=== PATIENT | male | born 1985 | race Caucasian/White ===

== ENCOUNTER 2017-01-29 15:57 | Emergency (ER) | payer MEDICAID, OTHER ==
[2017-01-29 16:06] VITALS: BP 149/99
--- NOTE | 2017-01-29 17:15 | RAD ---
Indication: Right ankle injury. 3 views of the right ankle demonstrate soft tissue swelling laterally. There is no fracture or dislocation. No other bone or joint abnormality is identified. IMPRESSION: Soft tissue swelling without evidence of fracture.
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
[2017-01-29] MEDS ORDERED: Ibuprofen TAB* 400 MG PO ONE (17:31)
== END 2017-01-29 17:56 | disposition home or self-care (01) ==
LOC: ED 15:57
DX: S93.401A Sprain of unspecified ligament of right ankle, initial encounter (principal); R60.0 Localized edema; V19.9XXA Pedal cyclist (driver) (passenger) injured in unspecified traffic accident, initial encounter; Y93.9 Activity, unspecified; Y92.9 Unspecified place or not applicable; Y99.9 Unspecified external cause status; F17.210 Nicotine dependence, cigarettes, uncomplicated
CPT/HCPCS: 99282; A9270-GY

== ENCOUNTER 2017-11-23 19:06 | Emergency (ER) | payer OTHER ==
--- NOTE | 2017-11-23 20:07 | RAD ---
INDICATION: Right hand injury. TECHNIQUE: 4 views of the right hand were obtained. FINDINGS: There is foreshortening and deformity of the fifth metacarpal consistent with an old boxer's type fracture. There is soft tissue swelling present dorsal to the fourth and fifth metacarpals. No acute fracture is seen. IMPRESSION: 1. SOFT TISSUE SWELLING, NO ACUTE FRACTURE IS SEEN. 2. OLD HEALED FRACTURE OF THE FIFTH METACARPAL.
--- NOTE | 2017-11-23 20:24 | ED ---
Upper Extremity Pain - HPI Summary HPI Summary: 32-year-old male presents with right hand injury today. He states he punched a metal door. He states his previous boxer fractures in the same area. He states tenderness over his right pinky and ring finger. He denies any numbness or tingling. He is right-handed. 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 He states he drunk alcohol to deal with the pain. He denies any wrist pain. He denies any other injury. He hasn't taken any pain medication. He has a small laceration to his right index finger that does not want to be evaluated. His tetanus is up -to-date. He states he has no pain currently. - History of Current Complaint Chief Complaint: EDExtremityUpper Stated Complaint: RT HAND INJURY Time Seen by Provider: 11/23/17 19:35 - Allergies/Home Medications Allergies/Adverse Reactions: Allergies Allergy/AdvReac Type Severity Reaction Status Date / Time codeine AdvReac Mild Nausea Verified 11/23/17 19:26 PMH/Surg Hx/FS Hx/Imm Hx Endocrine/Hematology History: Denies: Hx Anticoagulant Therapy Cardiovascular History: Reports: Hx Hypertension Infectious Disease History: No Infectious Disease History: Denies: Traveled Outside the [place] in Last 30 Days - Family History Known Family History: Positive: None - Social History Alcohol Use: Daily Substance Use Type: Reports: Marijuana Substance Use Comment - Amount & Last Used: Daily Smoking Status (MU): Heavy Every Day Tobacco Smoker Review of Systems Negative: Fever Negative: Chest Pain Negative: Shortness Of Breath Positive: Myalgia - right hand pain All Other Systems Reviewed And Are Negative: Yes Physical Exam Triage Information Reviewed: Yes Vital Signs On Initial Exam: Initial Vitals Temp Pulse Resp BP Pulse Ox 97.0 F 125 16 143/109 100 11/23/17 19:22 11/23/17 19:22 11/23/17 19:22 11/23/17 19:22 11/23/17 19:22 Vital Signs Reviewed: Yes Appearance: Positive: Well-Appearing Skin: Positive: Warm, Dry, Other - bandaide on right index finger Head/Face: Positive: Normal Head/Face Inspection Eyes: Positive: Normal, Conjunctiva Clear Respiratory/Lung Sounds: Positive: Clear to Auscultation, Breath Sounds Present Cardiovascular: Positive: Normal, RRR Musculoskeletal: Positive: Strength/ROM Intact - right hand, Edema Right - pinky and ring metacarpel, Other - good pulses, capillary refill<2 secs, sensation grossly intact Neurological: Positive: Normal Psychiatric: Positive: Normal Diagnostics - Vital Signs Vital Signs Temp Pulse Resp BP Pulse Ox 11/23/17 19:22 97.0 F 125 16 143/109 100 - Laboratory Lab Statement: Any lab studies that have been ordered have been reviewed, and results considered in the medical decision making process. - Radiology hand Xray Interpretation: Positive (See Comments) - IMPRESSION: 1. SOFT TISSUE SWELLING, NO ACUTE FRACTURE IS SEEN. 2. OLD HEALED FRACTURE OF THE FIFTH METACARPAL. Radiology Interpretation Completed By: Radiologist Course/Dx - Course Course Of Treatment: 32-year-old male presents with right hand injury today. He states he punched a metal door. He states his previous boxer fractures in the same area. He states tenderness over his right pinky and ring finger. He denies any numbness or tingling. He is right-handed. He is a ifmr-bq-qzva dad. He states he drunk alcohol to deal with the pain. He denies any wrist pain. He denies any other injury. He hasn't taken any pain medication. He has a small laceration to his right index finger that does not want to be evaluated. His tetanus is up-to-date. On exam has Band-Aid to right index finger that does not want treatment. Has edema to right pinky and ring finger. Neurovascular intact. X-ray shows edema but no acute fracture. Placed in [place] and will have follow RICE. Patient understands and agrees with plan. - Diagnoses Differential Diagnosis/HQI/PQRI: Positive: Fracture (Closed), Strain, Sprain Provider Diagnoses: Injury of right hand Discharge - Discharge Plan Condition: Good Disposition: HOME Patient Education Materials: Contusion in Adults (ED) Referrals: [facility] [place] [facility] [Outside] Additional Instructions: Take Tylenol or ibuprofen every 6 hours as needed for pain Apply ice, rest, elevate Follow up with primary care physician within 5 days Return to ED if develop any new or worsening symptoms
[2017-11-23 20:45] VITALS: BP 117/82
== END 2017-11-23 20:44 | disposition home or self-care (01) ==
LOC: ED 19:06
DX: S69.91XA Unspecified injury of right wrist, hand and finger(s), initial encounter (principal); W22.8XXA Striking against or struck by other objects, initial encounter; Y92.9 Unspecified place or not applicable; F17.200 Nicotine dependence, unspecified, uncomplicated; Z88.5 Allergy status to narcotic agent
CPT/HCPCS: 99282

== ENCOUNTER 2017-12-27 12:28 | Emergency (ER) | payer OTHER ==
[2017-12-27 13:11] VITALS: BP 128/87
--- NOTE | 2017-12-27 14:41 | UC ---
Respiratory Complaint HPI - HPI Summary HPI Summary: Pt c/o cough, nasal and chest congestion "chest tightening" X 1 week. Pt has hx of cardiomyopathy, chf, and has implanted defibrillator - History of Current Complaint Chief Complaint: UCRespiratory Stated Complaint: CONGESTION Time Seen by Provider: 12/27/17 14:10 Hx Obtained From: Patient Onset/Duration: Gradual Onset, Lasting Weeks - 1, Still Present, Worse Since - onset Timing: Constant Severity Initially: Mild Severity Currently: Moderate Pain Intensity: 0 Character: Cough: Nonproductive Aggravating Factors: Exertion, Deep Breaths, Recumbent Position Alleviating Factors: Nothing Associated Signs And Symptoms: Positive: Nasal Congestion - Risk Factors Pulmonary Embolism Risk Factors: Smoking Cardiac Risk Factors: Smoking Pseudomonas Risk Factors: Negative Tuberculosis Risk Factors: Smoking - Allergies/Home Medications Allergies/Adverse Reactions: Allergies Allergy/AdvReac Type Severity Reaction Status Date / Time codeine AdvReac Mild Nausea Verified 12/27/17 13:11 Home Medications: Home Medications Lisinopril TAB* [Prinivil TAB 5 MG*] 2.5 mg PO DAILY 12/27/17 [History Confirmed 12/27/17] Pantoprazole Sodium [Protonix] 20 mg PO DAILY 12/27/17 [History Confirmed ] PMH/Surg Hx/FS Hx/Imm Hx Previously Healthy: No - chf, cardiomyopathy Cardiovascular History: Cardiac Disease Other History Of: Negative For: Anticoagulant Therapy - Surgical History Surgical History: Yes Surgery Procedure, Year, and Place: defibrilator - Family History Known Family History: Positive: Cardiac Disease - Social History Lives: With Family Alcohol Use: Daily Alcohol Amount: 6 pack Substance Use Type: Marijuana Substance Use Comment - Amount & Last Used: Daily Smoking Status (MU): Light Every Day Tobacco Smoker Amount Used/How Often: 4-5 sig/day Have You Smoked in the Last Year: Yes Review of Systems Constitutional: Chills, Fatigue Skin: Negative Eyes: Negative ENT: Sinus Congestion Respiratory: Cough Cardiovascular: Negative Gastrointestinal: Negative Genitourinary: Negative Motor: Negative Neurovascular: Negative Musculoskeletal: Negative Neurological: Negative Psychological: Negative Is Patient Immunocompromised?: No All Other Systems Reviewed And Are Negative: Yes Physical Exam Triage Information Reviewed: Yes Appearance: Well-Appearing Vital Signs: Initial Vital Signs Temp 98.6 F 12/27/17 13:05 Pulse 112 12/27/17 13:05 Resp 16 12/27/17 13:05 BP 128/87 12/27/17 13:05 Pulse Ox 98 12/27/17 13:05 Vital Signs Reviewed: Yes Eye Exam: Normal ENT Exam: Normal Neck exam: Normal Respiratory Exam: Normal Cardiovascular Exam: Normal Cardiovascular: Positive: RRR Musculoskeletal Exam: Normal Neurological Exam: Normal Psychological Exam: Normal Skin Exam: Normal UC Diagnostic Evaluation - Laboratory O2 Sat by Pulse Oximetry: 98 Diagnostic Studies Comment: There is a left upper chest cardiac pacemaker with one lead overlying the heart and place. The heart and mediastinum are normal in size and contour. The lungs are grossly clear. Linear density overlying the mid-level right lung is likely a. small amount of fluid in the minor fissure. Visualized bones are normal for the patient's age. There is no radiographic evidence of free air beneath the diaphragm. IMPRESSION: LIKELY TRACE FLUID IN THE MINOR FISSURE OF THE RIGHT LUNG IN THIS OTHERWISE NONACUTE CHEST - Radiology Radiology Interpretation Completed By: Radiologist Respiratory Course/Dx - Course Course Of Treatment: There is a left upper chest cardiac pacemaker with one lead overlying the heart and place. The heart and mediastinum are normal in size and contour. The lungs are grossly clear. Linear density overlying the mid -level right lung is likely a. small amount of fluid in the minor fissure. Visualized bones are normal for the patient's age. There is no radiographic evidence of free air beneath the diaphragm. IMPRESSION: LIKELY TRACE FLUID IN THE MINOR FISSURE OF THE RIGHT LUNG IN THIS OTHERWISE NONACUTE CHEST - Differential Dx/Diagnosis Differential Diagnosis/HQI/PQRI: Bronchitis Provider Diagnoses: pneumonia Discharge - Sign-Out/Discharge Documenting (check all that apply): Discharge - Discharge Plan Condition: Stable Disposition: HOME Prescriptions: Albuterol 2.5MG/3ML (0.083%)* [Ventolin 2.5 MG/3 ML NEB.DANIEL*] 2.5 mg INH Q6H PRN #1 box PRN Reason: Sob/Wheezing Benzonatate CAP* [Tessalon 100 MG CAP*] 100 mg PO Q8H PRN #30 cap PRN Reason: Cough DOXYcycline CAP(*) [DOXYcycline 100MG CAP(*)] 100 mg PO Q12H #20 cap Nebulizer Accessories [A.i.r.s. Nebulizer] 1 each ONCE #1 kit predniSONE TAB* [Deltasone TAB*] 30 mg PO DAILY #12 tab Patient Education Materials: Pneumonia (ED) Referrals: Santiago Galvan MD [Medical Doctor] - No Primary Care Phys,NOPCP [Primary Care Provider] - Yasemin Curiel MD [Medical Doctor] - Additional Instructions: Please follow up with your PCP and your social media strategist as soon as possible. IMPRESSION: LIKELY TRACE FLUID IN THE MINOR FISSURE OF THE RIGHT LUNG IN THIS OTHERWISE NONACUTE CHEST X-RAY. - Billing Disposition and Condition Condition: STABLE Disposition: HOME
--- NOTE | 2017-12-27 14:50 | RAD ---
INDICATION: Shortness of breath and cough COMPARISON: None TECHNIQUE: PA and lateral views of the chest were obtained. FINDINGS: There is a left upper chest cardiac pacemaker with one lead overlying the heart and place. The heart and mediastinum are normal in size and contour. The lungs are grossly clear. Linear density overlying the mid-level right lung is likely a small amount of fluid in the minor fissure. Visualized bones are normal for the patient's age. There is no radiographic evidence of free air beneath the diaphragm IMPRESSION: LIKELY TRACE FLUID IN THE MINOR FISSURE OF THE RIGHT LUNG IN THIS OTHERWISE NONACUTE CHEST X-RAY.
== END 2017-12-27 15:30 | disposition home or self-care (01) ==
LOC: UCEAST 12:28
DX: J18.9 Pneumonia, unspecified organism (principal); R09.81 Nasal congestion; I42.9 Cardiomyopathy, unspecified; I50.9 Heart failure, unspecified; Z95.810 Presence of automatic (implantable) cardiac defibrillator; Z88.5 Allergy status to narcotic agent; F17.210 Nicotine dependence, cigarettes, uncomplicated
CPT/HCPCS: 71046; 99212; G0463

== ENCOUNTER 2018-01-11 14:03 | Observation (INO) | payer OTHER ==
[2018-01-11] MEDS ORDERED: Diltiazem IV* 5 MG/ML 5 ML VIAL (for loading dose/IV Push) (25 MG) IV SLOW PU ONE (14:53)
[2018-01-11 15:02] LABS: ABS Basophils 0 10^3/ul (0-0.2); ABS Eosinophils 0 10^3/ul (0-0.6); ABS Lymphocytes 1.1 10^3/ul (1.0-4.8); ABS Monocytes 0.6 10^3/ul (0-0.8); ABS Neutrophils 5.5 10^3/ul (1.5-7.7); ABS Nucleated RBC 0 10^3/ul; Eosinophil % 0.3 % (0-6); Hematocrit 43 % (42-52); Hemoglobin 14.9 g/dl (14.0-18.0); Lymphocyte % 15.3 % (25-47); Mean Corpuscular HGB Conc 35 g/dl (31-36); Mean Corpuscular Hemoglobin 36 pg (27-31); Mean Corpuscular Volume 104 fL (80-94); Mean Platelet Volume 7.2 um3 (7.4-10.4); Nucleated Red Blood Cells % 0; Platelet Count 195 10^3/ul (150-450); Red Blood Count 4.13 10^6/ul (4.0-5.4); Red Cell Distribution Width 13 % (10.5-15); White Blood Count 7.2 10^3/ul (3.5-10.8)
[2018-01-11 15:11] LABS: INR 0.94 (0.77-1.02)
--- NOTE | 2018-01-11 15:25 | RAD ---
INDICATION: Tachycardia COMPARISON: Chest x-ray dated December 27, 2017 TECHNIQUE: Single AP portable view of the chest was obtained. FINDINGS: Image quality is compromised due to the relative inferiority of a portable chest x-ray. Overlying the left upper chest is a cardiac pacemaker with one lead overlying the heart. The heart and mediastinum exhibit normal size and contour. The lungs are grossly clear. There is no evidence of a large pleural effusion. Visualized bones are normal for the patient's age. IMPRESSION: No radiographic evidence for acute cardiopulmonary abnormality on this portable chest x-ray.
[2018-01-11] MEDS ORDERED: Diltiazem DRIP* 100 MG/100 ML ADDV.BAG IVPB ONE (15:28)
[2018-01-11] MEDS ORDERED: Metoprolol Tartrate IV* 1 MG/ML 5 ML VIAL IV ONE (16:00)
[2018-01-11] MEDS: NS 0.9% 1000 ML* 1,000 ML IV SCH ×2 (16:03→21:55)
[2018-01-11] MEDS ORDERED: Magnesium Sulfate 2 GM IV* 2 GM/50 ML BAG IVPB ONE (16:18)
[2018-01-11] MEDS ORDERED: LORazepam INJ* 2 MG/ML 1 ML VIAL IV ONE (17:44)
[2018-01-11] MEDS ORDERED: Acetaminophen TAB* 325 MG PO PRN (18:59)
[2018-01-11] MEDS ORDERED: Al Hydrox/Mg Hydrox/Simet LIQ* 30 ML UDC PO PRN (18:59)
--- NOTE | 2018-01-11 20:25 | ED ---
Soto Colbert Jennifer, scribed for Twan Chan MD on 01/11/18 at 1450 . HPI Chest Pain - HPI Summary HPI Summary: The patient is a 32 year old male who reports his AICD fired after minimal activity about one hour ago. He complains of left-sided chest discomfort at this time, but otherwise states he is fine. The patient has a history of CHF and cardiomyopathy for years with only one other event prior to today. - History of Current Complaint Chief Complaint: EDChestPainROMI Time Seen by Provider: 01/11/18 14:42 Hx Obtained From: Patient Onset/Duration: Started Hours Ago - one hour, Still Present Timing: Constant Initial Severity: Moderate Current Severity: Moderate Pain Intensity: 4 Pain Scale Used: 0-10 Numeric Chest Pain Radiates: No Character: Other: - left-sided chest discomfort Aggravating Factor(s): Nothing Alleviating Factor(s): Nothing Associated Signs and Symptoms: Positive: Chest Pain - Allergy/Home Medications Allergies/Adverse Reactions: Allergies Allergy/AdvReac Type Severity Reaction Status Date / Time codeine AdvReac Mild Nausea Verified 12/27/17 13:11 Home Medications: Home Medications Pantoprazole TAB (NF) [Protonix TAB (NF)] 20 mg PO BID 01/11/18 [History Confirmed 01/11/18] PMH/Surg Hx/FS Hx/Imm Hx Endocrine/Hematology History: Denies: Hx Anticoagulant Therapy Cardiovascular History: Reports: Hx Congestive Heart Failure, Hx Hypertension, Hx Supraventricular Ventricular Tachycardia, Other Cardiovascular Problems/ Disorders - CHF AND CARDIOMYOPATHY - Surgical History Surgery Procedure, Year, and Place: defibrilator Infectious Disease History: No Infectious Disease History: Denies: Traveled Outside the [place] in Last 30 Days - Family History Known Family History: Positive: Cardiac Disease - Social History Alcohol Use: Daily Alcohol Amount: 6 pack Substance Use Type: Reports: Marijuana Substance Use Comment - Amount & Last Used: Daily Smoking Status (MU): Light Every Day Tobacco Smoker Amount Used/How Often: 4-5 sig/day Have You Smoked in the Last Year: Yes Review of Systems Negative: Fever Positive: Chest Pain All Other Systems Reviewed And Are Negative: Yes Physical Exam - Summary Physical Exam Summary: General: well-appearing, no pain distress Skin: warm, color reflects adequate perfusion, dry Head: normal Eyes: EOMI, JAYCEE ENT: normal Neck: supple, nontender Respiratory: CTA, breath sounds present Cardiovascular: tachycardic, regular rhythm Abdomen: soft, nontender Bowel: present Musculoskeletal: normal, strength/ROM intact Neurological: normal, sensory/motor intact, A&O x3 Psychological: affect/mood appropriate Triage Information Reviewed: Yes Vital Signs On Initial Exam: Initial Vitals Temp Pulse Resp BP Pulse Ox 98.0 F 152 15 151/99 100 01/11/18 14:14 01/11/18 14:14 01/11/18 14:14 01/11/18 14:14 01/11/18 14:14 Vital Signs Reviewed: Yes Diagnostics - Vital Signs Vital Signs Temp Pulse Resp BP Pulse Ox 01/11/18 14:14 98.0 F 152 15 151/99 100 - Laboratory Lab Results: Lab Results 01/11/18 01/11/18 01/11/18 Range/Units 14:45 14:45 14:45 WBC (3.5-10.8) 10^3/ul RBC (4.0-5.4) 10^6/ul Hgb (14.0-18.0) g/dl Hct (42-52) % MCV (80-94) fL MCH (27-31) pg MCHC (31-36) g/dl RDW (10.5-15) % Plt Count (150-450) 10^3/ul MPV (7.4-10.4) um3 Neut % (Auto) (38-83) % Lymph % (Auto) (25-47) % Spencer % (Auto) (0-7) % Eos % (Auto) (0-6) % Baso % (Auto) (0-2) % Absolute Neuts (auto) (1.5-7.7) 10^3/ul Absolute Lymphs (auto) (1.0-4.8) 10^3/ul Absolute Monos (auto) (0-0.8) 10^3/ul Absolute Eos (auto) (0-0.6) 10^3/ul Absolute Basos (auto) (0-0.2) 10^3/ul Absolute Nucleated RBC 10^3/ul Nucleated RBC % INR (Anticoag Therapy) 0.94 (0.77-1.02) APTT 31.2 (26.0-36.3) seconds D-Dimer, Quantitative < 200 (Less Than 230) ng/mL Sodium 134 L (139-145) mmol/L Potassium 3.5 (3.5-5.0) mmol/L Chloride 102 (101-111) mmol/L Carbon Dioxide 19 L (22-32) mmol/L Anion Gap 13 H (2-11) mmol/L BUN 14 (6-24) mg/dL Creatinine 0.92 (0.67-1.17) mg/dL Est GFR ( Amer) 123.4 (>60) Est GFR (Non-Af Amer) 96.0 (>60) BUN/Creatinine Ratio 15.2 (8-20) Glucose 198 H (70-100) mg/dL Lactic Acid (0.5-2.0) mmol/L Calcium 9.3 (8.6-10.3) mg/dL Magnesium 1.7 L (1.9-2.7) mg/dL Total Bilirubin 1.30 H (0.2-1.0) mg/dL AST 64 H (13-39) U/L ALT 37 (7-52) U/L Alkaline Phosphatase 44 (34-104) U/L Total Creatine Kinase 77 (10-223) U/L CK-MB (CK-2) 2.1 (0.6-6.3) ng/mL Troponin I 0.03 (<0.04) ng/mL C-Reactive Protein < 1.00 (< 5.00) mg/L B-Natriuretic Peptide 832 H ( - 100) pg/mL Total Protein 6.9 (6.4-8.9) g/dL Albumin 4.0 (3.2-5.2) g/dL Globulin 2.9 (2-4) g/dL Albumin/Globulin Ratio 1.4 (1-3) Lipase 16 (11.0-82.0) U/L TSH 1.13 (0.34-5.60) mcIU/mL 01/11/18 01/11/18 Range/Units 14:45 14:45 WBC 7.2 (3.5-10.8) 10^3/ul RBC 4.13 (4.0-5.4) 10^6/ul Hgb 14.9 (14.0-18.0) g/dl Hct 43 (42-52) % MCV 104 H (80-94) fL MCH 36 H (27-31) pg MCHC 35 (31-36) g/dl RDW 13 (10.5-15) % Plt Count 195 (150-450) 10^3/ul MPV 7.2 L (7.4-10.4) um3 Neut % (Auto) 76.2 (38-83) % Lymph % (Auto) 15.3 L (25-47) % Spencer % (Auto) 7.8 H (0-7) % Eos % (Auto) 0.3 (0-6) % Baso % (Auto) 0.4 (0-2) % Absolute Neuts (auto) 5.5 (1.5-7.7) 10^3/ul Absolute Lymphs (auto) 1.1 (1.0-4.8) 10^3/ul Absolute Monos (auto) 0.6 (0-0.8) 10^3/ul Absolute Eos (auto) 0 (0-0.6) 10^3/ul Absolute Basos (auto) 0 (0-0.2) 10^3/ul Absolute Nucleated RBC 0 10^3/ul Nucleated RBC % 0 INR (Anticoag Therapy) (0.77-1.02) APTT (26.0-36.3) seconds D-Dimer, Quantitative (Less Than 230) ng/mL Sodium (139-145) mmol/L Potassium (3.5-5.0) mmol/L Chloride (101-111) mmol/L Carbon Dioxide (22-32) mmol/L Anion Gap (2-11) mmol/L BUN (6-24) mg/dL Creatinine (0.67-1.17) mg/dL Est GFR ( Amer) (>60) Est GFR (Non-Af Amer) (>60) BUN/Creatinine Ratio (8-20) Glucose (70-100) mg/dL Lactic Acid 2.4 H* (0.5-2.0) mmol/L Calcium (8.6-10.3) mg/dL Magnesium (1.9-2.7) mg/dL Total Bilirubin (0.2-1.0) mg/dL AST (13-39) U/L ALT (7-52) U/L Alkaline Phosphatase (34-104) U/L Total Creatine Kinase (10-223) U/L CK-MB (CK-2) (0.6-6.3) ng/mL Troponin I (<0.04) ng/mL C-Reactive Protein (< 5.00) mg/L B-Natriuretic Peptide ( - 100) pg/mL Total Protein (6.4-8.9) g/dL Albumin (3.2-5.2) g/dL Globulin (2-4) g/dL Albumin/Globulin Ratio (1-3) Lipase (11.0-82.0) U/L TSH (0.34-5.60) mcIU/mL Result Diagrams: 01/11/18 14:45 01/11/18 14:45 Lab Statement: Any lab studies that have been ordered have been reviewed, and results considered in the medical decision making process. - Radiology CXR Xray Interpretation: No Acute Changes - No radiographic evidence for acute cardiopulmonary abnormality on this portable chest x-ray. Dr. Chan has reviewed this report. Radiology Interpretation Completed By: Radiologist - EKG 14:39 EKG Rhythm: Atrial Fibrillation - rapid afib at 152 bpm 15:19 EKG Rhythm: Atrial Fibrillation - 113 bpm EKG Interpretation: Anterior ST elevation, probably due to LVH Chest Pain Course/Dx - Course Course Of Treatment: Medications reviewed. Allergies noted. BP noted and advised to follow up with PCP. ADMIT HOSPITALIST. - Diagnoses Provider Diagnoses: HTN (hypertension), Rapid atrial fibrillation - Critical Care Time Critical Care Time: 30-74 min Discharge - Sign-Out/Discharge Documenting (check all that apply): Discharge/Admit/Transfer - Discharge Plan Condition: Stable Disposition: ADMITTED TO [facility] Referrals: Keisha Dorado ASSISTANT IMPORT MANAGER [Primary Care Provider] - Additional Instructions: Your blood pressure was elevated during todays visit; please follow up with your primary care provider within a week for further evaluation. Follow up with your primary care physician in three days. Return to the emergency department for any new or worsening symptoms. - Billing Disposition and Condition Condition: STABLE Disposition: [facility] [place] The documentation as recorded by the Soto rizo Jennifer accurately reflects the service I personally performed and the decisions made by , Twan Chan MD.
[2018-01-11] MEDS ORDERED: Potassium Chlor TAB* 20 MEQ TAB.ER PO ONE (21:13)
[2018-01-11 21:19] LABS: Urine Appearance Clear; Urine Blood 1+ (Negative); Urine Color Yellow; Urine Ketones Negative (Negative); Urine Protein Negative (Negative); Urine Specific Gravity 1.014 (1.010-1.030); Urine Urobilinogen Negative (Negative)
[2018-01-11] MEDS ORDERED: Mouth Piece, Nicotine* 1 EACH CARTRIDGE INH PRN (21:48)
[2018-01-11] MEDS ORDERED: Nicotine Inhaler* 10 MG AMP INH PRN (21:48)
[2018-01-11] MEDS ORDERED: Nicotine Inhaler* 10 MG AMP ONE (21:51)
[2018-01-11] MEDS ORDERED: Mouth Piece, Nicotine* 1 EACH CARTRIDGE ONE (21:52)
[2018-01-11] MEDS: Enoxaparin(*) 80 MG/0.8 ML SYR SUBCUT SCH (21:53)
[2018-01-11] MEDS: Carvedilol TAB* 3.125 MG PO SCH (21:53)
[2018-01-11] MEDS ORDERED: LORazepam TAB(*) 0.5 MG PO ONE (22:05)
--- NOTE | 2018-01-12 00:25 | HP ---
CC: Dr. Curiel; Keisha Dorado NP * HISTORY AND PHYSICAL: DATE OF ADMISSION: 01/11/18 PRIMARY CARE PROVIDER: Keisha Dorado NP. ATTENDING PHYSICIAN WHILE IN THE HOSPITAL: Imelda Miller DO * (dictated by Adrienne Prather NP). CHIEF COMPLAINT: 1. AFib with RVR. 2. ICD discharge x1. HISTORY OF PRESENT ILLNESS: Mr. Brice is a 32-year-old male patient that presented who carries a history of nonischemic cardiomyopathy, atrial fibrillation, hypertension, who presented to the emergency room after his ICD pacemaker discharged x1. The patient reports that he was putting on a pair of pants and he got shocked. He denied any chest pain. Denied any nausea or vomiting. Denied any palpitations. Denied any shortness of breath. He has had no other complaints. He states that he most recently completed treatment for pneumonia, which he completed antibiotics approximately 2 days ago. He states that he has some residual cough that is productive with clear sputum. He denies any fever or chills and states currently the cough is improved since completing his antibiotics. Given his history of nonischemic cardiomyopathy and discharge of his pacemaker, we were asked by the emergency room to evaluate him for admission. There have been no reports of vomiting. No diarrhea. No changes. No chest pain. No shortness of breath. No abdominal discomfort. No dysuria. There was no loss of consciousness with the pacemaker discharge. Again, there was no fever or chills. PAST MEDICAL HISTORY: 1. Nonischemic cardiomyopathy. 2. Atrial fibrillation. 3. Hypertension. PAST SURGICAL HISTORY: ICD pacemaker placement. HOME MEDICATIONS: Include: 1. Lisinopril 2.5 mg p.o. daily. 2. Pantoprazole 20 mg p.o. b.i.d. ALLERGIES TO MEDICATIONS: CODEINE. FAMILY HISTORY: He does report his mother has a history of cardiomyopathy and hypertension. Denies any family history of diabetes or cancer. He does report that he has a distant relationship with his mother and father. SOCIAL HISTORY: The patient does smoke approximately half a pack a day. He also reports he does 2 shots of tequila daily. He also reports that he smokes marijuana. He last smoked marijuana yesterday. He does not currently work. He is single. Surrogate decision maker is Chapo Webb, phone number is [phone]. REVIEW OF SYSTEMS: There is no documented fever. No significant weight changes. There has been no double vision. No ear discharge. Denies any rhinorrhea. Denies any sore throat. Denies any chest pain. Denies any orthopnea. No nocturnal dyspnea. There was no abdominal pain. No nausea, vomiting or diarrhea. No dysuria. No urinary frequency. There were no seizures. No loss of consciousness. No pruritus. No skin ulcerations. He does report that he has occasional cough with clear sputum and reports that he was recently treated with pneumonia and completed his antibiotic therapy approximately 2 days ago. PHYSICAL EXAMINATION GENERAL: At this time, Mr. Brice a 32-year-old male. He appears well, sitting on the stretcher in the emergency room. He does not appear to be in any acute distress. VITAL SIGNS: Heart rate is 98, respirations are 20, O2 saturation was 95%, blood pressure 101/78, temperature 98.0. HEENT: Head is atraumatic, normocephalic. Eyes: EOMs are intact. Sclerae anicteric, not pale. Oral mucosa appears to be moist. No oropharyngeal erythema. NECK: Supple. LUNGS: Clear to auscultation bilaterally. No wheezes, rales or rhonchi. HEART: Sounds S1 and S2. Irregular rate and rhythm. There are no murmurs, rubs or gallops. He is tachycardic at this time. ABDOMEN: Soft and nontender. Bowel sounds are present. EXTREMITIES: Pulses are +2 throughout. He is moving all 4 extremities with 5/ 5 strength. There is no edema noted to the lower extremities. NEUROLOGIC: He is awake. He is alert and oriented x3. Speech is clear. No focal deficits are noted. SKIN: Intact. DIAGNOSTIC STUDIES/LAB DATA: WBC's were 7.2, RBC's 4.13, hemoglobin 14.9, hematocrit was 43, platelet count was 195,000. INR was 0.948, PTT was 31.2, D- dimer was less than 200. Sodium was 134, potassium 3.5, chloride 102, carbon dioxide 19, glucose was 198, lactic acid was 2.4, calcium 9.3, magnesium 1.7, total bili was 1.30, AST's were 64, BNP was 832, TSH was 1.13. EKG on admission showed atrial fibrillation at a rate of 152. Repeat electrocardiogram at 1518 showed AFib at a rate of 113. He had a repeat EKG at 1858, which showed sinus rhythm at a rate of 98. Chest x-ray, radiologist's impression: No radiographic evidence for acute cardiopulmonary abnormality on this portable chest x-ray. Lungs are grossly clear. There is no evidence of a large pleural effusion. ASSESSMENT AND PLAN: Mr. Brice is a 32-year-old male that presented to the emergency room today after his implantable cardioverter defibrillator discharged. At that time he was found to be in atrial fibrillation. We were asked by the emergency room to admit him for further observation. He will be admitted under observation status for: 1. Atrial fibrillation with rapid ventricular response. The patient was placed on a Cardizem drip. His heart rate has come down from 152 to 113. We will continue him on Cardizem. In the event that he converts to sinus rhythm, we will discontinue his Cardizem. I will cycle his troponins x2. I have also talked to Dr. Estes from Cardiology who will consult on this case. During the admission process in the ER, the patient did convert to sinus rhythm at a rate of 93. Dr. Estes from Cardiology recommended that the patient be started on Coreg 3.125 mg p.o. b.i.d. I will place him on Lovenox 1 mg per kilogram subcu q.12 hours. 2. Implantable cardioverter defibrillator discharge. I will recommend that he get his implantable cardioverter defibrillator interrogated. He does have [employer] model. 3. Nonischemic cardiomyopathy. In his previous records, it is noted that his EF in March 2016 showed an EF of less than 20%. The patient is currently taking no beta jose antonio. He does report that he has a longstanding history of being in sinus rhythm, but has a remote history of atrial fibrillation. He states that it has been a long time since he has been in atrial fibrillation. Again, Cardiology is consulting on this case and recommendations are appreciated. 4. Hypomagnesium. He received 2 g of magnesium in the emergency room. I will repeat magnesium level in the morning. 5. Hypertension. We will continue him on his lisinopril 2.5 mg p.o. daily. 6. Acid reflux, gastroesophageal reflux disease. We will continue on pantoprazole 20 mg. 7. FEN. He will be placed on heart healthy cardiac diet. 8. Code status. He is a full code. 9. DVT prophylaxis. He will be on Lovenox subcu. Also he can ambulate ad becca. 10. Disposition. He will be inpatient on the telemetry unit for observation. TIME SPENT: Time spent on this admission was 60 minutes, greater than half the time was spent [id number] with the patient obtaining his history and physical , the other half time was spent going over my plan of care and implementing my plan of care. I have discussed this with my attending, Dr. Imelda Miller, and she is in agreement with my plan. ADRIENNE PRATHER, PNEUMATIC TESTER [id number]/CPS #: [id number] NIEVES
[2018-01-12] MEDS: NS 0.9% 1000 ML* 1,000 ML IV SCH (03:10)
[2018-01-12 06:12] LABS: ABS Basophils 0 10^3/ul (0-0.2); ABS Eosinophils 0.1 10^3/ul (0-0.6); ABS Lymphocytes 1.9 10^3/ul (1.0-4.8); ABS Monocytes 0.4 10^3/ul (0-0.8); ABS Neutrophils 3.3 10^3/ul (1.5-7.7); ABS Nucleated RBC 0 10^3/ul; Hematocrit 40 % (42-52); Hemoglobin 13.9 g/dl (14.0-18.0); Lymphocyte % 33.5 % (25-47); Mean Corpuscular HGB Conc 35 g/dl (31-36); Mean Corpuscular Hemoglobin 37 pg (27-31); Mean Corpuscular Volume 104 fL (80-94); Mean Platelet Volume 7.8 um3 (7.4-10.4); Nucleated Red Blood Cells % 0.1; Platelet Count 176 10^3/ul (150-450); Red Cell Distribution Width 13 % (10.5-15); White Blood Count 5.7 10^3/ul (3.5-10.8)
[2018-01-12 06:25] LABS: EGFR Non-African American 99.7 (>60)
[2018-01-12] MEDS ORDERED: Omeprazole CAP* 20 MG PO SCH (07:30)
[2018-01-12] MEDS: Carvedilol TAB* 3.125 MG PO SCH (08:31)
[2018-01-12] MEDS ORDERED: Magnesium Sulfate 2 GM IV* 2 GM/50 ML BAG IVPB ONE (08:37)
[2018-01-12] MEDS ORDERED: Lisinopril TAB* 5 MG PO SCH (09:00)
[2018-01-12] MEDS: Enoxaparin(*) 80 MG/0.8 ML SYR SUBCUT SCH (09:46)
[2018-01-12] MEDS ORDERED: LORazepam INJ* 2 MG/ML 1 ML VIAL IV PUSH ONE (09:59)
[2018-01-12] MEDS ORDERED: ceFAZolin 1 GM VIAL(*) 1 GM in NS 0.9% 50 ML* 50 ML IVPB ONE (11:07)
[2018-01-12] MEDS ORDERED: ceFAZolin 2 GM PREMIX (*) 2 GM/50 ML BAG IVPB ONE (11:07)
[2018-01-12] MEDS ORDERED: Diazepam TAB(*) 5 MG PO ONE (11:07)
[2018-01-12] MEDS ORDERED: NS 0.9% 1000 ML* 1,000 ML IV SCH (11:15)
[2018-01-12] MEDS ORDERED: ceFAZolin 1 GM/10 ML flush(*) SYRINGE for pocket flush (cardiology) FLUSH ONE (12:00)
[2018-01-12] MEDS ORDERED: fentaNYL* 50 MCG/ML 2 ML VIAL (100 MCG VIAL) ONE ×2 (12:29→15:03)
[2018-01-12] MEDS ORDERED: Lidocaine 1% INJ* 10 MG/ML 30 ML SDV ONE ×2 (12:29→14:53)
[2018-01-12] MEDS ORDERED: Midazolam* 1 MG/ML 5 ML VIAL (5 MG) ONE ×3 (12:29→15:22)
[2018-01-12 16:31] VITALS: BP 97/61
--- NOTE | 2018-01-12 19:40 | CONS ---
CARDIOLOGY CONSULTATION REPORT: DATE OF CONSULT: 01/12/18 INDICATION FOR CONSULT: ICD discharge. HISTORY OF PRESENT ILLNESS: The patient is a 32-year-old gentleman with a history of nonischemic cardiomyopathy, history of ICD implantation in 2010 who has been followed by Dr. Curiel. The patient had been doing well up until yesterday when he was at home sitting on the couch and his ICD discharged. The patient had no palpitations, no shortness of breath, no lightheaded prior to the discharge. He came to the emergency room. In the emergency room, he was found to be in atrial fibrillation with a heart rate of 152. The patient was given IV Cardizem in the emergency room and converted back to normal sinus rhythm. The patient was stable overnight. When I saw the patient in the morning, he had no complaints. The patient's ICD was interrogated. It is a [employer] Model E102, implant date 2010. The interrogation demonstrated that the device was at end of life service and the battery was completely depleted. The patient had his ICD interrogated in April of 2017 and was noted to be functioning normally. At that time, he had had an estimated longevity of 2 to 3 years. In speaking with the patient, he has been doing well. He denies any significant symptoms. He has been taking his medications appropriately. No recent hospitalizations. OUTPATIENT MEDICATIONS: 1. Aldactone 25 mg a day. 2. Lasix 20 mg a day. 3. Lisinopril 2.5 mg a day. The patient was supposed to be taking Toprol-XL, but the patient denies taking that medication. ALLERGIES: CODEINE. FAMILY HISTORY: Noncontributory. SOCIAL HISTORY: He is not . He is currently not working. He does smoke at least a pack of cigarettes a day. He drinks at least 5 to 6 beers a day. PHYSICAL EXAM: Height is 5 feet and 7 inches, weight is 147 pounds. Temperature 98.7, heart rate is 109, blood pressure 101/77, respiratory rate is 18, oxygen saturation 93% on room air. Sclerae anicteric. Oropharynx is pink without erythema. Carotids are 2+ without bruits. JVD is normal. Thyroid is normal. Cardiac Exam: S1, S2 without any murmurs, rubs, or gallops. Lungs are clear to auscultation bilaterally. There is no dullness to percussion. Abdomen is soft, nontender, nondistended with normoactive bowel sounds. Extremities show no edema. He has 2+ pulses throughout. The patient is awake, alert, and oriented. He moves all 4 extremities equally. DIAGNOSTIC STUDIES/LAB DATA: CBC within normal limits. Chemistries within normal limits. BUN 14, creatinine 0.92. AST and ALT are normal. Troponin level is 0.04. BNP 832. TSH 1.13. INR is 0.94. D-dimer is less than 200. EKG shows normal sinus rhythm with LVH. IMPRESSION: This is a 32-year-old gentleman with a history of nonischemic cardiomyopathy. He has got an ICD implanted in 2010. The patient has been followed by Dr. Curiel. His last ICD interrogation was normal with at least 2 years of longevity. This was less than a year ago. The patient's ICD is now at complete battery depletion. RECOMMENDATIONS: It is my recommendation that the patient undergo ICD generator change. The patient will also be started on beta-blockers. I do not think the patient requires anticoagulation at this point despite this episode of atrial fibrillation. On looking his previous interrogations, I do not see any frequent episodes of atrial fibrillation. ADDENDUM: The patient did go to the operating room for ICD generator change. After an incision was made, it became obvious that the patient's ICD was subpectoral in his placement and not just subcutaneous. The incision was closed in 3 layers. The patient was discharged from the hospital for immediate follow up over at the [facility] for evaluation for ICD generator change from the subpectoral pocket. The patient was offered a LifeVest for discharge. The patient refused the LifeVest. [id number]/[facility] #: [id number] [facility] CENTERZurdo
[2018-01-12] MEDS ORDERED: Heparin VIAL(*) 5000 UNITS/ML VIAL (FIVE THOUSAND) SUBCUT SCH (22:00)
--- NOTE | 2018-01-13 11:51 | OP ---
OPERATIVE REPORT: DATE OF OPERATION: 01/12/18 DATE OF : 87 SURGEON: Catrachito Estes MD ANESTHESIA: Local anesthesia with conscious sedation. PRE-OP DIAGNOSIS: Cardiomyopathy, implantable cardioverter-defibrillator at elective replacement indicator. POST-OP DIAGNOSIS: Cardiomyopathy, implantable cardioverter-defibrillator at elective replacement indicator. OPERATIVE PROCEDURE: Attempted ICD generator change. INDICATIONS: The patient is a 32-year-old male with a history of nonischemic cardiomyopathy, history of ICD implantation in 2010. The patient has been followed by Dr. Curiel. The patient's ICD was interrogated in July of 2017 and found to be in good functioning order. It had at least 2 years of estimated longevity. The patient was admitted yesterday with atrial fibrillation with rapid ventricular response that resulted in an ICD discharge. The patient's ICD was interrogated and was found to be at end-of-life indicators. This indicated substantial battery depletion of unknown origin. His ICD is a [employer] model E102. Its right ventricular lead sensing was noted to be normal in April of 2017. ICD generator was recommended. ESTIMATED BLOOD LOSS: Nil. COMPLICATIONS: Unable to access ICD pocket as it was subpectoral in its placement. DESCRIPTION OF PROCEDURE: The patient was brought to the procedure room in a fasting state. Informed consent had been obtained prior to the procedure. All labs were reviewed. The patient was placed supine on the procedure table. His left deltopectoral area was cleaned and draped in the usual fashion. 1% lidocaine was used for local anesthesia. A 4.5-cm incision was made over the ICD site and blunt dissection was carried down. It was clear that the pectoral fascia was reached and there was no evidence that there was an ICD pocket. On further probing, it was clear that there was a subpectoral ICD, which I elected not to enter. The incision was closed in 3 layers. The patient was returned to the holding area in stable condition. The patient will be arranged to have an outpatient ICD generator change done at [facility] with a physician comfortable in subpectoral pocket revision. [id number]/[facility]PS #: [id number] MTDD
--- NOTE | 2018-01-14 02:30 | DS ---
CC: Keisha Dorado NP; Dr. Ventura; Dr. Curiel * DISCHARGE SUMMARY: DATE OF ADMISSION: 01/11/18 DATE OF DISCHARGE: 01/12/18 PRIMARY CARE PROVIDER: Keisha Dorado NP ATTENDING PHYSICIAN WHILE IN THE HOSPITAL: Anthony Fall MD * ( DICTATED BY MYNOR CRENSHAW) VICE PRESIDENT OF SOFTWARE ENGINEERING: Dr. Ventura [facility]. LOCAL VICE PRESIDENT OF SOFTWARE ENGINEERING: Dr. Curiel. PRIMARY DISCHARGE DIAGNOSES: 1. Atrial fibrillation with rapid ventricular response. 2. Nonischemic cardiomyopathy with ICD discharge. SECONDARY DISCHARGE DIAGNOSIS: Hypertension. STUDIES DONE WHILE IN THE HOSPITAL: 1. Electrocardiogram from 01/11/18 shows tachycardia, T-wave inversions, atrial fibrillation rate of 152, QTc of 490, left axis deviation, concentric left ventricular hypertrophy, ST elevation in V2 and V3, and ST depression in V5 and V6. 2. Repeat EKG from 01/11/18 shows atrial flutter rate of 113, persistent T- wave inversions to V5 and V6 as well as slight ST segment elevation in V2 and V3 , persistent left axis deviation, QTc 482.. No other significant changes from previous exam. Repeat EKG from 01/11/18 shows sinus rhythm rate of 98, QTc of 484, persistent T-wave inversions, and ST segment elevation in V2 and V3 likely representing repolarization. Repeat EKG from 01/12/18 shows rate of 111, sinus tachycardia, no significant changes from previous exam. 3. Chest x-ray from 01/11/18 shows no radiographic evidence of acute cardiopulmonary abnormality in this portable chest x-ray. MEDICATIONS AT DISCHARGE: 1. Lisinopril 2.5 mg p.o. daily. 2. Pantoprazole 20 mg p.o. b.i.d. 3. Tylenol 650 mg p.o. q.4 hours as needed for pain. 4. Aspirin 81 mg p.o. daily. 5. Carvedilol 3.125 mg p.o. b.i.d. NEW MEDICATIONS AT DISCHARGE: 1. Tylenol. 2. Aspirin. 3. Carvedilol. MEDICATIONS DISCONTINUED AT DISCHARGE: None. HOSPITAL COURSE: This is a brief summary of the patient's presentation. For more details, please see the history and physical from Adrienne Prather NP on 01/11/18. In brief, the patient is a 32-year-old male with past medical history significant for the above who presents to emergency department after his pacemaker discharged. The patient was not exerting himself, he was only putting on a pair of pants. Denies any chest pain, nausea, vomiting, palpitations, shortness of breath, or other complaints. The patient recently was diagnosed with pneumonia and completed a course of antibiotics, which he did not know the name of. The patient had no syncope. The patient was found to be in atrial fibrillation with a rate of 152, started on Cardizem drip and converted back to normal sinus rhythm. The patient had one elevated troponin at 0.04. The patient had elevated BNP, lactic acid, low magnesium, increased bilirubin, increased AST. The patient also had anion gap metabolic acidosis. The patient was monitored overnight. The patient was significantly anxious while being in the hospital and had sinus tachycardia throughout his hospitalization. The patient had no other signs of CHF while in the hospital. No signs of exacerbation. His lungs were clear. Chest x-ray read as above. The patient's ICD was interrogated and was found to be low on battery. The patient was seen in consultation by Dr. Catrachito Estes and the plan was for a battery replacement ; however, the patient's ICD was found to be a subpectoral pacemaker after he was taken for the pacemaker change. This was done with Dr. Catrachito Estes. The patient in April 2017 had normally functioning ICD with an estimated battery longevity of 2 to 3 years. It is unknown why his battery decreased in the way it was. The patient remained in normal sinus rhythm. There was consideration for the patient to have LifeVest, which he refused. The patient was educated on the risks with his cardiomyopathy not having on ICD and he understood and was willing to accept these risks. The patient's outsole cementer machine, Dr. Ventura, will be the one to perform his ICD generator change and he was called by Dr. Estes and will be calling the patient soon after he left the hospital. The patient requested discharge. Again, there was nothing else to be done for him while he was in the hospital here. At this time, he was discharged to home with close followup with his outsole cementer machine in [place]. PHYSICAL EXAM ON THE DAY OF DISCHARGE: General: The patient is a 32-year-old male who appears stated age and sitting comfortably in bed, visibly anxious. Vital Signs: At the time of discharge, temperature 98.7, pulse rate 111, respiratory rate 20, oxygen saturation 93% on room air, blood pressure 90/53. HEENT: Head: Normocephalic, atraumatic. Sclerae anicteric. No conjunctival injection. Nasal mucosa moist. Oral mucosa moist. No pharyngeal erythema, discharge, or exudate. Neck: Supple, nontender. No lymphadenopathy. No carotid bruits auscultated. No JVD. Cardiac: Regular rate and rhythm. No clicks, murmurs, gallops, or rubs. Pulses 2+ in bilateral dorsalis pedis, posterior tibialis, and radial areas. No bilateral lower extremity edema noted. No calf tenderness. PMI nondisplaced. Respiratory: Clear to auscultation bilaterally. No wheezes, rales, or rhonchi. Good air exchange bilaterally. Abdomen: Soft, nontender, and nondistended. Bowel sounds present and normoactive in all 4 quadrants. No hepatosplenomegaly. No abdominal bruits auscultated. Skin: Clean, dry, and intact. No rash. Genitourinary: No suprapubic or CVA tenderness. Neuro: Cranial nerves II through XII intact. No focal deficits. Psychiatric: Anxious, but cooperative. LABORATORY DATA ON DAY OF DISCHARGE: Magnesium 1.8, sodium 138, carbon dioxide 21. Hemoglobin 13.9, MCV 104. BNP 832. Other significant laboratory findings from this admission can be found in the HPI. DISCHARGE PLAN: The patient will be discharged to home. The patient refused LifeVest. It was stressed on the patient and he voiced understanding that it is of paramount importance he has his ICD generator changed as soon as possible. The patient was started on carvedilol. The patient should continue all his other home medications. The patient has a CHADS VASc score of 1. The patient states he would not take anticoagulation except for aspirin. The patient was started on aspirin 81 mg p.o. daily with the understanding that his risk of stroke was elevated not being on full anticoagulation. The patient should follow up with his primary care provider within 1 week. The patient should follow up with outpatient outsole cementer machine after his generator is changed for routine care. The patient should return to the hospital for alarming symptoms such as syncope, chest pain, shortness of breath, or other alarming symptoms. TIME SPENT: Approximately 60 minutes was spent on this discharge, 30 of which was spent [id number] with the patient obtaining history and physical and discussing the treatment plan. MYNOR CRENSHAW [id number]/[facility] #: [id number] NIEVES
== END 2018-01-12 17:15 | disposition home or self-care (01) ==
LOC: ED 14:03 → MEDTELE 20:20
PROVIDERS: ADMIT Hospitalist; ATTEND Hospitalist
DX: I48.91 Unspecified atrial fibrillation (principal); I42.9 Cardiomyopathy, unspecified; I10 Essential (primary) hypertension; Z79.82 Long term (current) use of aspirin; Z79.01 Long term (current) use of anticoagulants; Z95.0 Presence of cardiac pacemaker
CPT/HCPCS: 36415; 71045; 80048; 80053; 81003; 81015; 82550; 82553; 83605; 83690; 83735; 83880; 84443; 84484; 85025; 85379; 85610; 85730; 86140; 93005; 99285; A9270-GY; G0378; J0690; J1650; J2060; J2250; J3010; J3475

== ENCOUNTER 2018-01-24 06:57 | Inpatient (IN) | payer OTHER ==
[2018-01-24] MEDS ORDERED: NS 0.9% 1000 ML* 1,000 ML IV SCH (07:30)
[2018-01-24 07:49] LABS: INR 1.02 (0.77-1.02)
[2018-01-24 08:01] LABS: EGFR Non-African American 85.2 (>60)
[2018-01-24 08:19] LABS: ABS Basophils 0 10^3/ul (0-0.2); ABS Eosinophils 0.1 10^3/ul (0-0.6); ABS Lymphocytes 0.7 10^3/ul (1.0-4.8); ABS Monocytes 0.3 10^3/ul (0-0.8); ABS Neutrophils 3.8 10^3/ul (1.5-7.7); ABS Nucleated RBC 0 10^3/ul; Hematocrit 38 % (42-52); Hemoglobin 13.2 g/dl (14.0-18.0); Lymphocyte % 14.1 % (25-47); Mean Corpuscular HGB Conc 35 g/dl (31-36); Mean Corpuscular Hemoglobin 37 pg (27-31); Mean Corpuscular Volume 106 fL (80-94); Mean Platelet Volume 8.2 um3 (7.4-10.4); Nucleated Red Blood Cells % 0.1; Platelet Count 135 10^3/ul (150-450); Red Blood Count 3.56 10^6/ul (4.0-5.4); Red Cell Distribution Width 14 % (10.5-15)
[2018-01-24] MEDS ORDERED: Magnesium Sulfate 2 GM IV* 2 GM/50 ML BAG IVPB ONE (08:31)
[2018-01-24] MEDS ORDERED: Iodixanol* (CONTRAST) 320 MG/ML 100 ML SDV IV ONE (08:48)
--- NOTE | 2018-01-24 09:29 | RAD ---
Indication: Shortness of breath, positive d-dimer and upper abdominal pain. Contrast: Administered 99.3 ml of OMNIPAQUE 350 mg/ml CTA of the chest was performed without IV contrast administration. Coronal and sagittal reconstructed images were obtained. CT of the abdomen and pelvis was also performed after IV contrast demonstration. Inferior thyroid lobes are unremarkable. AICD device is in place. The pulmonary arterial tree is well opacified. There are no filling defects present to suggest pulmonary embolus. Prominent interlobular septal thickening is noted. Bilateral pleural effusions are noted. Findings may be consistent with CHF. The thoracic aorta demonstrates no evidence of a residual dilatation although poorly opacified. There are prevascular space lymph nodes measuring 13 mm and 10 mm. Subcarinal lymph nodes are noted measuring up to 15 mm. Right hilar lymph nodes are noted. There is cardiomegaly without pericardial effusion noted. The axilla demonstrates no evidence of abnormal adenopathy. The lung dumas demonstrates trachea and major bronchi appear patent. No alveolar consolidation is noted. CT of the abdomen and pelvis demonstrates liver to be normal in size. No focal lesions or intrahepatic duct dilatation is noted. The gallbladder demonstrates no calcified gallstones with no pericholecystic fluid is present. Clinical correlation is suggested. Pericholecystic fluid could also be found with CHF. The spleen is normal in size. No adrenal masses are noted. The kidneys demonstrate symmetric nephrograms. There is a enhancing lesion in the anterior cortex of the left kidney measuring 7 mm of uncertain etiology. This may represent volume averaging off normal cortex. Follow-up exam in 3 months is suggested. No retroperitoneal lymphadenopathy is noted. Aorta and inferior vena cava are unremarkable. No dilated loops of bowel are noted. The colon is filled with stool. CT of the pelvis demonstrates no pelvic adenopathy. A small amount of free fluid is noted in the pelvis. The urinary bladder is unremarkable. No hernias are noted. The visualized bony structures are grossly unremarkable. IMPRESSION: No evidence of pulmonary embolus is noted. Bilateral pleural effusions are noted. Cardiomegaly is noted. Underlying CHF may be present. CT of the abdomen and pelvis demonstrates 7 mm lesion in the anterior left kidney just below the left renal hilum. This may represent volume averaging from cortex although a solid lesion is not totally excluded. Follow-up exam in 3 months is suggested. A small amount of ascites is noted. Pericholecystic fluid is noted surrounding the gallbladder. This may be due to CHF. Clinical correlation is suggested.
--- NOTE | 2018-01-24 09:46 | RAD ---
Indication: Upper abdominal pain. Real-time sonography of the right upper quadrant was performed. The liver measures 20.9 cm in length and is increased in echogenicity consistent with hepatic steatosis. Normal flow is noted in the liver. The gallbladder demonstrates no definite gallstones although there is pericholecystic fluid and wall thickening which can often be seen in CHF. Clinical correlation is suggested. Common duct measures 4 mm. Right kidney measures 12.5 x 5.9 x 4.7 cm with a calculus in the right kidney measuring 10 mm. The pancreas demonstrates no mass or pancreatic duct dilatation. IMPRESSION: Gallbladder wall thickening and pericholecystic fluid correlating with CT. No definite gallstones are noted. This can be often seen in CHF.
--- NOTE | 2018-01-24 09:54 | RAD ---
Indication: Shortness of breath. Single frontal view of the chest performed at 0750 hours was reviewed. Comparison is made with previous exam dated January 11, 2018. A ICD device lead is in place. The generator appears to be exchanged. Interstitial edema consistent with CHF is noted. IMPRESSION: FINDINGS CONSISTENT WITH CHF.
[2018-01-24] MEDS ORDERED: Furosemide IV* 10 MG/ML VIAL (40 MG) IV ONE (10:22)
[2018-01-24 10:33] LABS: Urine Appearance Clear; Urine Blood 1+ (Negative); Urine Color Yellow; Urine Ketones Negative (Negative); Urine Protein Negative (Negative); Urine Specific Gravity > 1.060 (1.010-1.030); Urine Urobilinogen Negative (Negative)
[2018-01-24] MEDS ORDERED: Al Hydrox/Mg Hydrox/Simet LIQ* 30 ML UDC PO PRN (11:10)
[2018-01-24] MEDS ORDERED: Acetaminophen TAB* 325 MG PO PRN ×2 (11:10→11:58)
[2018-01-24] MEDS ORDERED: Thiamine IV* 100 MG/ML 2 ML VIAL IM ONE (11:58)
[2018-01-24] MEDS ORDERED: LORazepam TAB(*) 1 MG PO SCH (12:00)
[2018-01-24] MEDS ORDERED: Mouth Piece, Nicotine* 1 EACH CARTRIDGE INH PRN (12:18)
[2018-01-24] MEDS ORDERED: Magnesium Oxide TAB* 400 MG PO ONE (12:18)
[2018-01-24] MEDS ORDERED: Nicotine Inhaler* 10 MG AMP INH PRN (12:18)
[2018-01-24] MEDS: Enoxaparin(*) 40 MG/0.4 ML SYR SUBCUT SCH (12:29)
[2018-01-24] MEDS: Nicotine PATCH 14 MG/24 HR* PATCH TRANSDERM SCH (13:52)
--- NOTE | 2018-01-24 14:39 | ED ---
Kody Colbert Stephanie, scribed for Twan Chan MD on 01/24/18 at 0813 . Abdominal Pain/Male - HPI Summary HPI Summary: The pt is a 32 y/o M presenting to the ED with c/o diffuse abd that began at 04: 00 today. Symptoms include SOB. He denies fever and LE edema. His symptoms are aggravated by deep breaths and cough. On 01/22/18 the pt had surgery to replace his defibrillator. The pt states his abd feels solid. - History of Current Complaint Chief Complaint: EDAbdPain Stated Complaint: DIFFICULTY BREATHING Time Seen by Provider: 01/24/18 07:36 Hx Obtained From: Patient Onset/Duration: Sudden Onset, Lasting Hours, Still Present Timing: Constant Severity Currently: Moderate Pain Intensity: 8 Pain Scale Used: 0-10 Numeric Location: Diffuse Radiates: No Character: Cramping Aggravating Factor(s): Deep Breaths Alleviating Factor(s): Nothing Associated Signs And Symptoms: Positive: Negative - LE edema, Other - SOB. Negative: Fever - Allergies/Home Medications Allergies/Adverse Reactions: Allergies Allergy/AdvReac Type Severity Reaction Status Date / Time codeine AdvReac Mild Nausea Verified 01/24/18 07:03 Home Medications: Home Medications Furosemide [Furosemide] 20 mg PO DAILY 01/24/18 [History Confirmed 01/24/18] PMH/Surg Hx/FS Hx/Imm Hx Endocrine/Hematology History: Denies: Hx Anticoagulant Therapy Cardiovascular History: Reports: Hx Congestive Heart Failure, Hx Hypertension, Other Cardiovascular Problems/Disorders - CHF AND CARDIOMYOPATHY Sensory History: Reports: Hx Contacts or Glasses Denies: Hx Hearing Aid Opthamlomology History: Reports: Hx Contacts or Glasses EENT History: Denies: Hx Deafness - Surgical History Surgery Procedure, Year, and Place: 01/22/18- defibrillator repolaced Infectious Disease History: No Infectious Disease History: Denies: Traveled Outside the [place] in Last 30 Days - Family History Known Family History: Positive: Cardiac Disease - Social History Occupation: Unemployed Lives: Dormitory/Roommates Alcohol Use: Daily Alcohol Amount: 6 pack Hx Substance Use: Yes Substance Use Type: Reports: Marijuana Substance Use Comment - Amount & Last Used: Daily Hx Tobacco Use: Yes Smoking Status (MU): Heavy Every Day Tobacco Smoker Amount Used/How Often: 4-5 sig/day Have You Smoked in the Last Year: Yes Review of Systems Negative: Fever Positive: Shortness Of Breath Positive: Abdominal Pain Musculoskeletal: Negative - LE edema All Other Systems Reviewed And Are Negative: Yes Physical Exam - Summary Physical Exam Summary: General: Mildly ill-appearing, mild pain distress Skin: warm, color reflects adequate perfusion, dry Head: normal Eyes: EOMI, JAYCEE ENT: normal Neck: supple, nontender Respiratory: CTA, breath sounds present Cardiovascular: tachycardic, regular rhythm Abdomen: soft, Diffuse tenderness to palpation, worse in upper abdomen, positive tympani Bowel: hypoactive bowel sounds Musculoskeletal: normal, strength/ROM intact Neurological: sensory/motor intact, A&O x3 Psychological: affect/mood appropriate Triage Information Reviewed: Yes Vital Signs On Initial Exam: Initial Vitals Temp Pulse Resp BP Pulse Ox 98.8 F 85 16 100/64 94 01/24/18 06:58 01/24/18 06:58 01/24/18 06:58 01/24/18 06:58 01/24/18 06:58 Vital Signs Reviewed: Yes Diagnostics - Vital Signs Vital Signs Temp Pulse Resp BP Pulse Ox 01/24/18 07:21 240 26 93 01/24/18 07:20 245 102/76 95 01/24/18 06:58 98.8 F 85 16 100/64 94 - Laboratory Lab Results: Lab Results 01/24/18 01/24/18 01/24/18 Range/Units 07:29 07:30 07:31 INR (Anticoag Therapy) 1.02 (0.77-1.02) APTT 28.2 (26.0-36.3) seconds D-Dimer, Quantitative 299 H (Less Than 230) ng/mL Sodium 134 L (139-145) mmol/L Potassium 4.1 (3.5-5.0) mmol/L Chloride 106 (101-111) mmol/L Carbon Dioxide 25 (22-32) mmol/L Anion Gap 3 (2-11) mmol/L BUN 13 (6-24) mg/dL Creatinine 1.02 (0.67-1.17) mg/dL Est GFR ( Amer) 109.6 (>60) Est GFR (Non-Af Amer) 85.2 (>60) BUN/Creatinine Ratio 12.7 (8-20) Glucose 116 H (70-100) mg/dL Lactic Acid 1.4 (0.5-2.0) mmol/L Calcium 9.0 (8.6-10.3) mg/dL Magnesium 1.5 L (1.9-2.7) mg/dL Total Bilirubin 0.80 (0.2-1.0) mg/dL AST 156 H (13-39) U/L ALT 114 H (7-52) U/L Alkaline Phosphatase 113 H (34-104) U/L Total Creatine Kinase 196 (10-223) U/L CK-MB (CK-2) 1.7 (0.6-6.3) ng/mL Troponin I 0.03 (<0.04) ng/mL C-Reactive Protein 11.94 H (< 5.00) mg/L Total Protein 6.2 L (6.4-8.9) g/dL Albumin 3.8 (3.2-5.2) g/dL Globulin 2.4 (2-4) g/dL Albumin/Globulin Ratio 1.6 (1-3) Lipase 17 (11.0-82.0) U/L TSH Pending Result Diagrams: 01/24/18 07:30 01/24/18 07:30 Lab Statement: Any lab studies that have been ordered have been reviewed, and results considered in the medical decision making process. - Radiology CXR Xray Interpretation: Positive (See Comments) Radiology Interpretation Completed By: Radiologist - FINDINGS CONSISTENT WITH CHF. ED physician has reviewed this report. - CT CTA Chest/Abdomen/Pelvis CT Interpretation: Positive (See Comments) CT Interpretation Completed By: Radiologist - No evidence of pulmonary embolus is noted. Bilateral pleural effusions are noted. Cardiomegaly is noted. Underlying CHF may be present. CT of the abdomen and pelvis demonstrates 7 mm lesion in the anterior left kidney just below the left renal hilum. This may represent volume averaging from cortex although a solid lesion is not totally excluded. Follow-up exam in 3 months is suggested. A small amount of ascites is noted. Pericholecystic fluid is noted surrounding the gallbladder. This may be due to CHF. Clinical correlation is suggested. ED physician has reviewed this report. - EKG 07:28 Cardiac Rate: Tachycardia EKG Rhythm: Sinus Tachycardia - 119 BPM, abnormal T, probable ischemia, lateral leads, anterior ST elevation, probably due to LVH EKG Interpretation: probable LVH with secondary repolarization abnormality, - Additional Comments Diagnostic Additional Comments: US gallbladder reveals: Gallbladder wall thickening and pericholecystic fluid correlating with CT. No definite gallstones are noted. This can be often seen in CHF. ED physician has reviewed this report. Re-Evaluation - Re-Evaluation First Eval Re-Evaluation Time: 11:24 Change: Unchanged - ED physician discussed plan of admission with the pt and the pt understands and agrees. Abdominal Pain Fem Course/Dx - Course Course Of Treatment: ADMIT HOSPITALIST - Diagnoses Provider Diagnoses: CHF (congestive heart failure), Epigastric pain - Provider Notifications Discussed Care Of Patient With: Arin Watkins Time Discussed With Above Provider: 11:24 Instructed by Provider To: Admit As Inpatient - Critical Care Time Critical Care Time: 30-74 min Discharge - Sign-Out/Discharge Documenting (check all that apply): Discharge/Admit/Transfer - Discharge Plan Condition: Stable Disposition: ADMITTED TO [facility] - Billing Disposition and Condition Condition: STABLE [place] [place] The documentation as recorded by the Kody rizo Stephanie accurately reflects the service I personally performed and the decisions made by me, Twan Chan MD.
--- NOTE | 2018-01-24 16:00 | HP ---
CC: Dr. Curiel * HISTORY AND PHYSICAL: DATE OF ADMISSION: 01/24/18 TIME OF ADMISSION: 11 a.m. CHIEF COMPLAINT: Shortness of breath. HISTORY OF PRESENT ILLNESS: This is a 32-year-old man with a history of dilated cardiomyopathy, who presents with several weeks of worsening shortness of breath and dyspnea on exertion. He is in the emergency department with his girlfriend, who relates some of the history. His girlfriend says that he has been getting progressively more short of breath even with slight exertion and this morning he was just next to trying to put his pants on and she witnessed him gasping for air, so they came to the emergency department. He denies orthopnea or weight gain; however, he does not weigh himself. He denies any recent change in diet, no change in his fluid intake; however, he says he "eats whatever he wants" and "does not regulate his diet." He has not experienced any chest pain. He underwent an AICD change on Thursday in [place]; however, this shortness of breath preceded that procedure. He called his booking officer 4 days ago with similar complaints and he was prescribed p.o. Lasix, which he has been taking, but he did not notice any difference. He had been taking Lasix 20 mg daily for the last 2 days. He is usually adherent with his DIOR inhibitor and beta-jose antonio; however, he has declined further workup and referral to a transplant center by his booking officer. PAST MEDICAL HISTORY: 1. Dilated cardiomyopathy of unclear etiology (viral versus idiopathic versus alcohol versus tachycardia-mediated. A left heart cath was reportedly negative at [place]). 2. Alcohol abuse. 3. Tobacco abuse. HOME MEDICATIONS: 1. Lisinopril 2.5 mg daily. 2. Coreg 3.125 mg b.i.d. 3. Aspirin 81 mg daily. 4. Lasix 20 mg daily. FAMILY HISTORY: His mom had cardiomyopathy as well, but he does not know anything else about it. SOCIAL HISTORY: He smokes half-a-pack per day of cigarettes. He drinks 1 bottle of tequila daily. He lives with his girlfriend. REVIEW OF SYSTEMS: Negative for fevers, chills, nausea, vomiting, diarrhea, constipation. He is still able to walk up a flight of stairs, but was more short of breath than usual when climbing them. PHYSICAL EXAMINATION GENERAL: Thin, well-appearing man in no distress. He is able to speak in full sentences without stopping and he has no accessory respiratory muscle use. VITAL SIGNS: Temperature 97.7, heart rate 109, respiratory rate 22, pulse ox 93 % on 4 L, blood pressure 106/78. HEENT: Pupils equal, round, and reactive to light. Oral mucosa is moist with no pharyngeal exudates or, erythema. NECK: No cervical or supraclavicular lymphadenopathy. I cannot see his jugular vein. LUNGS: His lungs have dry crackles at bilateral bases. CHEST: Tachycardic. His PMI is hyperdynamic and laterally displaced. ABDOMEN: His abdomen is slightly distended. His liver is palpable 3 cm below the costal margin. His spleen is nonpalpable. His abdomen is diffusely tender to light palpation worse in the right and left upper quadrants. I am unable to check a Ledezma sign due to pain with palpation. Bowel sounds are normoactive. EXTREMITIES: No edema. No rashes. No ulcers. LABORATORY DATA: White blood cells 5.0, hemoglobin 13.2. INR 1.02. Sodium 134, potassium 4.1, chloride 106, bicarb 25, glucose 116, magnesium 1.5. ALT 114, AST 156, alk phos 113, total bilirubin 0.80. IMAGING: Chest x-ray, my read: ICD in place over the left chest. It looks like a single chamber ICD. Cardiomegaly is noted with vascular congestion. EKG : Sinus tachycardia, left axis deviation, normal intervals, LVH, and T-wave inversions in V5 and V6 that are unchanged from prior EKG. Gallbladder ultrasound: Gallbladder wall thickening and pericholecystic fluid correlating with CT, no definite gallstones noted. This can also be seen in CHF. CTA chest , abdomen and pelvis: No PE. Bilateral pleural effusions, cardiomegaly, underlying CHF may be present, 7 mm lesion in the anterior left kidney just below the left renal hilum. This may represent volume averaging from cortex, although a solid lesion is not totally excluded, followup exam in 3 months is suggested. A small amount of ascites is noted, pericholecystic fluid is noted surrounding the gallbladder. ASSESSMENT AND PLAN: This is a 32-year-old man with dilated cardiomyopathy, who presents with several weeks of worsening shortness of breath and is found to be in decompensated heart failure. 1. Acute on chronic systolic heart failure. This seems like a subacute decompensation and has been ongoing for several weeks. This may be due to dietary or fluid indiscretion in combination with ongoing alcohol abuse and may also be related to suboptimal medical optimization as he has been resistant to continue medical therapy. He reportedly had a left heart cath at [place], which was negative, so I do not believe ischemia is playing a role in his decompensation. I would like to continue daily weights and IV Lasix for a goal of 1 L negative daily. Regarding his cardiomyopathy, the etiology remains unclear and I have discussed this case with his booking officer, Dr. Curiel. The differential includes viral, congenital and alcohol related; however, the workup that has been done at [place] will be helpful and I will attempt to get these records from [place]. I will continue him on lisinopril and Coreg and believe he will benefit from higher doses of both of these if he can tolerate them. 2. Abdominal pain. In combination with elevated transaminases and pericholecystic fluid, I suspect this is related to congestion from decompensated heart failure; however, if this pain persists despite diuresis, I would check a HIDA scan tomorrow to rule out acute acalculous cholecystitis. 3. Elevated liver enzymes. Again, this could be related either to vascular congestion or alcohol abuse. We will continue to trend them. 4. Alcohol abuse. I am placing him on the [facility] protocol with p.o. Ativan. He has never had seizures or delirium tremens. He says he will never stop drinking and his girlfriend agrees. 5. Hypomagnesemia. Replete now. 6. Tobacco abuse. Replace with nicotine inhaler. 7. Kidney lesion. This needs to be noted in his record and followup is necessary in 3 months. 8. Hyponatremia. I suspect this is hypervolemic hyponatremia and should improve with diuresis. 9. DVT prophylaxis: Lovenox daily. 10. Diet: Unrestricted, n.p.o. after midnight for possible HIDA tomorrow. Should Mr. Brice not be able to make decisions, he appoints his girlfriend, Aguilar, to make decisions for him. Aguilar's phone number is [phone] and if Aguilar is unavailable, we should call his friend, Mariya at [phone]. [id number]/[facility] #: [id number] [facility] HOSPITALZurdo
[2018-01-24] MEDS: Furosemide IV* 10 MG/ML VIAL (40 MG) IV SLOW PU SCH (16:45)
[2018-01-24] MEDS: Carvedilol TAB* 3.125 MG PO SCH (20:41)
[2018-01-24] MEDS: traMADol TAB* 50 MG PO PRN (20:48)
[2018-01-24] MEDS ORDERED: guaiFENesin LIQ* 100 MG/5 ML UDC PO PRN (21:02)
[2018-01-25 05:56] LABS: ABS Basophils 0 10^3/ul (0-0.2); ABS Eosinophils 0.1 10^3/ul (0-0.6); ABS Lymphocytes 1.5 10^3/ul (1.0-4.8); ABS Monocytes 0.4 10^3/ul (0-0.8); ABS Neutrophils 2.5 10^3/ul (1.5-7.7); ABS Nucleated RBC 0 10^3/ul; Eosinophil % 1.8 % (0-6); Hematocrit 41 % (42-52); Hemoglobin 14.3 g/dl (14.0-18.0); Lymphocyte % 33.4 % (25-47); Mean Corpuscular HGB Conc 35 g/dl (31-36); Mean Corpuscular Hemoglobin 37 pg (27-31); Mean Corpuscular Volume 105 fL (80-94); Mean Platelet Volume 8.2 um3 (7.4-10.4); Nucleated Red Blood Cells % 0.2; Platelet Count 165 10^3/ul (150-450); Red Blood Count 3.89 10^6/ul (4.0-5.4); Red Cell Distribution Width 14 % (10.5-15); White Blood Count 4.6 10^3/ul (3.5-10.8)
[2018-01-25 06:00] LABS: INR 1.09 (0.77-1.02)
[2018-01-25 06:22] LABS: EGFR Non-African American 88.2 (>60)
[2018-01-25] MEDS: Thiamine TAB* 100 MG TAB PO SCH (08:24)
[2018-01-25] MEDS: Lisinopril TAB* 5 MG PO SCH (08:24)
[2018-01-25] MEDS: Omeprazole CAP* 20 MG PO SCH (08:24)
[2018-01-25] MEDS: Folic Acid TAB* 1 MG PO SCH (08:25)
[2018-01-25] MEDS: Aspirin EC TAB* 81 MG TAB.EC PO SCH (08:25)
[2018-01-25] MEDS: Carvedilol TAB* 3.125 MG PO SCH ×2 (08:25→20:17)
[2018-01-25] MEDS: Multivitamins/Minerals TAB PO SCH (08:25)
[2018-01-25] MEDS: Nicotine PATCH 14 MG/24 HR* PATCH TRANSDERM SCH (08:25)
[2018-01-25] MEDS: Furosemide IV* 10 MG/ML VIAL (40 MG) IV SLOW PU SCH ×2 (08:27→16:38)
--- NOTE | 2018-01-25 10:10 | PN ---
Subjective Date of Service: 01/25/18 Interval History: He feels MUCH better today. His breathing is much more comfortable, he's been able to walk to the hallway without having to stop and catch his breath. The abdominal pain is resolved, he has an improved appetite. No chest pain or orthopnea, no shakes, anxiety, tremors, or hallucinations. Social History: Unchanged from Admission Past Medical History: Unchanged from Admission Objective Active Medications: Acetaminophen (Tylenol Tab*) 650 mg PO Q4H PRN PRN Reason: FEVER/PAIN Acetaminophen (Tylenol Tab*) 650 mg PO Q4H PRN PRN Reason: PAIN Al Hydrox/Mg Hydrox/Simethicone (Maalox Plus*) 30 ml PO Q6H PRN PRN Reason: INDIGESTION Aspirin (Aspirin Ec Tab*) 81 mg PO DAILY [facility] Last Admin: 01/25/18 08:25 Dose: 81 mg Carvedilol (Coreg Tab*) 3.125 mg PO BID [facility] Last Admin: 01/25/18 08:25 Dose: 3.125 mg Device (Nicotine Mouth Piece*) 1 each INH .USE WITH NICOTROL PRN PRN Reason: CRAVING Last Admin: 01/24/18 12:36 Dose: 1 each Enoxaparin Sodium (Lovenox(*)) 40 mg SUBCUT Q24H [facility] Last Admin: 01/24/18 12:29 Dose: 40 mg Folic Acid (Folvite Tab*) 1 mg PO DAILY [facility] Last Admin: 01/25/18 08:25 Dose: 1 mg Furosemide (Lasix Iv*) 40 mg IV SLOW PU 0800,1700 [facility] Last Admin: 01/25/18 08:27 Dose: 40 mg Guaifenesin (Robitussin*) 5 ml PO Q6H PRN PRN Reason: COUGH Lisinopril (Prinivil Tab*) 2.5 mg PO DAILY [facility] Last Admin: 01/25/18 08:24 Dose: 2.5 mg Lorazepam (Ativan Tab(*)) 0 - 6 mg PO .[facility] PRN Reason: Protocol Multivitamins/Minerals (Theragran/Minerals Tab*) 1 tab PO DAILY [facility] Last Admin: 01/25/18 08:25 Dose: 1 tab Nicotine (Nicotine Inhaler*) 10 mg INH Q2H PRN PRN Reason: CRAVING Last Admin: 01/24/18 12:37 Dose: 10 mg Nicotine (Nicotine Patch 14 Mg/24 Hr*) 1 patch TRANSDERM DAILY [facility] Last Admin: 01/25/18 08:25 Dose: 1 patch Omeprazole (Prilosec Cap*) 20 mg PO DAILY@0730 [facility] Last Admin: 01/25/18 08:24 Dose: 20 mg Pharmacy Profile Note (Nicotine Patch Removal Note*) 1 note PATCH OFF 2100 [facility] Thiamine HCl (Vitamin B-1 Tab*) 100 mg PO DAILY [facility] Last Admin: 01/25/18 08:24 Dose: 100 mg Tramadol HCl (Ultram*) 50 mg PO Q6H PRN PRN Reason: PAIN Last Admin: 01/24/18 20:48 Dose: 50 mg Vital Signs - 8 hr 01/25/18 01/25/18 01/25/18 02:15 04:36 06:11 Temperature 98.0 F 98.0 F 98.0 F Pulse Rate 104 106 98 Respiratory 16 16 16 Rate Blood Pressure 89/71 98/72 98/70 (mmHg) O2 Sat by Pulse 95 100 100 Oximetry 01/25/18 07:18 Temperature Pulse Rate Respiratory 18 Rate Blood Pressure (mmHg) O2 Sat by Pulse Oximetry Oxygen Devices in Use Now: None Appearance: alert, pleasant, more energetic than yesterday, breathing comfortably at about 45 degrees Eyes: No Scleral Icterus Ears/Nose/Mouth/Throat: NL Teeth, Lips, Gums Neck: - - I cannot appreciate jvp Respiratory: Symmetrical Chest Expansion and Respiratory Effort, - Cardiovascular: RRR, No Edema, - - hyperdynamic PMI. AICD pocket is tender, incision does not have surrounding erythema or drainage. Lymphatic: No Cervical Adenopathy Extremities: No Edema Result Diagrams: 01/25/18 05:37 01/25/18 05:37 Additional Lab and Data: Lab Results 01/24/18 01/24/18 01/24/18 Range/Units 07:29 07:30 07:31 INR (Anticoag Therapy) 1.02 (0.77-1.02) APTT 28.2 (26.0-36.3) seconds D-Dimer, Quantitative 299 H (Less Than 230) ng/mL Sodium 134 L (139-145) mmol/L Potassium 4.1 (3.5-5.0) mmol/L Chloride 106 (101-111) mmol/L Carbon Dioxide 25 (22-32) mmol/L Anion Gap 3 (2-11) mmol/L BUN 13 (6-24) mg/dL Creatinine 1.02 (0.67-1.17) mg/dL Est GFR ( Amer) 109.6 (>60) Est GFR (Non-Af Amer) 85.2 (>60) BUN/Creatinine Ratio 12.7 (8-20) Glucose 116 H (70-100) mg/dL Lactic Acid 1.4 (0.5-2.0) mmol/L Calcium 9.0 (8.6-10.3) mg/dL Magnesium 1.5 L (1.9-2.7) mg/dL Total Bilirubin 0.80 (0.2-1.0) mg/dL AST 156 H (13-39) U/L ALT 114 H (7-52) U/L Alkaline Phosphatase 113 H (34-104) U/L Total Creatine Kinase 196 (10-223) U/L CK-MB (CK-2) 1.7 (0.6-6.3) ng/mL Troponin I 0.03 (<0.04) ng/mL C-Reactive Protein 11.94 H (< 5.00) mg/L Total Protein 6.2 L (6.4-8.9) g/dL Albumin 3.8 (3.2-5.2) g/dL Globulin 2.4 (2-4) g/dL Albumin/Globulin Ratio 1.6 (1-3) Lipase 17 (11.0-82.0) U/L TSH Pending Assess/Plan/Problems-Billing Assessment: 32 yo man with NICM with recent AICD placement, etoh abuse admitted 01/24 with sob, cunningham, and abdominal pain. - Patient Problems (1) Acute on chronic systolic (congestive) heart failure Current Visit: Yes Status: Acute Code(s): I50.23 - ACUTE ON CHRONIC SYSTOLIC (CONGESTIVE) HEART FAILURE SNOMED Code(s): 127754509 Comment: likely ongoing etoh abuse, dietary indiscretion markedly improved today after 2 doses of lasix 40mg iv down 2 kg continue iv lasix for today; may need daily po lasix at home may also benefit from spironolactone (awaiting tte results from OSH, may repeat TTE here if it has not been recent) continue giselle/bb etiology is unclear and may be viral vs. idiopathic vs. tachycardia mediated vs. etoh. it was diagnosed in 2010 and he does not know why AICD in place for primary prevention (2) Alcohol abuse Current Visit: Yes Status: Acute Code(s): F10.10 - ALCOHOL ABUSE, UNCOMPLICATED SNOMED Code(s): 23329022 Comment: no signs of withdrawal, continue wam protocol (3) Tobacco abuse Current Visit: Yes Status: Acute Code(s): Z72.0 - TOBACCO USE SNOMED Code( s): 094780599 Comment: nicotine berta
[2018-01-25] MEDS: Enoxaparin(*) 40 MG/0.4 ML SYR SUBCUT SCH (11:35)
[2018-01-25] MEDS: traMADol TAB* 50 MG PO PRN ×2 (11:39→19:12)
--- NOTE | 2018-01-25 12:39 | ECHO ---
Patient: PAULA PEOPLES [facility] Rec#: [id number] : 1985 Date: 01/25/2018 Age: 32y Height: 170.18 cm / 67.0 in Weight: 65.32 kg / 144.0 lbs Sex: M BSA: 1.76 Room#: 442 Admit Date#: 01/24/2018 Type: Inpatient Referring: Arin Watkins MD Reading: Cartachito Estes MD Hospitality Associate: Priscilla Owens,RDCS,RDMS CC: Yasemin Curiel MD Transthoracic Echocardiogram Indication: Cardiomyopathy, SOB BP: 98/72 HR: 112 Rhythm: Tachycardia Findings History: Dilated cardiomyopathy, ICD, ETOH, smoker Technical Comments: The study quality is good. Left Ventricle: The left ventricular size is moderate to severely dilated. There is no left ventricular hypertrophy. There is global hypokinesis of the left ventricle with minor regional variation. There is severely decreased left ventricular systolic function. The estimated ejection fraction is less than 20%. Abnormal left ventricular diastolic function is observed. Left Atrium: The left atrium is severely dilated. Right Ventricle: The right ventricular cavity size is normal. The right ventricular global systolic function is severely reduced. A pacemaker wire is visualized in the right ventricle. Right Atrium: The right atrium is moderately dilated. A pacemaker wire is visualized in the right atrium. Aortic Valve: The aortic valve is trileaflet. Systolic excursion of the aortic valve is normal. There is no evidence of aortic regurgitation. There is no evidence of aortic stenosis. Mitral Valve: The mitral valve leaflets appear normal. There is moderate to severe mitral regurgitation. There is no evidence of mitral stenosis. Tricuspid Valve: The tricuspid valve leaflets are normal. There is mild to moderate tricuspid regurgitation. No pulmonary hypertension is noted. Pulmonic Valve: The pulmonic valve appears normal. There is moderate pulmonic regurgitation. Pericardium: There is no significant pericardial effusion. Aorta: The aortic root appears normal. There is no dilatation of the aortic arch. Pulmonary Artery: The main pulmonary artery appears normal. Venous: The inferior vena cava appears normal in size. There is a greater than 50% respiratory change in the inferior vena cava dimension. Conclusions There is severely decreased left ventricular systolic function. The estimated ejection fraction is less than 20%. There is global hypokinesis of the left ventricle with minor regional variation. The right ventricular global systolic function is severely reduced. A pacemaker wire is visualized in the right atrium. There is no evidence of aortic stenosis. There is moderate to severe mitral regurgitation. Central jet There is mild to moderate tricuspid regurgitation. There is moderate pulmonic regurgitation. There is no significant pericardial effusion. Compared to study of 02/10/16, the LV function is the same. The degree of MR has increased from mild to Mod/severe Measurements Name Value Normal Range RVIDd (AP) 2D 2.6 cm (0.9 - 2.6) RVDdMajor (2D) 2.6 cm (2.2 - 4.4) RAd ISD 4CH 5.9 cm (3.4 - 4.9) RA (A4C)W 3.1 cm (2.9 - 4.6) IVSd (2D) 0.8 cm (0.6 - 1) LVPWd (2D) 1 cm (0.6 - 1) LVIDd (2D) 6.9 cm (3.6 - 5.4) LVIDs (2D) 6.6 cm - LV FS (2D) 5 % (25 - 45) Aortic Annulus 2 cm (1.4 - 2.6) Ao root diameter (2D) 2.6 cm (2.1 - 3.5) Ascending Ao 2.3 cm (2.1 - 3.4) Aortic arch 3.1 cm (1.8 - 3.4) LA dimension (AP) 2D 5.1 cm (2.3 - 3.8) LAd ISD 4CH 6.9 cm (2.9 - 5.3) LA ISD 4CH W 5.1 cm (2.5 - 4.5) Name Value Normal Range LA ESV SP 4CH (A/L) 88.8 ml - LA ESV SP 2CH (A/L) 122.53 ml - LA ESV BP (A/L) 105.07 ml - LA ESV BP (A/L) index 60 ml/m2 - LA ESV SP 4CH (MOD) 84.56 ml - LA ESV SP 2CH (MOD) 115.9 ml - Name Value Normal Range MV E-wave Vmax 1.1 m/sec - MV deceleration time 131 msec - MV A-wave Vmax 0.3 m/sec - MV E:A ratio 3.7 ratio - LV septal e' Vmax 0.05 m/sec - LV lateral e' Vmax 0.09 m/sec - LV E:e' septal ratio 22 ratio - LV E:e' lateral ratio 12 ratio - Name Value Normal Range AV Vmax 0.6 m/sec - AV VTI 8.5 cm - AV peak gradient 1.4 mmHg - AV mean gradient 0.8 mmHg - LVOT Vmax 0.4 m/sec - LVOT VTI 5.4 cm - LVOT peak gradient 0.6 mmHg - LVOT mean gradient 0.4 mmHg - DONNELL Vmax 0.5 m/sec - Name Value Normal Range MV Vmax 1.2 m/sec - MV VTI 17 cm - MV peak gradient 6 mmHg - MV mean gradient 2.3 mmHg - MV PHT 54 msec - MR Vmax 3.9 m/sec - MR VTI 107.5 cm - MR volume (PISA) 41 ml - MR flow (PISA) 159.5 ml/sec - MR ERO 3.8 cm2 - MR PISA radius 0.8 cm - MR alias Vmax 37 cm/sec - MVA (PHT) 4.1 cm2 - Name Value Normal Range TR Vmax 2.6 m/sec - TR peak gradient 27 mmHg - RAP 3 mmHg - RVSP 30 mmHg - IVC diameter 1.8 cm - Name Value Normal Range PV Vmax 0.4 m/sec - PV peak gradient 0.6 mmHg -
[2018-01-25] MEDS ORDERED: Nicotine Patch Removal NOTE PATCH OFF SCH (21:00)
[2018-01-26] MEDS: Omeprazole CAP* 20 MG PO SCH (08:30)
[2018-01-26] MEDS: Aspirin EC TAB* 81 MG TAB.EC PO SCH (08:30)
[2018-01-26] MEDS: Thiamine TAB* 100 MG TAB PO SCH (08:30)
[2018-01-26] MEDS: Nicotine PATCH 14 MG/24 HR* PATCH TRANSDERM SCH (08:30)
[2018-01-26] MEDS: Multivitamins/Minerals TAB PO SCH (08:30)
[2018-01-26] MEDS: Folic Acid TAB* 1 MG PO SCH (08:30)
[2018-01-26] MEDS: Furosemide IV* 10 MG/ML VIAL (40 MG) IV SLOW PU SCH (09:40)
[2018-01-26] MEDS: Carvedilol TAB* 3.125 MG PO SCH (09:41)
[2018-01-26] MEDS: Lisinopril TAB* 5 MG PO SCH (09:41)
[2018-01-26 10:01] LABS: ABS Basophils 0 10^3/ul (0-0.2); ABS Eosinophils 0.1 10^3/ul (0-0.6); ABS Lymphocytes 0.9 10^3/ul (1.0-4.8); ABS Monocytes 0.5 10^3/ul (0-0.8); ABS Neutrophils 3.4 10^3/ul (1.5-7.7); ABS Nucleated RBC 0 10^3/ul; Eosinophil % 1.7 % (0-6); Hematocrit 42 % (42-52); Hemoglobin 14.7 g/dl (14.0-18.0); Lymphocyte % 17.5 % (25-47); Mean Corpuscular HGB Conc 35 g/dl (31-36); Mean Corpuscular Hemoglobin 36 pg (27-31); Mean Corpuscular Volume 104 fL (80-94); Mean Platelet Volume 7.9 um3 (7.4-10.4); Nucleated Red Blood Cells % 0.1; Platelet Count 185 10^3/ul (150-450); Red Blood Count 4.06 10^6/ul (4.0-5.4); Red Cell Distribution Width 14 % (10.5-15); White Blood Count 4.9 10^3/ul (3.5-10.8)
[2018-01-26] MEDS: Enoxaparin(*) 40 MG/0.4 ML SYR SUBCUT SCH (12:52)
[2018-01-26] MEDS ORDERED: Carvedilol TAB* 3.125 MG PO ONE (13:25)
[2018-01-26 14:17] VITALS: BP 93/68
--- NOTE | 2018-01-27 11:26 | DS ---
CC: Dr. Curiel; [facility] * DISCHARGE SUMMARY: DATE OF ADMISSION: 01/24/18 DATE OF DISCHARGE: 01/26/18 PRINCIPAL DISCHARGE DIAGNOSIS: Acute on chronic systolic heart failure. SECONDARY DISCHARGE DIAGNOSES: 1. Dilated cardiomyopathy. 2. Alcohol abuse. 3. Tobacco abuse. DISCHARGE MEDICATIONS: 1. Lisinopril 2.5 mg daily. 2. Protonix 20 mg b.i.d. 3. Aspirin 81 mg daily. 4. Coreg 3.125 mg b.i.d. 5. Lasix 20 mg daily. PHYSICAL EXAMINATION: At the time of discharge; temperature 97.5, heart rate 106, respiratory rate 16, pulse ox 99% on room air, and blood pressure 93/68. General: Alert, well-appearing man, in no distress. He is walking in the hallways, is able to speak in full sentences without any dyspnea. He has no orthopnea and he is using no accessory respiratory muscles. HEENT: Pupils are equal, round, and reactive to light. No nystagmus. Moist oral mucosa. Neck: No JVP is noted. His jugular veins are flat. Chest: Tachycardic, regular rhythm. No murmurs. PMI is hyperdynamic. Lungs: Clear bilaterally. No wheezes or rhonchi. A left chest AICD is in place and a recent incision is healing well with a small amount of erythema just over the incision site, but none surrounding and no drainage. No tenderness to palpation over the ICD pocket. Abdomen: Soft, nontender, nondistended. Liver is palpable below the costal margin. No guarding or rebound. Extremities: No edema. No asterixis. No tremors. HOSPITAL COURSE BY PROBLEM: 1. Acute on chronic systolic heart failure: Mr. Brice presented with dyspnea on exertion with very slight movement, which was a severe change from his baseline. Unfortunately, he does not weigh himself daily, he does not monitor his fluid intake nor his diet, and he also drinks large volumes of alcohol. He was noted to be in decompensated heart failure at the time of admission and he responded well to IV Lasix. He had been started on p.o. Lasix by his gravity prospecting supervisor 4 days prior to admission; however, was only taking Lasix 20 mg daily, which at that time did not change his symptoms. He responded well to Lasix 40 mg IV b.i.d., and he has lost 8 pounds in the 3 days he has been here. I educated him on weighing himself daily and calling his gravity prospecting supervisor if he gains more than 3 pounds in a day. I am also continuing his Lasix 20 mg daily and have sent a new prescription to [facility]. He should follow up with his PCP within 1 week and have a repeat BMP and magnesium to be sure that his magnesium and potassium are not low on this new medication of Lasix. The etiology of his cardiomyopathy is unclear at this time. I discussed the case with his gravity prospecting supervisor, Dr. Curiel, and the differential includes idiopathic, alcohol-induced, tachycardia-mediated or viral. He was diagnosed in 2010. He has an AICD for primary prevention. Titrating his medications has been limited by hypotension, but he is currently maintained on beta-jose antonio and DIOR inhibitor. 2. Alcohol abuse: Mr. Brice drinks large volumes of tequila every day. He was admitted on the [facility] protocol; however, he did not require any benzodiazepines during his admission. He was educated on alcohol abuse; however , he declines help and does not want to quit at this time. 3. Tobacco abuse: He also does not want to quit smoking, but I did discuss this with him. DISPOSITION: Mr. Brice was discharged to home with a PCP and cardiology appointment scheduled for him, which he agrees to attend. [id number]/[facility] #: [id number] MTDD
== END 2018-01-26 18:05 | disposition home or self-care (01) | DRG 194 ==
LOC: ED 06:57 → MEDTELE 11:10
PROVIDERS: ADMIT Internal Medicine; ATTEND Internal Medicine
DX: I11.0 Hypertensive heart disease with heart failure (principal); E87.1 Hypo-osmolality and hyponatremia; I50.23 Acute on chronic systolic (congestive) heart failure; I42.0 Dilated cardiomyopathy; F10.10 Alcohol abuse, uncomplicated; F17.210 Nicotine dependence, cigarettes, uncomplicated; F12.90 Cannabis use, unspecified, uncomplicated; R74.8 Abnormal levels of other serum enzymes; E83.42 Hypomagnesemia; N28.9 Disorder of kidney and ureter, unspecified; R10.9 Unspecified abdominal pain; I95.9 Hypotension, unspecified; Z79.82 Long term (current) use of aspirin; Z95.810 Presence of automatic (implantable) cardiac defibrillator; Z88.5 Allergy status to narcotic agent; Z82.49 Family history of ischemic heart disease and other diseases of the circulatory system; Z56.0 Unemployment, unspecified
CPT/HCPCS: 36415; 71045; 71275; 74177; 76705; 80048; 80053; 81003; 81015; 82550; 82553; 83605; 83690; 83735; 83880; 84443; 84484; 85025; 85379; 85610; 85730; 86140; 93005; 93306; 99283; 99406; A9270-GY; J1650; J1940; J3411; J3475; Q9967

== ENCOUNTER 2018-03-08 17:45 | Inpatient (IN) | payer OTHER ==
[2018-03-08 18:55] LABS: ABS Basophils 0 10^3/ul (0-0.2); ABS Eosinophils 0 10^3/ul (0-0.6); ABS Lymphocytes 0.8 10^3/ul (1.0-4.8); ABS Monocytes 0.5 10^3/ul (0-0.8); ABS Neutrophils 6.5 10^3/ul (1.5-7.7); ABS Nucleated RBC 0 10^3/ul; Eosinophil % 0.1 % (0-6); Hematocrit 42 % (42-52); Hemoglobin 14.8 g/dl (14.0-18.0); Lymphocyte % 10.6 % (25-47); Mean Corpuscular HGB Conc 35 g/dl (31-36); Mean Corpuscular Hemoglobin 36 pg (27-31); Mean Corpuscular Volume 103 fL (80-94); Mean Platelet Volume 8.4 um3 (7.4-10.4); Nucleated Red Blood Cells % 0; Platelet Count 158 10^3/ul (150-450); Red Cell Distribution Width 13 % (10.5-15); White Blood Count 7.9 10^3/ul (3.5-10.8)
[2018-03-08 19:13] LABS: EGFR Non-African American 78.9 (>60)
[2018-03-08] MEDS ORDERED: Metoclopramide IV* 5 MG/ML 2 ML VIAL IV ONE (19:22)
[2018-03-08] MEDS ORDERED: Ketorolac INJ* 30 MG/ML 1 ML VIAL IV PUSH ONE (19:22)
[2018-03-08] MEDS ORDERED: NS 0.9% 1000 ML* 1,000 ML IV ONE (19:22)
--- NOTE | 2018-03-08 19:51 | RAD ---
INDICATION: Vomiting and cough COMPARISON: Most recent comparison chest x-rays dated January 24, 2018 TECHNIQUE: PA and lateral views of the chest were obtained. FINDINGS: The heart and mediastinum are normal in size and contour. The lungs are grossly clear. There is no evidence of large pleural effusion. Visualized bones are normal for the patient's age. There is no radiographic evidence of free air beneath the diaphragm IMPRESSION: No radiographic evidence of acute cardiopulmonary disease.
[2018-03-08] MEDS ORDERED: Magnesium Sulfate 2 GM IV* 2 GM/50 ML BAG IVPB ONE (19:58)
[2018-03-08] MEDS ORDERED: Iodixanol* (CONTRAST) 320 MG/ML 100 ML SDV IV ONE (20:01)
--- NOTE | 2018-03-08 20:50 | RAD ---
CLINICAL HISTORY: Shortness of breath and vomiting x2 weeks COMPARISON: CTA chest abdomen pelvis dated January 24, 2018 TECHNIQUE: Contrast enhanced CT examination of the abdomen and pelvis from the lung bases through the initial tuberosities. The patient received 80 mL of Visipaque 320 intravenously prior to imaging.The patient did not receive oral contrast FINDINGS: VISUALIZED LUNG BASES: Cardiac pacer wires are partially visualized. Similar to the prior CT examination there is a mild degree of cardiomegaly. ABDOMEN AND PELVIS: The mildly enlarged liver measures up to 21.7 cm in greatest cephalocaudal dimension. The liver is homogenously hypodense relative to the spleen. There are no focal liver masses or surface irregularity. The spleen, pancreas and adrenal glands are grossly normal in appearance. There is questionable trace pericholecystic fluid. The gallbladder is otherwise normal in appearance according to CT criteria. There are multiple nonobstructing stones in the bilateral kidneys. Otherwise the kidneys are normal in appearance without focal mass, calcification or signs of hydronephrosis. Evaluation of the gastrointestinal tract is limited without oral contrast. The small and large bowel are not distended. The patient's normal appendix is identified in the right lower quadrant with gas in the lumen measuring up to 4 mm in diameter (axial image 48). There is no gross retroperitoneal or mesenteric lymphadenopathy. There is a small amount of free fluid in the low abdomen and pelvis. The pelvic viscera is normal in appearance. The abdominal aorta and iliac arteries are normal in course and diameter. There are no sinister bone lesions. IMPRESSION: 1. There is hepatomegaly with a homogenously hypodense liver. This appearance could be due to hepatic steatosis or other chronic infiltrative disease of the liver. Please correlate to LFTs. 2. Similar to the prior CT examination there is mild to moderate degree of cardiomegaly but no pleural effusions. 3. There is trace pericholecystic fluid without visualization of gallstones or definite wall thickening. The patient is exhibiting pain characteristic of cholecystitis, superior characterization of the gallbladder can be made with ultrasound. 4. There is a small amount of peritoneal ascites. This ascites as well as the pericholecystic fluid could be due to congestive heart failure and/or dilated cardiomyopathy.
--- NOTE | 2018-03-08 20:53 | RAD ---
HISTORY: Elevated LFTs. COMPARISONS: Similar examination dated January 24, 2018 TECHNIQUE: Multiple transverse and longitudinal ultrasound images were obtained of the right upper quadrant. FINDINGS: LIVER: The liver exhibits mildly increased homogenous echogenicity of the parenchyma. There are no focal suspicious liver masses. Normal hepatic and portal venous blood flow is duplicated with color flow imaging. There is no gross intrahepatic biliary duct dilatation. GALLBLADDER AND EXTRAHEPATIC BILIARY DUCT: The gallbladder exhibits wall thickening up to 7 mm in thickness. There is trace pericholecystic fluid. No gallstones are noted. The camelid fiber sorter notes a negative sonographic Ledezma sign. The common bile duct measures a maximum diameter of 3 mm. PANCREAS: The portions of the pancreas not obscured by bowel gas are normal in appearance. RIGHT KIDNEY: The right kidney is normal in size, morphology and echogenicity. At least one nonobstructing 5 mm renal stone is visualized. AORTA AND IVC: The visualized portions are normal in appearance and not pathologically dilated. IMPRESSION: 1. HOMOGENOUSLY INCREASED ECHOGENICITY LIVER COULD BE SEEN WITH CHRONIC INFILTRATIVE DISEASE SUCH HEPATIC STEATOSIS. 2. TRACE PERICHOLECYSTIC FLUID AND GALLBLADDER WALL THICKENING WITHOUT SIGNS OF BILIARY OBSTRUCTION OR CLINICAL SIGNS OF ACUTE CHOLECYSTITIS (GLOVE BRUSHER REPORTS A NEGATIVE SONOGRAPHIC LEDEZMA SIGN). THIS APPEARANCE COULD BE RELATED TO CONGESTIVE HEART FAILURE. 3. NONOBSTRUCTING RENAL CALCULI IN THE RIGHT KIDNEY.
--- NOTE | 2018-03-08 21:41 | ED ---
Stu Colbert Jade, scribed for Grey Torres MD on 03/08/18 at 1858 . HPI Febrile Illness - HPI Summary HPI Summary: Pt is a 32 y/o male who presents to the ED c/o cough and SOB. He states he has been vomiting for 2 weeks, and now has worsening symptoms. Pt c/o productive cough, SOB, abdominal pain, CP, and fever. He states his heart hurts and that his chest feels like its on fire when he coughs. The pain is described as acute and is rated 9/10 in severity. Pt has difficulty sleeping. PMHx CHF, cardiomyopathy, and ICD, but denies any blood clots or appendicitis. He visited his PCP 2 weeks ago, who performed an US and said the pt has a hernia and that his intestines are leaking toxins. Pt uses marijuana and alcohol, and is a smoker. He is allergic to codeine. - History of Current Complaint Chief Complaint: EDGeneral Time Seen by Provider: 03/08/18 18:19 Hx Obtained From: Patient, Family/Curriculum Counselor - S/O Onset/Duration: Started Weeks Ago - 2, Worse Since Timing: Constant Current Severity: Severe Pain Intensity: 9 Pain Scale Used: 0-10 Numeric Aggravating Factors: Nothing Alleviating Factors: Nothing Associated Signs and Symptoms: Cough, Nausea, SOB, Vomiting - Additional Pertinent History Primary Care Physician: [id number] - Allergy/Home Medications Allergies/Adverse Reactions: Allergies Allergy/AdvReac Type Severity Reaction Status Date / Time codeine AdvReac Mild Nausea Verified 03/08/18 18:06 Home Medications: Home Medications Furosemide TAB* [Lasix TAB*] 20 mg PO BID 03/08/18 [History Confirmed 03/08/18] PMH/Surg Hx/FS Hx/Imm Hx Endocrine/Hematology History: Denies: Hx Anticoagulant Therapy Cardiovascular History: Reports: Hx Auto Implanted Cardiovert Defib, Hx Congenital Heart Disease - EF less than 20%, Hx Congestive Heart Failure, Hx Hypertension, Other Cardiovascular Problems/Disorders - CARDIOMYOPATHY, ICD Respiratory History: Denies: Hx Chronic Obstructive Pulmonary Disease (COPD) GI History: Reports: Hx Gastroesophageal Reflux Disease, Other GI Disorders - elevated LFT's 01/24/18 Sensory History: Reports: Hx Contacts or Glasses Denies: Hx Deafness, Hx Hearing Aid Opthamlomology History: Reports: Hx Contacts or Glasses Neurological History: Denies: Hx Migraine, Hx Seizures, Hx Spinal Cord Injury, Hx Transient Ischemic Attacks (TIA) - Surgical History Surgery Procedure, Year, and Place: 01/22/18- defibrillator repolaced Infectious Disease History: No Infectious Disease History: Denies: Hx of Known/Suspected MRSA, Traveled Outside the [place] in Last 30 Days - Family History Known Family History: Positive: Cardiac Disease - Social History Alcohol Use: Daily Alcohol Amount: 6 pack Hx Substance Use: Yes Substance Use Type: Reports: Marijuana Substance Use Comment - Amount & Last Used: Daily Hx Tobacco Use: Yes Smoking Status (MU): Heavy Every Day Tobacco Smoker Type: Cigarettes Amount Used/How Often: 4-5 sig/day Have You Smoked in the Last Year: Yes Review of Systems Positive: Fever, Other - Sleep disturbance Positive: Chest Pain Positive: Shortness Of Breath, Cough Positive: Abdominal Pain, Vomiting, Nausea All Other Systems Reviewed And Are Negative: Yes Physical Exam - Summary Physical Exam Summary: GENERAL: Patient is a well-developed and nourished M who is lying comfortable in the stretcher. Patient is not in any acute respiratory distress. HEAD AND FACE: Normocephalic. EYES: PERRLA, EOMI x 2. EARS: Hearing grossly intact. MOUTH: Oropharynx within normal limits. NECK: Supple, trachea is midline, no adenopathy, no JVD, no carotid bruit. CHEST: Symmetric, no tenderness at palpation LUNGS: Clear to auscultation bilaterally. No wheezing or crackles. CVS: Regular rhythm, S1 and S2 present, no murmurs or gallops appreciated. Tachycardic. ABDOMEN: Soft. Bowel sounds are normal. No abdominal abnormal pulsations. Diffuse tenderness without rebound or guarding. EXTREMITIES: Full ROM in all major joints, no edema, no cyanosis or clubbing. NEURO: Alert and oriented x 3. No acute neurological deficits. Speech is normal and follows commands. SKIN: Dry and warm. Triage Information Reviewed: Yes Vital Signs On Initial Exam: Initial Vitals Temp Pulse Resp BP Pulse Ox 100.2 F 119 20 105/66 100 03/08/18 18:01 03/08/18 18:01 03/08/18 18:01 03/08/18 18:01 03/08/18 18:01 Vital Signs Reviewed: Yes Diagnostics - Vital Signs Vital Signs Temp Pulse Resp BP Pulse Ox 03/08/18 18:50 95 03/08/18 18:25 121 33 106/73 98 03/08/18 18:23 120 11 100 03/08/18 18:01 100.2 F 119 20 105/66 100 - Laboratory Lab Results: Lab Results 03/08/18 Range/Units 18:45 WBC 7.9 (3.5-10.8) 10^3/ul RBC 4.10 (4.00-5.40) 10^6/ul Hgb 14.8 (14.0-18.0) g/dl Hct 42 (42-52) % MCV 103 H (80-94) fL MCH 36 H (27-31) pg MCHC 35 (31-36) g/dl RDW 13 (10.5-15) % Plt Count 158 (150-450) 10^3/ul MPV 8.4 (7.4-10.4) um3 Neut % (Auto) 82.3 (38-83) % Lymph % (Auto) 10.6 L (25-47) % [place] % (Auto) 6.6 (0-7) % Eos % (Auto) 0.1 (0-6) % Baso % (Auto) 0.4 (0-2) % Absolute Neuts (auto) 6.5 (1.5-7.7) 10^3/ul Absolute Lymphs (auto) 0.8 L (1.0-4.8) 10^3/ul Absolute Monos (auto) 0.5 (0-0.8) 10^3/ul Absolute Eos (auto) 0 (0-0.6) 10^3/ul Absolute Basos (auto) 0 (0-0.2) 10^3/ul Absolute Nucleated RBC 0 10^3/ul Nucleated RBC % 0 Result Diagrams: 03/08/18 18:45 03/08/18 18:45 Lab Statement: Any lab studies that have been ordered have been reviewed, and results considered in the medical decision making process. - Radiology CXR Xray Interpretation: No Acute Changes - 18:30: No radiographic evidence of acute cardiopulmonary disease. ED physician reviewed radiology report. Radiology Interpretation Completed By: Radiologist - CT Abd/Pel CT CT Interpretation: Positive (See Comments) - 19:56: 1. There is hepatomegaly with a homogenously hypodense liver. This appearance could be due to hepatic steatosis or other chronic infiltrative disease of the liver. Please correlate to LFTs. 2. Similar to the prior CT examination there is mild to moderate degree of cardiomegaly but no pleural effusions. 3. There is trace pericholecystic fluid without visualization of gallstones or definite wall thickening. The patient is exhibiting pain characteristic of cholecystitis, superior characterization of the gallbladder can be made with ultrasound. 4. There is a small amount of peritoneal ascites. This ascites as well as the pericholecystic fluid could be due to congestive heart failure and/or dilated cardiomyopathy. ED physician reviewed radiology report. CT Interpretation Completed By: Radiologist - Ultrasound No standard instances Ultrasound Interpretation: Positive (See Comments) - Abdomen US 20:01: 1. HOMOGENOUSLY INCREASED ECHOGENICITY LIVER COULD BE SEEN WITH CHRONIC INFILTRATIVE DISEASE SUCH HEPATIC STEATOSIS. 2. TRACE PERICHOLECYSTIC FLUID AND GALLBLADDER WALL THICKENING WITHOUT SIGNS OF BILIARY OBSTRUCTION OR CLINICAL SIGNS OF ACUTE CHOLECYSTITIS (RETAIL HELPER REPORTS A NEGATIVE SONOGRAPHIC GARCES SIGN). THIS APPEARANCE COULD BE RELATED TO CONGESTIVE HEART FAILURE. 3. NONOBSTRUCTING RENAL CALCULI IN THE RIGHT KIDNEY. ED physician reviewed radiology report. Ultrasound Interpretation Completed By: Radiologist - EKG 18:28 Cardiac Rate: Tachycardia - 116 bpm EKG Rhythm: Sinus Rhythm EKG Interpretation: LAFB, LVH, inverted T wave in lateral leads EKG Comparison: No Significant Change - Similar to EKG taken 01/24/18. Re-Evaluation - Re-Evaluation First Eval Re-Evaluation Time: 21:11 Change: Unchanged Course/Dx - Course Course Of Treatment: Pt is a 32 y/o male who presents to the ED c/o cough and SOB. He states he has been vomiting for 2 weeks, and now has worsening symptoms. Pt c/o productive cough, SOB, abdominal pain, CP, and fever. He states his heart hurts and that his chest feels like its on fire when he coughs. The pain is described as acute and is rated 9/10 in severity. Pt has difficulty sleeping. PMHx CHF, cardiomyopathy, and ICD, but denies any blood clots or appendicitis. He visited his PCP 2 weeks ago, who performed an US and said the pt has a hernia and that his intestines are leaking toxins. Pt uses marijuana and alcohol, and is a smoker. He is allergic to codeine. The physical exam revealed diffuse tenderness without rebound or guarding and tachycardic. A CXR was negative. An abdomen/pelvis CT revealed hepatomegaly with a homogenously hypodense liver. This appearance could be due to hepatic steatosis or other chronic infiltrative disease of the liver. Please correlate to LFTs. Similar to the prior CT examination there is mild to moderate degree of cardiomegaly but no pleural effusions. There is trace pericholecystic fluid without visualization of gallstones or definite wall thickening. The patient is exhibiting pain characteristic of cholecystitis, superior characterization of the gallbladder can be made with ultrasound. There is a small amount of peritoneal ascites. This ascites as well as the pericholecystic fluid could be due to congestive heart failure and/or dilated cardiomyopathy. An abdominal US revealed HOMOGENOUSLY INCREASED ECHOGENICITY LIVER COULD BE SEEN WITH CHRONIC INFILTRATIVE DISEASE SUCH HEPATIC STEATOSIS.nTRACE PERICHOLECYSTIC FLUID AND GALLBLADDER WALL THICKENING WITHOUT SIGNS OF BILIARY OBSTRUCTION OR CLINICAL SIGNS OF ACUTE CHOLECYSTITIS (RETAIL HELPER REPORTS A NEGATIVE SONOGRAPHIC GARCES SIGN). THIS APPEARANCE COULD BE RELATED TO CONGESTIVE HEART FAILURE. NONOBSTRUCTING RENAL CALCULI IN THE RIGHT KIDNEY. An EKG revealed tachycardia at 116 bpm, normal rhythm, LAFB, LVH, inverted T wave in lateral leads. No significant change from an EKG taken 01/24/18. Final dx is CHF. Dr. Brown accepts the pt for admission. - Diagnoses Provider Diagnoses: CHF (congestive heart failure) Discharge - Sign-Out/Discharge Documenting (check all that apply): Discharge/Admit/Transfer - Discharge Plan Condition: Stable Disposition: ADMITTED TO [facility] Referrals: Keisha Doraod MAGNETIC LOCATER [Primary Care Provider] - The documentation as recorded by the Stu rizo Jade accurately reflects the service I personally performed and the decisions made by , Grey Torres MD.
[2018-03-08] MEDS ORDERED: Furosemide IV* 10 MG/ML VIAL (40 MG) IV SCH (22:00)
[2018-03-08] MEDS ORDERED: Benzonatate CAP* 100 MG ONE (22:09)
[2018-03-08] MEDS ORDERED: GuaiFENesin DM* 5 ML UDC ONE (22:09)
[2018-03-08] MEDS ORDERED: GuaiFENesin DM* 5 ML UDC PO ONE (22:10)
[2018-03-08] MEDS ORDERED: Ondansetron INJ* 2 MG/ML VIAL IV PRN (22:27)
[2018-03-09 01:35] LABS: Urine Appearance Clear; Urine Blood Negative (Negative); Urine Color Yellow; Urine Ketones Negative (Negative); Urine Protein Negative (Negative); Urine Specific Gravity 1.032 (1.010-1.030); Urine Urobilinogen Negative (Negative)
[2018-03-09] MEDS: Nicotine PATCH 7 MG/24 HR* PATCH TRANSDERM SCH ×2 (03:02→09:06)
[2018-03-09] MEDS: guaiFENesin LIQ* 100 MG/5 ML UDC PO PRN ×3 (03:02→16:12)
[2018-03-09] MEDS ORDERED: LORazepam INJ* 2 MG/ML 1 ML VIAL IV ONE (03:41)
[2018-03-09] MEDS ORDERED: LORazepam INJ* 2 MG/ML 1 ML VIAL ONE ×2 (03:53→11:09)
--- NOTE | 2018-03-09 04:56 | HP ---
HISTORY AND PHYSICAL: DATE OF ADMISSION: 03/08/18 ADDENDUM: I made note of the fact that the patient has had multiple recent firings of his ICD. He states the last one was about a week ago. I will write for interrogation of his [employer] pacemaker. His potassium is 4.0, magnesium is 1.6. I will replete his magnesium and will consider consultation with Cardiology tomorrow. JERROD GIBBS, VANDANA [id number]/[facility] #: [id number] NIEVES
--- NOTE | 2018-03-09 06:29 | HP ---
ADDENDUM NOW INCLUDED ON THIS REPORT CC: Keisha Dorado NP; Dr. Curiel * HOSPITAL MEDICINE HISTORY AND PHYSICAL: DATE OF ADMISSION: 03/08/18 PRIMARY CARE PROVIDER: Keisha Dorado NP LACQUER SPRAYER: Dr. Curiel. ATTENDING PHYSICIAN: Dr. Gianni Brown * (dictation provided by Jaye Hilario NP). CHIEF COMPLAINT: Cough, shaking chills, burning chest pain with inspiration, nausea, and vomiting. HISTORY OF PRESENT ILLNESS: Mr. Brice is a 32-year-old male with 2 recent admissions to our hospital for atrial fibrillation and congestive heart failure. He has a history of nonischemic cardiomyopathy with ejection fraction of 20% since 2006 of unknown etiology. He has a history of recent ICD replacement for low battery in mid January 2018 in [place]. He presents today to the hospital with concern for primarily cough, but also describes nausea, vomiting, poor oral intake, shaking chills, burning chest discomfort, and 6 recent shocks from his ICD. Mr. Brice stated that he began to feel unwell about a week ago. He has had persistent, very bothersome cough. It is nonproductive. He reports burning chest discomfort. He has had some nausea and vomiting. He reports shaking chills at times. He states that these symptoms are very different from his past history of CHF and he thought perhaps he was coming down with a cold. He has had no lower extremity edema. He states that he ran out of his Lasix about 3 days ago and has not been taking it. He normally takes 20 mg tabs 2 to 3 times a day. In the emergency room, Mr. Brice had labs, which showed that he had an elevated total bilirubin to 2.6 and AST of 118, ALT of 218, and BNP of 2757. His chest x-ray shows no radiographic evidence of acute cardiopulmonary disease. Because of his elevated LFTs, he went on for an abdomen and pelvis CT , which showed that he had hepatomegaly with some cholecystic fluid, peritoneal ascites with suspicion that this all could be due to congestive heart failure. Because of the pericholecystic fluid, he did go for an abdomen ultrasound, which showed pericholecystic fluid and gallbladder wall thickening without signs of biliary obstruction or clinical signs of acute cholecystitis and suspicion again this is related to congestive heart failure. The patient's vital signs are notable tachycardia up to 120, blood pressure in the 90s. In reviewing the patient's previous presentations to the hospital, this was consistent with those. His temperature was as high as 100.2. PAST MEDICAL HISTORY: 1. Nonischemic cardiomyopathy, unclear cause. 2. Atrial fibrillation. 3. Hypertension. 4. ICD placement. MEDICATIONS: As an outpatient are: 1. Tylenol p.r.n. 2. Aspirin 81 mg p.o. daily. 3. Carvedilol 3.125 mg p.o. b.i.d. 4. Furosemide 20 mg p.o. 2 to 3 times a day. 5. Lisinopril 2.5 mg p.o. daily. 6. Pantoprazole 20 mg p.o. b.i.d. ALLERGIES: To CODEINE. FAMILY HISTORY: The patient reports his mother had cardiomyopathy of unknown cause and hypertension. He does not know a lot of other history in the family. SOCIAL HISTORY: He is a continued [id number]-[id number]-a-day smoker. He reports that he drinks anywhere from 4 to 5 beers, a liter or two of a bottle of tequila a day. He does smoke marijuana. He states that his friend, Chapo Webb, will be the healthcare proxy. REVIEW OF SYSTEMS: A 14-point review of systems was completed with Mr. Brice and all those not mentioned above were negative. PHYSICAL EXAMINATION GENERAL: Mr. Brice is sitting up in the bed. He is in no acute distress. VITAL SIGNS: Temperature 98.3, pulse rate 113, respiratory rate 14, O2 saturation 95% on room air, blood pressure 90/59. LUNGS: Actually clear to auscultation bilaterally with no accessory muscle use and good aeration. HEART: S1, S2. No murmur, rub, or gallop was appreciated today. ABDOMEN: Soft, nontender with bowel sounds positive x4. EXTREMITIES: No cyanosis, no edema. NEUROLOGIC: He is alert, he is oriented x3. He moves all extremities equally. There is no facial asymmetry or focal weakness. Extraocular movements are intact. SKIN: Intact. DIAGNOSTIC STUDIES/LAB DATA: WBC 7.9, hemoglobin 14.8, hematocrit 42, platelet count 158. Sodium 136, potassium 4.0, chloride 100, serum bicarbonate 24, BUN 12, creatinine 1.09, glucose 111, lactic acid 1.8, magnesium 1.6. Total bilirubin 2.6, AST 118, ALT 218. Troponin is 0.03. BNP is 2757, on last check it was 1379 and the time before that was 832. Chest x-ray, abdomen and pelvis CT, and abdomen ultrasound were read as per above. ASSESSMENT AND PLAN: Mr. Brice is a 32-year-old male with an unfortunate history of severe nonischemic cardiomyopathy with ejection fraction of 20% with 2 recent admissions to our hospital, once for atrial fibrillation and once for chronic heart failure symptoms, who presents to the hospital today with symptoms of cough, burning chest discomfort, nausea, vomiting, shaking chills. Our plans are for observation in the hospital for the followin. Sepsis: The patient meets criteria for sepsis with an elevated heart rate and respiratory rate. He has symptoms that could be interpreted as bronchitis, but no focal infiltrate and no evidence of any other infection. I think that perhaps a viral bronchitis is part of his symptomatology today. He clearly described shaking chills and has a fever of 100.2 here in the hospital. His tachycardia is not new. His blood pressure is low, but that is also not new given his history of congestive heart failure. Plan to provide cough syrup, Tylenol, and antiemetics as needed. At this time, the patient's labs and overall picture are consistent with worsening heart failure as well and therefore fluids would be contraindicated for him. I see no indication for antibiotics at this point. 2. Acute on chronic congestive heart failure exacerbation with nonischemic cardiomyopathy: The patient is satting well on room air. He shows no evidence of edema; however, his BNP is dramatically elevated from previous and he is showing worsening signs of chronic heart failure based on his elevated liver function tests and findings on the abdomen and pelvis CT. The patient has been given 40 mg of IV Lasix in the emergency department and I have written for 40 IV b.i.d. for tomorrow. We can reevaluate and adjust this dose based on clinical course. The patient is stable now and I have not consulted Cardiology , but they can provide consultation tomorrow as needed. 3. Code status is full code. TIME SPENT: Approximately 60 minutes was spent on the admission of this patient. More than half time spent with the patient at the bedside reviewing the events leading up to this hospitalization, performing physical examination, and reviewing plan of care. ADDENDUM: I made note of the fact that the patient has had multiple recent firings of his ICD. He states the last one was about a week ago. I will write for interrogation of his [employer] pacemaker. His potassium is 4.0, magnesium is 1.6. I will replete his magnesium and will consider consultation with Cardiology tomorrow. JAYE HILARIO NP [id number]/[facility]PS #: [id number]/CPS #: [id number] NIEVES
[2018-03-09] MEDS ORDERED: Metoprolol Tartrate IV* 1 MG/ML 5 ML VIAL IV ONE ×2 (08:10→19:56)
[2018-03-09] MEDS: Benzonatate CAP* 100 MG PO SCH ×2 (08:21→20:56)
[2018-03-09] MEDS: Aspirin EC TAB* 81 MG TAB.EC PO SCH (08:21)
--- NOTE | 2018-03-09 08:39 | RAD ---
Indication: Respiratory distress. Single frontal view of the chest performed at 0821 hours was reviewed. Comparison is made with previous exam dated March 08, 2018. Cardiomegaly is present. Airspace disease in the right base is noted. Pacemaker leads are in place. IMPRESSION: AIRSPACE DISEASE IN THE RIGHT BASE CONSISTENT WITH RIGHT BASILAR PNEUMONIA.
[2018-03-09] MEDS ORDERED: Ondansetron 40 MG VIAL* 2 MG/ML 20 ML VIAL IV PRN (08:49)
[2018-03-09] MEDS ORDERED: Furosemide TAB* 20 MG PO SCH (09:00)
[2018-03-09] MEDS ORDERED: Furosemide IV* 10 MG/ML VIAL (40 MG) IV SCH (09:00)
[2018-03-09] MEDS: Lisinopril TAB* 5 MG PO SCH (09:04)
[2018-03-09] MEDS: Carvedilol TAB* 3.125 MG PO SCH ×2 (09:06→22:24)
[2018-03-09] MEDS: Acetaminophen TAB* 325 MG PO PRN (10:05)
[2018-03-09] MEDS: Pantoprazole TAB (NF) 20 MG TAB PO SCH ×2 (10:21→23:15)
[2018-03-09] MEDS ORDERED: Vancomycin(*) 1,000 MG in NS 0.9% 250 ML* 250 ML IVPB SCH (11:00)
[2018-03-09] MEDS: LORazepam INJ* 2 MG/ML 1 ML VIAL IV PUSH PRN (11:11)
--- NOTE | 2018-03-09 11:15 | CONSULT ---
Consult Consult: Consultation Note Critical Care Requesting Physician: Dr Casey Marsh Reason for consult: tachycardia, respiratoy distress Limitations in history/physical: none Date of consult: 03/09/2018 HPI: 32y M pmhx of NICMP/Severe LV systolic dysfunction, s/p AICD, episodes of afib on prior admission, active smoker, daily alcohol use, marijuana use+; comes to ER for cough, sob, productive cough. Has been vomiting for 2 weeks as per him. Fever+. Chest pain+ when coughing. Question of sick contact with daughter recently. Noted to have multiple ICD firings recently. Admitted to [facility] 03/08, tmax 100.2, tachycardic, 119, tachypneic 20. Initially CXR clear, CT abd/ pelvis with GB slightly distended but no clear acute verona signs. Admited to medical floor, started on IV diuretics. This morning he was tachycardic still, increased respiratory distress. Moved to ICU. Tele with sinus tachycardia. No IVF fluid to be given given elevated BNP, severe CMP and some signs of pulm congestion/anasarca on imaging. ED/floor Course: as above ROS: negative except for pertinent positives mentioned above. PMHx: NICMP/Severe LV systolic dysfunction PSHx: AICD Family History: CMP and HTN in mother. Social History: Alcohol 4-5 beer/day, Smoking ppd, Drug use-marijuana+ Allergies: Allergies Allergy/AdvReac Type Severity Reaction Status Date / Time codeine AdvReac Mild Nausea Verified 03/08/18 18:06 Home Medications: lisinopril TAB* [Prinivil TAB 5 MG*] 2.5 mg PO DAILY 12/27/17 [History Confirmed 03/08/18] Pantoprazole TAB (NF) [Protonix TAB (NF)] 20 mg PO BID 01/11/18 [History Confirmed 03/08/18] Acetaminophen TAB* [Tylenol TAB*] 650 mg PO Q4H PRN tab 01/12/18 [Rx Confirmed 03/08/18] Aspirin EC TAB* [Ecotrin EC Low Dose 81 MG*] 81 mg PO DAILY #30 tab.ec 01/12/18 [Rx Confirmed 03/08/18] Carvedilol TAB* [Coreg TAB*] 3.125 mg PO BID #60 tab 01/12/18 [Rx Confirmed ] Furosemide TAB* [Lasix TAB*] 20 mg PO BID 03/08/18 [History Confirmed 03/08/18] Tele: sinus tachy Vitals: Vital Signs Temp 98.2 F 03/09/18 08:40 Pulse 247 03/09/18 11:00 Resp 43 03/09/18 11:12 BP 99/66 03/09/18 11:00 Pulse Ox 90 03/09/18 11:00 Intake & Output 03/08/18 03/09/18 03/09/18 18:59 06:59 18:59 Intake Total 1450 Output Total 100 Balance 1450 -100 Weight 142 lb 140 lb 9.6 oz Intake: IV Fluids 1050 Oral 400 Output: Urine 100 Other: Estimated Void Large # Bowel Movements 0 # Voids 1 O2/Vent: oximask 10L Infusions: heplock Current Medications: Acetaminophen (Tylenol Tab*) 650 mg PO Q6H PRN PRN Reason: pain/fever Last Admin: 03/09/18 10:05 Dose: 650 mg Albuterol (Ventolin 2.5 Mg/3 Ml Neb.Francine*) 2.5 mg INH Q4H PRN PRN Reason: SOB/WHEEZING Aspirin (Aspirin Ec Tab*) 81 mg PO DAILY [facility] Last Admin: 03/09/18 08:21 Dose: 81 mg Benzonatate (Tessalon Cap*) 100 mg PO BID [facility] Last Admin: 03/09/18 08:21 Dose: 100 mg Carvedilol (Coreg Tab*) 3.125 mg PO BID [facility] Last Admin: 03/09/18 09:06 Dose: 3.125 mg Furosemide (Lasix Iv*) 40 mg IV DAILY [facility] Guaifenesin (Robitussin*) 5 ml PO Q6H PRN PRN Reason: COUGH Last Admin: 03/09/18 09:23 Dose: 5 ml Cefepime HCl (Maxipime 2 Gm In Dextrose Duplex (*)) 2 gm in 50 mls @ 100 mls/ hr IV Q12H [facility] Vancomycin HCl 1,000 mg/ (Sodium Chloride) 250 mls @ 166.667 mls/hr IVPB Q12H [facility] Stop: 03/10/18 12:29 Doxycycline Hyclate 100 mg/ (Sodium Chloride) 250 mls @ 250 mls/hr IVPB Q12H [facility] Lisinopril (Prinivil Tab*) 2.5 mg PO DAILY [facility] Last Admin: 03/09/18 09:04 Dose: 2.5 mg Lorazepam (Ativan Inj*) 1 mg IV PUSH Q6H PRN PRN Reason: anxiety, withdrawal Last Admin: 03/09/18 11:11 Dose: 1 mg Nicotine (Nicotine Patch 7 Mg/24 Hr*) 1 patch TRANSDERM DAILY [facility] Last Admin: 03/09/18 09:06 Dose: 1 patch Ondansetron HCl (Zofran 40 Mg Vial*) 4 mg IV Q6H PRN PRN Reason: NAUSEA Last Admin: 03/09/18 08:54 Dose: 4 mg Pantoprazole Sodium (Protonix Tab (Nf)) 20 mg PO BID [facility] Last Admin: 03/09/18 10:21 Dose: Not Given Pharmacy Profile Note (Nicotine Patch Removal Note*) 1 note FOLLOW UP 2100 [facility] Physical Exam: General: awake, alert, mild resp distress, no diaphoresis Head: normocephalic, atraumatic HEENT: no pallor, no icterus, moist mucous membranes Neck: soft, supple, no jvd, no stridor CVS: normal rate, regular, no murmur Resp: bilateral air entry, no rhales, no wheeze, no rhonchi, no acc muscle use Abdomen: soft, nontender, nondistended, bowel sounds present Ext: pulses+, warm, no edema Skin: intact, no breakdown, no dryness Neuro: awake, alert, orientedx3, moving all extremities, no gross focal deficit Labs: Laboratory Results - last 24 hr 03/08/18 03/08/18 03/08/18 18:45 18:45 18:45 WBC 7.9 RBC 4.10 Hgb 14.8 Hct 42 MCV 103 H MCH 36 H MCHC 35 RDW 13 Plt Count 158 MPV 8.4 Neut % (Auto) 82.3 Lymph % (Auto) 10.6 L Ocean % (Auto) 6.6 Eos % (Auto) 0.1 Baso % (Auto) 0.4 Absolute Neuts (auto) 6.5 Absolute Lymphs (auto) 0.8 L Absolute Monos (auto) 0.5 Absolute Eos (auto) 0 Absolute Basos (auto) 0 Absolute Nucleated RBC 0 Nucleated RBC % 0 APTT 30.5 Sodium 136 Potassium 4.0 Chloride 100 L Carbon Dioxide 24 Anion Gap 12 H BUN 12 Creatinine 1.09 Est GFR ( Amer) 95.5 Est GFR (Non-Af Amer) 78.9 BUN/Creatinine Ratio 11.0 Glucose 111 H Lactic Acid Calcium 9.4 Magnesium 1.6 L Total Bilirubin 2.60 H AST 118 H ALT 218 H Alkaline Phosphatase 75 CK-MB (CK-2) 0.8 Troponin I 0.03 C-Reactive Protein 26.03 H B-Natriuretic Peptide Total Protein 6.6 Albumin 3.9 Globulin 2.7 Albumin/Globulin Ratio 1.4 Procalcitonin Urine Color Urine Appearance Urine pH Ur Specific [place] Urine Protein Urine Ketones Urine Blood Urine Nitrate Urine Bilirubin Urine Urobilinogen Ur Leukocyte Esterase Urine Glucose Serum Alcohol < 10 03/08/18 03/08/18 03/08/18 18:45 18:45 18:46 WBC RBC Hgb Hct MCV MCH MCHC RDW Plt Count MPV Neut % (Auto) Lymph % (Auto) Ocean % (Auto) Eos % (Auto) Baso % (Auto) Absolute Neuts (auto) Absolute Lymphs (auto) Absolute Monos (auto) Absolute Eos (auto) Absolute Basos (auto) Absolute Nucleated RBC Nucleated RBC % APTT Sodium Potassium Chloride Carbon Dioxide Anion Gap BUN Creatinine Est GFR ( Amer) Est GFR (Non-Af Amer) BUN/Creatinine Ratio Glucose Lactic Acid 1.8 Calcium Magnesium Total Bilirubin AST ALT Alkaline Phosphatase CK-MB (CK-2) Troponin I C-Reactive Protein B-Natriuretic Peptide 2757 H Total Protein Albumin Globulin Albumin/Globulin Ratio Procalcitonin 0.1 Urine Color Urine Appearance Urine pH Ur Specific [place] Urine Protein Urine Ketones Urine Blood Urine Nitrate Urine Bilirubin Urine Urobilinogen Ur Leukocyte Esterase Urine Glucose Serum Alcohol 03/08/18 03/09/18 03/09/18 21:31 01:20 01:32 WBC RBC Hgb Hct MCV MCH MCHC RDW Plt Count MPV Neut % (Auto) Lymph % (Auto) Ocean % (Auto) Eos % (Auto) Baso % (Auto) Absolute Neuts (auto) Absolute Lymphs (auto) Absolute Monos (auto) Absolute Eos (auto) Absolute Basos (auto) Absolute Nucleated RBC Nucleated RBC % APTT Sodium Potassium Chloride Carbon Dioxide Anion Gap BUN Creatinine Est GFR ( Amer) Est GFR (Non-Af Amer) BUN/Creatinine Ratio Glucose Lactic Acid Calcium Magnesium Total Bilirubin AST ALT Alkaline Phosphatase CK-MB (CK-2) Troponin I 0.03 0.04 H* C-Reactive Protein B-Natriuretic Peptide Total Protein Albumin Globulin Albumin/Globulin Ratio Procalcitonin Urine Color Yellow Urine Appearance Clear Urine pH 5.0 Ur Specific [place] 1.032 H Urine Protein Negative Urine Ketones Negative Urine Blood Negative Urine Nitrate Negative Urine Bilirubin Negative Urine Urobilinogen Negative Ur Leukocyte Esterase Negative Urine Glucose Negative Serum Alcohol Cancelled Imaging: cxr 03/08 no congestion/infiltrate cxr 03/09 mild congestion, more prominent RLL infiltrate noted now Assessment: 32y M pmhx of NICMP/Severe LV systolic dysfunction, s/p AICD, episodes of afib on prior admission, active smoker, daily alcohol use, marijuana use+; comes to ER for cough, sob, productive cough. Has been vomiting for 2 weeks as per him. Fever+. Chest pain+ when coughing. Question of sick contact with daughter recently. Noted to have multiple ICD firings recently. Admitted to [facility] 03/08, tmax 100.2, tachycardic, 119, tachypneic 20. Upgraded to ICU for respiratory distress and suspected pneumonia. -Acute hypoxic respiratory failure -Suspected pneumonia, RLL -severe sepsis 2/2 to pneumonia -Acute on chronic decompensated LV systolic dysfunction Plan: Neuro- stable. History of alcohol abuse, Ativan PRN if signs of withdrawal. Deliriuim prec. CVS- sinus tachycardia, seems like this may be a response to underlying sepsis. IV abx. Cont IV Lasix 40mg daily for volume overload, as BP allows. Cont coreg/ acei as BP allows. Blood cultures. Check LA/procal. Resp- hypoxic, increased work of breathing. Start hiflow. May require NIV if worsening. IV abx. Bronchodilators prn. ID- tmax 100.2. wbc normal. Check cbc now. Given sick contact, recent admissions , will cover for HCAP/CAP. Cefepime 2gm q12h (day#1), vanco 1gm iv q12h, doxy 100mg iv bid. Blood cultures, sputum cultures. GI- cardiac diet. PPI. Renal- Cr okay. Pending labds today. BNP elevated, anasarca on CT imaging, volume overload+. Cont lasix 40mg daily for now. Heme- hg stable. Plt okay. Endo- fingerstick as needed Musculsk- bedrest Wounds- none Nutrition- cardiac diet DVT prophylaxis: - GI prophylaxis: ppi Central Line: no Arterial Line: no Rangel Cathetor: no Disposition: ICU Code Status: full code Total Critical Care time is 50 minutes, excluding procedures/teaching Vito Treviño MD Premium Service Representative (Electronically Signed)
[2018-03-09 11:17] LABS: Hematocrit 41 % (42-52); Mean Corpuscular HGB Conc 34 g/dl (31-36); Mean Corpuscular Hemoglobin 36 pg (27-31); Mean Corpuscular Volume 104 fL (80-94); Mean Platelet Volume 8.6 um3 (7.4-10.4); Platelet Count 151 10^3/ul (150-450); Red Blood Count 3.91 10^6/ul (4.00-5.40); Red Cell Distribution Width 14 % (10.5-15); White Blood Count 6.8 10^3/ul (3.5-10.8)
[2018-03-09 11:32] LABS: EGFR Non-African American 75.7 (>60)
[2018-03-09] MEDS: Cefepime 2 GM in Dextrose(*) 2 GM/50 ML BAG IV SCH ×2 (11:35→23:26)
[2018-03-09] MEDS: DOXYcycline IV* 100 MG in NS 0.9% 250 ML* 250 ML IVPB SCH ×2 (11:53→23:59)
[2018-03-09] MEDS ORDERED: Vancomycin per Pharmacy* NOTE FOLLOW UP PRN (12:11)
[2018-03-09] MEDS: Vancomycin(*) 1,000 MG in NS 0.9% 250 ML* 250 ML IVPB SCH ×2 (14:01→20:57)
[2018-03-09] MEDS ORDERED: Furosemide IV* 10 MG/ML VIAL (40 MG) IV SLOW PU ONE (18:00)
[2018-03-09] MEDS: Metoprolol Tartrate IV* 1 MG/ML 5 ML VIAL IV PRN (18:43)
[2018-03-09] MEDS: Nicotine Patch Removal NOTE FOLLOW UP SCH (21:01)
--- NOTE | 2018-03-09 22:03 | CONS ---
CC: Dr. Curiel; Keisha Dorado NP * CARDIOLOGY CONSULTATION: DATE OF CONSULT: 03/09/18 INDICATION FOR CONSULTATION: ICD, congestive heart failure. HISTORY OF PRESENT ILLNESS: The patient is a 32-year-old male with a history of severe ischemic cardiomyopathy, history of ICD implantation, was admitted to the hospital with severe shortness of breath, cough, and fevers. The patient was ultimately diagnosed with severe pneumonia and congestive heart failure. He was admitted to the intensive care unit. In interviewing the patient, the hospital physician heard that the patient had a few "ICD shocks" recently. They ordered an ICD interrogation. When the ICD was interrogated, it was noted to have normal function of the ICD; however, the ICD lead had a lead fracture causing significant amount of noise on the ICD. There has not been any shocks delivered from the ICD; however, it has charged up and it has given vibratory alerts for the abnormal functioning of the ICD lead. Currently, the patient is in the intensive care unit. He is on Vapotherm oxygen supplement. He is fairly tachycardic. He is unable to speak in more than 3 or 4-word sentences. PAST MEDICAL HISTORY: Significant for nonischemic cardiomyopathy, history of ICD. The patient does have a history of noncompliance and alcohol abuse. OUTPATIENT MEDICATIONS: 1. Coreg 3.125 mg b.i.d. 2. Lasix 20 mg daily. 3. Lisinopril 2.5 mg. 4. Aspirin 81 mg a day. 5. Pantoprazole 20 mg a day. ALLERGIES: He is intolerant of CODEINE. FAMILY HISTORY: Noncontributory. SOCIAL HISTORY: He is single. He lives with a friend. He is currently unemployed. He smokes half a pack of cigarettes a day. He consumes about a 6- pack of alcohol a day. Frequent marijuana use. No caffeine. He tries to exercise a couple of times a week. PHYSICAL EXAM: Height is 5 feet 7 inches, weight is 140 pounds, heart rate is 107, respiratory rate is 31, oxygen saturation 95% on 40% Vapotherm, blood pressure 95/75. Sclerae anicteric. Oropharynx is pink without erythema. Carotids are 2+ without bruits. JVD is normal. Thyroid is normal. Cardiac Exam: S1, S2 without any murmurs, rubs or gallops. Lungs have severe rhonchi and rales on exam.There is mild dullness to percussion. Abdomen is soft, nontender, nondistended with normoactive bowel sounds. Extremities show no edema. He has 2+ pulses throughout. The patient is awake and alert; however, the patient appears toxic and significantly short of breath. The patient moves all 4 extremities equally. DIAGNOSTIC STUDIES/LAB DATA: White count 6.8, hemoglobin 14, hematocrit 41, platelet count 151. Chemistries within normal limits. BUN and creatinine are normal. Troponin level of 0.03 and 0.04. BNP 4100. EKG shows sinus tachycardia with a heart rate of [address]-T wave abnormalities. Again, his device was interrogated. He has a [employer] ICD model [id number], implant date was 01/22/18. He does have a subpectoral device. Again on ICD interrogation, he clearly has evidence of lead fracture of his ICD. IMPRESSION AND PLAN: This is a 32-year-old gentleman with a history of nonischemic cardiomyopathy and ICD, was admitted to the hospital with congestive heart failure and pneumonia. He currently has significant shortness of breath and is on 40% Vapotherm. Overall, his cardiac status appears to be relatively stable; however, he is in mild congestive heart failure. His ICD shows evidence of lead fracture. For now, the patient will be treated for his decompensated heart failure and pneumonia. This will be attended to by the oem sales manager at [facility]. The patient's ICD is currently turned off from the tachy therapy. He will not be receiving any shocks. The patient will stay on telemetry while he is in the hospital. The question is what happens when the patient is ready to leave the hospital either the patient goes home with a LifeVest or he is transferred up to the [facility] under the care of Dr. Manav Ventura for consideration of ICD lead revision. This was described to the patient; however, the patient is somewhat short of breath and a little bit toxic from his pneumonia and may not have absorbed all this information. [id number]/[facility] #: [id number] MTDD
[2018-03-10] MEDS: Vancomycin(*) 1,000 MG in NS 0.9% 250 ML* 250 ML IVPB SCH ×2 (04:40→13:46)
[2018-03-10 05:08] LABS: EGFR Non-African American 78.1 (>60)
[2018-03-10] MEDS: Albuterol 2.5 MG/3 ML NEB.SOL* (0.083%) INH PRN (08:31)
[2018-03-10] MEDS: Nicotine PATCH 7 MG/24 HR* PATCH TRANSDERM SCH (09:21)
[2018-03-10] MEDS: Lisinopril TAB* 5 MG PO SCH (09:22)
[2018-03-10] MEDS: Carvedilol TAB* 3.125 MG PO SCH (09:22)
[2018-03-10] MEDS: Aspirin EC TAB* 81 MG TAB.EC PO SCH (09:22)
[2018-03-10] MEDS: Benzonatate CAP* 100 MG PO SCH ×2 (09:22→21:04)
[2018-03-10] MEDS: Furosemide IV* 10 MG/ML VIAL (40 MG) IV SCH (09:22)
[2018-03-10] MEDS: Pantoprazole TAB (NF) 20 MG TAB PO SCH (09:43)
--- NOTE | 2018-03-10 09:47 | PN ---
Progress Note - Progress Note Date of Service: 03/10/18 Note: Progress Note - Critical Care 24 hour events: -overnight more resp distress, started on NIV -awake, alert, resting now though -BP stable -making urine after lasix -tmax 99.8 -no chest pain, cough minimal, non productive otherwise -went into afib yesterday late afternoon, improved with metoprolol as needed; overnight rapid afib and likely to have decompensated further. given metoprolol iv and more rate controlled then. currently sins tachycardia. Tele: afib with rvr; currently ST Vitals: Vital Signs Temp 97.7 F 03/10/18 03:35 Pulse 109 03/10/18 09:01 Resp 18 03/10/18 09:01 BP 91/62 03/10/18 09:01 Pulse Ox 100 03/10/18 09:01 Intake & Output 03/09/18 03/10/18 03/10/18 18:59 06:59 18:59 Intake Total 294 780 Output Total 400 325 350 Balance -106 455 -350 Weight 145 lb 11.609 oz Intake: IV Fluids 294 285 ABX - VANCOMYCIN 285 IVPB 255 ABX - VANCOMYCIN 255 Oral 240 Output: Urine 400 325 350 O2/Vent: NIV 08/19 60% Infusions: heplock Current Medications: Acetaminophen (Tylenol Tab*) 650 mg PO Q6H PRN PRN Reason: pain/fever Last Admin: 03/09/18 10:05 Dose: 650 mg Albuterol (Ventolin 2.5 Mg/3 Ml Neb.Francine*) 2.5 mg INH Q4H PRN PRN Reason: SOB/WHEEZING Last Admin: 03/10/18 08:31 Dose: 2.5 mg Aspirin (Aspirin Ec Tab*) 81 mg PO DAILY [facility] Last Admin: 03/10/18 09:22 Dose: 81 mg Benzonatate (Tessalon Cap*) 100 mg PO BID [facility] Last Admin: 03/10/18 09:22 Dose: 100 mg Furosemide (Lasix Iv*) 40 mg IV DAILY [facility] Last Admin: 03/10/18 09:22 Dose: 40 mg Guaifenesin (Robitussin*) 5 ml PO Q6H PRN PRN Reason: COUGH Last Admin: 03/09/18 16:12 Dose: 5 ml Cefepime HCl (Maxipime 2 Gm In Dextrose Duplex (*)) 2 gm in 50 mls @ 100 mls/ hr IV Q12H [facility] Last Admin: 03/09/18 23:26 Dose: 100 mls/hr Doxycycline Hyclate 100 mg/ (Sodium Chloride) 250 mls @ 250 mls/hr IVPB Q12H [facility] Last Admin: 03/09/18 23:59 Dose: 250 mls/hr Vancomycin HCl 1,000 mg/ (Sodium Chloride) 250 mls @ 166.667 mls/hr IVPB Q8H [facility] Last Admin: 03/10/18 04:40 Dose: 166.667 mls/hr Lisinopril (Prinivil Tab*) 2.5 mg PO DAILY [facility] Last Admin: 03/10/18 09:22 Dose: 2.5 mg Lorazepam (Ativan Inj*) 1 mg IV PUSH Q6H PRN PRN Reason: anxiety, withdrawal Last Admin: 03/09/18 11:11 Dose: 1 mg Metoprolol Tartrate (Lopressor Iv*) 2.5 mg IV Q2H PRN PRN Reason: tachycardia>120 Last Admin: 03/09/18 18:43 Dose: 2.5 mg Metoprolol Tartrate (Lopressor Tab*) 25 mg PO BID [facility] Nicotine (Nicotine Patch 7 Mg/24 Hr*) 1 patch TRANSDERM DAILY [facility] Last Admin: 03/10/18 09:21 Dose: 1 patch Ondansetron HCl (Zofran 40 Mg Vial*) 4 mg IV Q6H PRN PRN Reason: NAUSEA Last Admin: 03/09/18 08:54 Dose: 4 mg Pantoprazole Sodium (Protonix Tab (Nf)) 20 mg PO BID [facility] Last Admin: 03/10/18 09:43 Dose: Not Given Pharmacy Consult (Vancomycin Per Pharmacy*) 1 note FOLLOW UP . PRN PRN Reason: PER PROTOCOL Pharmacy Profile Note (Nicotine Patch Removal Note*) 1 note FOLLOW UP 2100 [facility] Last Admin: 03/09/18 21:01 Dose: 1 note Pharmacy Profile Note (Vancomycin Trough Check) 1 note FOLLOW UP ONCE ONE Stop: 03/10/18 12:31 Physical Exam: General: awakens, alert, +resp distress/tachypneic to 30s, no diaphoresis Head: normocephalic, atraumatic HEENT: no pallor, no icterus, moist mucous membranes Neck: soft, supple, no jvd, no stridor CVS: tachy, regular, no murmur Resp: bilateral air entry, left side is clear, right side scattered wheeze and basal rhales+, tachypnea+ Abdomen: soft, nontender, nondistended, bowel sounds present Ext: pulses+, warm, no edema Skin: intact, no breakdown, no dryness Neuro: awake, alert, orientedx3, moving all extremities, no gross focal deficit Labs: Laboratory Results - last 24 hr 03/09/18 03/09/18 03/09/18 10:54 10:54 10:54 WBC 6.8 RBC 3.91 L Hgb 14.0 Hct 41 L MCV 104 H MCH 36 H MCHC 34 RDW 14 Plt Count 151 MPV 8.6 Patient Temperature ABG pH ABG pH (Temp Correct) ABG pCO2 ABG pCO2 (Temp Corrct ABG pO2 ABG pO2 (Temp Correct ABG HCO3 ABG O2 Saturation ABG Base Excess Respiration Rate O2 Delivery Device Ventilator Type Vent Mode FiO2 Inspiratory Time PEEP Pressure Support Pressure Control EPAP IPAP BiPAP Sodium 133 L Potassium 3.8 Chloride 104 Carbon Dioxide 20 L Anion Gap 9 BUN 14 Creatinine 1.13 Est GFR ( Amer) 91.6 Est GFR (Non-Af Amer) 75.7 BUN/Creatinine Ratio 12.4 Glucose 127 H Lactic Acid Calcium 8.3 L Total Bilirubin 3.00 H AST 135 H ALT 206 H Alkaline Phosphatase 79 B-Natriuretic Peptide 4180 H Total Protein 5.4 L Albumin 3.3 Globulin 2.1 Albumin/Globulin Ratio 1.6 Procalcitonin 03/09/18 03/09/18 03/09/18 10:54 10:54 20:14 WBC RBC Hgb Hct MCV MCH MCHC RDW Plt Count MPV Patient Temperature Not Reportable ABG pH 7.41 ABG pH (Temp Correct) Not Reportable ABG pCO2 31 L ABG pCO2 (Temp Corrct Not Reportable ABG pO2 164 H ABG pO2 (Temp Correct Not Reportable ABG HCO3 21.9 ABG O2 Saturation 99.6 H ABG Base Excess -3.9 L Respiration Rate Not Reportable O2 Delivery Device vapo Ventilator Type Not Reportable Vent Mode Not Reportable FiO2 100 Inspiratory Time Not Reportable PEEP Not Reportable Pressure Support Not Reportable Pressure Control Not Reportable EPAP Not Reportable IPAP Not Reportable BiPAP Not Reportable Sodium Potassium Chloride Carbon Dioxide Anion Gap BUN Creatinine Est GFR ( Amer) Est GFR (Non-Af Amer) BUN/Creatinine Ratio Glucose Lactic Acid 1.4 Calcium Total Bilirubin AST ALT Alkaline Phosphatase B-Natriuretic Peptide Total Protein Albumin Globulin Albumin/Globulin Ratio Procalcitonin 0.2 03/10/18 04:40 WBC RBC Hgb Hct MCV MCH MCHC RDW Plt Count MPV Patient Temperature ABG pH ABG pH (Temp Correct) ABG pCO2 ABG pCO2 (Temp Corrct ABG pO2 ABG pO2 (Temp Correct ABG HCO3 ABG O2 Saturation ABG Base Excess Respiration Rate O2 Delivery Device Ventilator Type Vent Mode FiO2 Inspiratory Time PEEP Pressure Support Pressure Control EPAP IPAP BiPAP Sodium 135 Potassium 4.0 Chloride 105 Carbon Dioxide 20 L Anion Gap 10 BUN 15 Creatinine 1.10 Est GFR ( Amer) 94.5 Est GFR (Non-Af Amer) 78.1 BUN/Creatinine Ratio Glucose 95 Lactic Acid Calcium 7.9 L Total Bilirubin AST ALT Alkaline Phosphatase B-Natriuretic Peptide Total Protein Albumin Globulin Albumin/Globulin Ratio Procalcitonin Imaging: cxr 03/08 no congestion/infiltrate cxr 03/09 mild congestion, more prominent RLL infiltrate noted now cxr 03/10 - right lower lobe infitlrates+ predominant Assessment: 32y M pmhx of NICMP/Severe LV systolic dysfunction, s/p AICD, episodes of afib on prior admission, active smoker, daily alcohol use, marijuana use+; comes to ER for cough, sob, productive cough. Has been vomiting for 2 weeks as per him. Fever+. Chest pain+ when coughing. Question of sick contact with daughter recently. Noted to have multiple ICD firings recently. Admitted to [facility] [place] 03/08, tmax 100.2, tachycardic, 119, tachypneic 20. Upgraded to ICU for respiratory distress and suspected pneumonia. -Acute hypoxic respiratory failure -Suspected pneumonia, RLL -severe sepsis 2/2 to pneumonia -Acute on chronic decompensated LV systolic dysfunction Plan: Neuro- stable. History of alcohol abuse, Ativan PRN if signs of withdrawal. Deliriuim prec. CVS- sinus tachycardia and paroxysmal afib with rvr; change coreg to metoprolol 25mg po bid, increase as tolerated. cont lasix 40mg iv daily. cont lisinopril. Likely afib started due to sepsis. IV abx. Resp- hypoxic, on 60% NIV, sats okay now. still tachypneic, will cont bronchodilators. close monitoring, if not improving or worsening, may need to be intubated. IV abx. Bronchodilators prn. sputum culture neg so far. ID- tmax 99.8. wbc pending. Cover for HCAP/CAP. Cefepime 2gm q12h (day#2), vanco pharmacy dosing (day#2), doxy 100mg iv bid for atypical coverage (day#2). Blood cultures neg , sputum cultures neg GI- NPO on NIV. PPI. Renal- Cr okay. Pending labs today. BNP elevated, anasarca on CT imaging, volume overload+. Cont lasix 40mg daily for now. Heme- pending labs today Endo- fingerstick as needed Musculsk- bedrest Wounds- none Nutrition- NPO on niv DVT prophylaxis: - GI prophylaxis: ppi Central Line: no Arterial Line: no Rangel Cathetor: no Disposition: ICU Code Status: full code Total Critical Care time is 45 minutes, excluding procedures/teaching Vito Treviño MD Cash Analyst (Electronically Signed)
[2018-03-10] MEDS: guaiFENesin LIQ* 100 MG/5 ML UDC PO PRN ×2 (09:55→16:08)
[2018-03-10] MEDS: Cefepime 2 GM in Dextrose(*) 2 GM/50 ML BAG IV SCH ×2 (10:37→23:45)
[2018-03-10 10:44] LABS: Hematocrit 38 % (42-52); Hemoglobin 13.2 g/dl (14.0-18.0); Mean Corpuscular HGB Conc 35 g/dl (31-36); Mean Corpuscular Hemoglobin 36 pg (27-31); Mean Corpuscular Volume 104 fL (80-94); Platelet Count 144 10^3/ul (150-450); Red Blood Count 3.68 10^6/ul (4.00-5.40); Red Cell Distribution Width 14 % (10.5-15); White Blood Count 5.3 10^3/ul (3.5-10.8)
--- NOTE | 2018-03-10 10:44 | RAD ---
Indication: Follow-up pneumonia. Single frontal view of the chest performed at 0907 hours was reviewed. Comparison is made with previous exam dated March 09, 2018. Cardiomegaly is noted. Persistent right basilar infiltrate is noted. There may be interstitial edema. A spiculated lesion in place. IMPRESSION: Persistent right basilar pneumonia is noted.
--- NOTE | 2018-03-10 11:26 | PN ---
Subjective Date of Service: 03/10/18 - CC: cough, SOB Interval History: The patient denies feeling air hunger on his mask. Productive cough. Medications Active Medications: Acetaminophen (Tylenol Tab*) 650 mg PO Q6H PRN PRN Reason: pain/fever Last Admin: 03/09/18 10:05 Dose: 650 mg Albuterol (Ventolin 2.5 Mg/3 Ml Neb.Francine*) 2.5 mg INH Q4H PRN PRN Reason: SOB/WHEEZING Last Admin: 03/10/18 08:31 Dose: 2.5 mg Aspirin (Aspirin Ec Tab*) 81 mg PO DAILY [facility] Last Admin: 03/10/18 09:22 Dose: 81 mg Benzonatate (Tessalon Cap*) 100 mg PO BID [facility] Last Admin: 03/10/18 09:22 Dose: 100 mg Furosemide (Lasix Iv*) 40 mg IV DAILY [facility] Last Admin: 03/10/18 09:22 Dose: 40 mg Guaifenesin (Robitussin*) 5 ml PO Q6H PRN PRN Reason: COUGH Last Admin: 03/10/18 09:55 Dose: 5 ml Cefepime HCl (Maxipime 2 Gm In Dextrose Duplex (*)) 2 gm in 50 mls @ 100 mls/ hr IV Q12H [facility] Last Admin: 03/10/18 10:37 Dose: 100 mls/hr Doxycycline Hyclate 100 mg/ (Sodium Chloride) 250 mls @ 250 mls/hr IVPB Q12H [facility] Last Admin: 03/09/18 23:59 Dose: 250 mls/hr Vancomycin HCl 1,000 mg/ (Sodium Chloride) 250 mls @ 166.667 mls/hr IVPB Q8H [facility] Last Admin: 03/10/18 04:40 Dose: 166.667 mls/hr Lisinopril (Prinivil Tab*) 2.5 mg PO DAILY [facility] Last Admin: 03/10/18 09:22 Dose: 2.5 mg Lorazepam (Ativan Inj*) 1 mg IV PUSH Q6H PRN PRN Reason: anxiety, withdrawal Last Admin: 03/09/18 11:11 Dose: 1 mg Metoprolol Tartrate (Lopressor Iv*) 2.5 mg IV Q2H PRN PRN Reason: tachycardia>120 Last Admin: 03/09/18 18:43 Dose: 2.5 mg Metoprolol Tartrate (Lopressor Tab*) 25 mg PO BID [facility] Nicotine (Nicotine Patch 7 Mg/24 Hr*) 1 patch TRANSDERM DAILY [facility] Last Admin: 03/10/18 09:21 Dose: 1 patch Ondansetron HCl (Zofran 40 Mg Vial*) 4 mg IV Q6H PRN PRN Reason: NAUSEA Last Admin: 03/09/18 08:54 Dose: 4 mg Pantoprazole Sodium (Protonix Tab (Nf)) 40 mg PO DAILY [facility] Pharmacy Consult (Vancomycin Per Pharmacy*) 1 note FOLLOW UP . PRN PRN Reason: PER PROTOCOL Pharmacy Profile Note (Nicotine Patch Removal Note*) 1 note FOLLOW UP 2100 [facility] Last Admin: 03/09/18 21:01 Dose: 1 note Pharmacy Profile Note (Vancomycin Trough Check) 1 note FOLLOW UP ONCE ONE Stop: 03/10/18 12:31 Objective Vital Signs: Temp Pulse Resp BP Pulse Ox 97.7 F 103 28 89/68 96 03/10/18 03:35 03/10/18 11:00 03/10/18 11:00 03/10/18 11:00 03/10/18 11:00 Intake and Output Last 24 Hours 03/08/18 03/09/18 03/10/18 03/11/18 04:59 04:59 04:59 04:59 Intake Total 1050 1474 0 Output Total 725 1275 Balance 1050 749 -1275 Weight 140 lb 9.6 oz 146 lb 13.246 oz 145 lb 11.609 oz Intake: IV Fluids 1050 579 ABX - VANCOMYCIN 285 IVPB 255 ABX - VANCOMYCIN 255 Oral 640 0 Output: Urine 725 1275 Other: Estimated Void Large # Bowel Movements 0 # Voids 1 Oxygen Devices in Use Now: BiPAP Appearance: young man, BiPap on, tachypnic but appears comfortable lying at 30 degrees. Eyes: No Scleral Icterus, PERRLA Ears/Nose/Mouth/Throat: Mucous Membranes Moist Neck: NL Appearance and Movements; NL JVP, No Thyroid Enlargement, Masses Respiratory: Symmetrical Chest Expansion and Respiratory Effort - Posteriorly diffuse rhonchi, anteriorly wheezing and rhonci. Cardiovascular: RRR - tachycardic. ICD pocket L. well healed, unremarkable. Abdominal: No Hepatosplenomegaly Extremities: No Edema Skin: No Rash or Ulcers Neurological: Alert and Oriented x 3, NL Muscle Strength and Tone Laboratory Results: 03/10/18 09:19 03/10/18 04:40 APTT 30.5 seconds (26.0-36.3) 03/08/18 18:45 Total Bilirubin 3.00 mg/dL (0.2-1.0) H 03/09/18 10:54 AST 135 U/L (13-39) H 03/09/18 10:54 ALT 206 U/L (7-52) H 03/09/18 10:54 Alkaline Phosphatase 79 U/L (34-104) 03/09/18 10:54 CK-MB (CK-2) 0.8 ng/mL (0.6-6.3) 03/08/18 18:45 B-Natriuretic Peptide 4180 pg/mL (-100) H 03/09/18 10:54 Total Protein 5.4 g/dL (6.4-8.9) L 03/09/18 10:54 Albumin 3.3 g/dL (3.2-5.2) 03/09/18 10:54 Globulin 2.1 g/dL (2-4) 03/09/18 10:54 Albumin/Globulin Ratio 1.6 (1-3) 03/09/18 10:54 03/08/18 03/08/18 03/09/18 18:45 21:31 01:32 Troponin I 0.03 0.03 0.04 H* EKG Data: Monitor: Today sinus tachycardia 110-120 bpm. Yesterday: PAF, RVR Assessment/Plan 32 yo with non ischemic CM, EF 20% with ICD, recent generator change Jan, 2018, hx PAF, CHF who also has a history of non compliance, smoker of tobacco and marijuana admitted with pneumonia and SOB. PAF yesterday which responded to beta blockers. BP's soft. CM: On Laxix, prinivil, metoprolol. Increase in LFT's and BNP. Metoprolol important with PAF. Consider lower dose of lasix, adding aldactone or trading for aldactone. OK to hold prinivil PRN low BP's. Can titrate medications further as BP improves. PAF: I reviewed Dr Curiel's notes and notes from his escrow closer at [facility]. I don't see that he has ever been on an antiarrhythmic. Multaq could be added, weak but safe with lifestyle and low EF. ICD: Lead fracture for revision at [facility] when infection has improved. At risk for lead infection, agree with aggressive antibiotic regimen. ID: As per intensivists Pulmonary: Pneumonia and likely a component of bronchospasm/COPD exasserbation being managed by Information Technology Technician. If beta jose antonio felt to be contributing, Multaq could be substituted and up titration of ACEI, aldactone.
[2018-03-10] MEDS: DOXYcycline IV* 100 MG in NS 0.9% 250 ML* 250 ML IVPB SCH (11:57)
[2018-03-10] MEDS ORDERED: Vancomycin Trough Check NOTE FOLLOW UP ONE (12:30)
[2018-03-10] MEDS: Acetaminophen TAB* 325 MG PO PRN (15:41)
[2018-03-10] MEDS: DOXYcycline CAP(*) 100 MG PO SCH ×2 (16:08→21:04)
[2018-03-10] MEDS: Metoprolol Tartrate IV* 1 MG/ML 5 ML VIAL IV PRN (16:38)
[2018-03-10] MEDS: Metoprolol Tartrate TAB* 25 MG PO SCH (21:08)
[2018-03-10] MEDS: Nicotine Patch Removal NOTE FOLLOW UP SCH (21:08)
[2018-03-10] MEDS: Vancomycin(*) 1,250 MG in NS 0.9% 250 ML* 250 ML IVPB SCH (21:40)
[2018-03-11] MEDS: Vancomycin(*) 1,250 MG in NS 0.9% 250 ML* 250 ML IVPB SCH (05:29)
[2018-03-11 05:56] LABS: Hematocrit 38 % (42-52); Hemoglobin 13.1 g/dl (14.0-18.0); Mean Corpuscular HGB Conc 34 g/dl (31-36); Mean Corpuscular Hemoglobin 35 pg (27-31); Mean Corpuscular Volume 102 fL (80-94); Mean Platelet Volume 8.5 um3 (7.4-10.4); Platelet Count 158 10^3/ul (150-450); Red Blood Count 3.73 10^6/ul (4.00-5.40); Red Cell Distribution Width 13 % (10.5-15); White Blood Count 4.6 10^3/ul (3.5-10.8)
[2018-03-11 06:11] LABS: EGFR Non-African American 98.4 (>60)
--- NOTE | 2018-03-11 10:20 | PN ---
Progress Note - Progress Note Date of Service: 03/11/18 Note: Progress Note - Critical Care 24 hour events: -on NIV yesterday, was more tachypneic; overnight no events -able to cough up a lot of sputum, brownish -tmax 98 -no cp/sob/abd pain/n/v/headache -making good urine -intermittent tachycardia to even 160s, afib; controlled with IV meds -currently on NIV Tele: afib with rvr, paroxysmal Vitals: Vital Signs Temp 97.8 F 03/11/18 03:37 Pulse 225 03/11/18 09:00 Resp 33 03/11/18 09:00 BP 91/75 03/11/18 09:00 Pulse Ox 100 03/11/18 09:00 Intake & Output 03/10/18 03/11/18 03/11/18 18:59 06:59 18:59 Intake Total 1573 1109 400 Output Total 1975 250 Balance -402 859 400 Weight 141 lb 5.061 oz Intake: IV Fluids 16 559 ABX - VANCOMYCIN 16 270 NS (0.9%) 289 IVPB 197 ABX - VANCOMYCIN 197 Oral 1360 550 400 Output: Urine 1975 250 Other: Estimated Void Medium Date of Last Bowel 03/10/18 03/10/18 Movement Estimated Stool Amount Medium O2/Vent: NIV Infusions: heplock Current Medications: Acetaminophen (Tylenol Tab*) 650 mg PO Q6H PRN PRN Reason: pain/fever Last Admin: 03/10/18 15:41 Dose: 650 mg Albuterol (Ventolin 2.5 Mg/3 Ml Neb.Francine*) 2.5 mg INH Q4H PRN PRN Reason: SOB/WHEEZING Last Admin: 03/10/18 08:31 Dose: 2.5 mg Aspirin (Aspirin Ec Tab*) 81 mg PO DAILY [facility] Last Admin: 03/10/18 09:22 Dose: 81 mg Benzonatate (Tessalon Cap*) 100 mg PO BID [facility] Last Admin: 03/10/18 21:04 Dose: 100 mg Doxycycline Hyclate (Vibramycin Cap(*)) 100 mg PO BID [facility] Last Admin: 03/10/18 21:04 Dose: 100 mg Furosemide (Lasix Iv*) 40 mg IV DAILY [facility] Last Admin: 03/10/18 09:22 Dose: 40 mg Guaifenesin (Robitussin*) 5 ml PO Q6H PRN PRN Reason: COUGH Last Admin: 03/10/18 16:08 Dose: 5 ml Cefepime HCl (Maxipime 2 Gm In Dextrose Duplex (*)) 2 gm in 50 mls @ 100 mls/ hr IV Q12H [facility] Last Admin: 03/10/18 23:45 Dose: 100 mls/hr Lisinopril (Prinivil Tab*) 2.5 mg PO DAILY [facility] Last Admin: 03/10/18 09:22 Dose: 2.5 mg Lorazepam (Ativan Inj*) 1 mg IV PUSH Q6H PRN PRN Reason: anxiety, withdrawal Last Admin: 03/09/18 11:11 Dose: 1 mg Metoprolol Tartrate (Lopressor Iv*) 2.5 mg IV Q2H PRN PRN Reason: tachycardia>120 Last Admin: 03/10/18 16:38 Dose: 2.5 mg Metoprolol Tartrate (Lopressor Tab*) 25 mg PO BID [facility] Last Admin: 03/10/18 21:08 Dose: Not Given Nicotine (Nicotine Patch 7 Mg/24 Hr*) 1 patch TRANSDERM DAILY [facility] Last Admin: 03/10/18 09:21 Dose: 1 patch Ondansetron HCl (Zofran 40 Mg Vial*) 4 mg IV Q6H PRN PRN Reason: NAUSEA Last Admin: 03/09/18 08:54 Dose: 4 mg Pantoprazole Sodium (Protonix Tab (Nf)) 40 mg PO DAILY [facility] Pharmacy Profile Note (Nicotine Patch Removal Note*) 1 note FOLLOW UP 2100 [facility] Last Admin: 03/10/18 21:08 Dose: 1 note Physical Exam: General: awakens, alert, less tachypnea today, no diaphoresis Head: normocephalic, atraumatic HEENT: no pallor, no icterus, moist mucous membranes Neck: soft, supple, no jvd, no stridor CVS: tachy, irreg, no murmur Resp: bilateral air entry, no rhales/rhonchi/wheeze noted; some dec on right base, mild tachypnea, no acc muscle use Abdomen: soft, nontender, nondistended, bowel sounds present Ext: pulses+, warm, no edema Skin: intact, no breakdown, no dryness Neuro: awake, alert, orientedx3, moving all extremities, no gross focal deficit Labs: Laboratory Results - last 24 hr 03/10/18 03/10/18 03/10/18 04:40 09:19 13:11 WBC 5.3 RBC 3.68 L Hgb 13.2 L Hct 38 L MCV 104 H MCH 36 H MCHC 35 RDW 14 Plt Count 144 L MPV 9.0 Sodium 135 Potassium 4.0 Chloride 105 Carbon Dioxide 20 L Anion Gap 10 BUN 15 Creatinine 1.10 Est GFR ( Amer) 94.5 Est GFR (Non-Af Amer) 78.1 BUN/Creatinine Ratio 13.6 Glucose 95 Calcium 7.9 L Total Bilirubin 1.70 H Direct Bilirubin 0.60 H Indirect Bilirubin 1.1 H AST 189 H ALT 211 H Alkaline Phosphatase 74 Total Protein 4.6 L Albumin 2.9 L Globulin 1.7 L Albumin/Globulin Ratio 1.7 Vancomycin Trough 12.3 03/11/18 03/11/18 05:15 05:15 WBC 4.6 RBC 3.73 L Hgb 13.1 L Hct 38 L MCV 102 H MCH 35 H MCHC 34 RDW 13 Plt Count 158 MPV 8.5 Sodium 134 L Potassium 3.7 Chloride 105 Carbon Dioxide 22 Anion Gap 7 BUN 16 Creatinine 0.90 Est GFR ( Amer) 119.1 Est GFR (Non-Af Amer) 98.4 BUN/Creatinine Ratio 17.8 Glucose 106 H Calcium 8.2 L Total Bilirubin 0.90 Direct Bilirubin 0.30 H Indirect Bilirubin 0.6 AST 125 H ALT 197 H Alkaline Phosphatase 70 Total Protein 4.9 L Albumin 2.9 L Globulin 2.0 Albumin/Globulin Ratio 1.5 Vancomycin Trough Imaging: cxr 03/08 no congestion/infiltrate cxr 03/09 mild congestion, more prominent RLL infiltrate noted now cxr 03/10 - right lower lobe infitlrates+ predominant Assessment: 32y M pmhx of NICMP/Severe LV systolic dysfunction, s/p AICD, episodes of afib on prior admission, active smoker, daily alcohol use, marijuana use+; comes to ER for cough, sob, productive cough. Has been vomiting for 2 weeks as per him. Fever+. Chest pain+ when coughing. Question of sick contact with daughter recently. Noted to have multiple ICD firings recently. [place] [facility], tmax 100.2, tachycardic, 119, tachypneic 20. Upgraded to ICU for respiratory distress and suspected pneumonia. -Acute hypoxic respiratory failure -Suspected pneumonia, RLL -severe sepsis 2/2 to pneumonia -Acute on chronic decompensated LV systolic dysfunction Plan: Neuro- stable. History of alcohol abuse, Ativan PRN if signs of withdrawal. Deliriuim prec. CVS- sinus tachycardia and paroxysmal afib with rvr; increase metoprolol to 25mg tid. dec lasix 20mg iv daily. good urine output, minimal positive balance. cont lisinopril. IV abx. Resp- hypoxic, less tachypnea, appears better today. change to hiflow cannula today. IV abx. Bronchodilators prn. sputum culture neg so far. ID- tmax 98. wbc 4.6. Neg blood/sputum culture. will d/c vanco. cont Cefepime 2gm q12h (day#3), doxy 100mg po bid due to skin irritation (day#3). GI- cardiac diet off nIV. PPI. Renal- Cr okay. K okay. no acidosis. dec lasix to 20mg iv daily. no peñaloza Heme- hg stable. plt okay. Endo- fingerstick as needed Musculsk- bedrest, can attempt oob to chair on hiflow today Wounds- none Nutrition- cardiac diet off NIV DVT prophylaxis: lovenox, scds GI prophylaxis: ppi Central Line: no Arterial Line: no Peñaloza Cathetor: no Disposition: ICU Code Status: full code Total Critical Care time is 40 minutes, excluding procedures/teaching Vito Treviño MD Vacuum Cooker Operator (Electronically Signed)
[2018-03-11] MEDS: Benzonatate CAP* 100 MG PO SCH ×2 (11:11→20:54)
[2018-03-11] MEDS: CMC:Pantoprazole TAB (NF) 40 MG TAB PO SCH (11:11)
[2018-03-11] MEDS: DOXYcycline CAP(*) 100 MG PO SCH ×2 (11:11→20:54)
[2018-03-11] MEDS: Lisinopril TAB* 5 MG PO SCH (11:12)
[2018-03-11] MEDS: Nicotine PATCH 7 MG/24 HR* PATCH TRANSDERM SCH (11:13)
[2018-03-11] MEDS: Cefepime 2 GM in Dextrose(*) 2 GM/50 ML BAG IV SCH ×2 (11:13→22:45)
[2018-03-11] MEDS: Aspirin EC TAB* 81 MG TAB.EC PO SCH (11:13)
[2018-03-11] MEDS: Enoxaparin(*) 40 MG/0.4 ML SYR SUBCUT SCH (11:15)
[2018-03-11] MEDS ORDERED: Digoxin IV* 0.5 MG/2 ML AMP (0.25 MG/ML) IV SLOW PU ONE (13:29)
[2018-03-11] MEDS: Furosemide IV* 10 MG/ML VIAL (40 MG) IV SCH (15:29)
[2018-03-11] MEDS: Metoprolol Tartrate TAB* 25 MG PO SCH ×2 (15:29→17:58)
[2018-03-11] MEDS: Digoxin IV* 0.5 MG/2 ML AMP (0.25 MG/ML) IV SLOW PU SCH (20:54)
[2018-03-11] MEDS: guaiFENesin LIQ* 100 MG/5 ML UDC PO PRN (20:54)
[2018-03-11] MEDS: Nicotine Patch Removal NOTE FOLLOW UP SCH (21:10)
[2018-03-12] MEDS: guaiFENesin LIQ* 100 MG/5 ML UDC PO PRN ×2 (01:29→18:20)
[2018-03-12] MEDS: Metoprolol Tartrate TAB* 25 MG PO SCH ×4 (01:29→16:21)
[2018-03-12] MEDS: Albuterol 2.5 MG/3 ML NEB.SOL* (0.083%) INH PRN ×2 (02:07→20:08)
[2018-03-12] MEDS ORDERED: traZODone TAB* 50 MG TAB PO PRN (02:08)
[2018-03-12] MEDS ORDERED: Digoxin IV* 0.5 MG/2 ML AMP (0.25 MG/ML) ONE (02:20)
[2018-03-12] MEDS: Digoxin IV* 0.5 MG/2 ML AMP (0.25 MG/ML) IV SLOW PU SCH (02:24)
[2018-03-12] MEDS ORDERED: Vancomycin Trough Check NOTE FOLLOW UP ONE (04:30)
[2018-03-12 06:20] LABS: Hematocrit 38 % (42-52); Hemoglobin 13.4 g/dl (14.0-18.0); Mean Corpuscular HGB Conc 35 g/dl (31-36); Mean Corpuscular Hemoglobin 36 pg (27-31); Mean Corpuscular Volume 102 fL (80-94); Mean Platelet Volume 8.2 um3 (7.4-10.4); Platelet Count 158 10^3/ul (150-450); Red Blood Count 3.73 10^6/ul (4.00-5.40); Red Cell Distribution Width 13 % (10.5-15); White Blood Count 3.8 10^3/ul (3.5-10.8)
[2018-03-12 06:37] LABS: EGFR Non-African American 98.4 (>60)
--- NOTE | 2018-03-12 07:54 | RAD ---
INDICATION: Pneumonia COMPARISON: March 10, 2018 TECHNIQUE: An AP portable view obtained at 0600 hours is submitted. FINDINGS: Bones/Soft Tissues: There are no acute bony findings. There is left-sided cardiac pacemaker/defibrillator. Cardiomediastinal: The cardiac silhouette is mildly prominent. Lungs: The right lung is now clear. There is a small left basilar infiltrate and/or pleural effusion. Pleura: There are no pleural effusions. Other: None IMPRESSION: SMALL LEFT BASILAR INFILTRATE AND/OR PLEURAL EFFUSION
[2018-03-12] MEDS: Aspirin EC TAB* 81 MG TAB.EC PO SCH (08:25)
[2018-03-12] MEDS: Benzonatate CAP* 100 MG PO SCH ×2 (08:25→21:16)
[2018-03-12] MEDS: DOXYcycline CAP(*) 100 MG PO SCH ×2 (08:25→21:16)
[2018-03-12] MEDS: CMC:Pantoprazole TAB (NF) 40 MG TAB PO SCH (08:25)
[2018-03-12] MEDS: Furosemide IV* 10 MG/ML 2 ML VIAL (20 MG) IV SCH (08:26)
[2018-03-12] MEDS: Lisinopril TAB* 5 MG PO SCH (08:26)
[2018-03-12] MEDS: Nicotine PATCH 7 MG/24 HR* PATCH TRANSDERM SCH (08:26)
[2018-03-12] MEDS ORDERED: Codeine TAB* 15 MG PO ONE (09:45)
--- NOTE | 2018-03-12 10:39 | PN ---
Progress Note - Progress Note Date of Service: 03/12/18 Note: Progress Note - Critical Care 24 hour events: -off NIV yesterday, on hiflow; weaned down to NC, this morning on RA, sats 91-95 %, rr 17 -bought of coughing this morning, less secretions though -afebrile -walking in room, mkaing good urine -HR better with increased metoprolol; s/p dig yesterday also Tele: afib Vitals: Vital Signs Temp 97.5 F 03/12/18 07:57 Pulse 97 03/12/18 08:27 Resp 22 03/12/18 08:27 BP 96/65 03/12/18 07:01 Pulse Ox 92 03/12/18 08:27 Intake & Output 03/11/18 03/12/18 03/12/18 18:59 06:59 18:59 Intake Total 600 1210 360 Output Total 250 1700 725 Balance 350 -490 -365 Weight 141 lb 12.116 oz Intake: IV Fluids 10 NS (0.9%) 10 Oral 600 1200 360 Output: Urine 250 1025 725 Peñaloza 675 O2/Vent: RA +/- NC 2L when ambulating Infusions: heplock Current Medications: Acetaminophen (Tylenol Tab*) 650 mg PO Q6H PRN PRN Reason: pain/fever Last Admin: 03/10/18 15:41 Dose: 650 mg Albuterol (Ventolin 2.5 Mg/3 Ml Neb.Francine*) 2.5 mg INH Q4H PRN PRN Reason: SOB/WHEEZING Last Admin: 03/12/18 02:07 Dose: 2.5 mg Aspirin (Aspirin Ec Tab*) 81 mg PO DAILY [facility] Last Admin: 03/12/18 08:25 Dose: 81 mg Benzonatate (Tessalon Cap*) 100 mg PO BID [facility] Last Admin: 03/12/18 08:25 Dose: 100 mg Doxycycline Hyclate (Vibramycin Cap(*)) 100 mg PO BID [facility] Last Admin: 03/12/18 08:25 Dose: 100 mg Enoxaparin Sodium (Lovenox(*)) 40 mg SUBCUT Q24H [facility] Last Admin: 03/11/18 11:15 Dose: Not Given Furosemide (Lasix Iv*) 20 mg IV DAILY [facility] Last Admin: 06/29/18 08:26 Dose: 20 mg Guaifenesin (Robitussin*) 5 ml PO Q4H PRN PRN Reason: COUGH Last Admin: 03/12/18 01:29 Dose: 5 ml Cefepime HCl (Maxipime 2 Gm In Dextrose Duplex (*)) 2 gm in 50 mls @ 100 mls/ hr IV Q12H [facility] Last Admin: 03/11/18 22:45 Dose: 100 mls/hr Lisinopril (Prinivil Tab*) 2.5 mg PO DAILY [facility] Last Admin: 03/12/18 08:26 Dose: 2.5 mg Lorazepam (Ativan Inj*) 1 mg IV PUSH Q6H PRN PRN Reason: anxiety, withdrawal Last Admin: 03/09/18 11:11 Dose: 1 mg Metoprolol Tartrate (Lopressor Iv*) 2.5 mg IV Q2H PRN PRN Reason: tachycardia>120 Last Admin: 03/10/18 16:38 Dose: 2.5 mg Metoprolol Tartrate (Lopressor Tab*) 25 mg PO Q8H [facility] Last Admin: 03/12/18 08:25 Dose: 25 mg Nicotine (Nicotine Patch 7 Mg/24 Hr*) 1 patch TRANSDERM DAILY [facility] Last Admin: 03/12/18 08:26 Dose: Not Given Ondansetron HCl (Zofran 40 Mg Vial*) 4 mg IV Q6H PRN PRN Reason: NAUSEA Last Admin: 03/09/18 08:54 Dose: 4 mg Pantoprazole Sodium (Protonix Tab (Nf)) 40 mg PO DAILY [facility] Last Admin: 03/12/18 08:25 Dose: 40 mg Pharmacy Profile Note (Nicotine Patch Removal Note*) 1 note FOLLOW UP 2100 [facility] Last Admin: 03/11/18 21:10 Dose: Not Given Trazodone HCl (Desyrel Tab*) 50 mg PO BEDTIME PRN PRN Reason: INSOMNIA Last Admin: 03/12/18 02:24 Dose: 50 mg Physical Exam: General: awakens, alert, not tachypneic, no diaphoresis Head: normocephalic, atraumatic HEENT: no pallor, no icterus, moist mucous membranes Neck: soft, supple, no jvd, no stridor CVS: normal rate, irreg, no murmur Resp: bilateral air entry, no rhales/rhonchi/wheeze noted, no acc muscle use Abdomen: soft, nontender, nondistended, bowel sounds present Ext: pulses+, warm, no edema Skin: intact, no breakdown, no dryness Neuro: awake, alert, orientedx3, moving all extremities, no gross focal deficit Labs: Laboratory Results - last 24 hr 03/12/18 03/12/18 06:10 06:10 WBC 3.8 RBC 3.73 L Hgb 13.4 L Hct 38 L MCV 102 H MCH 36 H MCHC 35 RDW 13 Plt Count 158 MPV 8.2 Sodium 137 Potassium 3.8 Chloride 109 Carbon Dioxide 21 L Anion Gap 7 BUN 13 Creatinine 0.90 Est GFR ( Amer) 119.1 Est GFR (Non-Af Amer) 98.4 BUN/Creatinine Ratio 14.4 Glucose 99 Calcium 8.2 L Imaging: cxr 03/08 no congestion/infiltrate cxr 03/09 mild congestion, more prominent RLL infiltrate noted now cxr 03/10 - right lower lobe infitlrates+ predominant Assessment: 32y M pmhx of NICMP/Severe LV systolic dysfunction, s/p AICD, episodes of afib on prior admission, active smoker, daily alcohol use, marijuana use+; comes to ER for cough, sob, productive cough. Has been vomiting for 2 weeks as per him. Fever+. Chest pain+ when coughing. Question of sick contact with daughter recently. Noted to have multiple ICD firings recently. Admitted to [facility] 03/08, tmax 100.2, tachycardic, 119, tachypneic 20. Upgraded to ICU for respiratory distress and suspected pneumonia. -Acute hypoxic respiratory failure -Suspected pneumonia, RLL -severe sepsis 2/2 to pneumonia -Acute on chronic decompensated LV systolic dysfunction Plan: Neuro- stable. History of alcohol abuse, Ativan PRN if signs of withdrawal. Deliriuim prec. CVS- afib rate controlled now; cont metoprolol 25mg po tid. no further dig for now. cont lasix 20mg iv daily. cont lisinopril 2.5mg daily. AC as per cardiology , noncompliant outpatient? Resp- improved resp status, less secretions. on RA/NC, but ambulating. d/c NIV/ hiflow. IV abx. Bronchodilators prn. sputum culture neg so far. ID- tmax 98. wbc normal. Neg blood/sputum culture. cont Cefepime 2gm q12h (day#4 /5) for 1 more day, then d/c for total of 5 days. doxy 100mg po bid (day#4/5), d /c after 1 more day. GI- cardiac diet Renal- Cr okay. K okay. no acidosis. lasix to 20mg iv daily. no peñaloza Heme- hg stable. plt okay. Endo- fingerstick as needed Musculsk- oob to chair, ambulate with assistance Wounds- none Nutrition- cardiac diet DVT prophylaxis: lovenox, scds GI prophylaxis: ppi Central Line: no Arterial Line: no Peñaloza Cathetor: no Disposition: transfer to [facility] floor Code Status: full code Vito Treviño MD [employer] (Electronically Signed)
[2018-03-12] MEDS: Cefepime 2 GM in Dextrose(*) 2 GM/50 ML BAG IV SCH ×2 (11:30→22:25)
[2018-03-12] MEDS: Enoxaparin(*) 40 MG/0.4 ML SYR SUBCUT SCH (11:30)
[2018-03-12] MEDS: Nicotine Patch Removal NOTE FOLLOW UP SCH (21:17)
[2018-03-12] MEDS: Metoprolol Tartrate IV* 1 MG/ML 5 ML VIAL IV PRN (21:17)
[2018-03-12] MEDS ORDERED: guaiFENesin/CODIEN 100MG-10MG* 5 ML UDC PO PRN (22:05)
[2018-03-12] MEDS: LORazepam INJ* 2 MG/ML 1 ML VIAL IV PUSH PRN (22:14)
[2018-03-13] MEDS: Metoprolol Tartrate TAB* 25 MG PO SCH ×3 (00:15→17:26)
[2018-03-13 05:29] LABS: Hematocrit 41 % (42-52); Hemoglobin 13.7 g/dl (14.0-18.0); Mean Corpuscular HGB Conc 34 g/dl (31-36); Mean Corpuscular Hemoglobin 35 pg (27-31); Mean Corpuscular Volume 103 fL (80-94); Mean Platelet Volume 7.9 um3 (7.4-10.4); Platelet Count 178 10^3/ul (150-450); Red Blood Count 3.94 10^6/ul (4.00-5.40); Red Cell Distribution Width 13 % (10.5-15); White Blood Count 4.1 10^3/ul (3.5-10.8)
[2018-03-13] MEDS: Benzonatate CAP* 100 MG PO SCH ×2 (11:13→20:37)
[2018-03-13] MEDS: DOXYcycline CAP(*) 100 MG PO SCH ×2 (11:13→20:37)
[2018-03-13] MEDS: Aspirin EC TAB* 81 MG TAB.EC PO SCH (11:13)
[2018-03-13] MEDS: Furosemide IV* 10 MG/ML 2 ML VIAL (20 MG) IV SCH (11:14)
[2018-03-13] MEDS: Enoxaparin(*) 40 MG/0.4 ML SYR SUBCUT SCH (11:15)
[2018-03-13] MEDS: Nicotine PATCH 7 MG/24 HR* PATCH TRANSDERM SCH (11:15)
[2018-03-13] MEDS: Lisinopril TAB* 5 MG PO SCH (11:15)
[2018-03-13] MEDS: Cefepime 2 GM in Dextrose(*) 2 GM/50 ML BAG IV SCH (11:19)
[2018-03-13] MEDS: Dronedarone TAB* 400 MG PO SCH ×2 (13:29→20:36)
[2018-03-13] MEDS: CMC:Pantoprazole TAB (NF) 40 MG TAB PO SCH (13:29)
--- NOTE | 2018-03-13 17:53 | PN ---
Subjective Date of Service: 03/13/18 Interval History: Pt seen and examined. Meds and labs reviewed. ROS: Denied BAILEY/dizziness, F/C, N/V, CP, SOB, increased cough, sputum production , abd pain, diarrhea, constipation, dysuria, myalgias, arthralgias, throat pain , and new skin lesions. The rest of the 14 point ROS are unremarkable. PHYSICAL EXAM: GEN APPEARANCE: Awake, not in acute distress HEENT: NC/AT, PERRLA, moist oral mucosa, (-) throat erythema NECK: Soft, supple, (-) cervical LAD, (-)JVD HEART: S1S2 WNL, RRR, No MRG CHEST: Slight wheezing, GAE, No R/R ABD: Soft, ND/NT, NABS 4x Q EXT: No C/C/E SKIN: Warm to touch PSYCH: No active psychosis, hallucinations, depression, SI/HI Objective Active Medications: Acetaminophen (Tylenol Tab*) 650 mg PO Q6H PRN PRN Reason: pain/fever Last Admin: 03/10/18 15:41 Dose: 650 mg Albuterol (Ventolin 2.5 Mg/3 Ml Neb.Francine*) 2.5 mg INH Q4H PRN PRN Reason: SOB/WHEEZING Last Admin: 03/12/18 20:08 Dose: 2.5 mg Aspirin (Aspirin Ec Tab*) 81 mg PO DAILY [facility] Last Admin: 03/13/18 11:13 Dose: 81 mg Benzonatate (Tessalon Cap*) 100 mg PO BID [facility] Last Admin: 03/13/18 11:13 Dose: 100 mg Doxycycline Hyclate (Vibramycin Cap(*)) 100 mg PO BID [facility] Stop: 03/13/18 23:59 Last Admin: 03/13/18 11:13 Dose: 100 mg Dronedarone (Multaq Tab*) 400 mg PO BID [facility] Last Admin: 03/13/18 13:29 Dose: 400 mg Enoxaparin Sodium (Lovenox(*)) 40 mg SUBCUT Q24H [facility] Last Admin: 03/13/18 11:15 Dose: Not Given Furosemide (Lasix Iv*) 20 mg IV DAILY [facility] Last Admin: 03/13/18 11:14 Dose: Not Given Guaifenesin (Robitussin*) 5 ml PO Q4H PRN PRN Reason: COUGH Last Admin: 03/12/18 18:20 Dose: 5 ml Guaifenesin/Codeine Phosphate (Robitussin Ac 100mg-10mg*) 5 ml PO Q4H PRN PRN Reason: COUGH Last Admin: 03/12/18 22:13 Dose: 5 ml Cefepime HCl (Maxipime 2 Gm In Dextrose Duplex (*)) 2 gm in 50 mls @ 100 mls/ hr IV Q12H [facility] Stop: 03/13/18 23:59 Last Admin: 03/13/18 11:19 Dose: 100 mls/hr Lisinopril (Prinivil Tab*) 2.5 mg PO DAILY [facility] Last Admin: 03/13/18 11:15 Dose: Not Given Lorazepam (Ativan Inj*) 1 mg IV PUSH Q6H PRN PRN Reason: anxiety, withdrawal Last Admin: 03/12/18 22:14 Dose: 1 mg Metoprolol Tartrate (Lopressor Iv*) 2.5 mg IV Q2H PRN PRN Reason: tachycardia>120 Last Admin: 03/10/18 16:38 Dose: 2.5 mg Metoprolol Tartrate (Lopressor Tab*) 25 mg PO Q8H [facility] Last Admin: 03/13/18 17:26 Dose: Not Given Nicotine (Nicotine Patch 7 Mg/24 Hr*) 1 patch TRANSDERM DAILY [facility] Last Admin: 03/13/18 11:15 Dose: Not Given Ondansetron HCl (Zofran 40 Mg Vial*) 4 mg IV Q6H PRN PRN Reason: NAUSEA Last Admin: 03/09/18 08:54 Dose: 4 mg Pantoprazole Sodium (Protonix Tab (Nf)) 40 mg PO DAILY [facility] Last Admin: 03/13/18 13:29 Dose: 40 mg Pharmacy Profile Note (Nicotine Patch Removal Note*) 1 note FOLLOW UP 2100 [facility] Last Admin: 03/12/18 21:17 Dose: Not Given Prednisone (Deltasone Tab*) 40 mg PO DAILY [facility] Trazodone HCl (Desyrel Tab*) 50 mg PO BEDTIME PRN PRN Reason: INSOMNIA Last Admin: 03/12/18 02:24 Dose: 50 mg Vital Signs - 8 hr 03/13/18 03/13/18 03/13/18 10:55 11:50 16:35 Temperature 98.3 F 97.8 F Pulse Rate 90 Respiratory 15 20 Rate Blood Pressure 80/62 85/69 88/70 (mmHg) O2 Sat by Pulse 95 96 Oximetry 03/13/18 16:37 Temperature Pulse Rate 92 Respiratory Rate Blood Pressure (mmHg) O2 Sat by Pulse Oximetry Oxygen Devices in Use Now: None Result Diagrams: 03/13/18 05:01 03/13/18 05:01 Additional Lab and Data: Lab Results 03/08/18 Range/Units 18:45 WBC 7.9 (3.5-10.8) 10^3/ul RBC 4.10 (4.00-5.40) 10^6/ul Hgb 14.8 (14.0-18.0) g/dl Hct 42 (42-52) % MCV 103 H (80-94) fL MCH 36 H (27-31) pg MCHC 35 (31-36) g/dl RDW 13 (10.5-15) % Plt Count 158 (150-450) 10^3/ul MPV 8.4 (7.4-10.4) um3 Neut % (Auto) 82.3 (38-83) % Lymph % (Auto) 10.6 L (25-47) % [place] % (Auto) 6.6 (0-7) % Eos % (Auto) 0.1 (0-6) % Baso % (Auto) 0.4 (0-2) % Absolute Neuts (auto) 6.5 (1.5-7.7) 10^3/ul Absolute Lymphs (auto) 0.8 L (1.0-4.8) 10^3/ul Absolute Monos (auto) 0.5 (0-0.8) 10^3/ul Absolute Eos (auto) 0 (0-0.6) 10^3/ul Absolute Basos (auto) 0 (0-0.2) 10^3/ul Absolute Nucleated RBC 0 10^3/ul Nucleated RBC % 0 Microbiology and Other Data: Microbiology 03/08/18 18:43 Aerobic Blood Culture - Preliminary Blood Venous No Growth Day 4 Anaerobic Blood Culture - Preliminary No Growth Day 4 03/08/18 18:43 Aerobic Blood Culture - Preliminary Blood Venous No Growth Day 4 Anaerobic Blood Culture - Preliminary No Growth Day 4 03/08/18 18:43 Gram Stain - Final Sputum Expectorated Sputum Culture - Final Normal Taylor Assess/Plan/Problems-Billing Assessment: - Patient Problems (1) Sepsis due to pneumonia Current Visit: Yes Status: Acute Code(s): J18.9 - PNEUMONIA, UNSPECIFIED ORGANISM; A41.9 - SEPSIS, UNSPECIFIED ORGANISM SNOMED Code(s): 50575962 Comment: -Sepsis resolved -Continue antibiotics to its conclusion (Cefepime and Doxycycline) -Discussed case with Dr. Treviño -Cultures negative (2) Hypotension Current Visit: Yes Status: Acute Comment: -Thought to be due to nonischemic CM with low EF in the setting of compensated CHF therapy -Per Dr. Estes, ICD shows evidence of lead fracture??? May need life vest if D/ Cd home vs. transfer to [place] -Likely being confounded by tachycardia---discussed with Fr. Estes and recommended Multaq 400 mg POBID, which was ordered; Digoxin may be an option if needed (3) Reactive airway disease that is not asthma Current Visit: Yes Status: Acute Code(s): R09.89 - OTH SYMPTOMS AND SIGNS INVOLVING THE CIRC AND RESP SYSTEMS SNOMED Code(s): 65160634 Comment: -Likely due to recent PNA -Place pt on Prednisone rapid taper x 5 days then D/C (4) Nonischemic cardiomyopathy Current Visit: Yes Status: Acute Code(s): I42.8 - OTHER CARDIOMYOPATHIES SNOMED Code(s): 74574883 Comment: -Despite low EF, with low CHADS-Vasc, no need to anticoagulated per Dr. Estes -Please see above discussion (5) GERD (gastroesophageal reflux disease) Current Visit: Yes Status: Acute Code(s): K21.9 - GASTRO-ESOPHAGEAL REFLUX DISEASE WITHOUT ESOPHAGITIS SNOMED Code(s): 627596982 Comment: -Continue Pantoprazole (6) DVT prophylaxis Current Visit: Yes Status: Acute Code(s): QHL4377 - SNOMED Code(s): 359661429 Comment: -Continue Lovenox SQ Status and Disposition: -For PT eval
[2018-03-13] MEDS: predniSONE TAB* 20 MG PO SCH (18:09)
[2018-03-13] MEDS: guaiFENesin LIQ* 100 MG/5 ML UDC PO PRN (20:38)
[2018-03-13] MEDS: Nicotine Patch Removal NOTE FOLLOW UP SCH (20:42)
[2018-03-13] MEDS ORDERED: Dronedarone TAB* 400 MG PO SCH (21:00)
[2018-03-14] MEDS: Metoprolol Tartrate TAB* 25 MG PO SCH ×3 (00:23→17:22)
[2018-03-14] MEDS: Cefepime 2 GM in Dextrose(*) 2 GM/50 ML BAG IV SCH (00:35)
[2018-03-14 06:14] LABS: ABS Basophils 0 10^3/ul (0-0.2); ABS Eosinophils 0 10^3/ul (0-0.6); ABS Lymphocytes 0.5 10^3/ul (1.0-4.8); ABS Monocytes 0.2 10^3/ul (0-0.8); ABS Neutrophils 3.1 10^3/ul (1.5-7.7); ABS Nucleated RBC 0 10^3/ul; Eosinophil % 0.2 % (0-6); Hematocrit 47 % (42-52); Hemoglobin 15.8 g/dl (14.0-18.0); Lymphocyte % 13.6 % (25-47); Mean Corpuscular HGB Conc 34 g/dl (31-36); Mean Corpuscular Hemoglobin 35 pg (27-31); Mean Corpuscular Volume 104 fL (80-94); Mean Platelet Volume 8.4 um3 (7.4-10.4); Nucleated Red Blood Cells % 0.3; Platelet Count 214 10^3/ul (150-450); Red Cell Distribution Width 13 % (10.5-15); White Blood Count 3.8 10^3/ul (3.5-10.8)
[2018-03-14 06:35] LABS: EGFR Non-African American 76.5 (>60)
[2018-03-14] MEDS: Aspirin EC TAB* 81 MG TAB.EC PO SCH (08:32)
[2018-03-14] MEDS: Benzonatate CAP* 100 MG PO SCH ×2 (08:32→21:07)
[2018-03-14] MEDS: predniSONE TAB* 20 MG PO SCH (08:33)
[2018-03-14] MEDS: Lisinopril TAB* 5 MG PO SCH (08:33)
[2018-03-14] MEDS: Dronedarone TAB* 400 MG PO SCH ×2 (08:33→21:07)
[2018-03-14] MEDS: Furosemide IV* 10 MG/ML 2 ML VIAL (20 MG) IV SCH (08:34)
[2018-03-14] MEDS: CMC:Pantoprazole TAB (NF) 40 MG TAB PO SCH (08:37)
[2018-03-14] MEDS: Nicotine PATCH 7 MG/24 HR* PATCH TRANSDERM SCH (08:41)
[2018-03-14] MEDS: guaiFENesin LIQ* 100 MG/5 ML UDC PO PRN ×2 (11:56→21:07)
[2018-03-14] MEDS: Enoxaparin(*) 40 MG/0.4 ML SYR SUBCUT SCH (11:57)
--- NOTE | 2018-03-14 16:27 | PN ---
Subjective Date of Service: 03/14/18 Interval History: Pt seen and examined. Meds and labs reviewed. ROS: Denied BAILEY/dizziness, F/C, N/V, CP, SOB, increased cough, sputum production , abd pain, diarrhea, constipation, dysuria, myalgias, arthralgias, throat pain , and new skin lesions. The rest of the 14 point ROS are unremarkable. PHYSICAL EXAM: GEN APPEARANCE: Awake, not in acute distress HEENT: NC/AT, PERRLA, moist oral mucosa, (-) throat erythema NECK: Soft, supple, (-) cervical LAD, (-)JVD HEART: S1S2 WNL, RRR, No MRG CHEST: Slight wheezing, GAE, No R/R ABD: Soft, ND/NT, NABS 4x Q EXT: No C/C/E SKIN: Warm to touch PSYCH: No active psychosis, hallucinations, depression, SI/HI ASSESSMENT AND PLAN: Objective Active Medications: Acetaminophen (Tylenol Tab*) 650 mg PO Q6H PRN PRN Reason: pain/fever Last Admin: 03/10/18 15:41 Dose: 650 mg Albuterol (Ventolin 2.5 Mg/3 Ml Neb.Francine*) 2.5 mg INH Q4H PRN PRN Reason: SOB/WHEEZING Last Admin: 03/12/18 20:08 Dose: 2.5 mg Aspirin (Aspirin Ec Tab*) 81 mg PO DAILY [facility] Last Admin: 03/14/18 08:32 Dose: 81 mg Benzonatate (Tessalon Cap*) 100 mg PO BID [facility] Last Admin: 03/14/18 08:32 Dose: 100 mg Dronedarone (Multaq Tab*) 400 mg PO BID [facility] Last Admin: 03/14/18 08:33 Dose: 400 mg Enoxaparin Sodium (Lovenox(*)) 40 mg SUBCUT Q24H [facility] Last Admin: 03/14/18 11:57 Dose: Not Given Furosemide (Lasix Iv*) 20 mg IV DAILY [facility] Last Admin: 03/14/18 08:34 Dose: 20 mg Guaifenesin (Robitussin*) 5 ml PO Q4H PRN PRN Reason: COUGH Last Admin: 03/14/18 11:56 Dose: 5 ml Guaifenesin/Codeine Phosphate (Robitussin Ac 100mg-10mg*) 5 ml PO Q4H PRN PRN Reason: COUGH Last Admin: 03/12/18 22:13 Dose: 5 ml Lisinopril (Prinivil Tab*) 2.5 mg PO DAILY [facility] Last Admin: 03/14/18 08:33 Dose: 2.5 mg Lorazepam (Ativan Inj*) 1 mg IV PUSH Q6H PRN PRN Reason: anxiety, withdrawal Last Admin: 03/12/18 22:14 Dose: 1 mg Metoprolol Tartrate (Lopressor Iv*) 2.5 mg IV Q2H PRN PRN Reason: tachycardia>120 Last Admin: 03/10/18 16:38 Dose: 2.5 mg Metoprolol Tartrate (Lopressor Tab*) 25 mg PO Q8H [facility] Last Admin: 03/14/18 08:33 Dose: 25 mg Nicotine (Nicotine Patch 7 Mg/24 Hr*) 1 patch TRANSDERM DAILY [facility] Last Admin: 03/14/18 08:41 Dose: Not Given Ondansetron HCl (Zofran 40 Mg Vial*) 4 mg IV Q6H PRN PRN Reason: NAUSEA Last Admin: 03/09/18 08:54 Dose: 4 mg Pantoprazole Sodium (Protonix Tab (Nf)) 40 mg PO DAILY [facility] Last Admin: 03/14/18 08:37 Dose: 40 mg Pharmacy Profile Note (Nicotine Patch Removal Note*) 1 note FOLLOW UP 2100 [facility] Last Admin: 03/13/18 20:42 Dose: Not Given Prednisone (Deltasone Tab*) 30 mg PO DAILY [facility] Trazodone HCl (Desyrel Tab*) 50 mg PO BEDTIME PRN PRN Reason: INSOMNIA Last Admin: 03/12/18 02:24 Dose: 50 mg Vital Signs - 8 hr 03/14/18 03/14/18 03/14/18 10:14 11:18 15:10 Temperature 98.0 F 97.7 F Pulse Rate 209 52 Respiratory 16 18 Rate Blood Pressure 97/72 100/65 (mmHg) O2 Sat by Pulse 100 98 99 Oximetry 03/14/18 15:23 Temperature Pulse Rate Respiratory Rate Blood Pressure (mmHg) O2 Sat by Pulse 98 Oximetry Oxygen Devices in Use Now: None Result Diagrams: 03/14/18 05:39 03/14/18 05:39 Additional Lab and Data: Lab Results 06/25/18 Range/Units 18:45 WBC 7.9 (3.5-10.8) 10^3/ul RBC 4.10 (4.00-5.40) 10^6/ul Hgb 14.8 (14.0-18.0) g/dl Hct 42 (42-52) % MCV 103 H (80-94) fL MCH 36 H (27-31) pg MCHC 35 (31-36) g/dl RDW 13 (10.5-15) % Plt Count 158 (150-450) 10^3/ul MPV 8.4 (7.4-10.4) um3 Neut % (Auto) 82.3 (38-83) % Lymph % (Auto) 10.6 L (25-47) % [place] % (Auto) 6.6 (0-7) % Eos % (Auto) 0.1 (0-6) % Baso % (Auto) 0.4 (0-2) % Absolute Neuts (auto) 6.5 (1.5-7.7) 10^3/ul Absolute Lymphs (auto) 0.8 L (1.0-4.8) 10^3/ul Absolute Monos (auto) 0.5 (0-0.8) 10^3/ul Absolute Eos (auto) 0 (0-0.6) 10^3/ul Absolute Basos (auto) 0 (0-0.2) 10^3/ul Absolute Nucleated RBC 0 10^3/ul Nucleated RBC % 0 Microbiology and Other Data: Microbiology 03/08/18 18:43 Aerobic Blood Culture - Preliminary Blood Venous No Growth Day 4 Anaerobic Blood Culture - Preliminary No Growth Day 4 03/08/18 18:43 Aerobic Blood Culture - Preliminary Blood Venous No Growth Day 4 Anaerobic Blood Culture - Preliminary No Growth Day 4 03/08/18 18:43 Gram Stain - Final Sputum Expectorated Sputum Culture - Final Normal [place] Assess/Plan/Problems-Billing Assessment: - Patient Problems (1) Hypotension Current Visit: Yes Status: Acute Comment: -Thought to be due to nonischemic CM with low EF in the setting of compensated CHF therapy -Per Dr. Estes, ICD shows evidence of lead fracture??? May need life vest if D/ Cd home vs. transfer to [place] -Improved with addition of Multaq; ambulatory sats ordered early AM is reasuring (2) Reactive airway disease that is not asthma Current Visit: Yes Status: Acute Code(s): R09.89 - OTH SYMPTOMS AND SIGNS INVOLVING THE CIRC AND RESP SYSTEMS SNOMED Code(s): 02252734 Comment: -Likely due to recent PNA -Start rapid taper of Prednisone--d/c in 4 days (3) Nonischemic cardiomyopathy Current Visit: Yes Status: Acute Code(s): I42.8 - OTHER CARDIOMYOPATHIES SNOMED Code(s): 56361580 Comment: -Despite low EF, with low CHADS-Vasc, no need to anticoagulated per Dr. Estes -Please see above discussion (4) GERD (gastroesophageal reflux disease) Current Visit: Yes Status: Acute Code(s): K21.9 - GASTRO-ESOPHAGEAL REFLUX DISEASE WITHOUT ESOPHAGITIS SNOMED Code(s): 371635878 Comment: -Continue Pantoprazole (5) DVT prophylaxis Current Visit: Yes Status: Acute Code(s): GXM1255 - SNOMED Code(s): 979924880 Comment: -Continue Lovenox SQ (6) Sepsis due to pneumonia Current Visit: Yes Status: Acute Code(s): J18.9 - PNEUMONIA, UNSPECIFIED ORGANISM; A41.9 - SEPSIS, UNSPECIFIED ORGANISM SNOMED Code(s): 77344268 Comment: -Sepsis and PNA resolved -Finished antibiotics last night -Discussed case with Dr. Treviño -Cultures negative Status and Disposition: -Appreciate PT eval -Ambulatory sats appear reassuring -Possible D/C to home in AM if no O/N issues and to make sure new home prescriptions would be available to pharmacy given Thursday (weekend) and pts complicated course -Continue to watch BP on Multaq
[2018-03-14] MEDS: Nicotine Patch Removal NOTE FOLLOW UP SCH (21:09)
[2018-03-15] MEDS: Metoprolol Tartrate TAB* 25 MG PO SCH ×3 (00:43→16:19)
[2018-03-15] MEDS: guaiFENesin LIQ* 100 MG/5 ML UDC PO PRN (04:16)
[2018-03-15] MEDS: LORazepam INJ* 2 MG/ML 1 ML VIAL IV PUSH PRN (04:16)
[2018-03-15] MEDS: Albuterol 2.5 MG/3 ML NEB.SOL* (0.083%) INH PRN (04:33)
[2018-03-15 06:27] LABS: ABS Basophils 0 10^3/ul (0-0.2); ABS Eosinophils 0 10^3/ul (0-0.6); ABS Lymphocytes 2.2 10^3/ul (1.0-4.8); ABS Monocytes 0.8 10^3/ul (0-0.8); ABS Nucleated RBC 0 10^3/ul; Eosinophil % 0.1 % (0-6); Hematocrit 43 % (42-52); Hemoglobin 14.7 g/dl (14.0-18.0); Lymphocyte % 24.3 % (25-47); Mean Corpuscular HGB Conc 34 g/dl (31-36); Mean Corpuscular Hemoglobin 35 pg (27-31); Mean Corpuscular Volume 102 fL (80-94); Mean Platelet Volume 8.5 um3 (7.4-10.4); Nucleated Red Blood Cells % 0.1; Platelet Count 206 10^3/ul (150-450); Red Blood Count 4.24 10^6/ul (4.00-5.40); Red Cell Distribution Width 13 % (10.5-15)
[2018-03-15 06:52] LABS: EGFR Non-African American 79.7 (>60)
[2018-03-15] MEDS: Furosemide IV* 10 MG/ML 2 ML VIAL (20 MG) IV SCH (08:44)
[2018-03-15] MEDS: CMC:Pantoprazole TAB (NF) 40 MG TAB PO SCH (08:49)
[2018-03-15] MEDS: Aspirin EC TAB* 81 MG TAB.EC PO SCH (08:49)
[2018-03-15] MEDS: Dronedarone TAB* 400 MG PO SCH ×2 (08:49→18:11)
[2018-03-15] MEDS: Benzonatate CAP* 100 MG PO SCH (08:50)
[2018-03-15] MEDS: Lisinopril TAB* 5 MG PO SCH (08:51)
[2018-03-15] MEDS: Nicotine PATCH 7 MG/24 HR* PATCH TRANSDERM SCH (08:54)
[2018-03-15] MEDS ORDERED: predniSONE TAB* 10 MG PO SCH (09:00)
--- NOTE | 2018-03-15 09:25 | RAD ---
HISTORY: Monitor for Pulmonary Edema COMPARISONS: March 12, 2018 VIEWS: 1: frontal portable view of the chest at 9:00 AM FINDINGS: LINES AND TUBES: A left-sided AICD is noted. CARDIOMEDIASTINAL SILHOUETTE: The cardiac silhouette is enlarged. The cardiomediastinal silhouette is otherwise normal for portable technique. PLEURA: The costophrenic angles are sharp. No pleural abnormalities are noted. LUNG PARENCHYMA: The lungs are clear. There is improved aeration of the left lung base. ABDOMEN: The upper abdomen is clear. There is no subphrenic gas. BONES AND SOFT TISSUES: No bone or soft tissue abnormalities are noted. IMPRESSION: CARDIOMEGALY
[2018-03-15] MEDS: Enoxaparin(*) 40 MG/0.4 ML SYR SUBCUT SCH (12:39)
[2018-03-15 16:13] VITALS: BP 89/59
--- NOTE | 2018-03-15 17:11 | PN ---
Subjective Date of Service: 03/15/18 Interval History: Patient is feeling at baseline with mildly increased SOB this AM which resolved spontaneously. CXR negative. Is willing to be discharged with Life-Vest. Patient denies CP, N/V, dizziness, palpitations, F/C, abdominal pain, or other pain. Family History: Unchanged from Admission Social History: Unchanged from Admission Past Medical History: Unchanged from Admission Objective Active Medications: Acetaminophen (Tylenol Tab*) 650 mg PO Q6H PRN PRN Reason: pain/fever Last Admin: 03/10/18 15:41 Dose: 650 mg Albuterol (Ventolin 2.5 Mg/3 Ml Neb.Francine*) 2.5 mg INH Q4H PRN PRN Reason: SOB/WHEEZING Last Admin: 03/15/18 04:33 Dose: 2.5 mg Aspirin (Aspirin Ec Tab*) 81 mg PO DAILY [facility] Last Admin: 03/15/18 08:49 Dose: 81 mg Benzonatate (Tessalon Cap*) 100 mg PO BID [facility] Last Admin: 03/15/18 08:50 Dose: 100 mg Dronedarone (Multaq Tab*) 400 mg PO BID [facility] Last Admin: 03/15/18 08:49 Dose: 400 mg Enoxaparin Sodium (Lovenox(*)) 40 mg SUBCUT Q24H [facility] Last Admin: 03/15/18 12:39 Dose: Not Given Furosemide (Lasix Tab*) 20 mg PO BID WITH MEALS [facility] Guaifenesin (Robitussin*) 5 ml PO Q4H PRN PRN Reason: COUGH Last Admin: 03/15/18 04:16 Dose: 5 ml Guaifenesin/Codeine Phosphate (Robitussin Ac 100mg-10mg*) 5 ml PO Q4H PRN PRN Reason: COUGH Last Admin: 03/12/18 22:13 Dose: 5 ml Lisinopril (Prinivil Tab*) 2.5 mg PO DAILY [facility] Last Admin: 03/15/18 08:51 Dose: 2.5 mg Metoprolol Tartrate (Lopressor Iv*) 2.5 mg IV Q2H PRN PRN Reason: tachycardia>120 Last Admin: 03/10/18 16:38 Dose: 2.5 mg Metoprolol Tartrate (Lopressor Tab*) 25 mg PO Q8H [facility] Last Admin: 03/15/18 16:19 Dose: Not Given Nicotine (Nicotine Patch 7 Mg/24 Hr*) 1 patch TRANSDERM DAILY [facility] Last Admin: 03/15/18 08:54 Dose: Not Given Ondansetron HCl (Zofran 40 Mg Vial*) 4 mg IV Q6H PRN PRN Reason: NAUSEA Last Admin: 03/09/18 08:54 Dose: 4 mg Pantoprazole Sodium (Protonix Tab (Nf)) 40 mg PO DAILY [facility] Last Admin: 03/15/18 08:49 Dose: 40 mg Pharmacy Profile Note (Nicotine Patch Removal Note*) 1 note FOLLOW UP 2100 [facility] Last Admin: 03/14/18 21:09 Dose: Not Given Prednisone (Deltasone Tab*) 20 mg PO DAILY [facility] Trazodone HCl (Desyrel Tab*) 50 mg PO BEDTIME PRN PRN Reason: INSOMNIA Last Admin: 03/12/18 02:24 Dose: 50 mg Vital Signs - 8 hr 03/15/18 03/15/18 03/15/18 11:22 12:00 15:20 Temperature 97.4 F 98.0 F Pulse Rate 85 Respiratory 16 16 Rate Blood Pressure 88/62 89/59 (mmHg) O2 Sat by Pulse 96 98 Oximetry Oxygen Devices in Use Now: None Appearance: Patient is a 32yo male who appears stated age and is sitting in the bed lethargically. Eyes: No Scleral Icterus, PERRLA Ears/Nose/Mouth/Throat: NL Teeth, Lips, Gums, Clear Oropharnyx, Mucous Membranes Moist Neck: NL Appearance and Movements; NL JVP, Trachea Midline Respiratory: Symmetrical Chest Expansion and Respiratory Effort, Clear to Auscultation Cardiovascular: NL Sounds; No Murmurs; No JVD, RRR, No Edema Abdominal: NL Sounds; No Tenderness; No Distention, No Hepatosplenomegaly Lymphatic: No Cervical Adenopathy Extremities: No Edema, No Clubbing, Cyanosis Skin: No Rash or Ulcers, No Nodules or Sclerosis Neurological: Alert and Oriented x 3, NL Sensation, NL Muscle Strength and Tone , - - CN II-XII intact. Result Diagrams: 03/15/18 05:56 03/15/18 05:56 Additional Lab and Data: Lab Results Microbiology and Other Data: Microbiology Assess/Plan/Problems-Billing Assessment: Patient is a 32yo male with a PMH for cardiomyopathy, Afib, HTN here with Pneumonia, Afib and CHF exacerbation who is improving. Patient has a broken lead in his ICD and needs a life-vest. - Patient Problems (1) Cardiomyopathy Current Visit: No Status: Acute Code(s): I42.9 - CARDIOMYOPATHY, UNSPECIFIED SNOMED Code(s): 72885597 Comment: Most recent EF <20%. ICD implanted with broken lead. Fluid overloaded on Presentation, Lasix now at home dose with no pulmonary edema. Will need life vest at discharge and close follow up with [employer] for lead replacement. Unknown cause. Continue BB, Multaq, and Lisinopril. (2) GERD (gastroesophageal reflux disease) Current Visit: Yes Status: Acute Code(s): K21.9 - GASTRO-ESOPHAGEAL REFLUX DISEASE WITHOUT ESOPHAGITIS SNOMED Code(s): 045130713 Comment: Continue Pantoprazole (3) Hypotension Current Visit: Yes Status: Acute Comment: Chronic, stable, asymptomatic. (4) Reactive airway disease that is not asthma Current Visit: Yes Status: Acute Code(s): R09.89 - OTH SYMPTOMS AND SIGNS INVOLVING THE CIRC AND RESP SYSTEMS SNOMED Code(s): 75363326 Comment: -Likely due to recent PNA -Start rapid taper of Prednisone--d/c in 4 days (5) Sepsis due to pneumonia Current Visit: Yes Status: Acute Code(s): J18.9 - PNEUMONIA, UNSPECIFIED ORGANISM; A41.9 - SEPSIS, UNSPECIFIED ORGANISM SNOMED Code(s): 84407811 Comment: Sepsis and PNA resolved Finished antibiotics (6) Atrial fibrillation Current Visit: No Status: Acute Code(s): I48.91 - UNSPECIFIED ATRIAL FIBRILLATION SNOMED Code(s): 46024245 Comment: In Afib with controlled rates. Continue Metoprolol and Multaq. Low risk, no need for anticoagulation. (7) Tobacco abuse Current Visit: No Status: Acute Code(s): Z72.0 - TOBACCO USE SNOMED Code(s ): 101173548 Comment: Nicotine inhaler PRN. (8) DVT prophylaxis Current Visit: Yes Status: Acute Code(s): RQO2953 - SNOMED Code(s): 981202419 Comment: Continue Lovenox SQ Status and Disposition: -Appreciate PT eval -Ambulatory sats appear reassuring -Possible D/C to home in AM if no O/N issues and to make sure new home prescriptions would be available to pharmacy given Thursday (weekend) and pts complicated course -Continue to watch BP on Multaq
--- NOTE | 2018-03-16 00:47 | DS ---
Amended report to enter co-signing physician. DISCHARGE SUMMARY: DATE OF ADMISSION: 03/08/18 DATE OF DISCHARGE: 03/15/18 PRIMARY CARE PROVIDER: Keisha Dorado NP. MY ATTENDING WHILE IN THE HOSPITAL: Alix Ruvalcaba MD* (dictated by MYNOR Crenshaw). AIRCRAFT AVIONICS TECHNICIAN: Yasemin Curiel MD. [place] [employer] TECHNICIAN: Dr. Ventura of [facility]. PRIMARY DISCHARGE DIAGNOSES: 1. Pneumonia. 2. Atrial fibrillation. 3. Congestive heart failure exacerbation. SECONDARY DISCHARGE DIAGNOSES: 1. Nonischemic cardiomyopathy, EF of 20. 2. Hypertension. 3. Implantable cardioverter-defibrillator. 4. History of alcohol and tobacco abuse. STUDIES DONE WHILE IN THE HOSPITAL: Chest x-ray from 03/08/18 read as no radiographic evidence of acute cardiopulmonary disease. Electrocardiogram from 03/08/18 shows normal sinus rhythm, rate of 116, early repolarization in V2 and V3, ST segment depression with T-wave inversion in V5 and V6 consistent with previous exam from 01/24/18. Repeat EKG from 03/09/18 shows resting tachycardia, rate 139, persistent T-wave inversions and early repolarization, QTc 475, rate of 139. Repeat EKG from 03/13/18 shows rate of 94, atrial flutter, similar T-wave morphology, no other significant evidence of ischemia, rate of 94, QTc of 741. Repeat EKG from 03/15/18 shows persistent atrial flutter, no other significant changes. Abdomen and pelvis CT from 03/08/18 read as there is hepatomegaly with homogeneously hypodense liver. The appearance could be due to hepatosteatosis or other infiltrative disease of the liver, please correlate to LFTs; similar to prior CT evaluation, there is [id number] degree of cardiomegaly, but no pleural effusions. There is trace pericholecystic fluid without visualization of gallstones or definite wall thickening. The patient is having pain suggestive of cholecystitis. Characterization of the gallbladder made with an ultrasound. There is a small amount of peritoneal ascites. The ascites as well as the pericholecystic fluid could be due to congestive heart failure or diabetic cardiomyopathy. Abdominal ultrasound from 03/08/18 read as moderately increased echogenicity of the liver could be seen with chronic infiltrative disease such as hepatosteatosis, trace pericholecystic fluid and gallbladder wall thickening without signs of biliary obstruction, clinical signs of acute cholecystitis. The appearance could be related to congestive heart failure or nonobstructing renal calculi in the right kidney. Chest x-ray from 03/09/18 read as airspace disease in the right lung base consistent with right basilar pneumonia. Chest x-ray from 03/10/18 read as persistent right basilar pneumonia as noted. Chest x-ray from 03/12/18 read as a small left basilar infiltrate and/or pleural effusion. Chest x-ray from 03/15/18 read as cardiomegaly. MEDICATIONS AT DISCHARGE: 1. Lisinopril 2.5 mg p.o. daily. 2. Aspirin 81 mg p.o. daily. 3. Tylenol 650 mg p.o. q.6 hours as needed. 4. Dronedarone 400 mg p.o. b.i.d. 5. Furosemide 200 mg p.o. b.i.d. 6. Metoprolol 25 mg p.o. q.8 hours. 7. Pantoprazole 40 mg p.o. daily. 8. Trazodone 50 mg p.o. at bedtime. New medications at discharge: 1. Tylenol. 2. Dronedarone. 3. Furosemide. 4. Metoprolol. 5. Pantoprazole. 6. Trazodone. Medications discontinued at discharge: 1. Pantoprazole 20 mg p.o. b.i.d. 2. Carvedilol 3.125 mg p.o. b.i.d. HOSPITAL COURSE: This is a brief summary of the patient's prolonged hospitalization. For more details, please see the history and physical from Dr. Gianni Brown on 03/08/18 and subsequent progress notes. In brief, the patient is a 32-year-old male with past medical history significant for the above who presented to the emergency department with cough, nausea, vomiting, shaking chills, burning chest discomfort, and multiple shocks from his ICD. This has been going on for about a week. He has also stopped taking his Lasix approximately 3 days before presentation. On further questioning, he also stated that he had not been taking his carvedilol for 3 days before admission. The patient has severely elevated BNP, elevated AST and ALT at 118 and 218. The patient was tachycardic and hypotensive, which are consistent with his baseline. The patient has low-grade elevated temperatures. The patient was admitted to the hospital. The patient was given 40 mg IV Lasix and was started on 40 mg IV Lasix b.i.d. The patient was presumed to have bronchitis due to initial negative chest x-ray. The patient had initial CRP, which was 26.03 and procalcitonin of 0.01. This was repeated in the morning and showed a procalcitonin of 0.02. Initially, the patient's AST went up and ALT went down. The patient had an initial magnesium of 1.6. The patient overnight, after his admission, developed significant sinus tachycardia and increased respiratory distress as well as hypotension as above. The patient's tachycardia was treated with metoprolol and he was transitioned to the intensive care unit for high flow nasal cannula. The patient was seen in consultation by Dr. Catrachito Estes as well as Dr. Vito Treviño, the relocation counselor. The patient was begun on treatment with IV antibiotics, azithromycin, and ceftriaxone for community-acquired pneumonia. The patient's blood pressure medications were continued with hold parameters. The patient was started on bronchodilator therapy. The patient's Lasix was also continued with hold parameters. The patient's ICD was interrogated and he was found to have a broken lead. The patient, on 03/10/18, needed noninvasive positive pressure ventilation through BiPAP. The patient's urine output improved. The patient transitioned to atrial fibrillation with rapid ventricular response, which was controlled with metoprolol IV and he converted back to sinus tachycardia. The patient was switched to vancomycin and doxycycline for coverage of both hospital- acquired and community-acquired pneumonia. The patient was seen in consultation by Dr. Britta Preciado and it was recommend he be started on Multaq for his antiarrhythmia, which was started and the patient tolerated it well. The patient was able to be weaned off of oxygen. The patient was switched to cefepime and doxycycline. The patient's IV Lasix was decreased. The patient was transferred out of the ICU on 03/13/18. The patient was started on rapid prednisone taper due to bronchospasm and wheezing. Of note, the patient was deemed not to need anticoagulation due to low CHADS- VASc score. The patient had slight shortness of breath on the morning of at which time oxygen was applied, but this was quickly able to be taken off and the patient saturated well on room air for the remainder of the day. The patient generally had good oxygen saturation throughout the latter part of his hospitalization. The patient was able to be on room air for the last several days of his hospitalization. The patient had intermittent tachycardia. The patient was maintained on metoprolol 25 mg p.o. q.8 hours as scheduled. We discussed with the patient that he would need a LifeVest at discharge since his ICD was not functioning properly or he would need transfer to [place] directly. The patient initially stated understanding of this on 03/15/18, but then later in the evening on 03/15/18 stated that he was tired of being in the hospital and he has things to attend to at home and that he would follow up with Dr. Ventura as soon as he could. The risks of him leaving before LifeVest placement were reviewed with him including sudden cardiac from fatal cardiac arrhythmia. The patient stated understanding of this and was willing to accept that risk stating that he is at risk of dying every day of his life due to his cardiac function and that he would not tolerate being in the hospital any longer. The patient was deemed to have competence to make this decision and the patient was able to leave after signing out AMA. The patient's Multaq prescription was sent to his pharmacy as well as other prescriptions as above. The patient was instructed to return to the hospital for alarming symptoms such as chest pain, syncope, fairly increased shortness of breath. DISCHARGE PLAN: The patient is signing out AMA, before his LifeVest will be able to be obtained, on 03/15/18. The patient should follow up closely with his primary care provider to assess for continued improvement in his respiratory status as well as repeat EKG to assess for possible spontaneous conversion back to normal sinus rhythm now that he is on Multaq. The patient should continue on his other medications as above. The patient should avoid excessive salt or fluid intake. The patient should take his Lasix as above. The patient should follow up with Dr. Curiel within 2 weeks for assessment of his cardiac function. The patient is provided with the number for Dr. Ventura at [facility] and he has been instructed to call him as soon as he is able to schedule followup to repair his ICD lead and it has been impressed upon him that he is at risk for fatal cardiac arrhythmia until this occurs. The patient should have a heart-healthy diet without caffeine with the above restrictions and should engage in activity as tolerated. TIME SPENT: Approximately 75 minutes were spent on the discharge of this patient, 45 of which were spent [id number] with the patient obtaining history and physical, discussing treatment plan, and discussing the risks of leaving against medical advice. MYNOR CRENSHAW [id number]/[facility] #: [id number]
[2018-03-16] MEDS ORDERED: Furosemide TAB* 20 MG PO SCH (08:00)
[2018-03-16] MEDS ORDERED: predniSONE TAB* 20 MG PO SCH (09:00)
== END 2018-03-15 18:34 | disposition left against medical advice (07) | DRG 720 ==
LOC: ED 17:45 → MED 22:00 → ICU 03-09 08:41 → OBSVTOIN 03-09 09:00 → MEDTELE 03-12 10:45
PROVIDERS: ADMIT Hospitalist; ATTEND Internal Medicine
PROC: 5A09357 Assistance with Respiratory Ventilation, Less than 24 Consecutive Hours, Continuous Positive Airway Pressure (ICD-10-PCS; principal; 2018-03-09)
PROC: 4B02XTZ Measurement of Cardiac Defibrillator, External Approach (ICD-10-PCS; 2018-03-09)
DX: A41.9 Sepsis, unspecified organism (principal); J96.01 Acute respiratory failure with hypoxia; I50.23 Acute on chronic systolic (congestive) heart failure; J18.9 Pneumonia, unspecified organism; I48.92 Unspecified atrial flutter; T82.110A Breakdown (mechanical) of cardiac electrode, initial encounter; I25.5 Ischemic cardiomyopathy; I11.0 Hypertensive heart disease with heart failure; K21.9 Gastro-esophageal reflux disease without esophagitis; F17.210 Nicotine dependence, cigarettes, uncomplicated; F12.90 Cannabis use, unspecified, uncomplicated; I48.0 Paroxysmal atrial fibrillation; R16.0 Hepatomegaly, not elsewhere classified; Y71.2 Prosthetic and other implants, materials and accessory cardiovascular devices associated with adverse incidents; R65.20 Severe sepsis without septic shock; Z88.5 Allergy status to narcotic agent; Z95.810 Presence of automatic (implantable) cardiac defibrillator; Z82.49 Family history of ischemic heart disease and other diseases of the circulatory system; Z72.89 Other problems related to lifestyle; Q24.9 Congenital malformation of heart, unspecified; Z56.0 Unemployment, unspecified; Z79.82 Long term (current) use of aspirin; Y92.009 Unspecified place in unspecified non-institutional (private) residence as the place of occurrence of the external cause
CPT/HCPCS: 36415; 36600; 71045; 71046; 74177; 76705; 80048; 80053; 80076; 80202; 80320; 81003; 82553; 82803; 83605; 83735; 83880; 84100; 84145; 84484; 85025; 85027; 85730; 86140; 87040; 87070; 87205; 93005; 94640; 94660; 99284; A9270-GY; G0378; G0480; J0692; J1160; J1650; J1885; J1940; J2060; J2765; J3370; J3475; J3490; J7512; Q9967

== ENCOUNTER 2018-04-02 14:53 | Inpatient (IN) | payer OTHER ==
[2018-04-02] MEDS ORDERED: Aspirin 81 mg CHEW TAB* 81 MG TAB.CHEW PO ONE (15:07)
[2018-04-02] MEDS ORDERED: Digoxin IV* 0.5 MG/2 ML AMP (0.25 MG/ML) IV SLOW PU ONE (15:18)
[2018-04-02] MEDS ORDERED: Ondansetron INJ* 2 MG/ML VIAL IV ONE (15:37)
[2018-04-02] MEDS ORDERED: Morphine VIAL* 4 MG/ML VIAL (1 ml vial) IV ONE (15:37)
--- OUTSIDE RECORDS SUMMARY | 2018-04-02 15:37 | XMS REPORT ---
:1985 External Reference #:[id number] Author Organization [facility] Address [address] [place] [address] [place] [address] Phone [phone] Care Team Providers Name Role Phone Kaylin Dorado N.P. Primary Care Physician Unavailable Payers Type Date Identification Numbers Payment Provider Subscriber Commercial Effective: Policy Number: Forrest Eugenio Brice 2016 [id number] Group Name: [id number] [address] PayID: [id number] [place] [address] Medigap Part B Expires: 2016 Policy Number: Medicaid Eugenio Brice [id number] Group Name: 1 1 [address] PayID: [id number] [place] [address] Problems Description No Information Family History Date Family Member(s) Problem(s) Comments Father unknown Mother Cardiomyopathy Siblings 2 Siblings no known cardiac issues Social History Type Date Description Comments Marital Status Single Lives With friend Occupation Unemployed Cigarette Use current cigarette smoker ETOH Use Currently consumes alcohol ETOH Use 6 pack or less qod Smoking 1/2 PPD Recreational Drug Use Regularly uses Marijuana Smoking Patient is a current smoker, smokes every day Daily Caffeine Does Not Consume Caffeine Exercise Type/Frequency Exercises regularly Allergies, Adverse Reactions, Alerts Date Description Reaction Status Severity Comments 01/17/2016 Codeine active nausea Medications Medication Date Status Form Strength Qnty SIG Indications Ordering Provider Coreg 01/12/ Active Tablets 3.125mg 60tabs 1 by mouth Catrachito Cisneros 2017 twice a day Aly Estes Lasix 03/20/ Active Tablets 20mg 30tabs one po qd Qutaybkimberly 2016 Cheyanne Curiel M.D. Lisinopril 04/15/ Active Tablets 2.5mg 30tabs 1 by mouth Yasemin 2015 every day S. (per pt Veena, restarted M.D. 03/19/17) Aspirin Adult / Active Tablets 81mg 1 by mouth Unknown Low Dose 0000 DR every day Pantoprazole / Active Tablets 20mg Take [address] Tablet By Mouth Twice A Day [facility] Balanced / Active Tablets B-100 Take 1 Unknown B-100 0000 Tablet By Mouth Every Day In The Morning Aspir-Low / Active Tablets 81mg 1 by mouth Unknown 0000 DR every day Toprol XL 04/15/ Hx Tablets 25mg 30tabs 1 by mouth Yasemin 2016 - ER 24HR every day S. 01/12/ (per pt Veena, 2018 restarted M.D. 03/19/17) Aldactone 04/15/ Hx Tablets 25mg 30tabs one by Yasemin 2016 - mouth every S. 12/11/ day (per pt Veena, 2018 restarted M.D. 03/19/17) No Active 01/16/ Hx Unknown Medications 2015 - 2015 Vitamin B / Hx Tablets 1 by mouth Unknown Complex 0000 - every day 2017 Prilosec OTC / Hx Tablets 20mg 1 by mouth Unknown 0000 - DR every day 2017 Vital Signs Date Vital Result Comment 02/11/2018 Height 67 inches 5'7" Weight 145.00 lb w/ shoes Heart Rate 74 /min reg BP Systolic Sitting 106 mmHg Rue, reg cuff BP Diastolic Sitting 86 mmHg Rue, reg cuff Respiratory Rate 18 /min BMI (Body Mass Index) 22.7 kg/m2 Ejection Fraction < 20% as of 01/2018 echo 04/06/2017 Height 67 inches 5'7" Weight 245.00 lb with shoes Heart Rate 90 /min BP Systolic Sitting 126 mmHg LA reg cuff BP Diastolic Sitting 84 mmHg LA reg cuff BMI (Body Mass Index) 38.4 kg/m2 Ejection Fraction <20% echo 04/11/16 12/10/2016 Height 67 inches 5'7" Weight 154.75 lb with boots Heart Rate 80 /min BP Systolic Sitting 132 mmHg LA reg cuff BP Diastolic Sitting 88 mmHg LA reg cuff BMI (Body Mass Index) 24.2 kg/m2 Ejection Fraction <20% echo 04/11/16 04/15/2016 Height 67 inches 5'7" Weight 146.00 lb w/shoes Heart Rate 80 /min BP Systolic Sitting 132 mmHg LA reg cuff BP Diastolic Sitting 88 mmHg LA reg cuff BMI (Body Mass Index) 22.9 kg/m2 Ejection Fraction < 20 Echo 04/11/16 01/17/2016 Height 67 inches 5'7" Weight 155.50 lb with shoes Heart Rate 88 /min BP Systolic 136 mmHg LA reg cuff BP Diastolic 98 mmHg LA reg cuff BMI (Body Mass Index) 24.4 kg/m2 Ejection Fraction 40%-45% 06/22/14 echo Results Test Date Test Result H/L Range Note Basic Metabolic Panel 05/07/2016 Sodium 139 mmol/L 133-145 Potassium 4.4 mmol/L 3.5-5.0 Chloride 103 mmol/L 101-111 Co2 Carbon Dioxide 28 mmol/L 22-32 Anion Gap 8 mmol/L 2-11 Glucose 70 mg/dL 70-100 Blood Urea Nitrogen 12 mg/dL 6-24 Creatinine 1.28 mg/dL High 0.67-1.17 BUN/Creatinine Ratio 9.4 8-20 Calcium 10.1 mg/dL 8.6-10.3 Egfr Non- 66.4 >60 Egfr 85.5 >60 1 Laboratory test finding 01/24/2016 Alt (SGPT) 10 U/L 7-52 Ast (Sgot) 15 U/L 13-39 TSH (Thyroid Stim Horm) 2.89 ?IU/mL 0.34-5.60 Basic Metabolic Panel 01/24/2016 Sodium 138 mmol/L 133-145 Potassium 4.2 mmol/L 3.5-5.0 Chloride 104 mmol/L 101-111 Co2 Carbon Dioxide 29 mmol/L 22-32 Anion Gap 5 mmol/L 2-11 Glucose 83 mg/dL 70-100 Blood Urea Nitrogen 16 mg/dL 6-24 Creatinine 1.06 mg/dL 0.67-1.17 BUN/Creatinine Ratio 15.1 8-20 Calcium 9.3 mg/dL 8.6-10.3 Egfr Non- 82.6 >60 Egfr 106.2 >60 2 1 Because ethnic data is not always readily available, this report includes an eGFR for both -Americans and non- Americans. The National Kidney Disease Education Program (NKDEP) does not endorse the use of the MDRD equation for patients that are not between the ages of 18 and 70, are , have extremes of body size, muscle mass, or nutritional status, or are non- or non-. According to the National Kidney Foundation, irrespective of diagnosis, the stage of the disease is based on the level of kidney function: Stage Description GFR(mL/min/1.73 m(2)) 1 Kidney damage with normal or decreased GFR 90 2 Kidney damage with mild decrease in GFR 60-89 3 Moderate decrease in GFR 30-59 4 Severe decrease in GFR 15-29 5 Kidney failure <15 (or dialysis) 2 Because ethnic data is not always readily available, this report includes an eGFR for both -Americans and non- Americans. The National Kidney Disease Education Program (NKDEP) does not endorse the use of the MDRD equation for patients that are not between the ages of 18 and 70, are , have extremes of body size, muscle mass, or nutritional status, or are non- or non-. According to the National Kidney Foundation, irrespective of diagnosis, the stage of the disease is based on the level of kidney function: Stage Description GFR(mL/min/1.73 m(2)) 1 Kidney damage with normal or decreased GFR 90 2 Kidney damage with mild decrease in GFR 60-89 3 Moderate decrease in GFR 30-59 4 Severe decrease in GFR 15-29 5 Kidney failure <15 (or dialysis) Procedures Date CPT Code Description Status 02/11/2018 24110 EKG Tracing & Interpretation Completed 01/25/2018 44531 ECHO Transthorasic Realtime 2D W Doppler & Color Flow Completed Hosp 01/12/2018 90183 Insert/Replace Icd W/Generator Completed 08/11/2017 62832 Icd Eval W/Iterative Adjustmnt Single Lead Icd Completed 04/22/2017 84510 Icd Eval W/Iterative Adjustmnt Single Lead Icd Completed 04/06/2017 46948 EKG Tracing & Interpretation Completed 12/10/2016 72055 EKG Tracing & Interpretation Completed 12/04/2016 41070 Icd Eval W/Iterative Adjustmnt Single Lead Icd Completed 06/10/2016 88010 Icd Eval W/Iterative Adjustmnt Single Lead Icd Completed 04/11/2016 06913 ECHO Transthoracic, Real-Time 2D With Doppler And Color Completed Flow 04/10/2016 02957 Holter Monitor Review (24 hr)dr review & interp only Completed 04/08/2016 80075 ECG Monitor/Recording W/Visual Superimposition Scanning Completed 01/31/2016 13546 Interrogation Device Eval In Person W/DR Completed Analysis,Single,Dual,Mul 01/17/2016 91363 EKG Tracing & Interpretation Completed Encounters Type Date Location Provider CPT E/M Dx Office Visit 03/10/2018 12:10p [facility] Britta Preciado M.D. 81756 I42.9 Karen I48.0 F10.10 F17.210 F12.10 J18.9 Office Visit 03/09/2018 8:54a [facility] Catrachito Estes, 70159 I50.9 Karen Lu J18.9 Office Visit 02/11/2018 9:00a [facility] Yasemin Edward 86672 I42.9 Karen Curiel M.D. F10.10 Z95.810 F17.210 F12.10 R94.31 Office Visit 01/26/2018 11:01a [facility],[place] [address] I50.21 Hospitalists F10.10 R10.13 Office Visit 01/25/2018 11:01a [facility],[place] [address] I50.21 Hospitalists F10.10 R10.13 Office Visit 01/24/2018 10:58a [facility],[place] [address] I50.21 Hospitalists F10.10 R10.13 Office Visit 01/12/2018 2:05p [facility] Catrachito Estes 59412 I42.9 Karen Lu Z95.810 Z45.02 Office Visit 01/12/2018 9:09a [facility],MYNOR Armstrong [address]509 I42.8 Hospitalists E83.42 I48.91 Z45.02 Office Visit 01/11/2018 9:08a [facility],pc Adrienne Prather, 88112 I42.8 Hospitalists SUTURE GAUGER E83.40 I48.91 Z45.02 Office Visit 04/06/2017 1:00p [facility] Titatakimberly Curiel, [address]3358 I42.9 M.D. Z95.810 F17.210 F12.10 F10.10 I51.7 Office Visit 12/10/2016 3:40p [facility] [place]im[place] Curiel, [address]12[address] I42.9 M.D. Z95.810 R06.02 F17.210 I51.7 Office Visit 04/15/2016 2:00p [facility] Yasemin Curiel, 21624 I42.9 M.D. Z95.810 R00.0 Office Visit 01/17/2016 3:00p [facility] [place]kimberly Curiel, [address] I42.9 M.D. R94.31 R06.02 R00.0 Z95.810 F17.210 Plan of Care Future Appointment(s):03/19/2018 3:30 pm - Giselle Jeffrey N.P. at [facility]03/23/2018 10:20 am - Pacemaker Schedule at [facility] - Yasemin Curiel M.D.I42.9 Cardiomyopathy, unspecifiedFollow up :6 months ov Giselle one yr ov with meF10.10 Alcohol abuse, sciqlhdehrncpL44.810 Presence of automatic (implantable) cardiac peqvaxhufzuxiA62.210 Nicotine dependence, cigarettes, idzivjzwvnajeX18.10 Cannabis abuse, scdwvyspyajfuW71.31 Abnormal electrocardiogram [ECG] [EKG]
--- NOTE | 2018-04-02 15:56 | RAD ---
INDICATION: Chest pain. Short of breath COMPARISON: March 15, 2018 TECHNIQUE: An AP portable view obtained at 1540 hours is submitted. FINDINGS: Bones/Soft Tissues: There are no acute bony findings. There is left-sided cardiac pacemaker Cardiomediastinal: The cardiomediastinal silhouette is mildly enlarged. Lungs: There are no infiltrates. Pleura: There are no pleural effusions. Other: None IMPRESSION: MILD ENLARGED CARDIAC SILHOUETTE. CARDIAC PACEMAKER. NO ACTIVE DISEASE.
[2018-04-02 16:23] LABS: EGFR Non-African American 66.8 (>60)
[2018-04-02 16:26] LABS: ABS Basophils 0 10^3/ul (0-0.2); ABS Eosinophils 0 10^3/ul (0-0.6); ABS Lymphocytes 1.6 10^3/ul (1.0-4.8); ABS Monocytes 0.5 10^3/ul (0-0.8); ABS Neutrophils 3.2 10^3/ul (1.5-7.7); ABS Nucleated RBC 0 10^3/ul; Eosinophil % 0.6 % (0-6); Hematocrit 46 % (42-52); Hemoglobin 15.2 g/dl (14.0-18.0); Lymphocyte % 30.1 % (25-47); Mean Corpuscular HGB Conc 33 g/dl (31-36); Mean Corpuscular Hemoglobin 34 pg (27-31); Mean Corpuscular Volume 102 fL (80-94); Mean Platelet Volume 9.3 um3 (7.4-10.4); Nucleated Red Blood Cells % 0.1; Platelet Count 154 10^3/ul (150-450); Red Blood Count 4.48 10^6/ul (4.00-5.40); Red Cell Distribution Width 14 % (10.5-15); White Blood Count 5.5 10^3/ul (3.5-10.8)
[2018-04-02 16:44] LABS: INR 1.7 (0.77-1.02)
[2018-04-02] MEDS ORDERED: Morphine VIAL* 10 MG/ML 1 ML VIAL ONE (16:44)
[2018-04-02 17:16] LABS: Urine Appearance Cloudy; Urine Blood Negative (Negative); Urine Color Amber; Urine Ketones Negative (Negative); Urine Protein Negative (Negative); Urine Specific Gravity 1.018 (1.010-1.030); Urine Urobilinogen Positive (Negative)
--- NOTE | 2018-04-02 17:29 | ED ---
HPI Chest Pain - HPI Summary HPI Summary: Patient is a 32-year-old male presenting to the ED with severe chest tightness extending into the abdomen, shortness of breath 2 days. 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 Also history of an AICD placement which currently has a fractured lead. Patient is medication noncompliant and has not followed up with cardiologists as suggested. He denies any urinary symptoms, back pain, headache. Denies any fevers, sweats, chills. Denies any recent travel. Patient is a smoker. - History of Current Complaint Chief Complaint: EDShortnessOfBreath Time Seen by Provider: 04/02/18 15:06 Hx Obtained From: Patient Onset/Duration: Started Hours Ago Timing: Constant Initial Severity: Moderate Current Severity: Moderate Pain Intensity: 8 Pain Scale Used: 0-10 Numeric Chest Pain Location: Diffuse Chest Pain Radiates: No Chest Pain Radiates To:: Epigastric, Other - RUQ Character: Burning, Dull/Aching, Heaviness, Pressure/Squeezing Aggravating Factor(s): Exertion, Position Alleviating Factor(s): Nothing Associated Signs and Symptoms: Positive: Chest Pain - Additional Pertinent History Primary Care Physician: [id number] - Allergy/Home Medications Allergies/Adverse Reactions: Allergies Allergy/AdvReac Type Severity Reaction Status Date / Time No Known Allergies Allergy Verified 04/02/18 14:55 Home Medications: Home Medications Magnesium Oxide TAB* [MagOx 400 TAB*] 400 mg PO DAILY 04/02/18 [History Confirmed 04/02/18] Nicotine PATCH 21 MG/24 HR* 21 mg TRANSDERM DAILY 04/02/18 [History Confirmed ] Sertraline* [Zoloft*] 50 mg PO DAILY 04/02/18 [History Confirmed 04/02/18] PMH/Surg Hx/FS Hx/Imm Hx Previously Healthy: No Endocrine/Hematology History: Denies: Hx Anticoagulant Therapy Cardiovascular History: Reports: Hx Auto Implanted Cardiovert Defib, Hx Congenital Heart Disease - EF less than 20%, Hx Congestive Heart Failure, Hx Hypertension, Hx Pacemaker/ICD, Other Cardiovascular Problems/Disorders - CARDIOMYOPATHY, ICD Respiratory History: Denies: Hx Chronic Obstructive Pulmonary Disease (COPD) GI History: Reports: Hx Gastroesophageal Reflux Disease, Other GI Disorders - elevated LFT's 01/24/18 Sensory History: Reports: Hx Contacts or Glasses Denies: Hx Deafness, Hx Hearing Aid Opthamlomology History: Reports: Hx Contacts or Glasses Neurological History: Denies: Hx Migraine, Hx Seizures, Hx Spinal Cord Injury, Hx Transient Ischemic Attacks (TIA) - Surgical History Surgery Procedure, Year, and Place: 01/22/18- defibrillator repolaced - Immunization History Hx Pertussis Vaccination: No Immunizations Up to Date: Unable to Obtain/Confirm Infectious Disease History: No Infectious Disease History: Denies: Hx of Known/Suspected MRSA, Traveled Outside the [place] in Last 30 Days - Family History Known Family History: Positive: Cardiac Disease - Social History Occupation: Unemployed Lives: With Family Alcohol Use: None Alcohol Amount: 6 pack Hx Substance Use: Yes Substance Use Type: Reports: Marijuana Substance Use Comment - Amount & Last Used: Daily Hx Tobacco Use: Yes Smoking Status (MU): Light Every Day Tobacco Smoker Type: Cigarettes Amount Used/How Often: 4-5 sig/day Have You Smoked in the Last Year: Yes Review of Systems Constitutional: Negative Negative: Fever, Chills, Fatigue, Skin Diaphoresis Positive: Chest Pain. Negative: Palpitations Positive: Shortness Of Breath. Negative: Cough Positive: Abdominal Pain - RUQ. Negative: Vomiting Genitourinary: Negative Positive: no symptoms reported, see HPI. Negative: burning, dysuria, discharge Negative: Arthralgia, Myalgia, Decreased ROM Negative: Rash, Bruising Negative: Headache, Weakness, Paresthesia, Numbness Psychological: Normal All Other Systems Reviewed And Are Negative: Yes Physical Exam Triage Information Reviewed: Yes Vital Signs On Initial Exam: Initial Vitals Temp Pulse Resp BP Pulse Ox 98.9 F 165 24 110/81 100 04/02/18 14:55 04/02/18 14:55 04/02/18 14:55 04/02/18 14:55 04/02/18 14:55 Appearance: Positive: Well-Nourished, Ill-Appearing Skin: Positive: Skin Color Reflects Adequate Perfusion Head/Face: Positive: Normal Head/Face Inspection Eyes: Positive: EOMI, JAYCEE, Conjunctiva Clear Neck: Positive: Supple, No Lymphadenopathy Respiratory/Lung Sounds: Positive: Clear to Auscultation, Breath Sounds Present Cardiovascular: Positive: Tachycardia. Negative: Leg Edema Left, Leg Edema Right Musculoskeletal: Positive: Normal, Strength/ROM Intact Neurological: Positive: Sensory/Motor Intact, Alert, Oriented to Person Place, Time, Speech Normal Psychiatric: Positive: Normal, Affect/Mood Appropriate AVPU Assessment: Alert Diagnostics - Vital Signs Vital Signs Temp Pulse Resp BP Pulse Ox 04/02/18 16:52 18 04/02/18 16:00 228 21 96 04/02/18 15:57 95 04/02/18 15:44 165 27 122/95 95 04/02/18 15:15 164 15 122/90 99 04/02/18 15:14 163 17 04/02/18 14:55 98.9 F 165 24 110/81 100 - Laboratory Lab Results: Lab Results 04/02/18 04/02/18 04/02/18 Range/Units 15:34 15:34 15:34 WBC (3.5-10.8) 10^3/ul RBC (4.00-5.40) 10^6/ul Hgb (14.0-18.0) g/dl Hct (42-52) % MCV (80-94) fL MCH (27-31) pg MCHC (31-36) g/dl RDW (10.5-15) % Plt Count (150-450) 10^3/ul MPV (7.4-10.4) um3 Neut % (Auto) (38-83) % Lymph % (Auto) (25-47) % [place] % (Auto) (0-7) % Eos % (Auto) (0-6) % Baso % (Auto) (0-2) % Absolute Neuts (auto) (1.5-7.7) 10^3/ul Absolute Lymphs (auto) (1.0-4.8) 10^3/ul Absolute Monos (auto) (0-0.8) 10^3/ul Absolute Eos (auto) (0-0.6) 10^3/ul Absolute Basos (auto) (0-0.2) 10^3/ul Absolute Nucleated RBC 10^3/ul Nucleated RBC % INR (Anticoag Therapy) 1.70 H (0.77-1.02) APTT 29.3 (26.0-36.3) seconds D-Dimer, Quantitative 743 H (Less Than 230) ng/mL Sodium (135-145) mmol/L Potassium (3.5-5.0) mmol/L Chloride (101-111) mmol/L Carbon Dioxide (22-32) mmol/L Anion Gap (2-11) mmol/L BUN (6-24) mg/dL Creatinine (0.67-1.17) mg/dL Est GFR ( Amer) (>60) Est GFR (Non-Af Amer) (>60) BUN/Creatinine Ratio (8-20) Glucose (70-100) mg/dL Lactic Acid (0.5-2.0) mmol/L Calcium (8.6-10.3) mg/dL Magnesium (1.9-2.7) mg/dL Total Bilirubin (0.2-1.0) mg/dL AST (13-39) U/L ALT (7-52) U/L Alkaline Phosphatase (34-104) U/L Total Creatine Kinase (10-223) U/L CK-MB (CK-2) (0.6-6.3) ng/mL Myoglobin (17.4-105.7) ng/mL Troponin I (<0.04) ng/mL B-Natriuretic Peptide 2342 H ( - 100) pg/mL Total Protein (6.4-8.9) g/dL Albumin (3.2-5.2) g/dL Globulin (2-4) g/dL Albumin/Globulin Ratio (1-3) TSH 9.75 H (0.34-5.60) mcIU/mL Thyroxine (T4) 7.91 (6.09-12.23) mcg/mL Urine Color Urine Appearance Urine pH (5-9) Ur Specific [place] (1.010-1.030) Urine Protein (Negative) Urine Ketones (Negative) Urine Blood (Negative) Urine Nitrate (Negative) Urine Bilirubin (Negative) Urine Urobilinogen (Negative) Ur Leukocyte Esterase (Negative) Urine Glucose (Negative) Urine Ascorbic Acid (Negative) 04/02/18 04/02/18 04/02/18 Range/Units 15:34 15:34 15:34 WBC 5.5 (3.5-10.8) 10^3/ul RBC 4.48 (4.00-5.40) 10^6/ul Hgb 15.2 (14.0-18.0) g/dl Hct 46 (42-52) % MCV 102 H (80-94) fL MCH 34 H (27-31) pg MCHC 33 (31-36) g/dl RDW 14 (10.5-15) % Plt Count 154 (150-450) 10^3/ul MPV 9.3 (7.4-10.4) um3 Neut % (Auto) 59.0 (38-83) % Lymph % (Auto) 30.1 (25-47) % [place] % (Auto) 9.8 H (0-7) % Eos % (Auto) 0.6 (0-6) % Baso % (Auto) 0.5 (0-2) % Absolute Neuts (auto) 3.2 (1.5-7.7) 10^3/ul Absolute Lymphs (auto) 1.6 (1.0-4.8) 10^3/ul Absolute Monos (auto) 0.5 (0-0.8) 10^3/ul Absolute Eos (auto) 0 (0-0.6) 10^3/ul Absolute Basos (auto) 0 (0-0.2) 10^3/ul Absolute Nucleated RBC 0 10^3/ul Nucleated RBC % 0.1 INR (Anticoag Therapy) (0.77-1.02) APTT (26.0-36.3) seconds D-Dimer, Quantitative (Less Than 230) ng/mL Sodium 134 L (135-145) mmol/L Potassium 3.9 (3.5-5.0) mmol/L Chloride 100 L (101-111) mmol/L Carbon Dioxide 21 L (22-32) mmol/L Anion Gap 13 H (2-11) mmol/L BUN 20 (6-24) mg/dL Creatinine 1.26 H (0.67-1.17) mg/dL Est GFR ( Amer) 80.8 (>60) Est GFR (Non-Af Amer) 66.8 (>60) BUN/Creatinine Ratio 15.9 (8-20) Glucose 124 H (70-100) mg/dL Lactic Acid 2.7 H* (0.5-2.0) mmol/L Calcium 9.2 (8.6-10.3) mg/dL Magnesium 1.8 L (1.9-2.7) mg/dL Total Bilirubin 2.20 H (0.2-1.0) mg/dL AST 312 H (13-39) U/L ALT 269 H (7-52) U/L Alkaline Phosphatase 70 (34-104) U/L Total Creatine Kinase 34 (10-223) U/L CK-MB (CK-2) 1.6 (0.6-6.3) ng/mL Myoglobin 16.3 L (17.4-105.7) ng/mL Troponin I 0.03 (<0.04) ng/mL B-Natriuretic Peptide ( - 100) pg/mL Total Protein 5.8 L (6.4-8.9) g/dL Albumin 3.5 (3.2-5.2) g/dL Globulin 2.3 (2-4) g/dL Albumin/Globulin Ratio 1.5 (1-3) TSH (0.34-5.60) mcIU/mL Thyroxine (T4) (6.09-12.23) mcg/mL Urine Color Urine Appearance Urine pH (5-9) Ur Specific [place] (1.010-1.030) Urine Protein (Negative) Urine Ketones (Negative) Urine Blood (Negative) Urine Nitrate (Negative) Urine Bilirubin (Negative) Urine Urobilinogen (Negative) Ur Leukocyte Esterase (Negative) Urine Glucose (Negative) Urine Ascorbic Acid (Negative) 04/02/18 Range/Units 17:03 WBC (3.5-10.8) 10^3/ul RBC (4.00-5.40) 10^6/ul Hgb (14.0-18.0) g/dl Hct (42-52) % MCV (80-94) fL MCH (27-31) pg MCHC (31-36) g/dl RDW (10.5-15) % Plt Count (150-450) 10^3/ul MPV (7.4-10.4) um3 Neut % (Auto) (38-83) % Lymph % (Auto) (25-47) % [place] % (Auto) (0-7) % Eos % (Auto) (0-6) % Baso % (Auto) (0-2) % Absolute Neuts (auto) (1.5-7.7) 10^3/ul Absolute Lymphs (auto) (1.0-4.8) 10^3/ul Absolute Monos (auto) (0-0.8) 10^3/ul Absolute Eos (auto) (0-0.6) 10^3/ul Absolute Basos (auto) (0-0.2) 10^3/ul Absolute Nucleated RBC 10^3/ul Nucleated RBC % INR (Anticoag Therapy) (0.77-1.02) APTT (26.0-36.3) seconds D-Dimer, Quantitative (Less Than 230) ng/mL Sodium (135-145) mmol/L Potassium (3.5-5.0) mmol/L Chloride (101-111) mmol/L Carbon Dioxide (22-32) mmol/L Anion Gap (2-11) mmol/L BUN (6-24) mg/dL Creatinine (0.67-1.17) mg/dL Est GFR ( Amer) (>60) Est GFR (Non-Af Amer) (>60) BUN/Creatinine Ratio (8-20) Glucose (70-100) mg/dL Lactic Acid (0.5-2.0) mmol/L Calcium (8.6-10.3) mg/dL Magnesium (1.9-2.7) mg/dL Total Bilirubin (0.2-1.0) mg/dL AST (13-39) U/L ALT (7-52) U/L Alkaline Phosphatase (34-104) U/L Total Creatine Kinase (10-223) U/L CK-MB (CK-2) (0.6-6.3) ng/mL Myoglobin (17.4-105.7) ng/mL Troponin I (<0.04) ng/mL B-Natriuretic Peptide ( - 100) pg/mL Total Protein (6.4-8.9) g/dL Albumin (3.2-5.2) g/dL Globulin (2-4) g/dL Albumin/Globulin Ratio (1-3) TSH (0.34-5.60) mcIU/mL Thyroxine (T4) (6.09-12.23) mcg/mL Urine Color Becky Urine Appearance Cloudy Urine pH 5.0 (5-9) Ur Specific [place] 1.018 (1.010-1.030) Urine Protein Negative (Negative) Urine Ketones Negative (Negative) Urine Blood Negative (Negative) Urine Nitrate Negative (Negative) Urine Bilirubin Negative (Negative) Urine Urobilinogen Positive A (Negative) Ur Leukocyte Esterase Negative (Negative) Urine Glucose Negative (Negative) Urine Ascorbic Acid * A (Negative) Result Diagrams: 04/03/18 04:50 04/03/18 04:50 Lab Statement: Any lab studies that have been ordered have been reviewed, and results considered in the medical decision making process. Chest Pain Course/Dx - Course Course Of Treatment: During the course of treatment, EKG is noted to be at rate of 165 on arrival. He complains of chest tightness and shortness of breath. History of AICD but lead is fractured. He is supposed follow up in [place], however he admits not doing this and states he has been on a high salt high-fat diet recently. He also has not been taking his medications. He is a smoker, however he denies any alcohol use of the past 2 months. Past alcohol history includes 1 L of vodka daily. Discussed case with Dr. Peoples who is recommending 0.5 digitoxin for rate control. He is also given 4 mg morphine and 4 mg Zofran. Discussed the case with the hospitalist who agrees to come see patient. - Diagnoses Provider Diagnoses: Shortness of breath, Chest pain - Provider Notifications Discussed Care Of Patient With: Santos Peoples - Digitoxin .5mg Instructed by Provider To: Admit As Inpatient - Critical Care Time Critical Care Time: 30-74 min - CC time 30 minutes d/t increased HR, SOB, abnormal EKG, unstable patient, Resp 24 Discharge - Sign-Out/Discharge Documenting (check all that apply): Patient Departure - Discharge Plan Condition: Fair Disposition: ADMITTED TO [facility] - Billing Disposition and Condition Condition: FAIR Disposition: Admitted to [facility]
[2018-04-02] MEDS ORDERED: Iodixanol* (CONTRAST) 320 MG/ML 100 ML SDV IV ONE (17:37)
[2018-04-02] MEDS ORDERED: Metoprolol Tartrate IV* 1 MG/ML 5 ML VIAL IV ONE (17:38)
[2018-04-02] MEDS ORDERED: Furosemide IV* 10 MG/ML VIAL (40 MG) IV SLOW PU ONE (17:38)
[2018-04-02] MEDS ORDERED: Metoprolol Tartrate IV* 1 MG/ML 5 ML VIAL IV PRN (17:38)
[2018-04-02] MEDS ORDERED: Magnesium Sulfate 2 GM IV* 2 GM/50 ML BAG IVPB ONE (17:42)
[2018-04-02] MEDS ORDERED: Potassium Chlor TAB* 20 MEQ TAB.ER PO ONE (17:42)
[2018-04-02] MEDS ORDERED: Magnesium Sulfate IV* 2 GM in NS 0.9% 100 ML* 100 ML IVPB ONE (18:00)
--- NOTE | 2018-04-02 18:00 | RAD ---
INDICATION: Right upper quadrant pain COMPARISON: CT abdomen and pelvis March 08, 2018 TECHNIQUE: Axial source images were obtained from the hemidiaphragms to the symphysis pubis following administration of oral and intravenous contrast. 80 mL Visipaque 320 was utilized. Coronal and sagittal reconstructed images were acquired. Lung bases: There is mild bibasilar hypoventilation. There is a new, moderate sized right-sided pleural effusion. There is moderate cardiomegaly, unchanged Liver: The liver is enlarged with findings of hepatic steatosis. There are no masses. There is no ductal dilatation. Gallbladder: There are no calcified gallstones. Spleen: The spleen is normal in size. There are no masses. Pancreas: There is no focal pancreatic mass or ductal dilatation. Adrenal glands: There is no evidence of adrenal mass. Kidneys: The kidneys are normal in size and position. There are prompt nephrograms and there is prompt excretion bilaterally. There are no renal parenchymal masses. There is are multiple, nonobstructive, bilateral renal calculi. These have been described previously. Adenopathy: There is no evidence of adenopathy by size criteria. Fluid collections: There is a small amount of ascites which has increased. Vessels:There are no significant atherosclerotic changes involving the aorta. There is no focal aneurysm. The iliac vessels are normal in caliber. The IVC appears normal. GI tract: There are no acute CT bowel findings. Evaluation is limited as oral contrast was not given per request. The appendix is not visualized. Pelvic organs: The prostate and seminal vesicles appear normal Bladder: There are no bladder masses. Abdominal and pelvic soft tissues: The extraperitoneal abdominal and pelvic soft tissues appear normal.. Osseous structures: There are no acute osseous findings. Other: None IMPRESSION: 1. Cardiomegaly, unchanged. 2. Moderate right-sided pleural effusion. This represents a new finding. 3. Hepatomegaly with hepatic steatosis. 4. Ascites with mild interval increase in amount. 5. Bilateral nonobstructive nephrolithiasis, unchanged
[2018-04-02] MEDS: Acetaminophen TAB* 325 MG PO PRN (18:09)
[2018-04-02] MEDS: Metoprolol Tartrate TAB* 25 MG PO SCH (18:10)
[2018-04-02] MEDS: Aspirin EC TAB* 81 MG TAB.EC PO SCH (18:11)
[2018-04-02] MEDS ORDERED: Enoxaparin(*) 60 MG/0.6 ML SYR SUBCUT ONE (18:17)
--- NOTE | 2018-04-02 19:35 | RAD ---
INDICATION: Pain and swelling. COMPARISON: None TECHNIQUE: Duplex interrogation of the Lowerextremity was performed. FINDINGS: Deep veins: The common femoral, great saphenous, profunda femoris, proximal, mid, and distal deep femoral, popliteal, posterior tibial, and peroneal veins are patent. There is normal compressibility, augmentation, and phasic flow. Superficial veins: There are no findings of superficial thrombophlebitis. Popliteal fossa:There is no evidence of a popliteal cyst. Soft tissues:There are no soft tissue abnormalities. IMPRESSION: Normal examination. No evidence of deep venous thrombosis
[2018-04-02] MEDS: Morphine VIAL* 4 MG/ML VIAL (1 ml vial) IV PRN (20:19)
--- NOTE | 2018-04-02 20:23 | HP ---
CC: Keisha Dorado NP; Dr. Peoples; Dr. Curiel * HISTORY AND PHYSICAL: DATE OF ADMISSION: 04/02/18 PRIMARY CARE PROVIDER: Keisha Dorado NP MY ATTENDING PHYSICIAN WHILE IN THE HOSPITAL: Dr. Palak Wallace * (report dictated by Hossein Carpenter NP) CONSULTING FRUIT THINNER MACHINE OPERATOR: Dr. Peoples. CHIEF COMPLAINT: 1. Shortness of breath. 2. Epigastric discomfort. HISTORY OF PRESENT ILLNESS: Mr. Brice is a 32-year-old male patient who carries a history of cardiomyopathy, history of aflutter, history of hypertension, history of CHF, and recently diagnosed with pneumonia, and also has unknown fractured lead of his ICD which he is following in [facility] for, who previously refused to wait for [facility]. He is coming into the ED today, he says the last couple of days, he has not been feeling well, he says he has not been eating well last few days. Last week, he has been eating, he says, high-salt diet. He says he has been eating in his own words junk food. He says that the last couple of days, he just did not feel like taking his medications, so he did not take his Multaq. He stopped taking his beta blockers and his diuretics. He says that he was noticing that he could not lie flat. He was getting really short of breath. He was feeling winded. He noticed his heart rate was elevated and running fast again. He was having again this progressive worsening shortness of breath, epigastric pain. He said anytime he ate, he was getting nauseous. He adamantly denies drinking any alcohol in the last month. He says he has been again not feeling well. He describes the pain mostly in the right upper quadrant in the epigastric area, describes a burning, sharp, stabbing pain. He says he just feels like he is not getting enough air. To his knowledge, he has not gained any weight. He has not noticed any swelling. He was concerned because, he just was not feeling any better. He decided to come into the emergency department today for further evaluation. When he came in, it was noted that he appeared to be back in aflutter with rapid ventricular response and it was also noted that he appeared to be in heart failure. So, because of these findings, we were asked to evaluate for admission. PAST MEDICAL HISTORY: Significant for: 1. Aflutter. 2. CHF. 3. Cardiomyopathy, last EF was 20%. 4. Hypertension. 5. Recent pneumonia. PAST SURGICAL HISTORY: He has had an ICD placement. MEDICATIONS: Home meds include: 1. Magnesium 400 mg p.o. daily. 2. Lisinopril 2.5 mg daily. 3. Tylenol 650 mg every 6 hours as needed. 4. Lasix 20 mg p.o. b.i.d. with meals. 5. Multaq 400 mg p.o. b.i.d. 6. Protonix 40 mg daily. 7. Lopressor 25 mg every 8 hours. 8. Trazodone 50 mg at bedtime as needed. 9. Nicotine patch 21 mg transdermally daily. 10. Zoloft 50 mg daily. 11. Aspirin 81 mg daily. ALLERGIES TO MEDICATIONS: Include CODEINE. FAMILY HISTORY: Mother had a history of CHF. Father had a pacemaker placement. SOCIAL HISTORY: He is a ccfm-w-cayc-a-day smoker. He was drinking tequila and beer daily, but he says he has not drank in a month. His surrogate decision maker is his friend, Chapo, and his significant other. REVIEW OF SYSTEMS: There is no documented fever. He is denying having any significant weight change. There was no double vision. He denies having any ear discharge. There is no rhinorrhea. Denies having any sore throat. There is no thyroid enlargement. He denied any chest pressure. He does admit to orthopnea. He denies having any nocturnal dyspnea. There is abdominal pain from my HPI. There was nausea, no vomiting. There was no dysuria, there was no frequency. There is no seizure, no loss of consciousness. No pruritus and skin infections. Review of 14 systems was completed, all others negative. PHYSICAL EXAMINATION GENERAL: At this time, Mr. Brice is a 32-year-old male patient. He is sitting in the ED stretcher. He does not appear to be in any acute distress. VITAL SIGNS: Blood pressure 122/95; initially his pulse was 154, his heart rate now is 105; respirations were 13; O2 saturations were 97%; temperature was 98.9. HEENT: Head: Atraumatic and normocephalic. Eyes: EOMs intact. Sclerae anicteric and not pale. Throat: Oral mucosa appears to be dry. No oropharyngeal erythema. NECK: Supple. LUNGS: Clear to auscultation. No wheezes, rales, rhonchi. HEART: Sounds S1, S2. He is tachycardic. No murmurs, rubs, or gallops. ABDOMEN: Soft. Bowel sounds were present. He is tender in the epigastric and right upper quadrant. EXTREMITIES: Pulses were 2+ throughout. He had no peripheral edema. He is moving all 4 extremities with 5/5 strength. NEUROLOGICAL: The patient is awake, he is alert, he is oriented x3. His tongue is midline. His brickmason contractor were equal. He had no gross focal deficits. SKIN: Intact. DIAGNOSTIC STUDIES/LAB DATA: Labs today are revealing a WBC of 5.5, RBC of 4.48, hemoglobin of 15.2, hematocrit of 46, platelet count of 154. INR 1.07, PTT of 29.3. His D-dimer was 743. His sodium was 134, potassium was 3.9, chloride of 100, bicarb 21, BUN 20, creatinine 1.26, glucose 124, lactate 2.7, calcium 9.2, mag 1.8. Total bili 2.2, AST 312, ALT 269. CK was 1.6, Troponin 0.03. BNP was 2342. Amylase 27, lipase 15. TSH high at 9.75, his T4 was 7.91. Urine was positive for urobilinogen and toxicology is positive for cannabis. EKG initially today was showing aflutter with rate of 163 with 2:1 block with LVH. Reviewed to the previous EKG, he was in aflutter previously with the 4:1 block with LVH. The aflutter is not new but today's rate is much faster. He had no ST elevations. He did have inversions in V5 and V6, which were there previously. He had a chest x-ray obtained today, impression: Mild enlarged cardiac silhouette, cardiac pacemaker, no acute disease. CT abdomen and pelvis was obtained as well, showed cardiomegaly, unchanged; moderate right-sided pleural effusion, represents a new finding; hepatomegaly and hepatic steatosis. Ascites with mild interval increase in amount. Bilateral nonobstructive nephrolithiasis is unchanged. Old medical records were reviewed. ASSESSMENT AND PLAN: Mr. Brice is a 32-year-old male patient coming into the emergency department today with complaints of epigastric pain, shortness of breath, orthopnea on evaluation, we were asked to evaluate because of shortness of breath. He was also found to be in aflutter with rapid ventricular response. He will be admitted under inpatient status for: 1. Congestive heart failure exacerbation. I suspect he is having a passive liver congested from the heart failure. He has got mild ascites. He probably has again low cardiac perfusion, because the heart rate was so fast when he came in, thus causing a little bit of shock liver that could be contributing to his pain. Amylase and lipase are stable. The CT does show some ascites. Plan will be to give him 40 of IV Lasix now, try to get better heart rate control, when he came in, he was 160s, he is now 105. We will get him back on his Lopressor p.o. per the recommendations of Cardiology. They recommended holding on the Multaq at this point given the fact that he does appear to be in acute failure. So, I need to give him another dose of digoxin later tonight and we will continue to follow and closely diurese him, daily weights, and Cardiology will be evaluating. I am also going to cycle his troponins. 2. Elevated liver function tests. We will trend these. This is probably secondary again to congestion due to the heart failure. 3. Cardiomyopathy. Follow with his PCP. 4. ICD with fractured lead. Again, he is to follow with [facility]. 5. Hypomagnesemia. We are going to order and replace this. 6. Elevated D-dimer. Again, he is not requiring any O2. He does have a history of the rapid aflutter. I am going to get ultrasound of lower extremities. Holding off on the CTA of the chest, because he did get a CT of the abdomen and pelvis. Consider repeating this when he becomes hypoxic, but I suspect there are other etiologies where the D-dimer is high. We will continue to monitor and again, get the ultrasound if those are positive, then I will certainly treat for DVT, but I have a low suspicion that he has a deep venous thrombosis or pulmonary embolism for that matter. 7. Hypertension. Continue meds as prescribed. 8. DVT prophylaxis. I have already ordered heparin subcu. 9. Code status. Full code. 10. Fluid, electrolytes, and nutrition. I am going to put him on a clear liquid diet. TIME SPENT: On the admission was approximately 60 minutes, greater than half of the time was spent [id number] with the patient, obtaining my history and physical, other half of the time was spent going over the plan of care with the patient and implementing the plan of care. I did discuss the plan of care with my attending, Dr. Wallace; she is in agreement. HOSSEIN CARPENTER, VANDANA [id number]/CPS #: [id number] NIEVES
[2018-04-02] MEDS ORDERED: Dronedarone TAB* 400 MG PO SCH (21:00)
[2018-04-02] MEDS: traZODone TAB* 50 MG TAB PO PRN (21:53)
[2018-04-02] MEDS: Sertraline* 50 MG TAB PO SCH (21:53)
[2018-04-02] MEDS: Ondansetron INJ* 2 MG/ML VIAL IV PRN (21:54)
[2018-04-02] MEDS ORDERED: Heparin VIAL(*) 5000 UNITS/ML VIAL (FIVE THOUSAND) SUBCUT SCH (22:00)
[2018-04-02] MEDS ORDERED: Metoprolol Tartrate TAB* 25 MG PO ONE (22:39)
[2018-04-03] MEDS ORDERED: Calcium Carbonate CHEW TAB* 500 MG (TUMS) PO PRN (03:07)
[2018-04-03] MEDS: Metoprolol Tartrate TAB* 25 MG PO SCH ×2 (03:32→09:34)
[2018-04-03 05:21] LABS: ABS Basophils 0.1 10^3/ul (0-0.2); ABS Eosinophils 0.1 10^3/ul (0-0.6); ABS Monocytes 0.6 10^3/ul (0-0.8); ABS Neutrophils 2.5 10^3/ul (1.5-7.7); ABS Nucleated RBC 0 10^3/ul; Eosinophil % 1.3 % (0-6); Hematocrit 45 % (42-52); Hemoglobin 15.2 g/dl (14.0-18.0); Lymphocyte % 38.1 % (25-47); Mean Corpuscular HGB Conc 34 g/dl (31-36); Mean Corpuscular Hemoglobin 34 pg (27-31); Mean Corpuscular Volume 101 fL (80-94); Mean Platelet Volume 9.1 um3 (7.4-10.4); Nucleated Red Blood Cells % 0.2; Platelet Count 127 10^3/ul (150-450); Red Blood Count 4.43 10^6/ul (4.00-5.40); Red Cell Distribution Width 14 % (10.5-15); White Blood Count 5.2 10^3/ul (3.5-10.8)
[2018-04-03 05:25] LABS: INR 1.96 (0.77-1.02)
[2018-04-03 05:38] LABS: EGFR Non-African American 62.2 (>60)
[2018-04-03] MEDS: Morphine VIAL* 4 MG/ML VIAL (1 ml vial) IV PRN ×3 (09:29→19:39)
[2018-04-03] MEDS: Ondansetron INJ* 2 MG/ML VIAL IV PRN ×2 (09:32→15:03)
[2018-04-03] MEDS: Aspirin EC TAB* 81 MG TAB.EC PO SCH (09:34)
[2018-04-03] MEDS: Lisinopril TAB* 5 MG PO SCH (09:34)
[2018-04-03] MEDS: Sertraline* 50 MG TAB PO SCH (09:34)
[2018-04-03] MEDS: Magnesium Oxide TAB* 400 MG PO SCH (09:34)
[2018-04-03] MEDS: Omeprazole CAP* 20 MG PO SCH (09:34)
[2018-04-03] MEDS: Nicotine PATCH 21 MG/24 HR* PATCH TRANSDERM SCH (09:36)
--- NOTE | 2018-04-03 11:51 | PN ---
Subjective Date of Service: 04/03/18 Interval History: Patient seen and examined at bedside. Denies fever, chills, shortness of breath , N/V/D. Pt states that he continues to have chest heaviness and epigastric discomfort. Pt states that he never gets LE edema. Tele: A flutter (3:1), rate 70-90's Family History: Unchanged from Admission Social History: Unchanged from Admission Past Medical History: Unchanged from Admission Objective Active Medications: Acetaminophen (Tylenol Tab*) 650 mg PO Q4H PRN Reason: FEVER/PAIN Aspirin (Aspirin Ec Tab*) 81 mg PO DAILY FAY Calcium Carbonate (Tums*) 1,000 mg PO Q4H PRN Reason: INDIGESTION Lisinopril (Prinivil Tab*) 2.5 mg PO DAILY FAY Magnesium Oxide (Magox 400 Tab*) 400 mg PO DAILY FAY Metoprolol Tartrate (Lopressor Tab*) 25 mg PO Q8H FAY Morphine Sulfate (Morphine Vial*) 4 mg IV Q4H PRN Reason: PAIN Nicotine (Nicotine Patch 21 Mg/24 Hr*) 1 patch TRANSDERM DAILY FAY Omeprazole (Prilosec Cap*) 20 mg PO DAILY@0730 FAY Ondansetron HCl (Zofran Inj*) 4 mg IV Q6H PRN Reason: NAUSEA Pharmacy Profile Note (Nicotine Patch Removal Note*) 1 note PATCH OFF 2100 FAY Sertraline HCl (Zoloft*) 50 mg PO DAILY FAY Trazodone HCl (Desyrel Tab*) 50 mg PO BEDTIME PRN Reason: INSOMNIA Vital Signs - 8 hr 04/03/18 04/03/18 04/03/18 07:09 07:48 09:07 Temperature 98.5 F Pulse Rate 99 Respiratory 21 16 Rate Blood Pressure 96/71 110/88 (mmHg) O2 Sat by Pulse 94 Oximetry 04/03/18 04/03/18 04/03/18 09:29 10:57 11:10 Temperature 98.2 F Pulse Rate 101 Respiratory 18 16 16 Rate Blood Pressure 97/69 (mmHg) O2 Sat by Pulse 93 Oximetry Oxygen Devices in Use Now: None Appearance: NAD, laying flat in bed Ears/Nose/Mouth/Throat: Mucous Membranes Moist Respiratory: Symmetrical Chest Expansion and Respiratory Effort, Clear to Auscultation Cardiovascular: NL Sounds; No Murmurs; No JVD, RRR Abdominal: NL Sounds; No Tenderness; No Distention Extremities: No Edema Skin: No Rash or Ulcers Neurological: Alert and Oriented x 3, NL Muscle Strength and Tone Lines/Tubes/Other Access: Clean, Dry and Intact Peripheral IV - site benign Nutrition: Taking PO's Result Diagrams: 04/03/18 04:50 04/03/18 04:50 Additional Lab and Data: . Assess/Plan/Problems-Billing Assessment: Mr. Brice is a 32 yo male with PMH significant for a flutter, CHF, and cardiomyopathy with last know EF 20% who presented to the emergency room with complains of shortness of breath and epigastric pain. - Patient Problems (1) Acute on chronic systolic (congestive) heart failure Code(s): I50.23 - ACUTE ON CHRONIC SYSTOLIC (CONGESTIVE) HEART FAILURE SNOMED Code(s): 153602401 Comment: - Etiology is unclear and may be viral vs. idiopathic vs. tachycardia mediated vs. etoh. it was diagnosed in 2010 and he does not know why - AICD in place for primary prevention - Received IV lasix overnight; may need daily po lasix at home - Cardiology consult, input appreciated - Continue Lopressor, lisinopril, and hold multaq - Continue daily weights and strict I+Os (2) Elevated LFTs Code(s): R94.5 - ABNORMAL RESULTS OF LIVER FUNCTION STUDIES SNOMED Code(s): 634652371 Comment: - Suspect secondary ro congestion d/t heart failure (3) Elevated d-dimer Code(s): R79.89 - OTHER SPECIFIED ABNORMAL FINDINGS OF BLOOD CHEMISTRY SNOMED Code(s): 869757902 Comment: - No hypoxia - No evidence of DVT and no hypoxia - Will consider CTA if becomes hypoxic (4) Nonischemic cardiomyopathy Code(s): I42.8 - OTHER CARDIOMYOPATHIES SNOMED Code(s): 62674341 Comment: -Despite low EF, with low CHADS-Vasc, no need to anticoagulated per Dr. Estes -Please see above discussion (5) HTN (hypertension) Code(s): I10 - ESSENTIAL (PRIMARY) HYPERTENSION SNOMED Code(s): 78814335 Comment: - SBP 90-110's - Continue lopressor and lisinopril (6) Atrial fibrillation Code(s): I48.91 - UNSPECIFIED ATRIAL FIBRILLATION SNOMED Code(s): 83068126 Comment: - Aflutter (3:1) with controlled rates - Continue Metoprolol and hold Multaq for now - Low risk, no need for anticoagulation (7) GERD (gastroesophageal reflux disease) Code(s): K21.9 - GASTRO-ESOPHAGEAL REFLUX DISEASE WITHOUT ESOPHAGITIS SNOMED Code(s): 987502039 Comment: - Continue Omeprazole (8) Tobacco abuse Code(s): Z72.0 - TOBACCO USE SNOMED Code(s): 327829513 Comment: - Continue Nicotine replacement (9) DVT prophylaxis Code(s): YGY8195 - SNOMED Code(s): 385382351 Comment: - Continue Lovenox SQ (10) Full code status Code(s): Z78.9 - OTHER SPECIFIED HEALTH STATUS SNOMED Code(s): 288336477 Status and Disposition: Inpatient. Discharge to home when medically stable.
[2018-04-03] MEDS ORDERED: Phytonadione Oral Solution* 5 MG/25 ML UDC PO ONE (14:29)
[2018-04-03] MEDS ORDERED: Furosemide IV* 10 MG/ML VIAL (40 MG) IV ONE (14:29)
[2018-04-03] MEDS ORDERED: Digoxin IV* 0.5 MG/2 ML AMP (0.25 MG/ML) IV SLOW PU ONE (14:35)
--- NOTE | 2018-04-03 15:40 | CONSULT ---
Subjective Date of Service: 04/03/18 Interval History: DATE OF ADMISSION: 04/02/18 Date of consult: 04/03/2018 PRIMARY CARE PROVIDER: Keisha Dorado NP Tooling Mechanic: Dr. Curiel. CHIEF COMPLAINT: Dyspnea, abdomen discomfort Reason for consult: CHF exacerbation HISTORY OF PRESENT ILLNESS: Mr. Brice is a 32-year-old man with a history of NICM with ICD, paroxysmal atrial fibrillation/flutter. He has a history of alcoholism and non-adherence. He states has not had any alcohol since most recent admission 3 weeks ago. He states had been taking medications (reviewed on phone with girlfriend meds he had been taking as below) up until several days prior to admission until he could not keep them down. He had a generator change in 01/2018 because of EOL. He was subsequently found with a lead fracture, tachy therapy is disabled and he tells me he has a lead revision planned with Dr. Ventura at [facility] on 04/14/2018. He now describes fatigue, abdomen distension and pain, orthopnea and weakness. He was found with ADHF and 2:1 atrial flutter with congestive/ischemic hepatopathy and renal insufficiency. He has received metoprolol, digoxin for rate control and IV lasix. He is still symptomatic with any movement. His rate is now controlled. PAST MEDICAL HISTORY: 1. Aflutter and fibrillation 2. NICM/systolic HF PAST SURGICAL HISTORY: ICD placement as above ALLERGIES TO MEDICATIONS: Include CODEINE. FAMILY HISTORY: Mother had a history of CHF. Father had a pacemaker placement. SOCIAL HISTORY: He is a [id number]-day smoker. He was drinking tequila and beer daily, but he says he has not drank in a month. His surrogate decision maker is his friend, Chapo, and his significant other. Medications Active Medications: Acetaminophen (Tylenol Tab*) 650 mg PO Q4H PRN PRN Reason: FEVER/PAIN Last Admin: 04/02/18 18:09 Dose: 650 mg Aspirin (Aspirin Ec Tab*) 81 mg PO DAILY [facility] Last Admin: 04/03/18 09:34 Dose: 81 mg Calcium Carbonate (Tums*) 1,000 mg PO Q4H PRN PRN Reason: INDIGESTION Last Admin: 04/03/18 03:32 Dose: 1,000 mg Lisinopril (Prinivil Tab*) 2.5 mg PO DAILY [facility] Last Admin: 04/03/18 09:34 Dose: 2.5 mg Magnesium Oxide (Magox 400 Tab*) 400 mg PO DAILY [facility] Last Admin: 04/03/18 09:34 Dose: 400 mg Metoprolol Succinate (Toprol Xl Tab*) 25 mg PO BID [facility] Morphine Sulfate (Morphine Vial*) 4 mg IV Q4H PRN PRN Reason: PAIN Last Admin: 04/03/18 15:03 Dose: 4 mg Nicotine (Nicotine Patch 21 Mg/24 Hr*) 1 patch TRANSDERM DAILY [facility] Last Admin: 04/03/18 09:36 Dose: 1 patch Omeprazole (Prilosec Cap*) 20 mg PO DAILY@0730 [facility] Last Admin: 04/03/18 09:34 Dose: 20 mg Ondansetron HCl (Zofran Inj*) 4 mg IV Q6H PRN PRN Reason: NAUSEA Last Admin: 04/03/18 15:03 Dose: 4 mg Pharmacy Profile Note (Nicotine Patch Removal Note*) 1 note PATCH OFF 2100 [facility] Sertraline HCl (Zoloft*) 50 mg PO DAILY [facility] Last Admin: 04/03/18 09:34 Dose: 50 mg Trazodone HCl (Desyrel Tab*) 50 mg PO BEDTIME PRN PRN Reason: INSOMNIA Last Admin: 04/02/18 21:53 Dose: 50 mg Home Medications: Lisinopril TAB* [Prinivil TAB 5 MG*] 2.5 mg PO DAILY 12/27/17 [History Confirmed 04/02/18] Aspirin EC TAB* [Ecotrin EC Low Dose 81 MG*] 81 mg PO DAILY #30 tab.ec 01/12/18 [Rx Confirmed 04/02/18] Acetaminophen TAB* [Tylenol TAB*] 650 mg PO Q6H PRN tab 03/15/18 [Rx Confirmed 04/02/18] Furosemide TAB* [Lasix TAB*] 20 mg PO BID WITH MEALS #60 tab 03/15/18 [Rx Confirmed 04/02/18] Metoprolol Tartrate TAB* [Lopressor TAB*] 25 mg PO Q8H #90 tab 03/15/18 [Rx Confirmed 04/02/18] carvedilol 3.125 mg o bid Pantoprazole TAB (NF) [Protonix TAB (NF)] 40 mg PO DAILY #30 tab 03/15/18 [Rx Confirmed 04/02/18] traZODone TAB* [Desyrel TAB*] 50 mg PO BEDTIME PRN #30 tab 03/15/18 [Rx Confirmed 04/02/18] Magnesium Oxide TAB* [MagOx 400 TAB*] 400 mg PO DAILY 04/02/18 [History Confirmed 04/02/18] Sertraline* [Zoloft*] 50 mg PO DAILY 04/02/18 [History Confirmed 04/02/18] Review of Systems - Measurements Intake and Output: Intake and Output Last 24 Hours 04/01/18 04/02/18 04/03/18 04/04/18 06:59 06:59 06:59 06:59 Intake Total 0 1080 Output Total 500 Balance -500 1080 Weight 140 lb Intake: Oral 0 1080 Output: Urine 500 Other: # Bowel Movements 0 # Voids 1 - Review of Systems Constitutional Symptoms: Positive: Weight Gain, Weakness, Fatigue Dermatology: Negative: Rash, Skin Lesions HEENT: Negative: Change in Hearing, Vertigo Eyes: Negative: Change in Vision, Double Vision Thyroid: Positive: Weight Gain Negative: Cold Intolerance, Heat Intolerance, Constipation, Palpitations, Weight Loss Pulmonary: Positive: Cough, Respiratory Distress, Shortness of Breath, Exercise Intolerance Negative: Sputum, Hemoptysis, Wheezing, COPD, Asthma, Home Oxygen Cardiology: Positive: Shortness of Breath, Paroxysmal Nocturnal Dyspnea, Orthopnea Negative: Chest Pain, Palpitations, Swelling of Ankles, Peripheral Vascular Dis, Edema, Syncope, Claudication Gastroenterology: Positive: Abdominal Pain, Nausea, Vomiting, Anorexia Negative: Difficulty Swallowing, Blood in Stools, Change in Bowel Habits Genital - Urinary: Negative: Dysuria, Hematuria Musculoskeletal: Negative: Joint Pain, Joint Stiffness Endocrinology: Negative: Obesity, Diabetes, Polydipsia, Polyuria Hematologic/Lymphatic: Negative: Hx Leukemia, Hx Lymphoma Neurology: Negative: Change in Speech, Change in Sphincter Function, Hx of Stroke\TIA Psychiatry: Negative: Unusual Anxiety, Suicidal Ideation Allergic/Immunologic: Negative: Hx HIV, Immunocompromise Review of Systems Statement: All other review of systems negative, unless stated above. Objective Vital Signs: Temp Pulse Resp BP Pulse Ox 98.2 F 76 20 97/69 93 04/03/18 10:57 04/03/18 15:08 04/03/18 15:03 04/03/18 10:57 04/03/18 10:57 Oxygen Devices in Use Now: None Appearance: patient appears chronically ill appearing but not toxic Ears/Nose/Mouth/Throat: Clear Oropharnyx, Mucous Membranes Moist Neck: Trachea Midline, - - + jvd Respiratory: Symmetrical Chest Expansion and Respiratory Effort, - - decreased bs right base Cardiovascular: No Edema, - - + jvd, RRR, 2/6 systolic murmur LLSB with prominent pmi Abdominal: - - abdomen tender liver and mild distended. Extremities: No Edema, - - adequate perfusion Skin: No Rash or Ulcers Neurological: Alert and Oriented x 3 Laboratory Results: 04/03/18 04:50 04/03/18 04:50 INR (Anticoag Therapy) 1.96 (0.77-1.02) H 04/03/18 04:50 APTT 29.3 seconds (26.0-36.3) 04/02/18 15:34 Total Bilirubin 2.30 mg/dL (0.2-1.0) H 04/03/18 04:50 Direct Bilirubin 0.80 mg/dL (0.03-0.18) H 04/03/18 04:50 Indirect Bilirubin 1.5 mg/dL (0.3-1.0) H 04/03/18 04:50 AST 531 U/L (13-39) H 04/03/18 04:50 ALT 468 U/L (7-52) H 04/03/18 04:50 Alkaline Phosphatase 78 U/L (34-104) 04/03/18 04:50 CK-MB (CK-2) 1.6 ng/mL (0.6-6.3) 04/02/18 15:34 B-Natriuretic Peptide 2342 pg/mL (-100) H 04/02/18 15:34 Total Protein 5.5 g/dL (6.4-8.9) L 04/03/18 04:50 Albumin 3.3 g/dL (3.2-5.2) 04/03/18 04:50 Globulin 2.2 g/dL (2-4) 04/03/18 04:50 Albumin/Globulin Ratio 1.5 (1-3) 04/03/18 04:50 TSH 9.75 mcIU/mL (0.34-5.60) H 04/02/18 15:34 04/02/18 04/02/18 15:34 20:59 Troponin I 0.03 0.03 Diagnostic Imagin01/24/2018 echo LVEDD 6.9 cm, LVEF < 20% LA severely dilated Normal RV size with severely reduced function Mod-severe MR Mild-mod TR with normal estimated PASP CT abdomen and pelvis 04/02/2018 cardiomegaly, unchanged; moderate right-sided pleural effusion, represents a new finding; hepatomegaly and hepatic steatosis. Ascites with mild interval increase in amount. Bilateral nonobstructive nephrolithiasis is unchanged. EKG Data: ekg 03/15/2018 Afib, LVH with repolarization changes ekg 03/16/2018: 4:1 atrial flutter, LVH with repolarization changes EKG 04/02/2018: 2:1 atrial flutter, Assessment/Plan In summary, Eugenio Brice is a 32 year old man with a history of NICM nearly 7 cm LVEDD with significant functional mitral regurgitation, ICD admitted with acute on chronic systolic HF with low output and ischemic/congestive hepatopathy and WRF in the setting of medication non-adherence and rapid atrial flutter. - Multaq which he had been on previously is contraindicated in this scenario and should not be used - He takes metoprolol tartrate and coreg at home. We will change is tartrate to succinate 25 mg po bid which is appropriate formulation for patients with systolic heart failure and d/c the coreg - Continue lisinopril 2.5 mg po daily - Give another 40 mg of IV lasix and 0.25 mg of IV digoxin x 1 now(ordered) - Trend CMP and INR (ordered) - I think his heart failure would be easier to control if sinus rhythm were maintained, will re-evaluate, consistent adherence complicates situation - Tachy therapy on ICD disabled, has lead revision planned 04/14/2018 - Will follow Thank you for allowing me to participate in the cardiovascular care of this patient. Please do not hesitate to contact me with questions or concerns.
[2018-04-03] MEDS: Enoxaparin(*) 40 MG/0.4 ML SYR SUBCUT SCH ×2 (16:15→16:40)
[2018-04-03] MEDS ORDERED: Metoprolol Succinate XL TAB* 25 MG PO SCH (21:00)
[2018-04-03] MEDS: traZODone TAB* 50 MG TAB PO PRN (21:28)
[2018-04-03] MEDS: Nicotine Patch Removal NOTE PATCH OFF SCH (21:33)
[2018-04-04] MEDS: Morphine VIAL* 4 MG/ML VIAL (1 ml vial) IV PRN ×5 (03:30→21:52)
[2018-04-04 06:10] LABS: INR 2.11 (0.77-1.02)
[2018-04-04 06:23] LABS: EGFR Non-African American 60.1 (>60)
[2018-04-04] MEDS ORDERED: Furosemide IV* 10 MG/ML VIAL (40 MG) IV ONE (08:23)
--- NOTE | 2018-04-04 08:36 | PN ---
Subjective Date of Service: 04/04/18 Interval History: f/u CHF, atrial flutter Feels much better today Able to eat and no GI discomfort Remains SEARS LFT's and INR worse Tele rate controlled aflutter at rest Medications Active Medications: Acetaminophen (Tylenol Tab*) 650 mg PO Q4H PRN PRN Reason: FEVER/PAIN Last Admin: 04/02/18 18:09 Dose: 650 mg Aspirin (Aspirin Ec Tab*) 81 mg PO DAILY [facility] Last Admin: 04/03/18 09:34 Dose: 81 mg Calcium Carbonate (Tums*) 1,000 mg PO Q4H PRN PRN Reason: INDIGESTION Last Admin: 04/03/18 03:32 Dose: 1,000 mg Digoxin (Lanoxin Tab*) 0.125 mg PO DAILY [facility] Enoxaparin Sodium (Lovenox(*)) 40 mg SUBCUT Q24H [facility] Last Admin: 04/03/18 16:40 Dose: 40 mg Furosemide (Lasix Iv*) 40 mg IV ONCE ONE Stop: 04/04/18 08:24 Lisinopril (Prinivil Tab*) 2.5 mg PO DAILY [facility] Last Admin: 04/03/18 09:34 Dose: 2.5 mg Magnesium Oxide (Magox 400 Tab*) 400 mg PO DAILY [facility] Last Admin: 04/03/18 09:34 Dose: 400 mg Metoprolol Succinate (Toprol Xl Tab*) 25 mg PO BID [facility] Last Admin: 04/03/18 21:28 Dose: 25 mg Morphine Sulfate (Morphine Vial*) 4 mg IV Q4H PRN PRN Reason: PAIN Last Admin: 04/04/18 03:30 Dose: 4 mg Nicotine (Nicotine Patch 21 Mg/24 Hr*) 1 patch TRANSDERM DAILY [facility] Last Admin: 04/03/18 09:36 Dose: 1 patch Omeprazole (Prilosec Cap*) 20 mg PO DAILY@0730 [facility] Last Admin: 04/03/18 09:34 Dose: 20 mg Ondansetron HCl (Zofran Inj*) 4 mg IV Q6H PRN PRN Reason: NAUSEA Last Admin: 04/03/18 15:03 Dose: 4 mg Pharmacy Profile Note (Nicotine Patch Removal Note*) 1 note PATCH OFF 2100 [facility] Last Admin: 04/03/18 21:33 Dose: 1 note Sertraline HCl (Zoloft*) 50 mg PO DAILY [facility] Last Admin: 04/03/18 09:34 Dose: 50 mg Trazodone HCl (Desyrel Tab*) 50 mg PO BEDTIME PRN PRN Reason: INSOMNIA Last Admin: 04/03/18 21:28 Dose: 50 mg Objective Vital Signs: Temp Pulse Resp BP Pulse Ox 97.4 F 75 18 99/69 100 04/04/18 03:26 04/04/18 03:26 04/04/18 05:12 04/04/18 03:26 04/04/18 03:26 Oxygen Devices in Use Now: None Appearance: patient appears chronically ill appearing but not toxic Ears/Nose/Mouth/Throat: Clear Oropharnyx, Mucous Membranes Moist Neck: Trachea Midline, - - + jvd Respiratory: Symmetrical Chest Expansion and Respiratory Effort, - - decreased bs right base Cardiovascular: No Edema, - - + jvd, RRR, 2/6 systolic murmur LLSB with prominent pmi Abdominal: - - abdomen tender liver and mild distended. Extremities: No Edema, - - adequate perfusion Skin: No Rash or Ulcers Neurological: Alert and Oriented x 3 Laboratory Results: 04/03/18 04:50 04/04/18 05:10 INR (Anticoag Therapy) 2.11 (0.77-1.02) H 04/04/18 05:10 APTT 29.3 seconds (26.0-36.3) 04/02/18 15:34 Total Bilirubin 1.90 mg/dL (0.2-1.0) H 04/04/18 05:10 Direct Bilirubin 0.80 mg/dL (0.03-0.18) H 04/03/18 04:50 Indirect Bilirubin 1.5 mg/dL (0.3-1.0) H 04/03/18 04:50 AST 897 U/L (13-39) H 04/04/18 05:10 ALT 833 U/L (7-52) H 04/04/18 05:10 Alkaline Phosphatase 64 U/L (34-104) 04/04/18 05:10 CK-MB (CK-2) 1.6 ng/mL (0.6-6.3) 04/02/18 15:34 B-Natriuretic Peptide 2342 pg/mL (-100) H 04/02/18 15:34 Total Protein 5.1 g/dL (6.4-8.9) L 04/04/18 05:10 Albumin 3.1 g/dL (3.2-5.2) L 04/04/18 05:10 Globulin 2.0 g/dL (2-4) 04/04/18 05:10 Albumin/Globulin Ratio 1.6 (1-3) 04/04/18 05:10 TSH 9.75 mcIU/mL (0.34-5.60) H 04/02/18 15:34 04/02/18 04/02/18 15:34 20:59 Troponin I 0.03 0.03 Diagnostic Imagin01/24/2018 echo LVEDD 6.9 cm, LVEF < 20% LA severely dilated Normal RV size with severely reduced function Mod-severe MR Mild-mod TR with normal estimated PASP CT abdomen and pelvis 04/02/2018 cardiomegaly, unchanged; moderate right-sided pleural effusion, represents a new finding; hepatomegaly and hepatic steatosis. Ascites with mild interval increase in amount. Bilateral nonobstructive nephrolithiasis is unchanged. EKG Data: ekg 03/15/2018 Afib, LVH with repolarization changes ekg 03/16/2018: 4:1 atrial flutter, LVH with repolarization changes EKG 04/02/2018: 2:1 atrial flutter, Assessment/Plan In summary, Eugenio Brice is a 32 year old man with a history of NICM nearly 7 cm LVEDD with significant functional mitral regurgitation, ICD admitted with acute on chronic systolic HF with low output and ischemic/congestive hepatopathy and WRF in the setting of medication non-adherence and rapid atrial flutter. - Decrease toprol to 25 mg once a day (ordered) - s/p IV digoxin load, Start digoxin 0.125 mg po daily (ordered), has been on in past, needs a level checked in several weeks - 40 mg IV lasix daily (ordered) - Start aldactone 25 mg po daily (ordered) - Continue lisinopril 2.5 mg po daily - Trend CMP and INR (ordered) - Tachy therapy on ICD disabled, has lead revision planned 04/14/2018 - Symptoms improved, hopefully labs begin to improve. Lovenox dose is DVT prophylaxis and not therapeutic. His INR does not equal anticoagulated state in this situation. Thank you for allowing me to participate in the cardiovascular care of this patient. Please do not hesitate to contact me with questions or concerns.
[2018-04-04] MEDS ORDERED: Magnesium Sulfate IV* 2 GM in NS 0.9% 100 ML* 100 ML IV ONE (09:00)
[2018-04-04] MEDS: Omeprazole CAP* 20 MG PO SCH (09:08)
[2018-04-04] MEDS: Magnesium Oxide TAB* 400 MG PO SCH (09:08)
[2018-04-04] MEDS: Metoprolol Succinate XL TAB* 25 MG PO SCH (09:08)
[2018-04-04] MEDS: Aspirin EC TAB* 81 MG TAB.EC PO SCH (09:08)
[2018-04-04] MEDS: Lisinopril TAB* 5 MG PO SCH (09:08)
[2018-04-04] MEDS: Sertraline* 50 MG TAB PO SCH (09:08)
[2018-04-04] MEDS: Spironolactone TAB* 25 MG PO SCH (09:08)
[2018-04-04] MEDS: Nicotine PATCH 21 MG/24 HR* PATCH TRANSDERM SCH (09:09)
[2018-04-04] MEDS: Digoxin TAB* 0.125 MG PO SCH (09:09)
[2018-04-04] MEDS: Ondansetron INJ* 2 MG/ML VIAL IV PRN ×2 (09:51→17:52)
--- NOTE | 2018-04-04 13:46 | PN ---
Subjective Date of Service: 04/04/18 Interval History: Patient seen and examined at bedside. Denies fever, chills, shortness of breath , chest discomfort, N/V/D. Pt continues to have upper abdominal pain and tenderness. Pt states that his abdominal pain is worse after eating. Pt feels like his abdomen is slightly larger than his baseline. Tele: A flutter (3:1), rate 70-80's. Family History: Unchanged from Admission Social History: Unchanged from Admission Past Medical History: Unchanged from Admission Objective Active Medications: Acetaminophen (Tylenol Tab*) 650 mg PO Q4H PRN Reason: FEVER/PAIN Aspirin (Aspirin Ec Tab*) 81 mg PO DAILY [facility] Calcium Carbonate (Tums*) 1,000 mg PO Q4H PRN Reason: INDIGESTION Digoxin (Lanoxin Tab*) 0.125 mg PO DAILY [facility] Enoxaparin Sodium (Lovenox(*)) 40 mg SUBCUT Q24H [facility] Furosemide (Lasix Iv*) 40 mg IV DAILY [facility] Lisinopril (Prinivil Tab*) 2.5 mg PO DAILY [facility] Magnesium Oxide (Magox 400 Tab*) 400 mg PO DAILY [facility] Metoprolol Succinate (Toprol Xl Tab*) 25 mg PO DAILY [facility] Morphine Sulfate (Morphine Vial*) 4 mg IV Q4H PRN Reason: PAIN Nicotine (Nicotine Patch 21 Mg/24 Hr*) 1 patch TRANSDERM DAILY [facility] Omeprazole (Prilosec Cap*) 20 mg PO DAILY@0730 [facility] Ondansetron HCl (Zofran Inj*) 4 mg IV Q6H PRN Reason: NAUSEA Pharmacy Profile Note (Nicotine Patch Removal Note*) 1 note PATCH OFF 2100 [facility] Sertraline HCl (Zoloft*) 50 mg PO DAILY [facility] Spironolactone (Aldactone Tab*) 25 mg PO DAILY [facility] Trazodone HCl (Desyrel Tab*) 50 mg PO BEDTIME PRN Reason: INSOMNIA Vital Signs - 8 hr 04/04/18 04/04/18 04/04/18 07:14 08:00 09:09 Temperature 97.6 F Pulse Rate 78 75 Respiratory 17 18 Rate Blood Pressure 92/59 (mmHg) O2 Sat by Pulse 90 Oximetry 04/04/18 04/04/18 04/04/18 09:22 11:32 12:18 Temperature 97.8 F Pulse Rate 77 Respiratory 18 16 Rate Blood Pressure 87/62 95/65 (mmHg) O2 Sat by Pulse 82 Oximetry 04/04/18 04/04/18 12:25 13:30 Temperature Pulse Rate Respiratory 18 18 Rate Blood Pressure (mmHg) O2 Sat by Pulse Oximetry Oxygen Devices in Use Now: None Appearance: NAD, sitting up in bed Ears/Nose/Mouth/Throat: Mucous Membranes Moist Respiratory: Symmetrical Chest Expansion and Respiratory Effort, Clear to Auscultation Cardiovascular: NL Sounds; No Murmurs; No JVD, RRR Abdominal: - - Bowel sounds present, abdomen soft, tender in the epigastric area Extremities: No Edema Skin: No Rash or Ulcers Neurological: Alert and Oriented x 3, NL Muscle Strength and Tone Lines/Tubes/Other Access: Clean, Dry and Intact Peripheral IV - site benign Nutrition: Taking PO's Result Diagrams: 04/03/18 04:50 04/04/18 05:10 Additional Lab and Data: . Microbiology and Other Data: Microbiology 04/02/18 16:03 Aerobic Blood Culture - Preliminary Blood Venous No Growth Day 1 Anaerobic Blood Culture - Preliminary No Growth Day 1 04/02/18 16:03 Aerobic Blood Culture - Preliminary Blood Venous No Growth Day 1 Anaerobic Blood Culture - Preliminary No Growth Day 1 Assess/Plan/Problems-Billing Assessment: Mr. Brice is a 32 yo male with PMH significant for a flutter, CHF, and cardiomyopathy with last know EF 20% who presented to the emergency room with complains of shortness of breath and epigastric pain. - Patient Problems (1) Acute on chronic systolic (congestive) heart failure Code(s): I50.23 - ACUTE ON CHRONIC SYSTOLIC (CONGESTIVE) HEART FAILURE SNOMED Code(s): 561483190 Comment: - Etiology is unclear and may be viral vs. idiopathic vs. tachycardia mediated vs. etoh. it was diagnosed in 2010 and he does not know why - AICD in place for primary prevention, but had a freactures lead, plan for repair 04/14 - Received IV lasix yesterday and again this AM - Cardiology consult, input appreciated - Continue Lopressor, lisinopril, and daily IV lasix - Continue daily weights and strict I+Os (2) Elevated LFTs Code(s): R94.5 - ABNORMAL RESULTS OF LIVER FUNCTION STUDIES SNOMED Code(s): 621982622 Comment: - Suspect secondary to congestion d/t heart failure - Pt continues to have upper ABD pain and tenderness - ABD CT on admission with no significant findings - Will check GB ultrasound in the AM, continue to trend LFTs (3) Elevated d-dimer Code(s): R79.89 - OTHER SPECIFIED ABNORMAL FINDINGS OF BLOOD CHEMISTRY SNOMED Code(s): 627076471 Comment: - No hypoxia - No evidence of DVT and no hypoxia - Will consider CTA if becomes hypoxic (4) Nonischemic cardiomyopathy Code(s): I42.8 - OTHER CARDIOMYOPATHIES SNOMED Code(s): 38231375 Comment: -Despite low EF, with low CHADS-Vasc, no need to anticoagulated per Dr. Estes -Please see above discussion (5) HTN (hypertension) Code(s): I10 - ESSENTIAL (PRIMARY) HYPERTENSION SNOMED Code(s): 60510662 Comment: - SBP 80-90's - Continue lopressor and lisinopril (6) Atrial fibrillation Code(s): I48.91 - UNSPECIFIED ATRIAL FIBRILLATION SNOMED Code(s): 72073242 Comment: - Aflutter (3:1) with controlled rates - Continue Metoprolol and hold Multaq for now - Low risk, no need for anticoagulation (7) GERD (gastroesophageal reflux disease) Code(s): K21.9 - GASTRO-ESOPHAGEAL REFLUX DISEASE WITHOUT ESOPHAGITIS SNOMED Code(s): 247415920 Comment: - Continue Omeprazole (8) Tobacco abuse Code(s): Z72.0 - TOBACCO USE SNOMED Code(s): 294705423 Comment: - Continue Nicotine replacement (9) DVT prophylaxis Code(s): ORZ7643 - SNOMED Code(s): 558973820 Comment: - Continue Lovenox SQ (10) Full code status Code(s): Z78.9 - OTHER SPECIFIED HEALTH STATUS SNOMED Code(s): 815722922 Status and Disposition: Inpatient. Discharge to home when medically stable.
[2018-04-04] MEDS: Enoxaparin(*) 40 MG/0.4 ML SYR SUBCUT SCH (17:44)
[2018-04-04] MEDS: Nicotine Patch Removal NOTE PATCH OFF SCH (21:55)
[2018-04-04] MEDS: traZODone TAB* 50 MG TAB PO PRN (21:55)
[2018-04-05] MEDS: traZODone TAB* 100 MG PO PRN ×2 (00:43→23:12)
[2018-04-05 07:16] LABS: ABS Basophils 0 10^3/ul (0-0.2); ABS Eosinophils 0.1 10^3/ul (0-0.6); ABS Lymphocytes 1.4 10^3/ul (1.0-4.8); ABS Monocytes 0.5 10^3/ul (0-0.8); ABS Nucleated RBC 0 10^3/ul; Eosinophil % 1.7 % (0-6); Hematocrit 40 % (42-52); Hemoglobin 13.3 g/dl (14.0-18.0); Lymphocyte % 35.3 % (25-47); Mean Corpuscular HGB Conc 33 g/dl (31-36); Mean Corpuscular Hemoglobin 34 pg (27-31); Mean Corpuscular Volume 103 fL (80-94); Mean Platelet Volume 8.9 um3 (7.4-10.4); Nucleated Red Blood Cells % 0.2; Platelet Count 112 10^3/ul (150-450); Red Blood Count 3.91 10^6/ul (4.00-5.40); Red Cell Distribution Width 14 % (10.5-15)
[2018-04-05 07:24] LABS: EGFR Non-African American 78.1 (>60)
--- NOTE | 2018-04-05 08:27 | RAD ---
INDICATION: Right upper quadrant pain COMPARISON: Right upper quadrant sonogram March 08, 2018; CT April 02, 2018 TECHNIQUE: Longitudinal and transverse scans of the right upper quadrant were obtained. Doppler interrogation of the hepatic and portal venous system was performed. FINDINGS: Liver: There is hepatomegaly with hepatic steatosis. There are no masses . The liver measures 19.4 cm in cephalocaudal dimension. Vessels: There is normal hepatic and portal venous flow. Bile ducts: There is no evidence of intrahepatic or extrahepatic ductal dilatation. The common duct measures 0.3 cm. Gallbladder: There is chronic thickening of the gallbladder wall which measures 0.5 cm. There is no evidence of cholelithiasis. The patient was not tender over the gallbladder.. Pancreas: The visualized pancreas appears normal Right kidney: The right kidney is normal in size and echogenicity. There are no masses or calculi. There is no evidence of hydronephrosis. The right kidney measures 11.9 x 4.2 x 6.3 cm. The patient has known right-sided nephrolithiasis but this was not documented on the sonogram. The CT is more sensitive, however. IVC and aorta: The aorta and superior vena cava appear normal. Fluid: There is a small right subpleural effusion and there is a small amount of ascites. Other: None. IMPRESSION: 1. There is a thickened gallbladder wall. There is no ductal dilatation or evidence of cholelithiasis. 2. Hepatomegaly with hepatic steatosis. 3. Small right subpleural effusion 4. Small amount of ascites
[2018-04-05 08:51] LABS: INR 1.63 (0.77-1.02)
[2018-04-05] MEDS: Nicotine PATCH 21 MG/24 HR* PATCH TRANSDERM SCH ×2 (09:00→10:39)
[2018-04-05] MEDS: Digoxin TAB* 0.125 MG PO SCH ×2 (09:35→17:12)
[2018-04-05] MEDS: Metoprolol Succinate XL TAB* 25 MG PO SCH (09:36)
[2018-04-05] MEDS: Sertraline* 50 MG TAB PO SCH (10:39)
[2018-04-05] MEDS: Lisinopril TAB* 5 MG PO SCH (10:39)
[2018-04-05] MEDS: Magnesium Oxide TAB* 400 MG PO SCH (10:39)
[2018-04-05] MEDS: Spironolactone TAB* 25 MG PO SCH (10:39)
[2018-04-05] MEDS: Aspirin EC TAB* 81 MG TAB.EC PO SCH (10:39)
[2018-04-05] MEDS: Furosemide IV* 10 MG/ML VIAL (40 MG) IV SCH (10:39)
[2018-04-05] MEDS: Omeprazole CAP* 20 MG PO SCH (10:39)
[2018-04-05] MEDS: Morphine VIAL* 4 MG/ML VIAL (1 ml vial) IV PRN ×2 (14:26→18:52)
[2018-04-05] MEDS: Ondansetron INJ* 2 MG/ML VIAL IV PRN (14:26)
--- NOTE | 2018-04-05 14:48 | PN ---
Subjective Date of Service: 04/05/18 Interval History: He; hasn't tried to leave his room today. Slept OK. No new c/o. Family History: Unchanged from Admission Social History: Unchanged from Admission Past Medical History: Unchanged from Admission Objective Active Medications: Acetaminophen (Tylenol Tab*) 650 mg PO Q4H PRN PRN Reason: FEVER/PAIN Last Admin: 04/02/18 18:09 Dose: 650 mg Aspirin (Aspirin Ec Tab*) 81 mg PO DAILY [facility] Last Admin: 04/05/18 10:39 Dose: 81 mg Calcium Carbonate (Tums*) 1,000 mg PO Q4H PRN PRN Reason: INDIGESTION Last Admin: 04/03/18 03:32 Dose: 1,000 mg Digoxin (Lanoxin Tab*) 0.125 mg PO DAILY [facility] Last Admin: 04/05/18 09:35 Dose: Not Given Digoxin (Lanoxin Tab*) 0.125 mg PO Q48H [facility] Enoxaparin Sodium (Lovenox(*)) 40 mg SUBCUT Q24H [facility] Last Admin: 04/04/18 17:44 Dose: 40 mg Furosemide (Lasix Iv*) 40 mg IV DAILY [facility] Last Admin: 04/05/18 10:39 Dose: 40 mg Lisinopril (Prinivil Tab*) 2.5 mg PO DAILY [facility] Last Admin: 04/05/18 10:39 Dose: 2.5 mg Magnesium Oxide (Magox 400 Tab*) 400 mg PO DAILY [facility] Last Admin: 04/05/18 10:39 Dose: 400 mg Metoprolol Tartrate (Lopressor Tab*) 12.5 mg PO Q12HR [facility] Morphine Sulfate (Morphine Vial*) 4 mg IV Q4H PRN PRN Reason: PAIN Last Admin: 04/05/18 14:26 Dose: 4 mg Nicotine (Nicotine Patch 21 Mg/24 Hr*) 1 patch TRANSDERM DAILY [facility] Last Admin: 04/05/18 10:39 Dose: 1 patch Omeprazole (Prilosec Cap*) 20 mg PO DAILY@0730 [facility] Last Admin: 04/05/18 10:39 Dose: 20 mg Ondansetron HCl (Zofran Inj*) 4 mg IV Q6H PRN PRN Reason: NAUSEA Last Admin: 04/05/18 14:26 Dose: 4 mg Pharmacy Profile Note (Nicotine Patch Removal Note*) 1 note PATCH OFF 2100 [facility] Last Admin: 04/04/18 21:55 Dose: 1 note Sertraline HCl (Zoloft*) 50 mg PO DAILY [facility] Last Admin: 04/05/18 10:39 Dose: 50 mg Spironolactone (Aldactone Tab*) 25 mg PO DAILY [facility] Last Admin: 04/05/18 10:39 Dose: 25 mg Trazodone HCl (Desyrel Tab*) 100 mg PO BEDTIME PRN PRN Reason: INSOMNIA Last Admin: 04/05/18 00:43 Dose: 100 mg Vital Signs - 8 hr 04/05/18 04/05/18 04/05/18 07:15 08:00 09:35 Temperature 97.9 F Pulse Rate 63 Respiratory 15 18 Rate Blood Pressure 82/56 (mmHg) O2 Sat by Pulse 74 Oximetry 04/05/18 04/05/18 11:34 14:26 Temperature 98.5 F Pulse Rate 77 Respiratory 16 18 Rate Blood Pressure 81/62 (mmHg) O2 Sat by Pulse 95 Oximetry Oxygen Devices in Use Now: None Appearance: Alert, supine in bed. Neutral affect. Looks comfortable. Eyes: No Scleral Icterus Neck: NL Appearance and Movements; NL JVP, No Thyroid Enlargement, Masses Respiratory: Symmetrical Chest Expansion and Respiratory Effort, Clear to Auscultation, Clear to Percussion Cardiovascular: NL Sounds; No Murmurs; No JVD, RRR, No Edema Abdominal: - - Guarding of abd. Mild to mod epigastric tenderness. Extremities: No Edema, No Clubbing, Cyanosis, - Skin: No Rash or Ulcers, No Nodules or Sclerosis, - Neurological: Alert and Oriented x 3, NL Sensation Result Diagrams: 04/05/18 05:53 04/05/18 05:53 Additional Lab and Data: . Microbiology and Other Data: Microbiology 04/02/18 16:03 Aerobic Blood Culture - Preliminary Blood Venous No Growth Day 1 Anaerobic Blood Culture - Preliminary No Growth Day 1 04/02/18 16:03 Aerobic Blood Culture - Preliminary Blood Venous No Growth Day 1 Anaerobic Blood Culture - Preliminary No Growth Day 1 Assess/Plan/Problems-Billing Assessment: Mr. Brice is a 32 yo male with PMH significant for a flutter, CHF, and cardiomyopathy with last know EF 20% who presented to the emergency room with complains of shortness of breath and epigastric pain. - Patient Problems (1) Acute on chronic systolic (congestive) heart failure Current Visit: Yes Status: Acute Code(s): I50.23 - ACUTE ON CHRONIC SYSTOLIC (CONGESTIVE) HEART FAILURE SNOMED Code(s): 640955829 Comment: - Etiology unknown, diagnosed in 2010. - AICD in place, but has a fracturesd lead, plan for repair 04/14 in [place]. Change to po torsemide 04/06. Continue lisinopril. - Continue daily weights and strict I+Os (2) Atrial flutter Current Visit: Yes Status: Acute Code(s): I48.92 - UNSPECIFIED ATRIAL FLUTTER SNOMED Code(s): 4834093 Comment: He may be very sensitive to chronotropic effect of dig, will change to 0.125 mg q 4 8 hr. Level 04/06. Metoprol changed to tartrate 12.5 mg bid, start 04/05 9 PM, received none 04/05 AM. No AC indicated. (3) Elevated LFTs Current Visit: Yes Status: Acute Code(s): R94.5 - ABNORMAL RESULTS OF LIVER FUNCTION STUDIES SNOMED Code(s): 675187147 Comment: - Suspect secondary to congestion d/t heart failure - Pt continues to have upper ABD pain and tenderness - ABD CT on admission with no significant findings GB ultrasound showed GB wall thickening, no stones. CMP 04/06. (4) Tobacco abuse Current Visit: No Status: Acute Code(s): Z72.0 - TOBACCO USE SNOMED Code(s ): 977882820 Comment: - Continue Nicotine replacement. PT advised to quit smoking and avoid second hand smoke. (5) GERD (gastroesophageal reflux disease) Current Visit: No Status: Chronic Code(s): K21.9 - GASTRO-ESOPHAGEAL REFLUX DISEASE WITHOUT ESOPHAGITIS SNOMED Code(s): 281781491 Comment: - Continue Omeprazole, on pantoprazole at home. Status and Disposition: Inpatient. Discharge to home when medically stable.
[2018-04-05 15:15] LABS: Urine Appearance Clear; Urine Blood Negative (Negative); Urine Color Straw; Urine Ketones Negative (Negative); Urine Protein Negative (Negative); Urine Specific Gravity 1.003 (1.010-1.030); Urine Urobilinogen Negative (Negative)
[2018-04-05] MEDS: Enoxaparin(*) 40 MG/0.4 ML SYR SUBCUT SCH (17:12)
[2018-04-05] MEDS ORDERED: HYDROmorphone INJ* 0.5 MG/0.5 ML SYRINGE IV PRN (21:30)
[2018-04-05] MEDS: Metoprolol Tartrate TAB* 25 MG PO SCH (21:54)
[2018-04-05] MEDS: Nicotine Patch Removal NOTE PATCH OFF SCH (22:07)
[2018-04-06] MEDS: Levothyroxine TAB* 25 MCG TAB PO SCH (06:03)
[2018-04-06 06:50] LABS: EGFR Non-African American 70.6 (>60)
[2018-04-06] MEDS: Lisinopril TAB* 5 MG PO SCH (09:10)
[2018-04-06] MEDS: Spironolactone TAB* 25 MG PO SCH (09:10)
[2018-04-06] MEDS: Aspirin EC TAB* 81 MG TAB.EC PO SCH (09:10)
[2018-04-06] MEDS: Metoprolol Tartrate TAB* 25 MG PO SCH ×3 (09:10→20:38)
[2018-04-06] MEDS: Magnesium Oxide TAB* 400 MG PO SCH (09:10)
[2018-04-06] MEDS: Sertraline* 50 MG TAB PO SCH (09:10)
[2018-04-06] MEDS: Omeprazole CAP* 20 MG PO SCH (09:10)
[2018-04-06] MEDS: Furosemide IV* 10 MG/ML VIAL (40 MG) IV SCH ×2 (09:12→09:20)
[2018-04-06] MEDS: Nicotine PATCH 21 MG/24 HR* PATCH TRANSDERM SCH (09:14)
[2018-04-06 09:33] LABS: INR 1.29 (0.77-1.02)
[2018-04-06] MEDS ORDERED: Torsemide TAB* 20 MG PO ONE (09:55)
[2018-04-06] MEDS ORDERED: Magnesium Hydroxide LIQ* 30 ML UDC PO ONE (09:58)
[2018-04-06] MEDS ORDERED: Torsemide TAB* 20 MG PO SCH (10:00)
--- NOTE | 2018-04-06 10:04 | PN ---
Subjective Date of Service: 04/06/18 Interval History: C/O both upper abdominal pain and pain R groin which he attributes to his hernia. No BM for several days. SEARS unchanged. Family History: Unchanged from Admission Social History: Unchanged from Admission Past Medical History: Unchanged from Admission Objective Active Medications: Acetaminophen (Tylenol Tab*) 650 mg PO Q4H PRN PRN Reason: FEVER/PAIN Last Admin: 04/02/18 18:09 Dose: 650 mg Aspirin (Aspirin Ec Tab*) 81 mg PO DAILY [facility] Last Admin: 04/06/18 09:10 Dose: 81 mg Calcium Carbonate (Tums*) 1,000 mg PO Q4H PRN PRN Reason: INDIGESTION Last Admin: 04/03/18 03:32 Dose: 1,000 mg Digoxin (Lanoxin Tab*) 0.125 mg PO Q48H [facility] Last Admin: 04/05/18 17:12 Dose: 0.125 mg Enoxaparin Sodium (Lovenox(*)) 40 mg SUBCUT Q24H [facility] Last Admin: 04/05/18 17:12 Dose: 40 mg Hydromorphone HCl (Dilaudid Inj*) 0.5 mg IV Q4H PRN PRN Reason: PAIN Last Admin: 04/05/18 23:12 Dose: 0.5 mg Levothyroxine Sodium (Synthroid Tab*) 25 mcg PO DAILY@0600 [facility] Last Admin: 04/06/18 06:03 Dose: 25 mcg Lisinopril (Prinivil Tab*) 2.5 mg PO DAILY [facility] Last Admin: 04/06/18 09:10 Dose: 2.5 mg Magnesium Oxide (Magox 400 Tab*) 400 mg PO DAILY [facility] Last Admin: 04/06/18 09:10 Dose: 400 mg Metolazone (Zaroxolyn Tab*) 5 mg PO DAILY [facility] Metoprolol Tartrate (Lopressor Tab*) 12.5 mg PO Q12HR [facility] Last Admin: 04/06/18 09:10 Dose: 12.5 mg Nicotine (Nicotine Patch 21 Mg/24 Hr*) 1 patch TRANSDERM DAILY [facility] Last Admin: 04/06/18 09:14 Dose: Not Given Omeprazole (Prilosec Cap*) 20 mg PO DAILY@0730 [facility] Last Admin: 04/06/18 09:10 Dose: 20 mg Ondansetron HCl (Zofran Inj*) 4 mg IV Q6H PRN PRN Reason: NAUSEA Last Admin: 04/05/18 14:26 Dose: 4 mg Pharmacy Profile Note (Nicotine Patch Removal Note*) 1 note PATCH OFF 2099 [facility] Last Admin: 04/05/18 22:07 Dose: Not Given Sertraline HCl (Zoloft*) 50 mg PO DAILY [facility] Last Admin: 04/06/18 09:10 Dose: 50 mg Spironolactone (Aldactone Tab*) 25 mg PO DAILY [facility] Last Admin: 04/06/18 09:10 Dose: 25 mg Torsemide (Demadex*) 40 mg PO DAILY [facility] Torsemide (Demadex*) 20 mg PO ONCE ONE Stop: 04/06/18 09:56 Trazodone HCl (Desyrel Tab*) 100 mg PO BEDTIME PRN PRN Reason: INSOMNIA Last Admin: 04/05/18 23:12 Dose: 100 mg Vital Signs - 8 hr 04/06/18 04/06/18 04/06/18 03:07 03:12 07:16 Temperature 97.9 F 98.3 F Pulse Rate 230 47 Respiratory 14 16 Rate Blood Pressure 83/58 100/70 99/68 (mmHg) O2 Sat by Pulse 90 96 Oximetry 04/06/18 04/06/18 07:36 07:44 Temperature Pulse Rate 77 Respiratory 16 Rate Blood Pressure (mmHg) O2 Sat by Pulse Oximetry Oxygen Devices in Use Now: None Appearance: Alert, completely flat in bed. In fair spirits. Looks comfortable. Eyes: No Scleral Icterus Respiratory: Symmetrical Chest Expansion and Respiratory Effort, Clear to Auscultation, Clear to Percussion Cardiovascular: NL Sounds; No Murmurs; No JVD, RRR, No Edema, - Abdominal: No Hepatosplenomegaly, - - Soft, not distended, minimal tenderness, no rebound, nl BS Extremities: No Edema, No Clubbing, Cyanosis, - Skin: No Rash or Ulcers, No Nodules or Sclerosis, - Neurological: Alert and Oriented x 3, NL Sensation Result Diagrams: 04/05/18 05:53 04/06/18 06:19 Additional Lab and Data: . Microbiology and Other Data: Microbiology 04/02/18 16:03 Aerobic Blood Culture - Preliminary Blood Venous No Growth Day 1 Anaerobic Blood Culture - Preliminary No Growth Day 1 04/02/18 16:03 Aerobic Blood Culture - Preliminary Blood Venous No Growth Day 1 Anaerobic Blood Culture - Preliminary No Growth Day 1 Assess/Plan/Problems-Billing Assessment: Mr. Brice is a 32 yo male with PMH significant for a flutter, CHF, and cardiomyopathy with last know EF 20% who presented to the emergency room with complains of shortness of breath and epigastric pain. - Patient Problems (1) Acute on chronic systolic (congestive) heart failure Current Visit: Yes Status: Acute Code(s): I50.23 - ACUTE ON CHRONIC SYSTOLIC (CONGESTIVE) HEART FAILURE SNOMED Code(s): 345560878 Comment: - Etiology unknown, diagnosed in 2010. - AICD in place, but has a fracturesd lead, plan for repair 04/14 in [place]. Changed to po torsemide + metolazone 04/06. Continue lisinopril. - Continue daily weights and strict I+Os (2) Atrial flutter Current Visit: Yes Status: Acute Code(s): I48.92 - UNSPECIFIED ATRIAL FLUTTER SNOMED Code(s): 2172699 Comment: He may be very sensitive to chronotropic effect of dig, continue 0.125 mg q 48 hr. Dig level 1.0 04/06. Metoprol changed to tartrate 12.5 mg bid ont 04/05 9 PM, received none 04/05 AM. No AC indicated. (3) Elevated LFTs Current Visit: Yes Status: Acute Code(s): R94.5 - ABNORMAL RESULTS OF LIVER FUNCTION STUDIES SNOMED Code(s): 892766987 Comment: - Suspect secondary to congestion d/t heart failure - Pt continues to have upper ABD pain and tenderness - ABD CT on admission with no significant findings GB ultrasound showed GB wall thickening, no stones. CMP 04/06 improved, repeat .. (4) Tobacco abuse Current Visit: No Status: Acute Code(s): Z72.0 - TOBACCO USE SNOMED Code(s ): 047335546 Comment: - Continue Nicotine replacement. PT advised to quit smoking and avoid second hand smoke. (5) GERD (gastroesophageal reflux disease) Current Visit: No Status: Chronic Code(s): K21.9 - GASTRO-ESOPHAGEAL REFLUX DISEASE WITHOUT ESOPHAGITIS SNOMED Code(s): 244656001 Comment: - Continue Omeprazole, on pantoprazole at home. Status and Disposition: Inpatient. Discharge to home when medically stable.
[2018-04-06] MEDS: Metolazone TAB* 5 MG PO SCH (10:12)
[2018-04-06] MEDS: oxyCODONE TAB* 5 MG TAB PO PRN ×2 (10:33→18:02)
[2018-04-06] MEDS ORDERED: Metoprolol Tartrate TAB* 25 MG PO SCH (14:00)
[2018-04-06] MEDS: Enoxaparin(*) 40 MG/0.4 ML SYR SUBCUT SCH (16:17)
[2018-04-06] MEDS: traZODone TAB* 100 MG PO PRN (19:38)
[2018-04-06] MEDS: Acetaminophen TAB* 325 MG PO PRN (19:38)
[2018-04-06] MEDS: Nicotine Patch Removal NOTE PATCH OFF SCH (20:32)
[2018-04-06] MEDS ORDERED: Bisacodyl SUPP* 10 MG SUPP PR ONE (21:08)
[2018-04-07] MEDS: Levothyroxine TAB* 25 MCG TAB PO SCH (05:40)
[2018-04-07] MEDS: Metoprolol Tartrate TAB* 25 MG PO SCH ×3 (05:41→21:57)
[2018-04-07] MEDS ORDERED: Torsemide TAB* 20 MG PO SCH (09:00)
[2018-04-07 09:53] LABS: EGFR Non-African American 61.1 (>60)
[2018-04-07] MEDS: Magnesium Oxide TAB* 400 MG PO SCH (10:04)
[2018-04-07] MEDS: Sertraline* 50 MG TAB PO SCH (10:04)
[2018-04-07] MEDS: Metolazone TAB* 5 MG PO SCH (10:04)
[2018-04-07] MEDS: Aspirin EC TAB* 81 MG TAB.EC PO SCH (10:05)
[2018-04-07 10:15] LABS: INR 1.33 (0.77-1.02)
[2018-04-07] MEDS: Omeprazole CAP* 20 MG PO SCH (10:34)
[2018-04-07] MEDS: Nicotine PATCH 21 MG/24 HR* PATCH TRANSDERM SCH (10:41)
[2018-04-07] MEDS: Lisinopril TAB* 5 MG PO SCH (10:41)
[2018-04-07] MEDS: Spironolactone TAB* 25 MG PO SCH (10:41)
[2018-04-07] MEDS: oxyCODONE TAB* 5 MG TAB PO PRN ×3 (13:15→19:59)
[2018-04-07] MEDS: Acetaminophen TAB* 325 MG PO PRN ×2 (13:16→19:29)
[2018-04-07] MEDS: Digoxin TAB* 0.125 MG PO SCH (16:45)
[2018-04-07] MEDS: Enoxaparin(*) 40 MG/0.4 ML SYR SUBCUT SCH (16:46)
--- NOTE | 2018-04-07 18:40 | PN ---
Subjective Date of Service: 04/07/18 Interval History: Abdominal pain much improved. Constipated, did have BM yesterday after MOM and a suppository. Family History: Unchanged from Admission Social History: Unchanged from Admission Past Medical History: Unchanged from Admission Objective Active Medications: Acetaminophen (Tylenol Tab*) 650 mg PO Q4H PRN PRN Reason: FEVER/PAIN Last Admin: 04/07/18 13:16 Dose: 650 mg Aspirin (Aspirin Ec Tab*) 81 mg PO DAILY [facility] Last Admin: 04/07/18 10:05 Dose: 81 mg Calcium Carbonate (Tums*) 1,000 mg PO Q4H PRN PRN Reason: INDIGESTION Last Admin: 04/03/18 03:32 Dose: 1,000 mg Digoxin (Lanoxin Tab*) 0.125 mg PO Q48H [facility] Last Admin: 04/07/18 16:45 Dose: 0.125 mg Enoxaparin Sodium (Lovenox(*)) 40 mg SUBCUT Q24H [facility] Last Admin: 04/07/18 16:46 Dose: Not Given Hydromorphone HCl (Dilaudid Inj*) 0.5 mg IV Q4H PRN PRN Reason: PAIN Last Admin: 04/05/18 23:12 Dose: 0.5 mg Levothyroxine Sodium (Synthroid Tab*) 25 mcg PO DAILY@0600 [facility] Last Admin: 04/07/18 05:40 Dose: 25 mcg Lisinopril (Prinivil Tab*) 2.5 mg PO DAILY [facility] Last Admin: 04/07/18 10:41 Dose: Not Given Magnesium Oxide (Magox 400 Tab*) 400 mg PO DAILY [facility] Last Admin: 04/07/18 10:04 Dose: 400 mg Metolazone (Zaroxolyn Tab*) 2.5 mg PO DAILY [facility] Metoprolol Tartrate (Lopressor Tab*) 12.5 mg PO Q8H [facility] Last Admin: 04/07/18 13:08 Dose: 12.5 mg Nicotine (Nicotine Patch 21 Mg/24 Hr*) 1 patch TRANSDERM DAILY [facility] Last Admin: 04/07/18 10:41 Dose: Not Given Omeprazole (Prilosec Cap*) 20 mg PO DAILY@0730 [facility] Last Admin: 04/07/18 10:34 Dose: 20 mg Ondansetron HCl (Zofran Inj*) 4 mg IV Q6H PRN PRN Reason: NAUSEA Last Admin: 04/05/18 14:26 Dose: 4 mg Oxycodone HCl (Roxycodone Tab*) 5 mg PO Q3H PRN PRN Reason: PAIN Last Admin: 04/07/18 16:44 Dose: 5 mg Pharmacy Profile Note (Nicotine Patch Removal Note*) 1 note PATCH OFF 2099 [facility] Last Admin: 04/06/18 20:32 Dose: Not Given Sertraline HCl (Zoloft*) 50 mg PO DAILY [facility] Last Admin: 04/07/18 10:04 Dose: 50 mg Spironolactone (Aldactone Tab*) 25 mg PO DAILY [facility] Last Admin: 04/07/18 10:41 Dose: Not Given Torsemide (Demadex*) 20 mg PO DAILY [facility] Trazodone HCl (Desyrel Tab*) 100 mg PO BEDTIME PRN PRN Reason: INSOMNIA Last Admin: 04/06/18 19:38 Dose: 100 mg Vital Signs - 8 hr 04/07/18 04/07/18 04/07/18 11:03 13:15 15:27 Temperature 97.9 F 98.1 F Pulse Rate 98 82 Respiratory 16 20 20 Rate Blood Pressure 97/51 84/60 (mmHg) O2 Sat by Pulse 97 97 Oximetry 04/07/18 04/07/18 04/07/18 16:44 16:45 16:49 Temperature Pulse Rate 102 Respiratory 16 16 Rate Blood Pressure (mmHg) O2 Sat by Pulse Oximetry Oxygen Devices in Use Now: None Appearance: Alert, sitting on the edge of his bed. In fair spirits. Looks comfortable. Eyes: No Scleral Icterus Respiratory: Symmetrical Chest Expansion and Respiratory Effort, Clear to Auscultation, Clear to Percussion Cardiovascular: No Edema, - - irreg Abdominal: NL Sounds; No Tenderness; No Distention, No Hepatosplenomegaly, - Extremities: No Edema, No Clubbing, Cyanosis, - Neurological: Alert and Oriented x 3, NL Sensation Result Diagrams: 04/05/18 05:53 04/07/18 09:10 Additional Lab and Data: . Microbiology and Other Data: Microbiology 04/02/18 16:03 Aerobic Blood Culture - Preliminary Blood Venous No Growth Day 1 Anaerobic Blood Culture - Preliminary No Growth Day 1 04/02/18 16:03 Aerobic Blood Culture - Preliminary Blood Venous No Growth Day 1 Anaerobic Blood Culture - Preliminary No Growth Day 1 Assess/Plan/Problems-Billing Assessment: Mr. Brice is a 32 yo male with PMH significant for a flutter, CHF, and cardiomyopathy with last know EF 20% who presented to the emergency room with complains of shortness of breath and epigastric pain. - Patient Problems (1) Acute on chronic systolic (congestive) heart failure Current Visit: Yes Status: Acute Code(s): I50.23 - ACUTE ON CHRONIC SYSTOLIC (CONGESTIVE) HEART FAILURE SNOMED Code(s): 689548101 Comment: - Etiology unknown, diagnosed in 2010. - AICD in place, but has a fracturesd lead, plan for repair 04/14 in [place]. Changed to po torsemide + metolazone 04/06. Continue lisinopril--held 04/07 due to hypotension. Large diuresis with torsemide 40 + metolazone 5 on 04/06, no diuretic 04/07, plan 20 + 2.5 on 03/19 and daily. Check CMP,weights 04/08,04/09, consider discharge 04/09. - Continue daily weights and strict I+Os (2) Atrial flutter Current Visit: Yes Status: Acute Code(s): I48.92 - UNSPECIFIED ATRIAL FLUTTER SNOMED Code(s): 6074232 Comment: He may be very sensitive to chronotropic effect of dig, continue 0.125 mg q 48 hr. Dig level 1.0 04/06. Metoprol changed to tartrate 12.5 mg bid ont 04/05 9 PM, received none 04/05 AM. No AC indicated. (3) Elevated LFTs Current Visit: Yes Status: Acute Code(s): R94.5 - ABNORMAL RESULTS OF LIVER FUNCTION STUDIES SNOMED Code(s): 777496227 Comment: - ABD CT on admission with no significant findings GB ultrasound showed GB wall thickening, no stones. CMP 04/06 improved, repeat . Pain relief, improvement in LFT's, and diuresis with weight loss all occurred in tandem. (4) Tobacco abuse Current Visit: No Status: Acute Code(s): Z72.0 - TOBACCO USE SNOMED Code(s ): 397014310 Comment: - Continue Nicotine replacement. PT advised to quit smoking and avoid second hand smoke. (5) GERD (gastroesophageal reflux disease) Current Visit: No Status: Chronic Code(s): K21.9 - GASTRO-ESOPHAGEAL REFLUX DISEASE WITHOUT ESOPHAGITIS SNOMED Code(s): 052654481 Comment: - Continue Omeprazole, on pantoprazole at home. Status and Disposition: Inpatient. Discharge to home when medically stable.
--- NOTE | 2018-04-07 18:58 | PN ---
Subjective Date of Service: 04/07/18 Interval History: SEE EARLIER NOTE TODAY. Family History: Unchanged from Admission Social History: Unchanged from Admission Past Medical History: Unchanged from Admission Objective Active Medications: Acetaminophen (Tylenol Tab*) 650 mg PO Q4H PRN PRN Reason: FEVER/PAIN Last Admin: 04/07/18 13:16 Dose: 650 mg Aspirin (Aspirin Ec Tab*) 81 mg PO DAILY [facility] Last Admin: 04/07/18 10:05 Dose: 81 mg Calcium Carbonate (Tums*) 1,000 mg PO Q4H PRN PRN Reason: INDIGESTION Last Admin: 04/03/18 03:32 Dose: 1,000 mg Digoxin (Lanoxin Tab*) 0.125 mg PO Q48H [facility] Last Admin: 04/07/18 16:45 Dose: 0.125 mg Enoxaparin Sodium (Lovenox(*)) 40 mg SUBCUT Q24H [facility] Last Admin: 04/07/18 16:46 Dose: Not Given Hydromorphone HCl (Dilaudid Inj*) 0.5 mg IV Q4H PRN PRN Reason: PAIN Last Admin: 04/05/18 23:12 Dose: 0.5 mg Levothyroxine Sodium (Synthroid Tab*) 25 mcg PO DAILY@0600 [facility] Last Admin: 04/07/18 05:40 Dose: 25 mcg Lisinopril (Prinivil Tab*) 2.5 mg PO DAILY [facility] Last Admin: 04/07/18 10:41 Dose: Not Given Magnesium Oxide (Magox 400 Tab*) 400 mg PO DAILY [facility] Last Admin: 04/07/18 10:04 Dose: 400 mg Metolazone (Zaroxolyn Tab*) 2.5 mg PO DAILY [facility] Metoprolol Tartrate (Lopressor Tab*) 12.5 mg PO Q8H [facility] Last Admin: 04/07/18 13:08 Dose: 12.5 mg Nicotine (Nicotine Patch 21 Mg/24 Hr*) 1 patch TRANSDERM DAILY [facility] Last Admin: 04/07/18 10:41 Dose: Not Given Omeprazole (Prilosec Cap*) 20 mg PO DAILY@0730 [facility] Last Admin: 04/07/18 10:34 Dose: 20 mg Ondansetron HCl (Zofran Inj*) 4 mg IV Q6H PRN PRN Reason: NAUSEA Last Admin: 04/05/18 14:26 Dose: 4 mg Oxycodone HCl (Roxycodone Tab*) 5 mg PO Q3H PRN PRN Reason: PAIN Last Admin: 04/07/18 16:44 Dose: 5 mg Pharmacy Profile Note (Nicotine Patch Removal Note*) 1 note PATCH OFF 2099 [facility] Last Admin: 04/06/18 20:32 Dose: Not Given Polyethylene Glycol/Electrolytes (Miralax*) 17 gm PO BEDTIME [facility] Sertraline HCl (Zoloft*) 50 mg PO DAILY [facility] Last Admin: 04/07/18 10:04 Dose: 50 mg Spironolactone (Aldactone Tab*) 25 mg PO DAILY [facility] Last Admin: 04/07/18 10:41 Dose: Not Given Torsemide (Demadex*) 20 mg PO DAILY [facility] Trazodone HCl (Desyrel Tab*) 100 mg PO BEDTIME PRN PRN Reason: INSOMNIA Last Admin: 04/06/18 19:38 Dose: 100 mg Vital Signs - 8 hr 04/07/18 04/07/18 04/07/18 11:03 13:15 15:27 Temperature 97.9 F 98.1 F Pulse Rate 98 82 Respiratory 16 20 20 Rate Blood Pressure 97/51 84/60 (mmHg) O2 Sat by Pulse 97 97 Oximetry 04/07/18 04/07/18 04/07/18 16:44 16:45 16:49 Temperature Pulse Rate 102 Respiratory 16 16 Rate Blood Pressure (mmHg) O2 Sat by Pulse Oximetry Oxygen Devices in Use Now: None Result Diagrams: 04/05/18 05:53 04/07/18 09:10 Additional Lab and Data: . Microbiology and Other Data: Microbiology 04/02/18 16:03 Aerobic Blood Culture - Preliminary Blood Venous No Growth Day 1 Anaerobic Blood Culture - Preliminary No Growth Day 1 04/02/18 16:03 Aerobic Blood Culture - Preliminary Blood Venous No Growth Day 1 Anaerobic Blood Culture - Preliminary No Growth Day 1 Assess/Plan/Problems-Billing Assessment: Mr. Brice is a 32 yo male with PMH significant for a flutter, CHF, and cardiomyopathy with last know EF 20% who presented to the emergency room with complains of shortness of breath and epigastric pain. - Patient Problems (1) Acute on chronic systolic (congestive) heart failure Current Visit: Yes Status: Acute Code(s): I50.23 - ACUTE ON CHRONIC SYSTOLIC (CONGESTIVE) HEART FAILURE SNOMED Code(s): 714666337 Comment: - Etiology unknown, diagnosed in 2010. - AICD in place, but has a fracturesd lead, plan for repair 04/14 in [place]. Changed to po torsemide + metolazone 04/06. Continue lisinopril--held 04/07 due to hypotension. Large diuresis with torsemide 40 + metolazone 5 on 04/06, no diuretic 04/07, plan 20 + 2.5 on 03/19 and daily. Check CMP,weights 04/08,04/09, consider discharge 04/09. - Continue daily weights and strict I+Os (2) Atrial flutter Current Visit: Yes Status: Acute Code(s): I48.92 - UNSPECIFIED ATRIAL FLUTTER SNOMED Code(s): 2569853 Comment: He may be very sensitive to chronotropic effect of dig, continue 0.125 mg q 48 hr. Dig level 1.0 04/06. Metoprol changed to tartrate 12.5 mg bid ont 04/05 9 PM, received none 04/05 AM. No AC indicated. (3) Elevated LFTs Current Visit: Yes Status: Acute Code(s): R94.5 - ABNORMAL RESULTS OF LIVER FUNCTION STUDIES SNOMED Code(s): 684412356 Comment: - ABD CT on admission with no significant findings GB ultrasound showed GB wall thickening, no stones. CMP 04/06 improved, repeat . Pain relief, improvement in LFT's, and diuresis with weight loss all occurred in tandem. (4) Tobacco abuse Current Visit: No Status: Acute Code(s): Z72.0 - TOBACCO USE SNOMED Code(s ): 013680312 Comment: - Continue Nicotine replacement. PT advised to quit smoking and avoid second hand smoke. (5) GERD (gastroesophageal reflux disease) Current Visit: No Status: Chronic Code(s): K21.9 - GASTRO-ESOPHAGEAL REFLUX DISEASE WITHOUT ESOPHAGITIS SNOMED Code(s): 543670298 Comment: - Continue Omeprazole, on pantoprazole at home. (6) Hypothyroid Current Visit: Yes Status: Acute Code(s): E03.9 - HYPOTHYROIDISM, UNSPECIFIED SNOMED Code(s): 04570476 Comment: TSH 9.75 on 04/02/18, levothyroxine 25 mcg started 04/06. Repeat TSH in 4 weeks. Status and Disposition: Inpatient. Discharge to home when medically stable.
[2018-04-07] MEDS: Polyethylene Glycol 3350* 17 GM PACKET PO SCH (19:29)
[2018-04-07] MEDS: Nicotine Patch Removal NOTE PATCH OFF SCH (20:01)
[2018-04-07] MEDS: traZODone TAB* 100 MG PO PRN (21:39)
[2018-04-07] MEDS ORDERED: LORazepam TAB(*) 0.5 MG PO ONE (23:08)
[2018-04-07] MEDS ORDERED: Metoprolol Tartrate IV* 1 MG/ML 5 ML VIAL IV ONE (23:08)
[2018-04-08] MEDS: Acetaminophen TAB* 325 MG PO PRN (01:05)
[2018-04-08] MEDS: oxyCODONE TAB* 5 MG TAB PO PRN ×5 (01:05→21:44)
[2018-04-08 05:37] LABS: Hematocrit 41 % (42-52); Mean Corpuscular HGB Conc 34 g/dl (31-36); Mean Corpuscular Hemoglobin 34 pg (27-31); Mean Corpuscular Volume 101 fL (80-94); Mean Platelet Volume 8.2 um3 (7.4-10.4); Platelet Count 93 10^3/ul (150-450); Red Blood Count 4.11 10^6/ul (4.00-5.40); Red Cell Distribution Width 14 % (10.5-15); White Blood Count 3.9 10^3/ul (3.5-10.8)
[2018-04-08 05:41] LABS: INR 1.31 (0.77-1.02)
[2018-04-08 05:53] LABS: EGFR Non-African American 76.5 (>60)
[2018-04-08 06:00] LABS: ABS Basophils 0 10^3/ul (0-0.2); ABS Eosinophils 0.1 10^3/ul (0-0.6); ABS Lymphocytes 1.7 10^3/ul (1.0-4.8); ABS Monocytes 0.4 10^3/ul (0-0.8); ABS Neutrophils 1.6 10^3/ul (1.5-7.7); ABS Nucleated RBC 0 10^3/ul; Lymphocyte % 43.3 % (25-47); Nucleated Red Blood Cells % 0
[2018-04-08] MEDS: Levothyroxine TAB* 25 MCG TAB PO SCH (06:36)
[2018-04-08] MEDS: Metoprolol Tartrate TAB* 25 MG PO SCH ×3 (06:37→21:43)
[2018-04-08] MEDS: Spironolactone TAB* 25 MG PO SCH (08:57)
[2018-04-08] MEDS: Lisinopril TAB* 5 MG PO SCH (08:57)
[2018-04-08] MEDS: Metolazone TAB* 5 MG PO SCH (08:57)
[2018-04-08] MEDS: Nicotine PATCH 21 MG/24 HR* PATCH TRANSDERM SCH (08:58)
[2018-04-08] MEDS: Torsemide TAB* 20 MG PO SCH (09:02)
[2018-04-08] MEDS: Omeprazole CAP* 20 MG PO SCH (09:02)
[2018-04-08] MEDS: Aspirin EC TAB* 81 MG TAB.EC PO SCH (09:02)
[2018-04-08] MEDS: Magnesium Oxide TAB* 400 MG PO SCH (09:02)
[2018-04-08] MEDS: Sertraline* 50 MG TAB PO SCH (09:02)
--- NOTE | 2018-04-08 16:43 | PN ---
Subjective Date of Service: 04/08/18 Interval History: Pt seen and examined. Meds and labs reviewed ROS: Denied BAILEY/dizziness, F/C, N/V, CP, SOB, increased cough, sputum production , abd pain, diarrhea, constipation, dysuria, myalgias, arthralgias, throat pain , and new skin lesions. The rest of the 14 point ROS are unremarkable. PHYSICAL EXAM: GEN APPEARANCE: Awake, not in acute distress HEENT: NC/AT, PERRLA, moist oral mucosa, (-) throat erythema NECK: Soft, supple, (-) cervical LAD, (-)JVD HEART: 3/4 murmur, RRR, No R/G CHEST: CTA, BL, GAE, No W/R/R ABD: Soft, ND/NT, NABS 4x Q EXT: No C/C/E SKIN: Warm to touch PSYCH: No active psychosis, hallucinations, depression, SI/HI Family History: Unchanged from Admission Social History: Unchanged from Admission Past Medical History: Unchanged from Admission Objective Active Medications: Acetaminophen (Tylenol Tab*) 650 mg PO Q4H PRN PRN Reason: FEVER/PAIN Last Admin: 04/08/18 01:05 Dose: 650 mg Aspirin (Aspirin Ec Tab*) 81 mg PO DAILY [facility] Last Admin: 04/08/18 09:02 Dose: 81 mg Calcium Carbonate (Tums*) 1,000 mg PO Q4H PRN PRN Reason: INDIGESTION Last Admin: 04/03/18 03:32 Dose: 1,000 mg Digoxin (Lanoxin Tab*) 0.125 mg PO Q48H [facility] Last Admin: 04/07/18 16:45 Dose: 0.125 mg Hydromorphone HCl (Dilaudid Inj*) 0.5 mg IV Q4H PRN PRN Reason: PAIN Last Admin: 04/05/18 23:12 Dose: 0.5 mg Levothyroxine Sodium (Synthroid Tab*) 25 mcg PO DAILY@0600 [facility] Last Admin: 04/08/18 06:36 Dose: 25 mcg Lisinopril (Prinivil Tab*) 2.5 mg PO DAILY [facility] Last Admin: 04/08/18 08:57 Dose: Not Given Magnesium Oxide (Magox 400 Tab*) 400 mg PO DAILY [facility] Last Admin: 04/08/18 09:02 Dose: 400 mg Metolazone (Zaroxolyn Tab*) 2.5 mg PO DAILY [facility] Last Admin: 04/08/18 08:57 Dose: Not Given Metoprolol Tartrate (Lopressor Tab*) 12.5 mg PO Q8H [facility] Last Admin: 04/08/18 13:00 Dose: 12.5 mg Nicotine (Nicotine Patch 21 Mg/24 Hr*) 1 patch TRANSDERM DAILY [facility] Last Admin: 04/08/18 08:58 Dose: Not Given Omeprazole (Prilosec Cap*) 20 mg PO DAILY@0730 [facility] Last Admin: 04/08/18 09:02 Dose: 20 mg Ondansetron HCl (Zofran Inj*) 4 mg IV Q6H PRN PRN Reason: NAUSEA Last Admin: 04/05/18 14:26 Dose: 4 mg Oxycodone HCl (Roxycodone Tab*) 5 mg PO Q3H PRN PRN Reason: PAIN Last Admin: 04/08/18 13:00 Dose: 5 mg Pharmacy Profile Note (Nicotine Patch Removal Note*) 1 note PATCH OFF 2100 [facility] Last Admin: 04/07/18 20:01 Dose: Not Given Polyethylene Glycol/Electrolytes (Miralax*) 17 gm PO BEDTIME [facility] Last Admin: 04/07/18 19:29 Dose: 17 gm Sertraline HCl (Zoloft*) 50 mg PO DAILY [facility] Last Admin: 04/08/18 09:02 Dose: 50 mg Spironolactone (Aldactone Tab*) 25 mg PO DAILY [facility] Last Admin: 04/08/18 08:57 Dose: Not Given Torsemide (Demadex*) 20 mg PO DAILY [facility] Last Admin: 04/08/18 09:02 Dose: 20 mg Trazodone HCl (Desyrel Tab*) 100 mg PO BEDTIME PRN PRN Reason: INSOMNIA Last Admin: 04/07/18 21:39 Dose: 100 mg Vital Signs - 8 hr 04/08/18 04/08/18 04/08/18 09:02 11:34 11:38 Temperature 98.0 F Pulse Rate Respiratory 16 16 16 Rate Blood Pressure 81/58 (mmHg) O2 Sat by Pulse 93 Oximetry 04/08/18 04/08/18 04/08/18 12:24 13:00 15:09 Temperature 97.9 F Pulse Rate 105 Respiratory 16 16 Rate Blood Pressure 90/70 91/80 (mmHg) O2 Sat by Pulse 100 Oximetry 04/08/18 15:11 Temperature Pulse Rate Respiratory 16 Rate Blood Pressure (mmHg) O2 Sat by Pulse Oximetry Oxygen Devices in Use Now: None Result Diagrams: 04/08/18 05:13 04/08/18 05:13 Additional Lab and Data: . Microbiology and Other Data: Microbiology 04/02/18 16:03 Aerobic Blood Culture - Preliminary Blood Venous No Growth Day 1 Anaerobic Blood Culture - Preliminary No Growth Day 1 04/02/18 16:03 Aerobic Blood Culture - Preliminary Blood Venous No Growth Day 1 Anaerobic Blood Culture - Preliminary No Growth Day 1 Assess/Plan/Problems-Billing Assessment: Mr. Brice is a 32 yo male with PMH significant for a flutter, CHF, and cardiomyopathy with last know EF 20% who presented to the emergency room with complains of shortness of breath and epigastric pain. - Patient Problems (1) Thrombocytopenia Current Visit: Yes Status: Acute Code(s): D69.6 - THROMBOCYTOPENIA, UNSPECIFIED SNOMED Code(s): 040232757 Comment: -Gradual decreasing platelets -Will hold Lovenox and will check Heparin-P4 antibodies -Continue watchful waiting (2) Acute on chronic systolic (congestive) heart failure Current Visit: Yes Status: Acute Code(s): I50.23 - ACUTE ON CHRONIC SYSTOLIC (CONGESTIVE) HEART FAILURE SNOMED Code(s): 683214557 Comment: -Touched base with Dr. Benavidez today; agree with further diuresing pt for today - Etiology unknown, diagnosed in 2010. - AICD in place, but has a fracturesd lead, plan for repair 04/14 in [place]. Changed to po torsemide + metolazone 04/06. Continue lisinopril--held 04/07 due to hypotension. Large diuresis with torsemide 40 + metolazone 5 on 04/06, no diuretic 04/07, plan 20 + 2.5 on 03/19 and daily. Check CMP,weights 04/08,04/09, consider discharge 04/09. - Continue daily weights and strict I+Os (3) Atrial flutter Current Visit: Yes Status: Acute Code(s): I48.92 - UNSPECIFIED ATRIAL FLUTTER SNOMED Code(s): 3990644 Comment: He may be very sensitive to chronotropic effect of dig, continue 0.125 mg q 48 hr. Dig level 1.0 04/06. Metoprol changed to tartrate 12.5 mg bid ont 04/05 9 PM, received none 04/05 AM. No AC indicated. (4) Elevated LFTs Current Visit: Yes Status: Acute Code(s): R94.5 - ABNORMAL RESULTS OF LIVER FUNCTION STUDIES SNOMED Code(s): 444245946 Comment: -Likely due to congestive hepatopathy - ABD CT on admission with no significant findings GB ultrasound showed GB wall thickening, no stones. CMP 04/06 improved, repeat . Pain relief, improvement in LFT's, and diuresis with weight loss all occurred in tandem. (5) Tobacco abuse Current Visit: No Status: Acute Code(s): Z72.0 - TOBACCO USE SNOMED Code(s ): 816821685 Comment: - Continue Nicotine replacement. PT advised to quit smoking and avoid second hand smoke. (6) GERD (gastroesophageal reflux disease) Current Visit: No Status: Chronic Code(s): K21.9 - GASTRO-ESOPHAGEAL REFLUX DISEASE WITHOUT ESOPHAGITIS SNOMED Code(s): 474324106 Comment: - Continue Omeprazole, on pantoprazole at home. (7) Hypothyroid Current Visit: Yes Status: Acute Code(s): E03.9 - HYPOTHYROIDISM, UNSPECIFIED SNOMED Code(s): 32219564 Comment: TSH 9.75 on 04/02/18, levothyroxine 25 mcg started 04/06. Repeat TSH in 4 weeks. (8) DVT prophylaxis Current Visit: Yes Status: Acute Code(s): ICR6880 - SNOMED Code(s): 481756090 Comment: -Please see above discussion Status and Disposition: -For possible D/C in 1-2 days
[2018-04-08] MEDS: traZODone TAB* 100 MG PO PRN (21:44)
[2018-04-08] MEDS: Polyethylene Glycol 3350* 17 GM PACKET PO SCH (21:45)
[2018-04-08] MEDS: Nicotine Patch Removal NOTE PATCH OFF SCH (21:48)
[2018-04-09] MEDS: Metoprolol Tartrate TAB* 25 MG PO SCH ×2 (05:36→14:02)
[2018-04-09] MEDS: Levothyroxine TAB* 25 MCG TAB PO SCH (05:39)
[2018-04-09 06:30] LABS: Hematocrit 41 % (42-52); Hemoglobin 13.6 g/dl (14.0-18.0); Mean Corpuscular HGB Conc 34 g/dl (31-36); Mean Corpuscular Hemoglobin 34 pg (27-31); Mean Corpuscular Volume 101 fL (80-94); Mean Platelet Volume 8.3 um3 (7.4-10.4); Platelet Count 93 10^3/ul (150-450); Red Blood Count 4.02 10^6/ul (4.00-5.40); Red Cell Distribution Width 14 % (10.5-15); White Blood Count 3.3 10^3/ul (3.5-10.8)
[2018-04-09 06:43] LABS: EGFR Non-African American 63.3 (>60)
[2018-04-09] MEDS: Magnesium Oxide TAB* 400 MG PO SCH (08:46)
[2018-04-09] MEDS: Omeprazole CAP* 20 MG PO SCH (08:46)
[2018-04-09] MEDS: Sertraline* 50 MG TAB PO SCH (08:46)
[2018-04-09] MEDS: Aspirin EC TAB* 81 MG TAB.EC PO SCH (08:47)
[2018-04-09] MEDS: Nicotine PATCH 21 MG/24 HR* PATCH TRANSDERM SCH (08:47)
[2018-04-09] MEDS: Torsemide TAB* 20 MG PO SCH (08:48)
[2018-04-09] MEDS: Metolazone TAB* 5 MG PO SCH (08:48)
[2018-04-09] MEDS: Lisinopril TAB* 5 MG PO SCH (08:48)
[2018-04-09] MEDS: Spironolactone TAB* 25 MG PO SCH (08:48)
[2018-04-09 09:08] LABS: INR 1.35 (0.77-1.02)
[2018-04-09] MEDS ORDERED: Calcium Acetate CAP* 667 MG PO ONE (10:30)
[2018-04-09] MEDS ORDERED: Magnesium Sulfate 1 GM IV* 1 GM/100 ML BAG IV ONE (10:30)
[2018-04-09] MEDS: oxyCODONE TAB* 5 MG TAB PO PRN (12:23)
[2018-04-09 13:54] VITALS: BP 92/64
[2018-04-09] MEDS ORDERED: NS 0.9% 250 ML* 250 ML IV ONE (13:55)
--- NOTE | 2018-04-10 06:45 | DS ---
CC: Dr. Wallace; Dr. Toni Rodriguez; Dr. Santos Peoples; Keisha Dorado DISCHARGE SUMMARY: DATE OF ADMISSION: DATE OF DISCHARGE: 04/09/18 DISCHARGE DIAGNOSES: 1. Thrombocytopenia, stable. Heparin - P4 antibody complex pending, to be followed up by PCP in outpatient. 2. Acute on chronic congestive heart failure. 3. Congestive hepatopathy. 4. Atrial flutter. 5. Tobacco abuse. 6. Gastroesophageal reflux disease. 7. Hypothyroidism. DISCHARGE MEDICATIONS: 1. Tylenol 650 mg p.o. q. 6 p.r.n. 2. Aspirin 81 mg p.o. q. daily. 3. Calcium carbonate 1000 mg p.o. q.4 p.r.n. 4. Digoxin 0.125 mg p.o. q.48 hours. 5. Levothyroxine 25 mcg p.o. q. daily. 6. Lisinopril 2.5 mcg p.o. q. daily. 7. Magnesium oxide 400 mg p.o. q. daily. 8. Metoprolol tartrate 12.5 mg p.o. q.8. 9. Nicotine patch 21 mg p.o. q. daily. 10. Oxycodone 5 mg p.o. q.6 p.r.n. He was given a prescription of 12 tabs with 0 refills and was informed that any further refills will be deferred to PCP. 11. Pantoprazole 40 mg p.o. q. daily. 12. Polyethylene glycol 17 g p.o. q.48 hours p.r.n. 13. Senna Plus 2 tabs p.o. q. daily. 14. Sertraline 50 mg p.o. q. daily. 15. Torsemide 10 mg p.o. q. daily. 16. He was asked to hold torsemide for tomorrow, however, to keep 1.5 g salt restriction per day. 17. Trazodone 100 mg p.o. q.h.s. HISTORY OF PRESENT ILLNESS/HOSPITAL COURSE: The patient is a 32-year-old gentleman with history of idiopathic cardiomyopathy with an EF of 20% , atrial flutter and CHF who was admitted with chief complaint of shortness of breath and epigastric discomfort and given his mildly elevated LFTs and hypotension, it was initially thought that he had shock liver; however, on further review of his hospital course and subsequent data, it is apparent that he was in CHF exacerbation and subsequent diuresis has improved his LFTs and certainly other organs were not failing at that time to suggest shock liver and it is more suggestive of congestive hepatopathy. His Multaq was withheld given his acute CHF as well as significant hypotension. His beta jose antonio was also decreased in half by Dr. Estes who saw him in consultation and recommended the addition of digoxin to his regimen, which controls his blood pressure while he pretty much is at rest. However, he does have episodes of having some exertional tachycardia. Unfortunately his blood pressure precludes any further titration of his medications and hence his balance is crucial. The day of his discharge, he was observed to have tachycardia up to 140s which subsequently improved with normal saline bolus of 250 cc, which further improved with another bolus of 250 cc. Hence he is showing signs of overdiuresis; however, given his poor EF, he is very fluid sensitive and he was advised instead to hold his torsemide for 1 day and to further limit salt intake to no more than 1.5 g per day of sodium. The following was stressed to the patient. He is to follow up and/or call his PCP within 3 days post discharge. To call [facility] if his PCP cannot see him any sooner and to contact his PCP first and to make sure that he agrees that he is able to be seen in the outpatient sooner instead of in the ED. He was advised and was given prescriptions for his magnesium, platelet levels and LFTs to be drawn on 04/12/18 and to touch base with his PCP regarding their results to see if he will need some supplementations and/or further workup. He is to follow up with his bin tripper operator Dr. Estes within 1 week post discharge. He is to hold his torsemide for a day and to make sure that he adheres with strict salt restriction of 1.5 g per day. He was advised to call my office regarding any questions, concerns or further clarifications regarding his discharge plans and/or prescriptions. He was advised to take his medications as prescribed. Of note, the patient was asymptomatic prior to his discharge and has insisted since yesterday to be discharged. Given above plan in the outpatient as well as patient willing and able to do all he can, he has been discharged with the appropriate advice and therapeutic options. REVIEW OF SYSTEMS: The patient denied any recent headaches, dizziness, fevers, chills, nausea, vomiting chest pain, shortness of breath, increased cough. No sputum production, abdominal pain, diarrhea, constipation, pain and/or increased frequency on urination, myalgias, arthralgias, throat pain or new skin lesions. Rest of the 14-point review of systems are otherwise unremarkable. PHYSICAL EXAMINATION: Most recent vital signs off records shows blood pressure of 92/61, saturating at 97% at room air, 16 per minute respiratory rate, 95 beats per minute heart rate, 97.8 degrees Fahrenheit temperature. General appearance: The patient is awake, alert and oriented x3, not in acute distress. HEENT: Normocephalic, atraumatic, PERRLA, extraocular muscles intact , negative for icterus, moist oral mucosa. Negative throat erythema. Neck is soft, supple with no cervical lymphadenopathy. No JVD. Heart: S1, S2 within normal limits, 3/4 systolic murmur. No rubs or gallops appreciated. Chest: Clear to auscultation bilaterally. Good air entry. No wheezes, rales and rhonchi. Abdomen: Soft, nondistended, slightly tender in the right upper quadrant on moderate to deep palpation. Normoactive bowel sounds 4xq. Extremities: No cyanosis, clubbing, or edema. Psychiatric: No active psychosis, depression, suicidal. No homicidal ideation. Skin is warm to touch. TIME SPENT: The total time spent evaluating patient, reviewing pertinent data and appropriate documentation is greater than 30 minutes. [id number]/CPS #: [id number] MTDD
== END 2018-04-09 15:53 | disposition home or self-care (01) | DRG 194 ==
LOC: ED 14:53 → MEDTELE 17:51
PROVIDERS: ADMIT Internal Medicine; ATTEND Student in an Organized Health Care Education/Training Program
DX: I11.0 Hypertensive heart disease with heart failure (principal); I48.92 Unspecified atrial flutter; I50.23 Acute on chronic systolic (congestive) heart failure; D69.6 Thrombocytopenia, unspecified; K76.0 Fatty (change of) liver, not elsewhere classified; E83.42 Hypomagnesemia; I42.9 Cardiomyopathy, unspecified; K21.9 Gastro-esophageal reflux disease without esophagitis; E03.9 Hypothyroidism, unspecified; F17.210 Nicotine dependence, cigarettes, uncomplicated; I34.0 Nonrheumatic mitral (valve) insufficiency; Z95.810 Presence of automatic (implantable) cardiac defibrillator; Z79.1 Long term (current) use of non-steroidal anti-inflammatories (NSAID); Z79.82 Long term (current) use of aspirin; Z79.899 Other long term (current) drug therapy; Z88.5 Allergy status to narcotic agent; Z82.49 Family history of ischemic heart disease and other diseases of the circulatory system
CPT/HCPCS: 36415; 71045; 74177; 76705; 80048; 80053; 80076; 80162; 80307; 80320; 81003; 82150; 82550; 82553; 83605; 83690; 83735; 83874; 83880; 84100; 84436; 84443; 84484; 85025; 85027; 85060; 85379; 85610; 85730; 86022; 86140; 86703; 86803; 87040; 93005; 93970; 99284; 99406; A9270-GY; G0480; J1160; J1170; J1650; J1940; J2270; J2405; J3475; J3490; Q9967

== ENCOUNTER 2018-05-13 17:18 | Inpatient (IN) | payer OTHER ==
--- OUTSIDE RECORDS SUMMARY | 2018-05-13 17:32 | XMS REPORT ---
:1985 External Reference #:[id number] Author Organization [facility] Address [address] [facility] [place] [address] [place] [address] Phone [phone] Care Team Providers Name Role Phone Kaylin Dorado N.P. Primary Care Physician Unavailable Payers Type Date Identification Numbers Payment Provider Subscriber Commercial Effective: Policy Number: Forrest Eugenio Brice 2016 [id number] Group Name: [id number] [address] PayID: [id number] [place] [address] Medigap Part B Expires: 2016 Policy Number: Medicaid Eugenio Brice [id number] Group Name: 1 [id number] [address] PayID: [id number] [place] [address] Problems Description No Information Family History Date Family Member(s) Problem(s) Comments Father unknown Mother Cardiomyopathy Siblings 2 Siblings no known cardiac issues Social History Type Date Description Comments Marital Status Single Lives With friend Occupation Unemployed Cigarette Use current cigarette smoker ETOH Use Denies alcohol use Smoking 1/2 PPD Recreational Drug Use Regularly uses Marijuana Smoking Patient is a current smoker, smokes every day Daily Caffeine Does Not Consume Caffeine Exercise Type/Frequency Exercises regularly Allergies, Adverse Reactions, Alerts Date Description Reaction Status Severity Comments 01/17/2016 Codeine active nausea Medications Medication Date Status Form Strength Qnty SIG Indications Ordering Provider Lisinopril 04/15/ Active Tablets 2.5mg 30tabs 1 by mouth Qutaerlinda 2015 every day S. (per pt Veena, restarted M.DBossman 03/19/17) Pantoprazole / Active Tablets 20mg Take [address] Tablet By Mouth Twice A Day [facility] Balanced / Active Tablets B-100 Take 1 Unknown B-100 0000 Tablet By Mouth Every Day In The Morning Aspir-Low / Active Tablets 81mg 1 by mouth Unknown 0000 DR every day Torsemide / Active Tablets 20mg 1 by mouth Unknown 0000 every day Metoprolol / Active Tablets 50mg 1 by mouth Unknown Succinate ER 0000 ER 24HR every day Coreg 01/12/ Hx Tablets 3.125mg 60tabs 1 by mouth Catrachito Cisneros 2018 - twice a day Brand, 04/21/ M.DBossman 2018 Lasix 03/20/ Hx Tablets 20mg 30tabs one po qd Yasemin 2016 - S. 04/21/ Veena, 2018 M.DBossman Toprol XL 04/15/ Hx Tablets 25mg 30tabs 1 by mouth Yasemin 2015 - ER 24HR every day S. 01/12/ (per pt Veena, 2018 restarted M.D. 03/19/17) Aldactone 04/15/ Hx Tablets 25mg 30tabs one by Yasemin 2016 - mouth every S. 12/11/ day (per pt Veena, 2018 restarted M.D. 03/19/17) No Active 01/16/ Hx Unknown Medications 2015 - 2015 Vitamin B / Hx Tablets 1 by mouth Unknown Complex 0000 - every day 2017 Aspirin Adult / Hx Tablets 81mg 1 by mouth Unknown Low Dose 0000 - DR every day 2017 Prilosec OTC / Hx Tablets 20mg 1 by mouth Unknown 0000 - DR every day 2017 Vital Signs Date Vital Result Comment 04/22/2018 Height 67 inches 5'7" Weight 147.00 lb Heart Rate 80 /min BP Systolic Sitting 96 mmHg Rue reg cuff BP Diastolic Sitting 78 mmHg Rue reg cuff BMI (Body Mass Index) 23.0 kg/m2 Ejection Fraction < 20% Echo 01/25/18 02/11/2018 Height 67 inches 5'7" Weight 145.00 [...] dialysis) Procedures Date CPT Code Description Status 03/23/2018 10107 Icd eval w/iterative adjment single lead Icd Completed 03/23/2018 34526 Icd eval w/iterative adjment single lead Icd Completed 02/11/2018 04863 EKG Tracing & Interpretation Completed 01/25/2018 18485 ECHO Transthorasic Realtime 2D W Doppler & Color Flow Completed Hosp 01/12/2018 48433 EKG, Interpretation Only Completed 01/12/2018 78095 Insert/Replace Icd W/Generator Completed 08/11/2017 32349 Icd Eval W/Iterative Adjustmnt Single Lead Icd Completed 04/22/2017 54105 Icd Eval W/Iterative Adjustmnt Single Lead Icd Completed 04/06/2017 11175 EKG Tracing & Interpretation Completed 12/10/2016 53030 EKG Tracing & Interpretation Completed 12/04/2016 47433 Icd Eval W/Iterative Adjustmnt Single Lead Icd Completed 06/10/2016 28677 Icd Eval W/Iterative Adjustmnt Single Lead Icd Completed 04/11/2016 90099 ECHO Transthoracic, Real-Time 2D With Doppler And Color Completed Flow 04/10/2016 09018 Holter Monitor Review (24 hr)dr review & interp only Completed 04/08/2016 57098 ECG Monitor/Recording W/Visual Superimposition Scanning Completed 01/31/2016 82161 Interrogation Device Eval In Person W/DR Completed Analysis,Single,Dual,Mul 01/17/2016 37894 EKG Tracing & Interpretation Completed Encounters Type Date Location Provider CPT E/M Dx Office Visit 04/22/2018 4:40p [facility] Yasemin Curiel, [address] Z72.0 M.D. I42.9 Z95.810 Office Visit 04/04/2018 10:10a [place] [address] I50.23 [facility] FACC I48.92 Office Visit 04/03/2018 10:07a [place] [address] I50.23 [facility] FAC I34.0 I48.92 Office Visit 03/13/2018 4:29p [facility] Catrachito Estes, 01710 I42.9 [facility] M.D. I48.0 J18.9 Office Visit 03/12/2018 9:25a [place] [address] J96.01 A41.9 I50.23 Office Visit 03/11/2018 9:25a [place] [address] J96.01 A40.3 I50.23 Office Visit 03/10/2018 9:24[place] [address] J96.01 A41.9 I50.23 Office Visit 03/10/2018 12:10p [facility] Britta Preciado M.D. 84196 I42.9 [facility] I48.0 F10.10 F17.210 F12.10 J18.9 Office Visit 03/09/2018 9:22a [place] [address] J96.01 I50.23 A41.9 Office Visit 03/09/2018 8:54a [facility] Catrachito Estes, [address]1637 I50.9 Karen Lu J18.9 Office Visit 02/11/2018 9:00a [facility] [place] [address] I42.9 Karen Curiel M.D. F10.10 Z95.810 F17.210 F12.10 R94.31 Office Visit 01/26/2018 11:01a [facility] [address] I50.21 Hospitalists F10.10 R10.13 Office Visit 01/25/2018 11:01a [facility] [address] I50.21 Hospitalists F10.10 R10.13 Office Visit 01/24/2018 10:58a [facility],[place] [address] I50.21 Hospitalists F10.10 R10.13 Office Visit 01/12/2018 9:09a [facility] MYNOR Bhatia [address] I42.8 Hospitalists E83.42 I48.91 Z45.02 Office Visit 01/12/2018 2:05p [facility] Catrachito Estes, 53757 I42.9 Karen Lu Z95.810 Z45.02 Office Visit 01/11/2018 9:08a [facility] Adrienne Prather, [address]755 I42.8 Hospitalists TOURIST GUIDE E83.40 I48.91 Z45.02 Office Visit 04/06/2017 1:00p [facility] [place], [address] I42.9 M.D. Z95.810 F17.210 F12.10 F10.10 I51.7 Office Visit 12/10/2016 3:40p [facility] Qutayb S. Maghayd, 70110 I42.9 M.D. Z95.810 R06.02 F17.210 I51.7 Office Visit 04/15/2016 2:00p [facility] Qutayb S. hayd, 37672 I42.9 M.D. Z95.810 R00.0 Office Visit 01/17/2016 3:00p [facility] Qutayb S. dariela, [address]6899 I42.9 M.D. R94.31 R06.02 R00.0 Z95.810 F17.210 Plan of Care 04/22/2018 - Yasemin Curiel M.D.Z72.0 Tobacco useI42.9 Cardiomyopathy, unspecifiedFollow up:6 months ov Giselle one yr with meZ95.810 Presence of automatic (implantable) cardiac defibrillator
--- OUTSIDE RECORDS SUMMARY | 2018-05-13 17:32 | XMS REPORT ---
:1985 External Reference #:[id number] Author Organization [facility] Address [address] [place] [address] Phone [phone] Care Team Providers Name Role Phone Fernando Hendrix MD Care Team Information Condenser Tester Unavailable Payers Type Date Identification Numbers Payment Provider Subscriber Medicaid Expires: Policy Number: [id number] Medicaid/Computer Eugenio Brice 2017 [employer] Name: 1 1 [address] PayID: [id number] [place] [address] Commercial Effective: Policy Number: [employer] Eugenio Brice 2017 [id number] Medicaid PayID: [id number] [address] [place] [address] Problems Description No Information Family History Date Family Member(s) Problem(s) Comments Father CAD Father PR Mother CHF Mother Substance Abuse Social History Type Date Description Comments Lives With Daughters Lives With male friend Smoking Patient is a current smoker, smokes every day Allergies, Adverse Reactions, Alerts Date Description Reaction Status Severity Comments 04/12/2018 NKDA active Medications Medication Date Status Form Strength Qnty SIG Indications Ordering Provider Zofran 04/20 Active Tablets 4mg 30tab 1 tab by R11.0 Fernando s mouth three [place] times a day , nausea Oxycodone HCL 04/20 Active Tablets 10mg 20tab 1 tab by [id number] Fernando s mouth four [place] times daily , as needed for pain. Nystatin 04/12 Active Suspension [id number] 473ml swish and B37.0 Shawnti /2017 t/ML swallow 5ml R. Storm, by mouth PRIVATE CHEF-C three times a day for 14 days or until resolved Sertraline HCL 03/25 Active Tablets 50mg 30tab 1/2 tab by F43.22 s mouth daily Shortle, for one week [employer] than increase to 1 tab daily by mouth Nicoderm CQ 03/25 Active Patches 21mg/24HR 14uni apply one Z72.0 24HR ts patch to Shortle, skin, [employer] replace daily for up to 14 days then reduce to 14mg patch Aspirin 02/[address] 81mg 90tab 1 by mouth s every day MD Ruma Vitamin B 01/29 Active Tablets 1 30tab 1 tab daily I42.9 Keisha s in the [place], morning [employer] Magnesium 01/29 Active Chewtabs 200mg 30uni 1 tab by I42.9 ts mouth in the [place], morning [employer] Lisinopril 06/18 Active Tablets 2.5mg 30tab 1 by mouth s every day Shortle, [employer] Lasix Active Tablets 20mg 60tab one by mouth Fernando / s twice daily MD Ruma Pantoprazole Active Tablets DR 40mg Take 1 Unknown Sodium /0000 Tablet By Mouth Every Day Metoprolol Active Tablets ER 25mg 1/2 by mouth Unknown Succinate ER /0000 24HR every day Digoxin 0000 Active Tablets 125mcg Every other Unknown /0000 day Torsemide 00 Active Tablets 10mg 1 by mouth Unknown /0000 every day Trazodone HCL 00 Active Tablets 100mg take one Unknown /0000 tablet by mouth at bedtime for insomnia Levothyroxine Active Tablets 25mcg 1 by mouth Unknown Sodium /0000 every day Oxycodone HCL 04/12 Hx Tablets 5mg 30tab 1 tab by R10.84 Efraínwnt s mouth q4hrs Megha Cruz, - as needed PRIVATE CHEF-C 04/20 Aspirin 81 Low 02/26 Hx Tablets Fernando Dose Ruma Neal MD 02/26 Coreg CR 02/26 Hx Caps ER 10mg 30cap 1 tab by Fernando 24HR s mouth every Ruma - MD [email or web address] 04/20 Chantix 08/11 Hx Tablets 0.5mg 11tab take 1 Z72.0 Priscilla s tablet by Laci, - mouth daily PRIVATE CHEF-C 01/29 days 1-3, take 1 tablet by mouth twice a day days 4-7, then use maintenance pack Chantix 08/11 Hx Tablets 1mg 60tab take 1 Z72.0 Priscilla s tablet by Laci, - mouth two PRIVATE CHEF-C 01/29 times daily as directed for smoking cessation Protonix 06/[address] 20mg 60tab take one Keisha /[address], - mouth twice [employer] 04/20 a Lisinopril Hx Tablets 10mg 1 by mouth Unknown /0000 every day - 06/18 Metoprolol Hx Tablets ER 25mg Maghaydah Succinate ER /0000 24HR , - Yasemin 06/18 MD Cheyanne Metoprolol Hx Tablets ER 25mg Take 1 Tab Unknown Succinate ER /0000 24HR By Mouth - Every Day 01/29 (PT He Is Not Taking) Spironolactone 00 Hx Tablets 25mg Maghaydah /0000 , - Yasemin 06/18 MD Cheyanne Spironolactone 0000 Hx Tablets 25mg Take 1 Unknown /0000 Tablet By - Mouth Every Coreg 00/00 Hx Unknown /0000 - 02/26 Aspirin 81 Low /00 Hx Unknown Dose /0000 - 02/26 Metoprolol 00/00 Hx Tablets 25mg Take 1/2 Unknown Tartrate /0000 Tablet By - Mouth Every 04/20 8 Hours /2017 Immunizations CPT Code Status Date Vaccine Lot # [id number] Refused 04/12/2018 Influenza Virus Vaccine, Quadrivalent, 3 Yr > Quad , Preserv Free [id number] Refused 06/18/2017 Influenza Virus Vaccine, Quadrivalent, 3 Yr > Quad , Preserv Free Vital Signs Date Vital Result Comment 04/20/2018 Weight 140.00 lb Weight in kg's 63.504 BP Systolic 101 mmHg BP Diastolic 85 mmHg Heart Rate 98 /min Body Temperature 98.3 F Respiratory Rate 16 /min O2 % BldC Oximetry 97 % 04/12/2018 Weight 144.00 lb Weight in kg's 65.318 BP Systolic 92 mmHg BP Diastolic 58 mmHg Heart Rate 100 /min Body Temperature 97.0 F Height 67 inches 5'7" BMI (Body Mass Index) 22.6 kg/m2 O2 % BldC Oximetry 99 % 03/25/2018 Weight 141.00 lb Weight in kg's 63.958 BP Systolic 90 mmHg BP Diastolic 60 mmHg Heart Rate 112 /min Body Temperature 98.0 F Respiratory Rate 16 /min 02/26/2018 Weight 145.00 lb Weight in kg's 65.772 BP Systolic 111 mmHg BP Diastolic 83 mmHg Heart Rate 104 /min Body Temperature 97.2 F Respiratory Rate 18 /min O2 % BldC Oximetry 98 % 01/29/2018 Weight 144.00 lb Weight in kg's 65.318 BP Systolic 130 mmHg BP Diastolic 74 mmHg Heart Rate 84 /min Body Temperature 97.3 F Respiratory Rate 16 /min O2 % BldC Oximetry 99 % 06/18/2017 Weight 154.00 lb Weight in kg's 69.854 BP Systolic 130 mmHg BP Diastolic 84 mmHg Heart Rate 87 /min Body Temperature 98.2 F Respiratory Rate 16 /min O2 % BldC Oximetry 98 % Results Test Date Test Result H/L Range Note Basic Metabolic Panel 04/12/2018 Sodium 138 mmol/L 135-145 1 Potassium 4.2 mmol/L 3.5-5.0 1 Chloride 103 mmol/L 101-111 1 Co2 Carbon Dioxide 28 mmol/L 22-32 1 Anion Gap 7 mmol/L 2-11 1 Glucose 96 mg/dL 70-100 1 Blood Urea Nitrogen 14 mg/dL 6-24 1 Creatinine 1.07 mg/dL 0.67-1.17 1 BUN/Creatinine Ratio 13.1 8-20 1 Calcium 8.8 mg/dL 8.6-10.3 1 Egfr Non- 80.6 >60 1 Egfr 97.5 >60 1, 2 Laboratory test finding 04/12/2018 Magnesium 1.7 mg/dL Low 1.9-2.7 1, 3 Liver Function Panel 04/12/2018 Total Protein 5.9 g/dL Low 6.4-8.9 1 Albumin 3.5 g/dL 3.2-5.2 1 Globulin 2.4 g/dL 2-4 1 Albumin/Globulin Ratio 1.5 1-3 1 Total Bilirubin 0.80 mg/dL 0.2-1.0 1 Direct Bilirubin 0.30 mg/dL High 0.03-0.18 1 Indirect Bilirubin 0.5 mg/dL 0.3-1.0 1 Alkaline Phosphatase 67 U/L 34-104 1 Alt 147 U/L High 7-52 1 Ast 45 U/L High 13-39 1 Laboratory test finding 04/02/2018 Myoglobin 16.3 ng/mL Low 17.4-105.7 Thyroxine 7.91 g/mL 6.09-12.23 TSH (Thyroid Stimulating Horm) 9.75 mcIU/mL High 0.34-5.60 Amylase 27 U/L Low 29-103 Lipase 15 U/L 11.0-82.0 Alcohol < 10 mg/dL <10 CKMB 04/02/2018 CKMB ng/mL 1.6 ng/mL 0.6-6.3 Urinalysis Profile 04/02/2018 Urine Color Becky Urine Appearance Cloudy Urine Specific [place] 1.018 1.010-1.030 Urine pH 5.0 5-9 Urine Urobilinogen Positive Negative Urine Ketones Negative Negative Urine Protein Negative Negative Urine Leukocytes Negative Negative Urine Blood Negative Negative * * Negative 4 Urine Nitrite Negative Negative Urine Bilirubin Negative Negative Urine Glucose Negative Negative Urine Drug SCR ED & 04/02/2018 Amphetamine Ur Screen None Detected None Detect Pain Clinic Barbiturates Urine Screen None Detected None Detect Benzodiazepine Urine Screen None Detected None Detect Urine Cannabinoids Screen Presumptive Posi <SEE NOTE> None Detect 5 Urine Cocaine Screen None Detected None Detect Urine Opiates Screen None Detected None Detect Urine Phencyclidine Screen None Detected None Detect 6 CBC Auto Diff 04/02/2018 White Blood Count 5.5 10^3/uL 3.5-10.8 Red Blood Count 4.48 10^6/uL 4.00-5.40 Hemoglobin 15.2 g/dL 14.0-18.0 Hematocrit 46 % 42-52 Mean Corpuscular Volume 102 fL High 80-94 Mean Corpuscular Hemoglobin 34 pg High 27-31 Mean Corpuscular HGB Conc 33 g/dL 31-36 Red Cell Distribution Width 14 % 10.5-15 Platelet Count 154 10^3/uL 150-450 Mean Platelet Volume 9.3 um3 7.4-10.4 Abs Neutrophils 3.2 10^3/uL 1.5-7.7 Abs Lymphocytes 1.6 10^3/uL 1.0-4.8 Abs Monocytes 0.5 10^3/uL 0-0.8 Abs Eosinophils 0 10^3/uL 0-0.6 Abs Basophils 0 10^3/uL 0-0.2 Abs Nucleated RBC 0 10^3/uL Granulocyte % 59.0 % 38-83 Lymphocyte % 30.1 % 25-47 Monocyte % 9.8 % High 0-7 Eosinophil % 0.6 % 0-6 Basophil % 0.5 % 0-2 Nucleated Red Blood Cells % 0.1 Laboratory test finding 04/02/2018 B-Type Natriuretic Peptide BNP 2342 pg/ mL High 7 Lactic Acid 2.7 mmol/L High 0.5-2.0 8 Inr/Protime 04/02/2018 Inr 1.70 High 0.77-1.02 Laboratory test finding 04/02/2018 Partial Thrombo Time 29.3 seconds 26.0 -36.3 PTT D Dimer Quantitative 743 ng/mL High Less Than 230 9 Comp Metabolic Panel 04/02/2018 Sodium 134 mmol/L Low 135-145 Potassium 3.9 mmol/L 3.5-5.0 Chloride 100 mmol/L Low 101-111 Co2 Carbon Dioxide 21 mmol/L Low 22-32 Anion Gap 13 mmol/L High 2-11 Glucose 124 mg/dL High 70-100 Blood Urea Nitrogen 20 mg/dL 6-24 Creatinine 1.26 mg/dL High 0.67-1.17 BUN/Creatinine Ratio 15.9 8-20 Calcium 9.2 mg/dL 8.6-10.3 Total Protein 5.8 g/dL Low 6.4-8.9 Albumin 3.5 g/dL 3.2-5.2 Globulin 2.3 g/dL 2-4 Albumin/Globulin Ratio 1.5 1-3 Total Bilirubin 2.20 mg/dL High 0.2-1.0 Alkaline Phosphatase 70 U/L 34-104 Alt 269 U/L High 7-52 Ast 312 U/L High 13-39 Egfr Non- 66.8 >60 Egfr 80.8 >60 10 Laboratory test finding 04/02/2018 Magnesium 1.8 mg/dL Low 1.9-2.7 Creatine Kinase 34 U/L 10-223 Troponin-I (TnI) 0.03 ng/mL <0.04 Comp Metabolic Panel 03/08/2018 Sodium 136 mmol/L 135-145 Potassium 4.0 mmol/L 3.5-5.0 Chloride 100 mmol/L Low 101-111 Co2 Carbon Dioxide 24 mmol/L 22-32 Anion Gap 12 mmol/L High 2-11 Glucose 111 mg/dL High 70-100 Blood Urea Nitrogen 12 mg/dL 6-24 Creatinine 1.09 mg/dL 0.67-1.17 BUN/Creatinine Ratio 11.0 8-20 Calcium 9.4 mg/dL 8.6-10.3 Total Protein 6.6 g/dL 6.4-8.9 Albumin 3.9 g/dL 3.2-5.2 Globulin 2.7 g/dL 2-4 Albumin/Globulin Ratio 1.4 1-3 Total Bilirubin 2.60 mg/dL High 0.2-1.0 Alkaline Phosphatase 75 U/L 34-104 Alt 218 U/L High 7-52 Ast 118 U/L High 13-39 Egfr Non- 78.9 >60 Egfr 95.5 >60 11 Laboratory test finding 03/08/2018 Magnesium 1.6 mg/dL Low 1.9-2.7 Troponin-I (TnI) 0.03 ng/mL <0.04 CKMB 03/08/2018 CKMB ng/mL 0.8 ng/mL 0.6-6.3 Laboratory test finding 03/08/2018 Lactic Acid 1.8 mmol/L 0.5-2.0 12 Partial Thrombo Time PTT 30.5 seconds 26.0-36.3 B-Type Natriuretic Peptide BNP 2757 pg/mL High 13 C Reactive Protein 26.03 mg/L High <8.01 Procalcitonin 0.1 ng/mL <0.6 14 Alcohol < 10 mg/dL <10 CBC Auto Diff 03/08/2018 White Blood Count 7.9 10^3/uL 3.5-10.8 Red Blood Count 4.10 10^6/uL 4.00-5.40 Hemoglobin 14.8 g/dL 14.0-18.0 Hematocrit 42 % 42-52 Mean Corpuscular Volume 103 fL High 80-94 Mean Corpuscular Hemoglobin 36 pg High 27-31 Mean Corpuscular HGB Conc 35 g/dL 31-36 Red Cell Distribution Width 13 % 10.5-15 Platelet Count 158 10^3/uL 150-450 Mean Platelet Volume 8.4 um3 7.4-10.4 Abs Neutrophils 6.5 10^3/uL 1.5-7.7 Abs Lymphocytes 0.8 10^3/uL Low 1.0-4.8 Abs Monocytes 0.5 10^3/uL 0-0.8 Abs Eosinophils 0 10^3/uL 0-0.6 Abs Basophils 0 10^3/uL 0-0.2 Abs Nucleated RBC 0 10^3/uL Granulocyte % 82.3 % 38-83 Lymphocyte % 10.6 % Low 25-47 Monocyte % 6.6 % 0-7 Eosinophil % 0.1 % 0-6 Basophil % 0.4 % 0-2 Nucleated Red Blood Cells % 0 Laboratory test finding 03/08/2018 Troponin-I (TnI) 0.03 ng/mL <0.04 Comp Metabolic Panel 01/29/2018 Sodium 139 mmol/L 139-145 15 Potassium 4.4 mmol/L 3.5-5.0 15 Chloride 104 mmol/L 101-111 15 Co2 Carbon Dioxide 27 mmol/L 22-32 15 Anion Gap 8 mmol/L 2-11 15 Glucose 89 mg/dL 70-100 15 Blood Urea Nitrogen 16 mg/dL 6-24 15 Creatinine 1.16 mg/dL 0.67-1.17 15 BUN/Creatinine Ratio 13.8 8-20 15 Calcium 9.3 mg/dL 8.6-10.3 15 Total Protein 6.5 g/dL 6.4-8.9 15 Albumin 4.0 g/dL 3.2-5.2 15 Globulin 2.5 g/dL 2-4 15 Albumin/Globulin Ratio 1.6 1-3 15 Total Bilirubin 0.80 mg/dL 0.2-1.0 15 Alkaline Phosphatase 73 U/L 34-104 15 Alt 82 U/L High 7-52 15 Ast 77 U/L High 13-39 15 Egfr Non- 73.4 >60 15 Egfr 94.4 >60 15, 16 Laboratory test 01/29/2018 Magnesium 2.0 mg/dL 1.9-2.7 15, 17 finding Inr/Protime 01/24/2018 Inr 1.02 0.77-1.02 Laboratory test 01/24/2018 Partial Thrombo Time 28.2 seconds 26.0-36.3 finding PTT D Dimer Quantitative 299 ng/mL High Less Than 230 18 Lactic Acid 1.4 mmol/L 0.5-2.0 19 Comp Metabolic Panel 01/24/2018 Sodium 134 mmol/L Low 139-145 Potassium 4.1 mmol/L 3.5-5.0 Chloride 106 mmol/L 101-111 Co2 Carbon Dioxide 25 mmol/L 22-32 Anion Gap 3 mmol/L 2-11 Glucose 116 mg/dL High 70-100 Blood Urea Nitrogen 13 mg/dL 6-24 Creatinine 1.02 mg/dL 0.67-1.17 BUN/Creatinine Ratio 12.7 8-20 Calcium 9.0 mg/dL 8.6-10.3 Total Protein 6.2 g/dL Low 6.4-8.9 Albumin 3.8 g/dL 3.2-5.2 Globulin 2.4 g/dL 2-4 Albumin/Globulin Ratio 1.6 1-3 Total Bilirubin 0.80 mg/dL 0.2-1.0 Alkaline Phosphatase 113 U/L High 34-104 Alt 114 U/L High 7-52 Ast 156 U/L High 13-39 Egfr Non- 85.2 >60 Egfr 109.6 >60 20 Laboratory test finding 01/24/2018 Magnesium 1.5 mg/dL Low 1.9-2.7 Lipase 17 U/L 11.0-82.0 Creatine Kinase 196 U/L 10-223 C Reactive Protein 11.94 mg/L High < 5.00 21 Troponin-I (TnI) 0.03 ng/mL <0.04 CKMB 01/24/2018 CKMB ng/mL 1.7 ng/mL 0.6-6.3 Laboratory test finding 01/24/2018 TSH (Thyroid Stimulating 3.90 mcIU/mL 0.34-5.60 Horm) CBC Auto Diff 01/24/2018 White Blood Count 5.0 10^3/uL 3.5-10.8 Red Blood Count 3.56 10^6/uL Low 4.0-5.4 Hemoglobin 13.2 g/dL Low 14.0-18.0 Hematocrit 38 % Low 42-52 Mean Corpuscular Volume 106 fL High 80-94 22 Mean Corpuscular Hemoglobin 37 pg High 27-31 Mean Corpuscular HGB Conc 35 g/dL 31-36 Red Cell Distribution Width 14 % 10.5-15 Platelet Count 135 10^3/uL Low 150-450 Mean Platelet Volume 8.2 um3 7.4-10.4 Abs Neutrophils 3.8 10^3/uL 1.5-7.7 Abs Lymphocytes 0.7 10^3/uL Low 1.0-4.8 Abs Monocytes 0.3 10^3/uL 0-0.8 Abs Eosinophils 0.1 10^3/uL 0-0.6 Abs Basophils 0 10^3/uL 0-0.2 Abs Nucleated RBC 0 10^3/uL Granulocyte % 77.6 % 38-83 Lymphocyte % 14.1 % Low 25-47 Monocyte % 6.7 % 0-7 Eosinophil % 1.0 % 0-6 Basophil % 0.6 % 0-2 Nucleated Red Blood Cells % 0.1 Urinalysis Profile 01/24/2018 Urine Color Yellow Urine Appearance Clear Urine Specific [place] > 1.060 High 1.010-1.030 Urine pH 6.0 5-9 Urine Urobilinogen Negative Negative Urine Ketones Negative Negative Urine Protein Negative Negative Urine Leukocytes Negative Negative Urine Blood 1+ Negative Urine Nitrite Negative Negative Urine Bilirubin Negative Negative Urine Glucose Negative Negative Urine White Blood Cell Absent Absent Urine Red Blood Cell 1+(3-5/hpf) Absent Urine Bacteria Absent Absent Laboratory test 01/24/2018 B-Type Natriuretic 1379 pg/mL High 23 finding Peptide BNP Laboratory test 01/11/2018 TSH (Thyroid 1.13 mcIU/mL 0.34-5.60 finding Stimulating Horm) CKMB 01/11/2018 CKMB ng/mL 2.1 ng/mL 0.6-6.3 Laboratory test 01/11/2018 Magnesium 1.7 mg/dL Low 1.9-2.7 finding Lipase 16 U/L 11.0-82.0 Creatine Kinase 77 U/L 10-223 C Reactive Protein < 1.00 mg/L < 5.00 24 Troponin-I (TnI) 0.03 ng/mL <0.04 Comp Metabolic Panel 01/11/2018 Sodium 134 mmol/L Low 139-145 Potassium 3.5 mmol/L 3.5-5.0 Chloride 102 mmol/L 101-111 Co2 Carbon Dioxide 19 mmol/L Low 22-32 Anion Gap 13 mmol/L High 2-11 Glucose 198 mg/dL High 70-100 Blood Urea Nitrogen 14 mg/dL 6-24 Creatinine 0.92 mg/dL 0.67-1.17 BUN/Creatinine Ratio 15.2 8-20 Calcium 9.3 mg/dL 8.6-10.3 Total Protein 6.9 g/dL 6.4-8.9 Albumin 4.0 g/dL 3.2-5.2 Globulin 2.9 g/dL 2-4 Albumin/Globulin Ratio 1.4 1-3 Total Bilirubin 1.30 mg/dL High 0.2-1.0 Alkaline Phosphatase 44 U/L 34-104 Alt 37 U/L 7-52 Ast 64 U/L High 13-39 Egfr Non- 96.0 >60 Egfr 123.4 >60 25 Laboratory test finding 01/11/2018 Partial Thrombo Time 31.2 seconds 26.0 -36.3 PTT D Dimer Quantitative < 200 ng/mL Less Than 230 26 Lactic Acid 2.4 mmol/L High 0.5-2.0 27 B-Type Natriuretic Peptide BNP 832 pg/mL High 28 Inr/Protime 01/11/2018 Inr 0.94 0.77-1.02 CBC Auto Diff 01/11/2018 White Blood Count 7.2 10^3/uL 3.5-10.8 Red Blood Count 4.13 10^6/uL 4.0-5.4 Hemoglobin 14.9 g/dL 14.0-18.0 Hematocrit 43 % 42-52 Mean Corpuscular Volume 104 fL High 80-94 Mean Corpuscular Hemoglobin 36 pg High 27-31 Mean Corpuscular HGB Conc 35 g/dL 31-36 Red Cell Distribution Width 13 % 10.5-15 Platelet Count 195 10^3/uL 150-450 Mean Platelet Volume 7.2 um3 Low 7.4-10.4 Abs Neutrophils 5.5 10^3/uL 1.5-7.7 Abs Lymphocytes 1.1 10^3/uL 1.0-4.8 Abs Monocytes 0.6 10^3/uL 0-0.8 Abs Eosinophils 0 10^3/uL 0-0.6 Abs Basophils 0 10^3/uL 0-0.2 Abs Nucleated RBC 0 10^3/uL Granulocyte % 76.2 % 38-83 Lymphocyte % 15.3 % Low 25-47 Monocyte % 7.8 % High 0-7 Eosinophil % 0.3 % 0-6 Basophil % 0.4 % 0-2 Nucleated Red Blood Cells % 0 Laboratory test finding 06/18/2017 Amylase 59 U/L 29-103 29 Lipase 36 U/L 11.0-82.0 30 CBC Auto Diff 06/18/2017 White Blood Count 6.8 10^3/uL 3.5-10.8 Red Blood Count 4.47 10^6/uL 4.0-5.4 Hemoglobin 15.4 g/dL 14.0-18.0 Hematocrit 45 % 42-52 Mean Corpuscular Volume 102 fL High 80-94 Mean Corpuscular Hemoglobin 34 pg High 27-31 Mean Corpuscular HGB Conc 34 g/dL 31-36 Red Cell Distribution Width 13 % 10.5-15 Platelet Count 251 10^3/uL 150-450 Mean Platelet Volume 7 um3 Low 7.4-10.4 Abs Neutrophils 5.1 10^3/uL 1.5-7.7 Abs Lymphocytes 1.2 10^3/uL 1.0-4.8 Abs Monocytes 0.5 10^3/uL 0-0.8 Abs Eosinophils 0 10^3/uL 0-0.6 Abs Basophils 0 10^3/uL 0-0.2 Abs Nucleated RBC 0 10^3/uL Granulocyte % 74.6 % 38-83 Lymphocyte % 17.4 % Low 25-47 Monocyte % 7.4 % 1-9 Eosinophil % 0.3 % 0-6 Basophil % 0.3 % 0-2 Nucleated Red Blood Cells % 0 Comp Metabolic Panel 06/18/2017 Sodium 138 mmol/L 133-145 Potassium 4.2 mmol/L 3.5-5.0 Chloride 103 mmol/L 101-111 Co2 Carbon Dioxide 28 mmol/L 22-32 Anion Gap 7 mmol/L 2-11 Glucose 89 mg/dL 70-100 Blood Urea Nitrogen 15 mg/dL 6-24 Creatinine 0.91 mg/dL 0.67-1.17 BUN/Creatinine Ratio 16.5 8-20 Calcium 9.7 mg/dL 8.6-10.3 Total Protein 7.3 g/dL 6.4-8.9 Albumin 4.6 g/dL 3.2-5.2 Globulin 2.7 g/dL 2-4 Albumin/Globulin Ratio 1.7 1-3 Total Bilirubin 0.50 mg/dL 0.2-1.0 Alkaline Phosphatase 55 U/L 34-104 Alt 9 U/L 7-52 Ast 15 U/L 13-39 Egfr Non- 97.8 >60 Egfr 125.8 >60 31 1 [id number] 2 Because ethnic data is not always [...] 15-29 5 Kidney failure <15 (or dialysis) 3 [id number] 4 *Ascorbic acid is present which may interfere with detection of blood. 5 Presumptive Positive Presumptive positive results are unconfirmed. 6 The urine specimen was tested at the listed cutoffs: Drug class test level (ng/mL) Amphetamines 500 Barbiturates 200 Benzodiazepine metabolites 200 Cocaine metabolites 150 Cannabinoids 50 Opiates 300 Pcp 25 Specimen was received without chain of custody. Results should be used for medical purposes only. 7 >100 to <200 pg/mL: likely compensated congestive heart failure (CHF) 200 to 400 pg/mL: likely moderate CHF >400 pg/mL: likely moderate to severe CHF 8 Critical Result LACT:2.7 Called to [id number] at: 16:24:08 by:[id number] Read back by:[id number] [facility] Severe Sepsis and Septic Shock Management Bundle Measure requires all lactic acids initially measuring >2.0 mmol/L be repeated. 9 Please note: The following may produce a false positive D Dimer test: - Rheumatoid factor greater than 60 IU/ml - Plasma hemoglobin greater than 0.05 gm/dl - Bilirubin greater than 50 mg/dl - Lipids greater than 1000 mg/dl - FDP greater than 20 ug/ml 10 Because ethnic data is not always readily [...] 15-29 5 Kidney failure <15 (or dialysis) 11 Because ethnic data is not always readily [...] 15-29 5 Kidney failure <15 (or dialysis) 12 [facility] Severe Sepsis and Septic Shock Management Bundle Measure requires all lactic acids initially measuring >2.0 mmol/L be repeated. 13 >100 to <200 pg/mL: likely compensated congestive heart failure (CHF) 200 to 400 pg/mL: likely moderate CHF >400 pg/mL: likely moderate to severe CHF 14 Interpretive information available on [facility] Test Catalog at [email or web address] 15 [id number] 16 Because ethnic data is not always readily [...] 15-29 5 Kidney failure <15 (or dialysis) 17 [id number] 18 Please note: The following may produce a false positive D Dimer test: - Rheumatoid factor greater than 60 IU/ml - Plasma hemoglobin greater than 0.05 gm/dl - Bilirubin greater than 50 mg/dl - Lipids greater than 1000 mg/dl - FDP greater than 20 ug/ml 19 [facility] Severe Sepsis and Septic Shock Management Bundle Measure requires all lactic acids initially measuring >2.0 mmol/L be repeated. 20 Because ethnic data is not always readily [...] 15-29 5 Kidney failure <15 (or dialysis) 21 Acute inflammation: >10.00 22 Adult MCV>105,Warmed at 37 for 30 min, no change. 01/24/18 23 >100 to <200 pg/mL: likely compensated congestive heart failure (CHF) 200 to 400 pg/mL: likely moderate CHF >400 pg/mL: likely moderate to severe CHF 24 Acute inflammation: >10.00 25 Because ethnic data is not always readily [...] 15-29 5 Kidney failure <15 (or dialysis) 26 Please note: The following may produce a false positive D Dimer test: - Rheumatoid factor greater than 60 IU/ml - Plasma hemoglobin greater than 0.05 gm/dl - Bilirubin greater than 50 mg/dl - Lipids greater than 1000 mg/dl - FDP greater than 20 ug/ml 27 Critical Result LACT:2.4 Called to [id number] at: 15:33:22 by:[id number] Read back by:[id number] [facility] Severe Sepsis and Septic Shock Management Bundle Measure requires all lactic acids initially measuring >2.0 mmol/L be repeated. 28 >100 to <200 pg/mL: likely compensated congestive heart failure (CHF) 200 to 400 pg/mL: likely moderate CHF >400 pg/mL: likely moderate to severe CHF 29 [id number] 31 Because ethnic data is not always readily [...] 5 Kidney failure <15 (or dialysis) Procedures Description No Information Encounters Type Date Location Provider CPT E/M Dx Office Visit 04/12/2018 2:30p Main Office BREE Garcias [address]229 B37.0 R10.84 I42.9 K72.00 Office Visit 03/25/2018 1:30p [place] [address] R10.13 F43.22 Z72.0 Office Visit 02/26/2018 3:30p [place] [address] I42.9 K42.9 Office Visit 01/29/2018 11:00a [place] [address] I42.9 F10.19 Office Visit 08/11/2017 4:45p Main Office BREE Robles 08329 Z72.0 Office Visit 06/18/2017 4:00p Main Office SOILA Robles [address] K21.9 I42.9 Plan of Care 04/20/2018 - Fernando Hendrix MDI42.9 Cardiomyopathy, unspecifiedComments:His severe cardiomyopathy continues to debilitate him, with two hospitalizations in the last severalweeks. He has been stabilized as much as possible by cardiology. He will see them again very soon.R11.0 NauseaNew Medication:Zofran 4 mgComments:Dealing with some sort of stomach issue. This seems to happen to him now and then. They were not able to figure it out during his hospital stays. Will treat with zofran.T82.847A Pain due to cardiac prosth dev/grft, initial encounterNew Medication:Oxycodone HCL 10 mgComments:Still having severe pain at his surgical sites.
--- OUTSIDE RECORDS SUMMARY | 2018-05-13 17:32 | XMS REPORT ---
:1985 External Reference #:[id number] Author Organization Formerly [facility] Address [address] [place] [address] Phone [phone] Care Team Providers Name Role Phone Fernando Hendrix MD Care Team Information Boiler/Chiller Operator Unavailable Payers Type Date Identification Numbers Payment Provider Subscriber Medicaid Expires: Policy Number: [id number] Medicaid/Computer Eugenio Brice 2017 [employer] Name: 1 1 [address] PayID: [id number] [place] [address] Commercial Effective: Policy Number: Forrest Urszula-Man Eugenio Brice 2017 [id number] Medicaid PayID: [id number] [address] [place] [address] Problems Description No Information Family History Date Family Member(s) Problem(s) Comments Father CAD Father [place] Mother CHF Mother Substance Abuse Social History Type Date Description Comments Lives With Daughters Lives With male friend Smoking Patient is a current smoker, smokes every day Allergies, Adverse Reactions, Alerts Date Description Reaction Status Severity Comments 04/12/2018 NKDA active Medications Medication Date Status Form Strength Qnty SIG Indications Ordering Provider Dulcolax 04/[address] 5mg 30tab 1 tab by K59.00 Fernando s mouth every [place] day , Zofrpao 04/20 Active Tablets 4mg 30tab 1 tab by R11.0 Fernando s mouth three [place] times a day , nausea Oxycodone HCL 04/20 Active Tablets 10mg 20tab 1 tab by T82.847A s mouth four [place] times daily , as needed for pain. Nystatin 04/12 Active Suspension [id number] 473ml swish and B37.0 t/ML swallow 5ml Megha Cruz, by mouth STOPER-C three times a day for 14 days or until resolved Sertraline HCL 03/25 Active Tablets 50mg 30tab 1/2 tab by F43.22 s mouth daily Shortle, for one week PUPPY TRAINER than increase to 1 tab daily by mouth Nicoderm CQ 03/25 Active Patches 21mg/24HR 14uni apply one Z72.0 24HR ts patch to Shortle, skin, PUPPY TRAINER replace daily for up to 14 days then reduce to 14mg patch Aspirin 02/[address] 81mg 90tab 1 by mouth s every day MD Ruma Vitamin B 01/29 Active Tablets 1 30tab 1 tab daily I42.9 s in the Shortle, morning PUPPY TRAINER Magnesium 01/29 Active Chewtabs 200mg 60uni 2 tabs daily I42.9 ts Megha Cruz, STOPER-C Lisinopril 06/18 Active Tablets 2.5mg 30tab 1 by mouth s every day Shortle, PUPPY TRAINER Lasix Active Tablets 20mg 60tab one by mouth Fernando / s twice daily MD Ruma Pantoprazole Active Tablets DR 40mg Take 1 Unknown Sodium /0000 Tablet By Mouth Every Day Metoprolol Active Tablets ER 25mg 1/2 by mouth Unknown Succinate ER /0000 24HR every day Digoxin 0000 Active Tablets 125mcg Every other Unknown /0000 day Torsemide 0000 Active Tablets 10mg 60tab 1 by mouth Fernando / s every day MD Ruma Trazodone HCL 00 Active Tablets 100mg take one Unknown /0000 tablet by mouth at bedtime for insomnia Levothyroxine Active Tablets 25mcg 1 by mouth Unknown Sodium /0000 every day Oxycodone HCL 04/12 Hx Tablets 5mg 30tab 1 tab by R10.84 s mouth q4hrs Megha Cruz, - as needed STOPER-C 04/20 pain Aspirin 81 Low 06/15 Hx Tablets Fernando Dose Ruma Neal MD 02/26 Coreg CR 02/26 Hx Caps ER 10mg 30cap 1 tab by Fernando 24HR s mouth every Ruma donohue MD 04/20 Chantix 08/11 Hx Tablets 0.5mg 11tab take 1 Z72.0 Priscilla s tablet by Laci, - mouth daily STOPER-C 01/29 days 1- take 1 tablet by mouth twice a day days 4-7, then use maintenance pack Chantix 08/11 Hx Tablets 1mg 60tab take 1 Z72.0 Priscilla s tablet by Laci, - mouth two STOPER-C 01/29 times daily as directed for smoking cessation Protonix 06/[address] 20mg 60tab take one s tablet by Ave, - mouth twice PUPPY TRAINER 04/20 a Lisinopril Hx Tablets 10mg 1 by mouth Unknown /0000 every day - 06/18 Metoprolol 00/00 Hx Tablets ER 25mg Maghaydah Succinate ER /0000 24HR , - Yasemin 06/18 MD Cheyanne Metoprolol 00/00 Hx Tablets ER 25mg Take 1 Tab Unknown Succinate ER /0000 24HR By Mouth - Every Day 01/29 (PT He Is Not Taking) Spironolactone 00/00 Hx Tablets 25mg Maghaydah /0000 , - Yasemin 06/18 MD Cheyanne Spironolactone 00/00 Hx Tablets 25mg Take 1 Unknown /0000 Tablet By - Mouth Every Coreg 00/00 Hx Unknown /0000 - 02/26 Aspirin 81 Low 00/00 Hx Unknown Dose /0000 - 02/26 Metoprolol 00/00 Hx Tablets 25mg Take 1/2 Unknown Tartrate /0000 Tablet By - Mouth Every 04/20 8 Hours /2017 Immunizations CPT Code Status Date Vaccine Lot # [id number] Refused 04/12/2018 Influenza Virus Vaccine, Quadrivalent, 3 Yr > Quad , Preserv Free [id number] Refused 06/18/2017 Influenza Virus Vaccine, Quadrivalent, 3 Yr > Quad , Preserv Free Vital Signs Date Vital Result Comment 04/30/2018 Weight 142.00 lb Weight in kg's 64.411 BP Systolic 110 mmHg BP Diastolic 74 mmHg Heart Rate 84 /min Body Temperature 98.2 F Respiratory Rate 20 /min 04/20/2018 Weight 140.00 lb Weight in kg's [...] Color Becky Urine Appearance Cloudy Urine Specific [place] 1.018 1.010-1.030 Urine pH 5.0 5-9 Urine [...] Color Yellow Urine Appearance Clear Urine Specific [place] > 1.060 High 1.010-1.030 Urine pH 6.0 [...] 97.8 >60 Egfr 125.8 >60 31 1 [id number] 2 Because ethnic data is not always [...] 5 Kidney failure <15 (or dialysis) 3 [id number] 4 *Ascorbic acid is present which may [...] CHF 8 Critical Result LACT:2.7 Called to KAREN at: 16:24:08 by:[id number] Read back by:KAREN CASTELLANOS Severe Sepsis and Septic Shock Management Bundle [...] 5 Kidney failure <15 (or dialysis) 12 [facility] Severe Sepsis and Septic Shock Management Bundle Measure requires all lactic acids initially measuring >2.0 mmol/L be repeated. 13 >100 to <200 pg/mL: likely compensated congestive heart failure (CHF) 200 to 400 pg/mL: likely moderate CHF >400 pg/mL: likely moderate to severe CHF 14 Interpretive information available on [facility] Test Catalog at [email or web address] 15 [id number] 16 Because ethnic data is not always [...] 5 Kidney failure <15 (or dialysis) 17 [id number] 18 Please note: The following may produce a false positive D Dimer test: - Rheumatoid factor greater than 60 IU/ml - Plasma hemoglobin greater than 0.05 gm/dl - Bilirubin greater than 50 mg/dl - Lipids greater than 1000 mg/dl - FDP greater than 20 ug/ml 19 [facility] Severe Sepsis and Septic Shock Management Bundle [...] ug/ml 27 Critical Result LACT:2.4 Called to [id number] at: 15:33:22 by:[id number] Read back by:[id number] [facility] Severe Sepsis and Septic Shock Management Bundle Measure requires all lactic acids initially measuring >2.0 mmol/L be repeated. 28 >100 to <200 pg/mL: likely compensated congestive heart failure (CHF) 200 to 400 pg/mL: likely moderate CHF >400 pg/mL: likely moderate to severe CHF 29 [id number] 30 [id number] 31 Because ethnic data is not always [...] Location Provider CPT E/M Dx Office Visit 04/20/2018 4:30p [place] [address] I42.9 R11.0 T82.847A Office Visit 04/12/2018 2:30p Main Office BREE Garcias 41334 B37.0 R10.84 I42.9 K72.00 Office Visit 03/25/2018 1:30p [place] [address] R10.13 F43.22 Z72.0 Office Visit 02/26/2018 3:30p [place] [address] I42.9 K42.9 Office Visit 01/29/2018 11:00a [place] [address] I42.9 F10.19 Office Visit 08/11/2017 4:45p Main Office BREE Robles [address]23 Z72.0 Office Visit 06/18/2017 4:00p Main Office Priscilla Aguero [place] [address] K21.9 I42.9 Plan of Care 04/30/2018 - Fernando Hendrix MDK59.00 Constipation, unspecifiedNew Medication: Dulcolax 5 mgComments:With his very severe medical issues, I initially worried about and ascites. Based on his physical exam and lack of weight gain, this does not seem to be the case.This seems to be an issue with constipation. Certainly has several weeks of oxycodone treatment will not have contributed positively to this.We will get him cleaned out, stop the narcotics, and hopefully his pain will improve with return to normal function.Recommendations: Step 1, cleanout: Take 6-12 doses of miralax as needed in an afternoon, mixed with water or juice. This should continue until he is eliminating relatively clear water. Step 2, maintenance: Continue 1-2 doses of miralax per day as needed to keep stool soft. Step 3, retraining: Take dulcolax at the same time of day, with a large meal. Should feel the urge to defecate about 30 minutes later. Step 4, weaning: Gradually stop taking the miralax. If stool remains normal, stop taking the dulcolax. Habit of stooling at the same time daily should remain.
--- NOTE | 2018-05-13 17:52 | ED ---
Shortness of Breath - HPI Summary HPI Summary: 32 y/o male presents to the ED accompanied by his girlfriend c/o severe lower ABD pain first starting 1 week ago, worsening 3 days ago. ABD pain diffusely in the lower ABD. 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 Nausea still present. Pt also c/o decreased stool amount with bowel movements for the past several days. Associated sx: distended ABD, SOB on exertion, chest heaviness, chills. Per pt's girlfriend, the pt ejaculated a brownish fluid today. Pt also presents L sided inguinal hernia. PMHx cardiac history - CHF, cardiomyopathy. Pt has a defibrillator in place. Pt's baseline HR is in the 120's. distension and tenderness diffusely in lower ABD Genital exam: no redness swelling discharge tenderness tender bilaterally to lateral mons pubis - History of Current Complaint Chief Complaint: EDShortnessOfBreath Hx Obtained From: Patient - Allergy/Home Medications Allergies/Adverse Reactions: Allergies Allergy/AdvReac Type Severity Reaction Status Date / Time No Known Allergies Allergy Verified 04/02/18 14:55 PMH/Surg Hx/FS Hx/Imm Hx Endocrine/Hematology History: Denies: Hx Anticoagulant Therapy, Hx Diabetes Cardiovascular History: Reports: Hx Auto Implanted Cardiovert Defib, Hx Congenital Heart Disease - EF less than 20%, Hx Congestive Heart Failure, Hx Hypertension, Hx Pacemaker/ICD, Other Cardiovascular Problems/Disorders - CARDIOMYOPATHY, ICD Denies: Hx Peripheral Vascular Disease Respiratory History: Denies: Hx Chronic Obstructive Pulmonary Disease (COPD) GI History: Reports: Hx Gastroesophageal Reflux Disease, Other GI Disorders - elevated LFT's 01/24/18 Sensory History: Reports: Hx Contacts or Glasses Denies: Hx Deafness, Hx Hearing Aid Opthamlomology History: Reports: Hx Contacts or Glasses Neurological History: Denies: Hx Migraine, Hx Seizures, Hx Spinal Cord Injury, Hx Transient Ischemic Attacks (TIA) - Surgical History Surgery Procedure, Year, and Place: 01/22/18- defibrillator repolaced Infectious Disease History: No Infectious Disease History: Denies: Hx of Known/Suspected MRSA, Traveled Outside the [place] in Last 30 Days - Family History Known Family History: Positive: Cardiac Disease - Social History Alcohol Use: None Alcohol Amount: 6 pack Hx Substance Use: Yes Substance Use Type: Reports: Marijuana Substance Use Comment - Amount & Last Used: Daily Hx Tobacco Use: Yes Smoking Status (MU): Light Every Day Tobacco Smoker Type: Cigarettes Amount Used/How Often: 4-5 sig/day Have You Smoked in the Last Year: Yes Review of Systems Constitutional: Negative Eyes: Negative ENT: Negative Cardiovascular: Negative Respiratory: Negative Gastrointestinal: Negative Genitourinary: Negative Musculoskeletal: Negative Skin: Negative Neurological: Negative Psychological: Normal All Other Systems Reviewed And Are Negative: No Physical Exam - Summary Physical Exam Summary: Appearance: Alert, conversive, nontoxic appearing Skin: Warm, dry, no mottling, no rashes, no contusions HEENT: EOMI, PERRL, moist mucous membranes Neck: No masses on the neck, supple Respiratory: Clear to auscultation, breath sounds present, no rales, no rhonchi , no wheezes Cardiovascular: RRR, pulses are symmetrical in both lower and upper extremities Abdomen: Soft, non-tender Bowel Sounds: Present Musculoskeletal: No CVA tenderness, no obvious deformity, moving all extremities in a grossly normal manner Neurological: A&Ox3, CN II-XII Intact, moving all extremities symmetrically Psychiatric: Normal affect and mood Triage Information Reviewed: Yes Vital Signs On Initial Exam: Initial Vitals Temp Pulse Resp BP Pulse Ox 97.2 F 81 28 109/91 94 05/13/18 17:20 05/13/18 17:20 05/13/18 17:20 05/13/18 17:20 05/13/18 17:20 Vital Signs Reviewed: Yes Diagnostics - Vital Signs Vital Signs Temp Pulse Resp BP Pulse Ox 05/13/18 17:47 265 19 99 05/13/18 17:45 276 23 107/90 100 05/13/18 17:20 97.2 F 81 28 109/91 94 - Laboratory Result Diagrams: 05/13/18 17:54 Lab Statement: Any lab studies that have been ordered have been reviewed, and results considered in the medical decision making process. Discharge - Discharge Plan Referrals: Keisha Dorado NP [Primary Care Provider] - - Attestation Statements Document Initiated by Scribe: Yes Documenting Scribe: Elvis Garcias Provider For Whom Scribe is Documenting (Include Credential): Elina Balderas MD Scribe Attestation: Elvis Colbert, scribed for Elina Balderas MD on 05/13/18 at 1813.
[2018-05-13 18:05] LABS: ABS Basophils 0 10^3/ul (0-0.2); ABS Eosinophils 0 10^3/ul (0-0.6); ABS Lymphocytes 1.4 10^3/ul (1.0-4.8); ABS Monocytes 0.5 10^3/ul (0-0.8); ABS Neutrophils 3.6 10^3/ul (1.5-7.7); ABS Nucleated RBC 0 10^3/ul; Eosinophil % 0.4 % (0-6); Hematocrit 42 % (42-52); Hemoglobin 13.9 g/dl (14.0-18.0); Lymphocyte % 24.7 % (25-47); Mean Corpuscular HGB Conc 33 g/dl (31-36); Mean Corpuscular Hemoglobin 31 pg (27-31); Mean Corpuscular Volume 96 fL (80-94); Mean Platelet Volume 8.5 um3 (7.4-10.4); Nucleated Red Blood Cells % 0.1; Platelet Count 149 10^3/ul (150-450); Red Blood Count 4.43 10^6/ul (4.00-5.40); Red Cell Distribution Width 17 % (10.5-15); White Blood Count 5.5 10^3/ul (3.5-10.8)
--- NOTE | 2018-05-13 18:18 | RAD ---
INDICATION: Dyspnea. COMPARISON: Comparison is made with a prior chest x-ray study from April 02, 2018. TECHNIQUE: 2 portable films of the chest were obtained. FINDINGS: There is a transvenous pacemaker present. The heart appears moderately enlarged and slightly increased in size from the prior exam. There is mild prominence of the interstitial markings. No focal infiltrate or pleural effusion is seen. IMPRESSION: CARDIOMEGALY SLIGHTLY INCREASED IN SIZE AND MILD INTERSTITIAL PROMINENCE SUGGESTING MILD CONGESTIVE CHANGES.
[2018-05-13 18:25] LABS: EGFR Non-African American 66.8 (>60)
--- NOTE | 2018-05-13 18:28 | ED ---
Abdominal Pain/Male - HPI Summary HPI Summary: 32 y/o male presents to the ED accompanied by his girlfriend c/o severe lower ABD pain first starting 1 week ago, worsening 3 days ago. ABD pain diffusely in the lower ABD. 8/10. 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 Nausea still present. Pt also c/o decreased stool amount with bowel movements for the past several days. Associated sx: distended ABD, SOB on exertion, chest heaviness, chills. Per pt's girlfriend, the pt ejaculated a brownish fluid today. Pt also presents L sided inguinal hernia. PMHx cardiac history - CHF, cardiomyopathy. Pt has a defibrillator in place. Pt's baseline HR is in the 120's. - History of Current Complaint Chief Complaint: EDShortnessOfBreath Stated Complaint: DIFF BREATHING/ABD PAIN Hx Obtained From: Patient Onset/Duration: Lasting Weeks, Still Present Timing: Constant Severity Currently: Severe Pain Intensity: 8 Pain Scale Used: 0-10 Numeric Location: Diffuse - lower ABD Aggravating Factor(s): Nothing Alleviating Factor(s): Nothing Associated Signs And Symptoms: Positive: Chest Pain - heaviness, Constipation, Nausea, Vomiting, Penile Discharge - brown ejaculate today, Other - chills, SOB , sleep disturbance - Allergies/Home Medications Allergies/Adverse Reactions: Allergies Allergy/AdvReac Type Severity Reaction Status Date / Time No Known Allergies Allergy Verified 04/02/18 14:55 PMH/Surg Hx/FS Hx/Imm Hx Previously Healthy: No Endocrine/Hematology History: Denies: Hx Anticoagulant Therapy, Hx Diabetes Cardiovascular History: Reports: Hx Auto Implanted Cardiovert Defib, Hx Congenital Heart Disease - EF less than 20%, Hx Congestive Heart Failure, Hx Hypertension, Hx Pacemaker/ICD, Other Cardiovascular Problems/Disorders - CARDIOMYOPATHY, ICD Denies: Hx Peripheral Vascular Disease Respiratory History: Denies: Hx Chronic Obstructive Pulmonary Disease (COPD) GI History: Reports: Hx Gastroesophageal Reflux Disease, Other GI Disorders - elevated LFT's 01/24/18 Sensory History: Reports: Hx Contacts or Glasses Denies: Hx Deafness, Hx Hearing Aid Opthamlomology History: Reports: Hx Contacts or Glasses Neurological History: Denies: Hx Migraine, Hx Seizures, Hx Spinal Cord Injury, Hx Transient Ischemic Attacks (TIA) - Surgical History Surgery Procedure, Year, and Place: 01/22/18- defibrillator repolaced Infectious Disease History: No Infectious Disease History: Denies: Hx of Known/Suspected MRSA, Traveled Outside the [place] in Last 30 Days - Family History Known Family History: Positive: Cardiac Disease - Social History Alcohol Use: None Alcohol Amount: 6 pack Hx Substance Use: Yes Substance Use Type: Reports: Marijuana Substance Use Comment - Amount & Last Used: Daily Hx Tobacco Use: Yes Smoking Status (MU): Light Every Day Tobacco Smoker Type: Cigarettes Amount Used/How Often: 4-5 sig/day Have You Smoked in the Last Year: Yes Review of Systems Positive: Chills Eyes: Negative ENT: Negative Positive: Chest Pain - heaviness Positive: Shortness Of Breath Positive: Abdominal Pain, Vomiting, Nausea, Other - constipation Genitourinary: Other - brownish ejaculate today Musculoskeletal: Negative Skin: Negative Neurological: Negative Psychological: Normal All Other Systems Reviewed And Are Negative: No Physical Exam - Summary Physical Exam Summary: Appearance: Alert, conversive, nontoxic appearing Skin: Warm, dry, no mottling, no rashes, no contusions HEENT: EOMI, PERRL, moist mucous membranes Neck: No masses on the neck, supple Respiratory: Clear to auscultation, breath sounds present, no rales, no rhonchi , no wheezes Cardiovascular: RRR, pulses are symmetrical in both lower and upper extremities Abdomen: Soft, distended, diffuse tenderness in lower ABD. Tender bilaterally to lateral mons pubis. Bowel Sounds: Present Musculoskeletal: No CVA tenderness, no obvious deformity, moving all extremities in a grossly normal manner Neurological: A&Ox3, CN II-XII Intact, moving all extremities symmetrically Psychiatric: Normal affect and mood Genital: No redness, swelling, discharge or tenderness. Triage Information Reviewed: Yes Vital Signs On Initial Exam: Initial Vitals Temp Pulse Resp BP Pulse Ox 97.2 F 81 28 109/91 94 05/13/18 17:20 05/13/18 17:20 05/13/18 17:20 05/13/18 17:20 05/13/18 17:20 Vital Signs Reviewed: Yes Diagnostics - Vital Signs Vital Signs Temp Pulse Resp BP Pulse Ox 05/13/18 18:00 266 15 100 05/13/18 17:47 265 19 99 05/13/18 17:45 276 23 107/90 100 05/13/18 17:20 97.2 F 81 28 109/91 94 - Laboratory Lab Results: Lab Results 05/13/18 Range/Units 17:54 WBC 5.5 (3.5-10.8) 10^3/ul RBC 4.43 (4.00-5.40) 10^6/ul Hgb 13.9 L (14.0-18.0) g/dl Hct 42 (42-52) % MCV 96 H (80-94) fL MCH 31 (27-31) pg MCHC 33 (31-36) g/dl RDW 17 H (10.5-15) % Plt Count 149 L (150-450) 10^3/ul MPV 8.5 (7.4-10.4) um3 Neut % (Auto) 64.6 (38-83) % Lymph % (Auto) 24.7 L (25-47) % [place] % (Auto) 9.5 H (0-7) % Eos % (Auto) 0.4 (0-6) % Baso % (Auto) 0.8 (0-2) % Absolute Neuts (auto) 3.6 (1.5-7.7) 10^3/ul Absolute Lymphs (auto) 1.4 (1.0-4.8) 10^3/ul Absolute Monos (auto) 0.5 (0-0.8) 10^3/ul Absolute Eos (auto) 0 (0-0.6) 10^3/ul Absolute Basos (auto) 0 (0-0.2) 10^3/ul Absolute Nucleated RBC 0 10^3/ul Nucleated RBC % 0.1 Result Diagrams: 05/13/18 17:54 05/13/18 17:54 Lab Statement: Any lab studies that have been ordered have been reviewed, and results considered in the medical decision making process. - Radiology CXR Radiology Interpretation Completed By: Radiologist - CARDIOMEGALY SLIGHTLY INCREASED IN SIZE AND MILD INTERSTITIAL PROMINENCE SUGGESTING MILD CONGESTIVE CHANGES. ED Physician reviews and agrees. - Additional Comments Diagnostic Additional Comments: 1 EKG - 17:58 - Abnormal EKG, Atrial flutter @ 132 BPM. Prolonged QRs, Prolonged QTc. Inverted T waves in V5 and V6. Abdominal Pain Fem Course/Dx - Course Assessment/Plan: 32 y/o male presents to the ED accompanied by his girlfriend c/ o severe lower ABD pain first starting 1 week ago, worsening 3 days ago. ABD pain diffusely in the lower ABD. 10. 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 Nausea still present. Pt also c/o decreased stool amount with bowel movements for the past several days. Associated sx: distended ABD, SOB on exertion, chest heaviness, chills. Per pt's girlfriend, the pt ejaculated a brownish fluid today. Pt also presents L sided inguinal hernia. PMHx cardiac history - CHF, cardiomyopathy. Pt has a defibrillator in place. Pt' s baseline HR is in the 120's. CXR shows CARDIOMEGALY SLIGHTLY INCREASED IN SIZE AND MILD INTERSTITIAL PROMINENCE SUGGESTING MILD CONGESTIVE CHANGES. Abnormal EKG with atrial flutter. Pt will be signed out to evening attending pending CT results, dispo. - Diagnoses Provider Diagnoses: Abdominal pain, Chest pain, Nausea and vomiting, Cardiomyopathy Discharge - Sign-Out/Discharge Documenting (check all that apply): Sign-Out Patient Signing out patient TO: Hu Orellana Receiving patient FROM: Elina Balderas - Discharge Plan Referrals: Keisha Dorado, SUPERVISOR COIN MACHINE [Primary Care Provider] - - Attestation Statements Document Initiated by Osvaldo: Yes Documenting Scribe: Elvis Garcias Provider For Whom Osvaldo is Documenting (Include Credential): Elina Balderas MD Scribe Attestation: Elvis Colbert, scribed for Elina Balderas MD on 05/13/18 at 1848. Scribe Documentation Reviewed: Yes Provider Attestation: The documentation as recorded by the Elvis rizo accurately reflects the service I personally performed and the decisions made by me, Elina Balderas MD
[2018-05-13] MEDS ORDERED: HYDROmorphone INJ* 2 MG/ML CARPUJECT SYRINGE IV SLOW PU ONE (18:51)
[2018-05-13 19:14] LABS: INR 1.59 (0.77-1.02)
[2018-05-13] MEDS ORDERED: Ondansetron INJ* 2 MG/ML VIAL ONE (19:19)
[2018-05-13] MEDS ORDERED: Iodixanol* (CONTRAST) 320 MG/ML 100 ML SDV IV ONE (19:23)
[2018-05-13] MEDS ORDERED: Ondansetron INJ* 2 MG/ML VIAL IV ONE (19:25)
[2018-05-13 19:46] LABS: Urine Appearance Clear; Urine Blood 1+ (Negative); Urine Color Amber; Urine Ketones Negative (Negative); Urine Protein Negative (Negative); Urine Red Blood Cell 2+(6-10/hpf) (Absent); Urine Specific Gravity 1.017 (1.010-1.030); Urine Urobilinogen Negative (Negative); Urine White Blood Cell Trace(0-5/hpf) (Absent)
--- NOTE | 2018-05-13 23:39 | RAD ---
EXAM: CT Abdomen and Pelvis With Intravenous Contrast CLINICAL HISTORY: 32 years old, male; Pain; Abdominal pain; Additional info: Lower abd pain TECHNIQUE: Axial computed tomography images of the abdomen and pelvis with intravenous contrast. All CT scans at this facility use at least one of these dose optimization techniques: automated exposure control; mA and/or kV adjustment per patient size (includes targeted exams where dose is matched to clinical indication); or iterative reconstruction. Coronal and sagittal reformatted images were created and reviewed. CONTRAST: 82 mL of VISIPAQUE 320 administered intravenously. COMPARISON: A/P W CT ABD/PEL W 04/02/2018 5:45 PM FINDINGS: Lung bases: There is bibasilar atelectatic change or scarring. There are patchy opacities in the right lower lobe base, cannot exclude a component of patchy right lower lobe pneumonitis. Pleural space: There is a small right pleural effusion. Heart: Stable cardiomegaly. ABDOMEN: Liver: There is diffuse fatty liver. Stable hepatomegaly. Gallbladder and bile ducts: Unremarkable. No calcified stones. No ductal dilation. Pancreas: Unremarkable. No mass. No ductal dilation. Spleen: Unremarkable. No splenomegaly. Adrenals: Unremarkable. No mass. Kidneys and ureters: Stable nonobstructing bilateral nephrolithiasis. Stomach and bowel: Unremarkable. No obstruction. No mucosal thickening. PELVIS: Appendix: The appendix is unremarkable and seen best on axial image 49 of series 2. Bladder: Unremarkable. No mass. Reproductive: Unremarkable as visualized. ABDOMEN and PELVIS: Intraperitoneal space: As previously seen there is moderate ascites in the abdomen and pelvis. No free air. Bones/joints: No acute fracture. No dislocation. Soft tissues: Unremarkable. Vasculature: Unremarkable. No abdominal aortic aneurysm. Lymph nodes: Unremarkable. No enlarged lymph nodes. IMPRESSION: 1. There is a small right pleural effusion. 2. There is bibasilar atelectatic change or scarring. There are patchy opacities in the right lower lobe base, cannot exclude a component of patchy right lower lobe pneumonitis. 3. As previously seen there is moderate ascites in the abdomen and pelvis. 4. Stable nonobstructing bilateral nephrolithiasis.
[2018-05-14] MEDS ORDERED: Furosemide IV* 10 MG/ML 10 ML VIAL (100 MG) IV ONE (00:36)
[2018-05-14] MEDS ORDERED: traZODone TAB* 100 MG PO PRN (01:01)
[2018-05-14] MEDS ORDERED: Polyethylene Glycol 3350* 17 GM PACKET PO PRN (01:01)
[2018-05-14] MEDS ORDERED: Acetaminophen TAB* 325 MG PO PRN (01:01)
[2018-05-14] MEDS ORDERED: Al Hydrox/Mg Hydrox/Simet LIQ* 30 ML UDC PO PRN (01:04)
[2018-05-14] MEDS ORDERED: Metoprolol Tartrate IV* 1 MG/ML 5 ML VIAL IV PRN (01:04)
[2018-05-14] MEDS ORDERED: Potassium Chlor TAB* 20 MEQ TAB.ER PO ONE (01:08)
[2018-05-14] MEDS ORDERED: Magnesium Sulfate IV* 3 GM in NS 0.9% 100 ML* 100 ML IVPB ONE (01:30)
[2018-05-14] MEDS ORDERED: PROCHLORPERAZINE INJ 5 MG/ML 2 ML VIAL IV PRN (01:41)
[2018-05-14] MEDS ORDERED: Digoxin TAB* 0.125 MG PO SCH (02:00)
[2018-05-14] MEDS: Morphine INJ* 2 MG/ML 1 ML SYRINGE (TWO MG - NEW SYRINGE VERSION) IV PRN ×4 (02:18→19:18)
[2018-05-14] MEDS: Metoprolol Tartrate TAB* 25 MG PO SCH ×2 (02:36→08:19)
--- NOTE | 2018-05-14 03:02 | HP ---
CC: Dr. Curiel; Keisha Dorado NP * HISTORY AND PHYSICAL: DATE OF ADMISSION: 05/14/18 PRIMARY CARE PROVIDER: Keisha Dorado NP NANOTECHNOLOGY ENGINEERING TECHNOLOGIST: Dr. Curiel. CHIEF COMPLAINT: Paroxysmal nocturnal dyspnea, increase in abdominal girth, and abdominal discomfort. HISTORY OF PRESENT ILLNESS: Eugenio Brice is a 32-year-old male with history of nonischemic cardiomyopathy and chronic systolic heart failure, who presented to the hospital complaining of once again increasing abdominal girth, abdominal discomfort due to that and paroxysmal nocturnal dyspnea. Last time, he was admitted for congestive heart failure with similar symptoms was at the end of March of 2018. The patient stated that usually when he gets into congestive heart failure, he has increase in abdominal girth and abdominal discomfort and occasional pain. He denies lower extremity edema, but he did notice problems with reading at night. His chronic congestive heart failure at his baseline is to the point that he is short of breath with minimal exertion. When asked if the patient checks his weights, he stated that he forgets to do that. I asked him about his medications and he stated that today he did not take any medications and occasionally he forgets. He states that usually he has problems with nausea due to medications, but he is not sure which one. He denied having problems with taking his diuretics, but he just simply did not take them today. The patient is going to be admitted with a diagnosis of [id number] CHF. PAST MEDICAL HISTORY: 1. History of atrial flutter and atrial fibrillation. Also with sinus tachycardia. 2. History of nonischemic cardiomyopathy. 3. History of systolic CHF with EF of 20%. 4. History of status post ICD placement with noted problems with ICD malfunctioning and possibility of ICD lead being fractured in March of 2018. 5. History of congestive hepatopathy and renal insufficiency due to CHF in the past. MEDICATIONS AT HOME: Include: 1. Aspirin 81 mg daily. 2. Acetaminophen on a p.r.n. basis. 3. Trazodone 100 mg at bedtime p.r.n. 4. Torsemide 10 mg daily. 5. Senokot 2 tablets daily. 6. MiraLAX 17 g every other day. 7. Protonix 40 mg daily. 8. Metoprolol tartrate 12.5 mg every 8 hours. 9. Magnesium oxide 400 mg daily. 10. Levothyroxine 25 mg daily. 11. Digoxin 0.125 mg every 2 days. ALLERGIES: No known drug allergies. FAMILY HISTORY: Positive for mother with history of CHF, father with pacemaker placement. SOCIAL HISTORY: The patient has a history of smoking couple of cigarettes a day. He denies any drug use. He lives with his girlfriend, Chapo, and he has 2 children with his girlfriend. He is full code. REVIEW OF SYSTEMS: Positive for increased abdominal girth and positive for paroxysmal nocturnal dyspnea. The patient also stated that he has chronic chest pain and it usually hurts in his left breast area. He states that it occurs every other day or so. Currently, he denies chest pain. He states that the pain is not exertional. Unfortunately, the patient is not the greatest historian and he is rather withdrawn and not willing to provide me further information in regard to his chest pain. Once again, the patient does not know his weight increase or decrease since he does not check his weight. The patient has a history of chronic dyspnea on exertion. All the remaining 12 systems were reviewed with the patient and were otherwise negative. PHYSICAL EXAMINATION GENERAL: The patient is a very pleasant 32-year-old male, who is in no acute distress. Alert, awake, and oriented x3. VITAL SIGNS: Blood pressure of 137/87, heart rate of 138 and regular, respiratory rate 16, oxygen saturation 96% on room air, temperature 97.9. HEENT: Head: Atraumatic, normocephalic. Eyes: Pupils are equal, reactive to light and accommodation. Oropharynx is clear. Mucosa moist. NECK: Supple. Positive for JVD bilaterally. RESPIRATORY: Faint crackles at bilateral bases, otherwise clear. CARDIOVASCULAR: Regular rate and rhythm. No murmur, tachycardia. ABDOMEN: Soft, minimally tender in bilateral lower quadrants with mild ascites. Slightly distended. Bowel sounds are present in all 4 quadrants. There is no rebound, no guarding. EXTREMITIES: There is no edema. Pulses +2 bilaterally. There is no clubbing or cyanosis. NEUROLOGIC: Speech clear. Cranial nerves II through XII are grossly intact. Motor strength is 5/5 bilaterally. SKIN: On evaluation of the skin, no ecchymotic areas or rashes noted. DIAGNOSTIC STUDIES/LAB DATA: Laboratory data showed white blood cell count of 5.5, hemoglobin of 13.9, hematocrit of 42, and platelets of 145. The patient's INR today is 1.59. Sodium was 134, potassium 3.5, chloride 100, carbon dioxide 26, BUN 14, creatinine 1.26. Liver function tests showed bilirubin of 2, magnesium of 1.6. C-reactive protein of 11.09. Brain natriuretic peptide was 2424. TSH was 9.97. Urinalysis was grossly unremarkable apart from +[address] of the abdomen and pelvis, impression: "There is a small right pleural effusion. There is bibasilar atelectasis change or scarring. There are patchy opacities in the right lower lobe base, cannot exclude component of patchy right lower pneumonitis. As previously seen, there is moderate ascites in the abdomen and pelvis. Stable nonobstructing bilateral nephrolithiasis." The patient's EKG showed sinus tachycardia versus atrial flutter with 2:1 block with heart rate of 132 beats per minute. Multiple criteria for LVH. Anterior ST elevation due to LVH, negative T waves in leads V5 and V6. Comparing with the prior EKG from 04/02/18, those changes are the same. Portable chest x-ray, impression: "Cardiomegaly was slightly increased in size and interstitial prominence suggesting mild congestive changes." ASSESSMENT AND PLAN: 1. The patient symptoms are suggestive of congestive heart failure. The patient is noncompliant with his medications, does not check his weight. At this point, he is going to be admitted to the hospital. His weights are going to be checked on a daily basis. We will also follow his I's and O's. The patient is going to receive one dose of furosemide 60 mg IV now and we will restart his furosemide tomorrow morning. Furthermore, he may require IV Lasix added upon daily re-evaluation. 2. In regards to the patient's hypomagnesemia, it is going to be replaced with IV magnesium. 3. In regards to the patient's tachycardia. At this point, it is difficult to evaluate if the patient is in atrial flutter or sinus tachycardia. The patient has a history of sinus tachycardia. At this point, the patient is going to be restarted on his digoxin and beta-blockers as well as we will add on Lopressor IV on an as-needed basis. We will re-evaluate with EKG in the morning. He will also require Cardiology evaluation in the morning as well. 4. The patient's elevation of liver function tests is likely due to passive congestion of the liver due to congestive heart failure. 5. For DVT prophylaxis, the patient is low risk and ambulation is going to be encouraged. 6. The patient's elevated TSH is likely due to noncompliance with his medications. His Synthroid is going to be restarted at current dose. 7. The patient's code status is full and his surrogate is his girlfriend, Aguilar. TIME SPENT: Approximately 65 minutes were spent on the admission of this patient, more than half that time was spent [id number] with the patient during the interview and physical exam. [id number]/[facility] #: [id number] NIEVES
[2018-05-14] MEDS: Levothyroxine TAB* 25 MCG TAB PO SCH (05:13)
--- NOTE | 2018-05-14 05:15 | ED ---
Progress - Progress Note Progress Note: IMPRESSION: 1. There is a small right pleural effusion. 2. There is bibasilar atelectatic change or scarring. There are patchy opacities in the right lower lobe base, cannot exclude a component of patchy right lower lobe pneumonitis. 3. As previously seen there is moderate ascites in the abdomen and pelvis. 4. Stable nonobstructing bilateral nephrolithiasis. Course/Dx - Diagnoses Provider Diagnoses: Abdominal pain, Chest pain, Nausea and vomiting, Cardiomyopathy, Pneumonitis - Provider Notifications Discussed Care Of Patient With: Palak Wallace Discharge - Sign-Out/Discharge Documenting (check all that apply): Patient Departure, Receiving Sign-Out Signing out patient TO: Hu Orellana Receiving patient FROM: Elina Balderas All imaging exams completed and their final reports reviewed: Yes - Discharge Plan Condition: Guarded Disposition: ADMITTED TO [facility] - Billing Disposition and Condition Condition: GUARDED Disposition: Admitted to [facility]
[2018-05-14 08:11] LABS: EGFR Non-African American 73.4 (>60)
[2018-05-14] MEDS: Senna TAB PO SCH (08:19)
[2018-05-14] MEDS: Torsemide TAB* 20 MG PO SCH (08:19)
[2018-05-14] MEDS: Docusate CAP* 100 MG PO SCH (08:19)
[2018-05-14] MEDS: Aspirin EC TAB* 81 MG TAB.EC PO SCH (08:19)
[2018-05-14] MEDS: Magnesium Oxide TAB* 400 MG PO SCH (08:19)
[2018-05-14] MEDS ORDERED: Senna/Docusate (NF) TAB PO SCH (09:00)
[2018-05-14] MEDS ORDERED: Digoxin IV* 0.5 MG/2 ML AMP (0.25 MG/ML) IV SLOW PU ONE (09:46)
--- NOTE | 2018-05-14 10:05 | CONSULT ---
Subjective Date of Service: 05/14/18 Interval History: DATE OF ADMISSION: 05/13/2018 Date of consult: 05/14/2018 PRIMARY CARE PROVIDER: Keisha Dorado NP Data Software Engineer: Dr. Curiel. CHIEF COMPLAINT: Dyspnea, abdomen discomfort Reason for consult: CHF exacerbation HISTORY OF PRESENT ILLNESS: Mr. Brice is a 32-year-old man with a history of NICM with ICD, paroxysmal atrial fibrillation/flutter. He stopped taking lisinopril a month ago because of GI upset. He had an ICD replacement due to lead fracture 04/14/[address] Ventura at [facility]. He appears to have been in atrial flutter continuously since last admission in March. He has upcoming appointments next month with both Dr. Ventura and Heart Failure specialist ( he is unsure who) at [place]. He is now admitted with GI upset, weakness, dyspnea, abdomen distention and PND in the setting of rapid atrial flutter. A digoxin level of 0.3 suggests he has been adherent at least partially although there is a history of non-adherence to medications in the past. He has received IV lasix and IV lopressor and he feels no better since admission. His urine output has not been quantitated but he tells me subjectively it was a good response. PAST MEDICAL HISTORY: 1. Aflutter and fibrillation 2. NICM/systolic HF 3. ICD 4. Hypothyroidism PAST SURGICAL HISTORY: ICD placement ALLERGIES TO MEDICATIONS: Include CODEINE. FAMILY HISTORY: Mother had a history of CHF. Father had a pacemaker placement. SOCIAL HISTORY: He is a vjjs-z-zyqg-a-day smoker. He was drinking tequila and beer daily, but he says he has not drank in awhile. No active drug use. His surrogate decision maker is his friend, Chapo, and his significant other. Review of Systems - Review of Systems Constitutional Symptoms: Positive: Weakness, Fatigue. He is unsure about weight gain Dermatology: Negative: Rash, Skin Lesions HEENT: Negative: Change in Hearing, Vertigo Eyes: Negative: Change in Vision, Double Vision Thyroid: Negative: Cold Intolerance, Heat Intolerance, Constipation, Palpitations, Weight Loss Pulmonary: Positive: Cough, Respiratory Distress, Shortness of Breath , Exercise Intolerance Negative: Sputum, Hemoptysis, Wheezing, COPD, Asthma, Home Oxygen Cardiology: Positive: Shortness of Breath, Paroxysmal Nocturnal Dyspnea , Orthopnea Negative: Chest Pain, Palpitations, Swelling of Ankles, Peripheral Vascular Dis, Edema, Syncope, Claudication Gastroenterology: Positive: Abdominal Pain, Nausea, Anorexia Negative: Difficulty Swallowing, Blood in Stools, Change in Bowel Habits Genital - Urinary: Negative: Dysuria, Hematuria Musculoskeletal: Negative: Joint Pain, Joint Stiffness Endocrinology: Negative: Obesity, Diabetes, Polydipsia, Polyuria Hematologic/Lymphatic: Negative: Hx Leukemia, Hx Lymphoma Neurology: Negative: Change in Speech, Change in Sphincter Function, Hx of Stroke\TIA Psychiatry: Negative: Unusual Anxiety, Suicidal Ideation Allergic/Immunologic: Negative: Hx HIV, Immunocompromise Review of Systems Statement: All other review of systems negative, unless stated above. Medications Active Medications: Acetaminophen (Tylenol Tab*) 650 mg PO Q6H PRN PRN Reason: pain/fever Al Hydrox/Mg Hydrox/Simethicone (Maalox Plus*) 30 ml PO Q6H PRN PRN Reason: INDIGESTION Aspirin (Aspirin Ec Tab*) 81 mg PO DAILY [facility] Last Admin: 05/14/18 08:19 Dose: 81 mg Digoxin (Lanoxin Tab*) 0.125 mg PO DAILY [facility] Docusate Sodium (Colace Cap*) 200 mg PO DAILY [facility] Last Admin: 05/14/18 08:19 Dose: 200 mg Levothyroxine Sodium (Synthroid Tab*) 25 mcg PO DAILY@0600 [facility] Last Admin: 05/14/18 05:13 Dose: 25 mcg Magnesium Oxide (Magox 400 Tab*) 400 mg PO DAILY [facility] Last Admin: 05/14/18 08:19 Dose: 400 mg Morphine Sulfate (Morphine Inj ((Syringe))*) 2 mg IV Q4H PRN PRN Reason: PAIN Last Admin: 05/14/18 08:22 Dose: 2 mg Oxycodone/Acetaminophen (Percocet 5/325 Tab*) 1 tab PO Q4H PRN PRN Reason: Pain Polyethylene Glycol/Electrolytes (Miralax*) 17 gm PO Q48H PRN PRN Reason: Constipation Prochlorperazine Edisylate (Compazine Inj*) 5 mg IV Q6H PRN PRN Reason: NAUSEA/VOMITING Last Admin: 05/14/18 02:18 Dose: 5 mg Senna (Senokot Tab*) 2 tab PO DAILY [facility] Last Admin: 05/14/18 08:19 Dose: 2 tab Spironolactone (Aldactone Tab*) 25 mg PO DAILY [facility] Torsemide (Demadex*) 10 mg PO DAILY [facility] Last Admin: 05/14/18 08:19 Dose: 10 mg Trazodone HCl (Desyrel Tab*) 100 mg PO BEDTIME PRN PRN Reason: INSOMNIA Home Medications: Aspirin EC TAB* [Ecotrin EC Low Dose 81 MG*] 81 mg PO DAILY #30 tab.ec 01/12/18 [Rx Confirmed 05/13/18] Acetaminophen TAB* [Tylenol TAB*] 650 mg PO Q6H PRN tab 03/15/18 [Rx Confirmed 05/13/18] Pantoprazole TAB (NF) [Protonix TAB (NF)] 40 mg PO DAILY #30 tab 03/15/18 [Rx Confirmed 05/13/18] Magnesium Oxide TAB* [MagOx 400 TAB*] 400 mg PO DAILY 04/02/18 [History Confirmed 05/13/18] Digoxin TAB* [Lanoxin TAB*] 0.125 mg PO Q48H 30 Days #15 tab 04/09/18 [Rx Confirmed 05/13/18] Levothyroxine TAB* [Synthroid 25 MCG TAB*] 25 mcg PO DAILY@0600 30 Days #30 tab 04/09/18 [Rx Confirmed 05/13/18] toprol 50 mg po daily Polyethylene Glycol 3350* [Miralax*] 17 gm PO Q48H PRN 30 Days #30 packet [Rx Confirmed 05/13/18] Senna/Docusate (NF) [Sennokot-S(NF)] 2 tab PO DAILY 30 Days #30 tab 04/09/18 [ Rx Confirmed 05/13/18] Torsemide TAB* [Demadex 20 MG*] 10 mg PO DAILY 30 Days #30 tab 04/09/18 [Rx Confirmed 05/13/18] traZODone TAB* [Desyrel TAB*] 100 mg PO BEDTIME PRN 30 Days #30 tab 04/09/18 [ Rx Confirmed 05/13/18] Review of Systems - Measurements Intake and Output: Intake and Output Last 24 Hours 05/12/18 05/13/18 05/14/18 05/15/18 06:59 06:59 06:59 06:59 Intake Total 120 Balance 120 Weight 145 lb 6.4 oz Intake: Medicated IV 120 magnesium 120 Oral 0 Other: Estimated Void Medium # Bowel Movements 0 # Voids 2 - Review of Systems Review of Systems Statement: All other review of systems negative, unless stated above. Objective Vital Signs: Temp Pulse Resp BP Pulse Ox 98.1 F 71 16 99/73 94 05/14/18 07:32 05/14/18 07:32 05/14/18 08:22 05/14/18 07:32 05/14/18 07:32 Oxygen Devices in Use Now: None Appearance: patient appears chronically ill but not acutely toxic Ears/Nose/Mouth/Throat: Clear Oropharnyx, Mucous Membranes Moist Neck: - - + jvd Respiratory: Symmetrical Chest Expansion and Respiratory Effort, Clear to Auscultation Cardiovascular: - - irregular, high pitched 2/6 systolic murmur LLSB, prominent PMI, icd pocket healed no signs of infection Abdominal: - - tender abdomen throughout, mildly distended Extremities: No Edema Skin: No Rash or Ulcers Neurological: Alert and Oriented x 3 Laboratory Results: 05/13/18 17:54 05/14/18 05:37 INR (Anticoag Therapy) 1.59 (0.77-1.02) H 05/13/18 18:57 APTT 31.4 seconds (26.0-36.3) 05/13/18 18:57 Total Bilirubin 3.90 mg/dL (0.2-1.0) H D 05/14/18 05:37 Direct Bilirubin 1.30 mg/dL (0.03-0.18) H 05/14/18 05:37 Indirect Bilirubin 2.6 mg/dL (0.3-1.0) H 05/14/18 05:37 AST 37 U/L (13-39) 05/14/18 05:37 ALT 40 U/L (7-52) 05/14/18 05:37 Alkaline Phosphatase 75 U/L (34-104) 05/14/18 05:37 B-Natriuretic Peptide 2424 pg/mL (-100) H 05/13/18 17:54 Total Protein 5.9 g/dL (6.4-8.9) L 05/14/18 05:37 Albumin 3.4 g/dL (3.2-5.2) 05/14/18 05:37 Globulin 2.5 g/dL (2-4) 05/14/18 05:37 Albumin/Globulin Ratio 1.4 (1-3) 05/14/18 05:37 TSH 9.97 mcIU/mL (0.34-5.60) H 05/13/18 17:54 05/13/18 17:54 Troponin I 0.02 Diagnostic Imaging: Diagnostic Imagin01/24/2018 echo LVEDD 6.9 cm, LVEF < 20% LA severely dilated Normal RV size with severely reduced function Mod-severe MR Mild-mod TR with normal estimated PASP CT abdomen and pelvis 04/02/2018 cardiomegaly, unchanged; moderate right-sided pleural effusion, represents a new finding; hepatomegaly and hepatic steatosis. Ascites with mild interval increase in amount. Bilateral nonobstructive nephrolithiasis is unchanged. CT abd/pelvix 05/13/2018 Small R effusion, moderate ascites EKG Data: ekg 03/15/2018 Afib, LVH with repolarization changes ekg 03/16/2018: 4:1 atrial flutter, LVH with repolarization changes EKG 04/02/2018: 2:1 atrial flutter, EKG 05/14/2018: Rapid atrial flutter, LVH with repolarization abnormalities Assessment/Plan In summary, Eugenio Brice is a 32 year old man with a history of NICM nearly 7 cm LVEDD with significant functional mitral regurgitation, ICD admitted with acute on chronic systolic HF with low output and ischemic/congestive hepatopathy and ascites in the setting of rapid atrial flutter. - Given IV digoxin 0.5 mg x 1 now and then 0.125 mcg po daily for rate control ( ordered) - Will hold off on beta-jose antonio for now given his low output failure and clear worsening of status in the past when IV beta-blockers were used and current worsening of liver studies after beta-jose antonio IV on admission. I did leave a 25 mg of oral tartrate to use PRN rate control and we will transition him to succinate regularly prior to discharge - Continue torsemide 10 mg po daily - Has not tolerated AceI in past - Add spironolactone 25 mg po daily (ordered) - Trend CMP and magnesium (ordered) - I think his heart failure would be easier to control if sinus rhythm were maintained. This can be further evaluated and treated as needed next month when he follows up at [place]. Thank you for allowing me to participate in the cardiovascular care of this patient. Please do not hesitate to contact me with questions or concerns.
[2018-05-14] MEDS ORDERED: Metoprolol Tartrate TAB* 25 MG PO PRN (10:12)
[2018-05-14] MEDS: Spironolactone TAB* 25 MG PO SCH (11:12)
--- NOTE | 2018-05-14 13:13 | PN ---
Subjective Date of Service: 05/14/18 Interval History: HOSPITALIST PROGRESS NOTE Patient seen and examined at bedside. His breathing is a little better this AM, but still feels poorly. Family History: Unchanged from Admission Social History: Unchanged from Admission Past Medical History: Unchanged from Admission Objective Active Medications: Acetaminophen (Tylenol Tab*) 650 mg PO Q6H PRN PRN Reason: pain/fever Al Hydrox/Mg Hydrox/Simethicone (Maalox Plus*) 30 ml PO Q6H PRN PRN Reason: INDIGESTION Aspirin (Aspirin Ec Tab*) 81 mg PO DAILY [facility] Last Admin: 05/14/18 08:19 Dose: 81 mg Digoxin (Lanoxin Tab*) 0.125 mg PO DAILY [facility] Docusate Sodium (Colace Cap*) 200 mg PO DAILY [facility] Last Admin: 05/14/18 08:19 Dose: 200 mg Levothyroxine Sodium (Synthroid Tab*) 25 mcg PO DAILY@0600 [facility] Last Admin: 05/14/18 05:13 Dose: 25 mcg Magnesium Oxide (Magox 400 Tab*) 400 mg PO DAILY [facility] Last Admin: 05/14/18 08:19 Dose: 400 mg Metoprolol Tartrate (Lopressor Tab*) 25 mg PO BID PRN PRN Reason: HEART RATE/PULSE GREATER THAN: Morphine Sulfate (Morphine Inj ((Syringe))*) 2 mg IV Q4H PRN PRN Reason: PAIN Last Admin: 05/14/18 08:22 Dose: 2 mg Oxycodone/Acetaminophen (Percocet 5/325 Tab*) 1 tab PO Q4H PRN PRN Reason: Pain Polyethylene Glycol/Electrolytes (Miralax*) 17 gm PO Q48H PRN PRN Reason: Constipation Prochlorperazine Edisylate (Compazine Inj*) 5 mg IV Q6H PRN PRN Reason: NAUSEA/VOMITING Last Admin: 05/14/18 02:18 Dose: 5 mg Senna (Senokot Tab*) 2 tab PO DAILY [facility] Last Admin: 05/14/18 08:19 Dose: 2 tab Spironolactone (Aldactone Tab*) 25 mg PO DAILY [facility] Last Admin: 05/14/18 11:12 Dose: 25 mg Torsemide (Demadex*) 10 mg PO DAILY [facility] Last Admin: 05/14/18 08:19 Dose: 10 mg Trazodone HCl (Desyrel Tab*) 100 mg PO BEDTIME PRN PRN Reason: INSOMNIA Vital Signs - 8 hr 05/14/18 05/14/18 05/14/18 07:32 07:46 08:22 Temperature 98.1 F Pulse Rate 71 Respiratory 20 18 16 Rate Blood Pressure 99/73 (mmHg) O2 Sat by Pulse 94 Oximetry 05/14/18 05/14/18 05/14/18 11:12 11:16 11:55 Temperature 98.1 F Pulse Rate 96 109 Respiratory 20 18 Rate Blood Pressure 97/68 (mmHg) O2 Sat by Pulse 90 Oximetry Oxygen Devices in Use Now: None Appearance: Young gentleman lying in bed in NAD. Eyes: No Scleral Icterus Ears/Nose/Mouth/Throat: Mucous Membranes Moist Neck: Trachea Midline Respiratory: Symmetrical Chest Expansion and Respiratory Effort, - - BS+ bilaterally with bibasilar crackles Cardiovascular: - - Normal S1 and S2, irregularly irregular, +SM Abdominal: - - Soft, NT, mild distention, BS+ Extremities: No Edema Neurological: Alert and Oriented x 3, NL Muscle Strength and Tone Result Diagrams: 05/13/18 17:54 05/14/18 05:37 Assess/Plan/Problems-Billing Assessment: Mr Brice is a 32yo M with PMH of non ischemic CMP with EF <20%, moderate to severe mitral regurgitation, s/p ICD, who presents to ED with c/o dyspnea, found to have acute systolic CHF exacerbation. - Patient Problems (1) Acute on chronic systolic (congestive) heart failure Comment: - Cardiology input appreciated - exacerbation in the setting of persistent Afib, may be easier to control if patient in NSR. - Continue Torsemide and add Aldactone. - Could not tolerate ACEI in the past. - Beta blockers on hold for now, but plan to resume prior to discharge. (2) Elevated LFTs Comment: - Secondary to congestive hepatopathy. - Continue diuresis. - LFTs (3) Atrial flutter Comment: - Continue digoxin as per Cardiology recommendation. - Plan for further f/u at [facility]. (4) DVT prophylaxis Comment: - SCD (5) Full code status
[2018-05-15] MEDS: Levothyroxine TAB* 25 MCG TAB PO SCH (06:26)
[2018-05-15] MEDS: Senna TAB PO SCH (08:02)
[2018-05-15] MEDS: Digoxin TAB* 0.125 MG PO SCH (08:03)
[2018-05-15] MEDS: Docusate CAP* 100 MG PO SCH (08:03)
[2018-05-15] MEDS: Magnesium Oxide TAB* 400 MG PO SCH (08:03)
[2018-05-15] MEDS: Spironolactone TAB* 25 MG PO SCH (08:04)
[2018-05-15] MEDS: Aspirin EC TAB* 81 MG TAB.EC PO SCH (08:04)
[2018-05-15] MEDS: Torsemide TAB* 20 MG PO SCH (08:04)
[2018-05-15] MEDS: Morphine INJ* 2 MG/ML 1 ML SYRINGE (TWO MG - NEW SYRINGE VERSION) IV PRN ×2 (08:09→14:11)
[2018-05-15] MEDS: Calamine/Pramoxine LOTION 8%/1%* 180 ML TOPICAL PRN ×2 (08:22→11:58)
[2018-05-15 08:36] LABS: EGFR Non-African American 72.7 (>60)
--- NOTE | 2018-05-15 08:40 | PN ---
Subjective Date of Service: 05/15/18 Interval History: f/u CHF abdomen a little better this AM able to sleep flat tele mostly rate controlled atrial flutter Medications Active Medications: Acetaminophen (Tylenol Tab*) 650 mg PO Q6H PRN PRN Reason: pain/fever Al Hydrox/Mg Hydrox/Simethicone (Maalox Plus*) 30 ml PO Q6H PRN PRN Reason: INDIGESTION Aspirin (Aspirin Ec Tab*) 81 mg PO DAILY [facility] Last Admin: 05/15/18 08:04 Dose: 81 mg Calamine/Pramoxine (Caladryl Lotion*) 1 applic TOPICAL QID PRN PRN Reason: ITCHING Last Admin: 05/15/18 08:22 Dose: 1 applic Digoxin (Lanoxin Tab*) 0.125 mg PO DAILY [facility] Last Admin: 05/15/18 08:03 Dose: 0.125 mg Docusate Sodium (Colace Cap*) 200 mg PO DAILY [facility] Last Admin: 05/15/18 08:03 Dose: Not Given Levothyroxine Sodium (Synthroid Tab*) 25 mcg PO DAILY@0600 [facility] Last Admin: 05/15/18 06:26 Dose: 25 mcg Magnesium Oxide (Magox 400 Tab*) 400 mg PO DAILY [facility] Last Admin: 05/15/18 08:03 Dose: 400 mg Metoprolol Tartrate (Lopressor Tab*) 25 mg PO BID PRN PRN Reason: HEART RATE/PULSE GREATER THAN: Morphine Sulfate (Morphine Inj ((Syringe))*) 2 mg IV Q4H PRN PRN Reason: PAIN Last Admin: 05/15/18 08:09 Dose: 2 mg Oxycodone/Acetaminophen (Percocet 5/325 Tab*) 1 tab PO Q4H PRN PRN Reason: Pain Polyethylene Glycol/Electrolytes (Miralax*) 17 gm PO Q48H PRN PRN Reason: Constipation Prochlorperazine Edisylate (Compazine Inj*) 5 mg IV Q6H PRN PRN Reason: NAUSEA/VOMITING Last Admin: 05/14/18 02:18 Dose: 5 mg Senna (Senokot Tab*) 2 tab PO DAILY [facility] Last Admin: 05/15/18 08:02 Dose: Not Given Spironolactone (Aldactone Tab*) 25 mg PO DAILY [facility] Last Admin: 05/15/18 08:04 Dose: 25 mg Torsemide (Demadex*) 10 mg PO DAILY [facility] Last Admin: 05/15/18 08:04 Dose: 10 mg Trazodone HCl (Desyrel Tab*) 100 mg PO BEDTIME PRN PRN Reason: INSOMNIA Objective Vital Signs: Temp Pulse Resp BP Pulse Ox 98.1 F 77 18 102/75 95 05/15/18 07:37 05/15/18 07:37 05/15/18 08:09 05/15/18 07:37 05/15/18 07:37 Oxygen Devices in Use Now: None Appearance: patient appears chronically ill but not acutely toxic Ears/Nose/Mouth/Throat: Clear Oropharnyx, Mucous Membranes Moist Neck: - - + jvd Respiratory: Symmetrical Chest Expansion and Respiratory Effort, Clear to Auscultation Cardiovascular: - - irregular, high pitched 2/6 systolic murmur LLSB, prominent PMI, icd pocket healed no signs of infection Abdominal: - - tender abdomen throughout, mildly distended Extremities: No Edema Skin: No Rash or Ulcers Neurological: Alert and Oriented x 3 Laboratory Results: 05/13/18 17:54 05/14/18 05:37 INR (Anticoag Therapy) 1.59 (0.77-1.02) H 05/13/18 18:57 APTT 31.4 seconds (26.0-36.3) 05/13/18 18:57 Total Bilirubin 3.90 mg/dL (0.2-1.0) H D 05/14/18 05:37 Direct Bilirubin 1.30 mg/dL (0.03-0.18) H 05/14/18 05:37 Indirect Bilirubin 2.6 mg/dL (0.3-1.0) H 05/14/18 05:37 AST 37 U/L (13-39) 05/14/18 05:37 ALT 40 U/L (7-52) 05/14/18 05:37 Alkaline Phosphatase 75 U/L (34-104) 05/14/18 05:37 B-Natriuretic Peptide 2424 pg/mL (-100) H 05/13/18 17:54 Total Protein 5.9 g/dL (6.4-8.9) L 05/14/18 05:37 Albumin 3.4 g/dL (3.2-5.2) 05/14/18 05:37 Globulin 2.5 g/dL (2-4) 05/14/18 05:37 Albumin/Globulin Ratio 1.4 (1-3) 05/14/18 05:37 TSH 9.97 mcIU/mL (0.34-5.60) H 05/13/18 17:54 05/13/18 17:54 Troponin I 0.02 Diagnostic Imaging: Diagnostic Imagin01/24/2018 echo LVEDD 6.9 cm, LVEF < 20% LA severely dilated Normal RV size with severely reduced function Mod-severe MR Mild-mod TR with normal estimated PASP CT abdomen and pelvis 04/02/2018 cardiomegaly, unchanged; moderate right-sided pleural effusion, represents a new finding; hepatomegaly and hepatic steatosis. Ascites with mild interval increase in amount. Bilateral nonobstructive nephrolithiasis is unchanged. CT abd/pelvix 05/13/2018 Small R effusion, moderate ascites EKG Data: ekg 03/15/2018 Afib, LVH with repolarization changes ekg 03/16/2018: 4:1 atrial flutter, LVH with repolarization changes EKG 04/02/2018: 2:1 atrial flutter, EKG 05/14/2018: Rapid atrial flutter, LVH with repolarization abnormalities Assessment/Plan In summary, Eugenio Brice is a 32 year old man with a history of NICM nearly 7 cm LVEDD with significant functional mitral regurgitation, ICD admitted with acute on chronic systolic HF with low output and ischemic/congestive hepatopathy and ascites in the setting of rapid atrial flutter. - Continue digoxin 0.125 mg po daily - Restart toprol at 25 mg po daily (Ordered) - Continue torsemide 10 mg po daily, likely will need more diuresis soon, AM labs pending - Has not tolerated AceI in past - Continue spironolactone 25 mg po daily - He has a f/u appt at the [facility] on 05/18/2018 Thank you for allowing me to participate in the cardiovascular care of this patient. Please do not hesitate to contact me with questions or concerns.
[2018-05-15] MEDS: Metoprolol Succinate XL TAB* 25 MG PO SCH (08:49)
[2018-05-15] MEDS ORDERED: Potassium Chlor TAB* 10 MEQ TAB.ER PO ONE (11:30)
[2018-05-15] MEDS ORDERED: Torsemide TAB* 20 MG PO ONE (11:30)
[2018-05-15] MEDS: oxyCODONE/Acetamin 5/325 MG* TAB PO PRN ×4 (12:00→23:47)
[2018-05-15] MEDS ORDERED: Magnesium Sulfate 1 GM IV* 1 GM/100 ML BAG IV ONE (13:30)
--- NOTE | 2018-05-15 17:53 | PN ---
Subjective Date of Service: 05/15/18 Interval History: Pt reports some improvement in his abdominal pain though still requesting pain meds. On Room air. Occasionally tachycardic to 150s with ambulation. Has no recollection of details of results of [facility] biopsy in 2008, does not ever recall hearing the term giant cell myocarditis. Does not talk to his mother ("his choice") so can't tell any details about her cardiomyopathy workup. Recorded weight as 142lbs twice at home before he stopped doing it. Requested nicotine patch RN noticed him digging at his arms, with some pruritis. his IV morphine stopped. Family History: Unchanged from Admission Social History: Unchanged from Admission Past Medical History: Unchanged from Admission Objective Active Medications: Acetaminophen (Tylenol Tab*) 650 mg PO Q6H PRN PRN Reason: pain/fever Al Hydrox/Mg Hydrox/Simethicone (Maalox Plus*) 30 ml PO Q6H PRN PRN Reason: INDIGESTION Aspirin (Aspirin Ec Tab*) 81 mg PO DAILY [facility] Last Admin: 05/15/18 08:04 Dose: 81 mg Calamine/Pramoxine (Caladryl Lotion*) 1 applic TOPICAL QID PRN PRN Reason: ITCHING Last Admin: 05/15/18 11:58 Dose: 1 applic Digoxin (Lanoxin Tab*) 0.125 mg PO DAILY [facility] Last Admin: 05/15/18 08:03 Dose: 0.125 mg Docusate Sodium (Colace Cap*) 200 mg PO DAILY [facility] Last Admin: 05/15/18 08:03 Dose: Not Given Levothyroxine Sodium (Synthroid Tab*) 25 mcg PO DAILY@0600 [facility] Last Admin: 05/15/18 06:26 Dose: 25 mcg Magnesium Oxide (Magox 400 Tab*) 400 mg PO DAILY [facility] Last Admin: 05/15/18 08:03 Dose: 400 mg Metoprolol Succinate (Toprol Xl Tab*) 25 mg PO DAILY [facility] Last Admin: 05/15/18 08:49 Dose: 25 mg Metoprolol Tartrate (Lopressor Tab*) 25 mg PO BID PRN PRN Reason: HEART RATE/PULSE GREATER THAN: Oxycodone/Acetaminophen (Percocet 5/325 Tab*) 1 tab PO Q4H PRN PRN Reason: Pain Last Admin: 05/15/18 15:39 Dose: 1 tab Polyethylene Glycol/Electrolytes (Miralax*) 17 gm PO Q48H PRN PRN Reason: Constipation Prochlorperazine Edisylate (Compazine Inj*) 5 mg IV Q6H PRN PRN Reason: NAUSEA/VOMITING Last Admin: 05/14/18 02:18 Dose: 5 mg Senna (Senokot Tab*) 2 tab PO DAILY [facility] Last Admin: 05/15/18 08:02 Dose: Not Given Spironolactone (Aldactone Tab*) 25 mg PO DAILY [facility] Last Admin: 05/15/18 08:04 Dose: 25 mg Torsemide (Demadex*) 10 mg PO DAILY [facility] Last Admin: 05/15/18 08:04 Dose: 10 mg Trazodone HCl (Desyrel Tab*) 100 mg PO BEDTIME PRN PRN Reason: INSOMNIA Vital Signs - 8 hr 05/15/18 05/15/18 05/15/18 10:56 12:00 14:11 Temperature 98.3 F Pulse Rate 105 Respiratory 12 18 18 Rate Blood Pressure 94/75 (mmHg) O2 Sat by Pulse 97 Oximetry 05/15/18 05/15/18 05/15/18 14:19 15:02 15:27 Temperature 97.6 F Pulse Rate 66 Respiratory 18 17 18 Rate Blood Pressure 118/85 (mmHg) O2 Sat by Pulse 97 Oximetry 05/15/18 05/15/18 15:39 17:47 Temperature Pulse Rate Respiratory 20 18 Rate Blood Pressure (mmHg) O2 Sat by Pulse Oximetry Oxygen Devices in Use Now: None Appearance: NAD, standing/walking. Eyes: No Scleral Icterus, PERRLA Ears/Nose/Mouth/Throat: NL Teeth, Lips, Gums Neck: NL Appearance and Movements; NL JVP Respiratory: - - fine rales right base. Cardiovascular: No Edema, - - very tachycardic seemingly regular, no m/r/g Abdominal: - - soft, distended. some tenderness to deep palpation. Skin: No Rash or Ulcers, No Nodules or Sclerosis Neurological: Alert and Oriented x 3, NL Sensation, NL Muscle Strength and Tone Nutrition: Taking PO's Result Diagrams: 05/13/18 17:54 05/15/18 08:07 Additional Lab and Data: Laboratory Results - last 24 hr 05/15/18 08:07 Sodium 134 L Potassium 3.8 Chloride 100 L Carbon Dioxide 27 Anion Gap 7 BUN 16 Creatinine 1.17 Est GFR ( Amer) 88.0 Est GFR (Non-Af Amer) 72.7 BUN/Creatinine Ratio 13.7 Glucose 133 H Calcium 8.8 Magnesium 1.9 Total Bilirubin 2.50 H AST 30 ALT 32 Alkaline Phosphatase 71 Total Protein 5.7 L Albumin 3.2 Globulin 2.5 Albumin/Globulin Ratio 1.3 Microbiology and Other Data: Microbiology 05/13/18 20:05 Blood Venous Aerobic Blood Culture - Preliminary No Growth Day 1 05/13/18 20:05 Blood Venous Anaerobic Blood Culture - Preliminary No Growth Day 1 05/13/18 18:57 Blood Venous Aerobic Blood Culture - Preliminary No Growth Day 1 05/13/18 18:57 Blood Venous Anaerobic Blood Culture - Preliminary No Growth Day 1 05/13/18 19:32 Urine Urine Culture - Final No Growth (<1,000 CFU/mL) Assess/Plan/Problems-Billing Assessment: Mr Brice is a 32yo M with PMH of 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 found to have acute systolic CHF exacerbation. Medication noncompliance - Patient Problems (1) Acute on chronic systolic (congestive) heart failure Current Visit: Yes Status: Acute Code(s): I50.23 - ACUTE ON CHRONIC SYSTOLIC (CONGESTIVE) HEART FAILURE SNOMED Code(s): 528789387 Comment: - Cardiology input appreciated - exacerbation in the setting of persistent Afib/flutter, medication noncompliance, ?recent alcohol use - appreciate cardiology recs. - metoprolol 25mg daily started today. - Continue Torsemide 10mg daily - continue spironolactone 25mg daily. - Developed some hypotension with ACEI in March. - EF <20% 01/24/18. (2) Atrial flutter Current Visit: Yes Status: Acute Code(s): I48.92 - UNSPECIFIED ATRIAL FLUTTER SNOMED Code(s): 0104387 Comment: - Continue digoxin as per Cardiology recommendation. - Rechedk level 9/2 - Plan for further f/u at [facility]. (3) Elevated LFTs Current Visit: Yes Status: Acute Code(s): R94.5 - ABNORMAL RESULTS OF LIVER FUNCTION STUDIES SNOMED Code(s): 819679913 Comment: - Secondary to congestive hepatopathy. - Continue diuresis. - LFTs (4) Cardiomyopathy Current Visit: No Status: Acute Code(s): I42.9 - CARDIOMYOPATHY, UNSPECIFIED SNOMED Code(s): 83116236 Comment: Most recent EF <20%. ICD implanted with broken lead. Fluid overloaded on Presentation, Lasix now at home dose with no pulmonary edema. Will need life vest at discharge and close follow up with [employer] for lead replacement. Unknown cause. Continue BB, Multaq, and Lisinopril. (5) Tobacco abuse Current Visit: No Status: Acute Code(s): Z72.0 - TOBACCO USE SNOMED Code(s ): 405075645 Comment: - Continue Nicotine replacement. PT advised to quit smoking and avoid second hand smoke. (6) Abdominal pain Current Visit: Yes Status: Acute Code(s): R10.9 - UNSPECIFIED ABDOMINAL PAIN SNOMED Code(s): 24799466 Comment: Pt with cardiac ascites. Hx of remote cocaine abuse. I am stopping his IV morphine. currently on percoset q4h prn. (7) Hypothyroid Current Visit: No Status: Acute Code(s): E03.9 - HYPOTHYROIDISM, UNSPECIFIED SNOMED Code(s): 67370788 Comment: TSH 9.75 on 04/02/18 and 9.97 now. Medication noncompliance has been an issue. levothyroxine increased from 25 mcg (started 04/06) to 50mcg. Repeat TSH in 4-6 weeks. Status and Disposition: medicine inpatient.
[2018-05-15] MEDS: Nicotine PATCH 7 MG/24 HR* PATCH TRANSDERM SCH (18:17)
[2018-05-15] MEDS: Nicotine Patch Removal NOTE PATCH OFF SCH ×2 (22:06→23:55)
[2018-05-16] MEDS: Levothyroxine TAB* 25 MCG TAB PO SCH (05:05)
[2018-05-16] MEDS: oxyCODONE/Acetamin 5/325 MG* TAB PO PRN ×3 (05:08→21:31)
[2018-05-16] MEDS ORDERED: Magnesium Sulfate 1 GM IV* 1 GM/100 ML BAG IV ONE (08:22)
[2018-05-16] MEDS: Senna TAB PO SCH (08:49)
[2018-05-16] MEDS: Docusate CAP* 100 MG PO SCH (08:49)
[2018-05-16] MEDS: Spironolactone TAB* 25 MG PO SCH (08:50)
[2018-05-16] MEDS: Magnesium Oxide TAB* 400 MG PO SCH (08:50)
[2018-05-16] MEDS: Digoxin TAB* 0.125 MG PO SCH (08:51)
[2018-05-16] MEDS: Torsemide TAB* 20 MG PO SCH (08:51)
[2018-05-16] MEDS: Nicotine PATCH 7 MG/24 HR* PATCH TRANSDERM SCH (08:52)
[2018-05-16] MEDS: Aspirin EC TAB* 81 MG TAB.EC PO SCH (08:52)
[2018-05-16] MEDS: Metoprolol Succinate XL TAB* 25 MG PO SCH (08:52)
[2018-05-16] MEDS ORDERED: Metoprolol Succinate XL TAB* 25 MG PO ONE (10:15)
[2018-05-16] MEDS ORDERED: diPHENhydraMINE IV* 25 MG in NS 0.9% 50 ML* 50 ML IVPB PRN (11:02)
[2018-05-16] MEDS ORDERED: Furosemide IV* 10 MG/ML 10 ML VIAL (100 MG) IV ONE (11:02)
--- NOTE | 2018-05-16 11:08 | PN ---
Subjective Date of Service: 05/16/18 Interval History: f/u CHF continues to improve, still has dyspnea and lower abdomen pain tele atrial flutter, rqeuired prn metoprolol overnight Medications Active Medications: Acetaminophen (Tylenol Tab*) 650 mg PO Q6H PRN PRN Reason: pain/fever Al Hydrox/Mg Hydrox/Simethicone (Maalox Plus*) 30 ml PO Q6H PRN PRN Reason: INDIGESTION Aspirin (Aspirin Ec Tab*) 81 mg PO DAILY [facility] Last Admin: 05/16/18 08:52 Dose: 81 mg Calamine/Pramoxine (Caladryl Lotion*) 1 applic TOPICAL QID PRN PRN Reason: ITCHING Last Admin: 05/15/18 11:58 Dose: 1 applic Digoxin (Lanoxin Tab*) 0.125 mg PO DAILY [facility] Last Admin: 05/16/18 08:51 Dose: 0.125 mg Docusate Sodium (Colace Cap*) 200 mg PO DAILY [facility] Last Admin: 05/16/18 08:49 Dose: Not Given Furosemide (Lasix Iv*) 80 mg IV ONCE ONE Stop: 05/16/18 11:03 Diphenhydramine HCl 25 mg/ (Sodium Chloride) 50.5 mls @ 101 mls/hr IVPB Q6H PRN PRN Reason: ITCHING Levothyroxine Sodium (Synthroid Tab*) 50 mcg PO DAILY@0600 [facility] Last Admin: 05/16/18 05:05 Dose: 50 mcg Magnesium Oxide (Magox 400 Tab*) 400 mg PO DAILY [facility] Last Admin: 05/16/18 08:50 Dose: 400 mg Metoprolol Succinate (Toprol Xl Tab*) 25 mg PO ONCE ONE Stop: 05/16/18 10:16 Metoprolol Succinate (Toprol Xl Tab*) 50 mg PO DAILY [facility] Metoprolol Tartrate (Lopressor Tab*) 25 mg PO BID PRN PRN Reason: HEART RATE/PULSE GREATER THAN: Last Admin: 05/16/18 00:29 Dose: 25 mg Nicotine (Nicotine Patch 7 Mg/24 Hr*) 1 patch TRANSDERM DAILY [facility] Last Admin: 05/16/18 08:52 Dose: 1 patch Oxycodone/Acetaminophen (Percocet 5/325 Tab*) 1 tab PO Q4H PRN PRN Reason: Pain Last Admin: 05/16/18 10:01 Dose: 1 tab Pharmacy Profile Note (Nicotine Patch Removal Note*) 1 note PATCH OFF [address] [facility] Last Admin: 05/15/18 23:55 Dose: 1 note Polyethylene Glycol/Electrolytes (Miralax*) 17 gm PO Q48H PRN PRN Reason: Constipation Prochlorperazine Edisylate (Compazine Inj*) 5 mg IV Q6H PRN PRN Reason: NAUSEA/VOMITING Last Admin: 05/14/18 02:18 Dose: 5 mg Senna (Senokot Tab*) 2 tab PO DAILY [facility] Last Admin: 05/16/18 08:49 Dose: Not Given Spironolactone (Aldactone Tab*) 25 mg PO DAILY [facility] Last Admin: 05/16/18 08:50 Dose: 25 mg Torsemide (Demadex*) 20 mg PO DAILY [facility] Trazodone HCl (Desyrel Tab*) 100 mg PO BEDTIME PRN PRN Reason: INSOMNIA Objective Vital Signs: Temp Pulse Resp BP Pulse Ox 97.7 F 72 18 98/62 91 05/16/18 07:26 05/16/18 08:51 05/16/18 10:01 05/16/18 07:26 05/16/18 07:26 Oxygen Devices in Use Now: None Appearance: patient appears chronically ill but not acutely toxic Ears/Nose/Mouth/Throat: Clear Oropharnyx, Mucous Membranes Moist Neck: - - + jvd Respiratory: Symmetrical Chest Expansion and Respiratory Effort, Clear to Auscultation Cardiovascular: - - irregular, high pitched 2/6 systolic murmur LLSB, prominent PMI, icd pocket healed no signs of infection Abdominal: - - tender abdomen throughout, mildly distended Extremities: No Edema Skin: No Rash or Ulcers Neurological: Alert and Oriented x 3 Laboratory Results: 05/13/18 17:54 05/16/18 05:05 INR (Anticoag Therapy) 1.59 (0.77-1.02) H 05/13/18 18:57 APTT 31.4 seconds (26.0-36.3) 05/13/18 18:57 Total Bilirubin 1.80 mg/dL (0.2-1.0) H 05/16/18 05:05 Direct Bilirubin 1.30 mg/dL (0.03-0.18) H 05/14/18 05:37 Indirect Bilirubin 2.6 mg/dL (0.3-1.0) H 05/14/18 05:37 AST 31 U/L (13-39) 05/16/18 05:05 ALT 31 U/L (7-52) 05/16/18 05:05 Alkaline Phosphatase 73 U/L (34-104) 05/16/18 05:05 B-Natriuretic Peptide 2424 pg/mL (-100) H 05/13/18 17:54 Total Protein 5.9 g/dL (6.4-8.9) L 05/16/18 05:05 Albumin 3.5 g/dL (3.2-5.2) 05/16/18 05:05 Globulin 2.4 g/dL (2-4) 05/16/18 05:05 Albumin/Globulin Ratio 1.5 (1-3) 05/16/18 05:05 TSH 9.97 mcIU/mL (0.34-5.60) H 05/13/18 17:54 05/13/18 17:54 Troponin I 0.02 Diagnostic Imaging: Diagnostic Imagin01/24/2018 echo LVEDD 6.9 cm, LVEF < 20% LA severely dilated Normal RV size with severely reduced function Mod-severe MR Mild-mod TR with normal estimated PASP CT abdomen and pelvis 04/02/2018 cardiomegaly, unchanged; moderate right-sided pleural effusion, represents a new finding; hepatomegaly and hepatic steatosis. Ascites with mild interval increase in amount. Bilateral nonobstructive nephrolithiasis is unchanged. CT abd/pelvix 05/13/2018 Small R effusion, moderate ascites EKG Data: ekg 03/15/2018 Afib, LVH with repolarization changes ekg 03/16/2018: 4:1 atrial flutter, LVH with repolarization changes EKG 04/02/2018: 2:1 atrial flutter, EKG 05/14/2018: Rapid atrial flutter, LVH with repolarization abnormalities Assessment/Plan In summary, Eugenio Brice is a 32 year old man with a history of NICM nearly 7 cm LVEDD with significant functional mitral regurgitation, ICD admitted with acute on chronic systolic HF with low output and ischemic/congestive hepatopathy and ascites in the setting of rapid atrial flutter. - Continue digoxin 0.125 mg po daily - Increase toprol to 50 mg po daily (ordered) - Continue torsemide, increase to 20 mg po daily and given 80 mg IV lasix today - Has not tolerated AceI in past - Continue spironolactone 25 mg po daily - He has a f/u appt at the [facility] on 05/18/2018 for cardiopulmonary exercise testing as part of advanced heart failure evaluation Thank you for allowing me to participate in the cardiovascular care of this patient. Please do not hesitate to contact me with questions or concerns.
[2018-05-16] MEDS ORDERED: diPHENhydraMINE IV* 50 MG/ML 1 ml VIAL (BENADRYL) IV PRN (11:13)
--- NOTE | 2018-05-16 12:09 | PN ---
Subjective Date of Service: 05/16/18 Interval History: Pt complaint of continued shortness of breath and abdominal discomfort in the lower abdomen. Itching at the right arm (predates admission by months). No chest pain. HRs to 140-150s with ambulation, 100-110s otherwise. Digoxing 0.9 getting percosets 10am, 5am, 11pm, 7pm, 3pm [facility] stable. Family History: Unchanged from Admission Social History: Unchanged from Admission Past Medical History: Unchanged from Admission Objective Active Medications: Acetaminophen (Tylenol Tab*) 650 mg PO Q6H PRN PRN Reason: pain/fever Al Hydrox/Mg Hydrox/Simethicone (Maalox Plus*) 30 ml PO Q6H PRN PRN Reason: INDIGESTION Aspirin (Aspirin Ec Tab*) 81 mg PO DAILY [facility] Last Admin: 05/16/18 08:52 Dose: 81 mg Calamine/Pramoxine (Caladryl Lotion*) 1 applic TOPICAL QID PRN PRN Reason: ITCHING Last Admin: 05/15/18 11:58 Dose: 1 applic Digoxin (Lanoxin Tab*) 0.125 mg PO DAILY [facility] Last Admin: 05/16/18 08:51 Dose: 0.125 mg Diphenhydramine HCl (Benadryl Iv*) 25 mg IV Q6H PRN PRN Reason: ITCHING Docusate Sodium (Colace Cap*) 200 mg PO DAILY [facility] Last Admin: 05/16/18 08:49 Dose: Not Given Levothyroxine Sodium (Synthroid Tab*) 50 mcg PO DAILY@0600 [facility] Last Admin: 05/16/18 05:05 Dose: 50 mcg Magnesium Oxide (Magox 400 Tab*) 400 mg PO DAILY [facility] Last Admin: 05/16/18 08:50 Dose: 400 mg Metoprolol Succinate (Toprol Xl Tab*) 50 mg PO DAILY [facility] Metoprolol Tartrate (Lopressor Tab*) 25 mg PO BID PRN PRN Reason: HEART RATE/PULSE GREATER THAN: Last Admin: 05/16/18 00:29 Dose: 25 mg Nicotine (Nicotine Patch 7 Mg/24 Hr*) 1 patch TRANSDERM DAILY [facility] Last Admin: 05/16/18 08:52 Dose: 1 patch Oxycodone/Acetaminophen (Percocet 5/325 Tab*) 1 tab PO Q4H PRN PRN Reason: Pain Last Admin: 05/16/18 10:01 Dose: 1 tab Pharmacy Profile Note (Nicotine Patch Removal Note*) 1 note PATCH OFF 2100 [facility] Last Admin: 05/15/18 23:55 Dose: 1 note Polyethylene Glycol/Electrolytes (Miralax*) 17 gm PO Q48H PRN PRN Reason: Constipation Prochlorperazine Edisylate (Compazine Inj*) 5 mg IV Q6H PRN PRN Reason: NAUSEA/VOMITING Last Admin: 05/14/18 02:18 Dose: 5 mg Senna (Senokot Tab*) 2 tab PO DAILY [facility] Last Admin: 05/16/18 08:49 Dose: Not Given Spironolactone (Aldactone Tab*) 25 mg PO DAILY [facility] Last Admin: 05/16/18 08:50 Dose: 25 mg Torsemide (Demadex*) 20 mg PO DAILY [facility] Trazodone HCl (Desyrel Tab*) 100 mg PO BEDTIME PRN PRN Reason: INSOMNIA Vital Signs - 8 hr 05/16/18 05/16/18 05/16/18 05:08 07:26 08:00 Temperature 97.7 F Pulse Rate 72 Respiratory 16 20 16 Rate Blood Pressure 98/62 (mmHg) O2 Sat by Pulse 91 Oximetry 05/16/18 05/16/18 05/16/18 08:48 08:51 10:01 Temperature Pulse Rate 72 Respiratory 16 18 Rate Blood Pressure (mmHg) O2 Sat by Pulse Oximetry Oxygen Devices in Use Now: None Appearance: NAD, initially asleep. Eyes: No Scleral Icterus, PERRLA Neck: NL Appearance and Movements; NL JVP, Trachea Midline Respiratory: Symmetrical Chest Expansion and Respiratory Effort, Clear to Auscultation Cardiovascular: - - tachycardic, irregular, 2/6 DARRYL Abdominal: - - soft, moderately distened. tender to palpation, no rebound or guarding. Extremities: No Edema Skin: No Rash or Ulcers, No Nodules or Sclerosis Neurological: Alert and Oriented x 3, NL Sensation, NL Muscle Strength and Tone Result Diagrams: 05/13/18 17:54 05/16/18 05:05 Additional Lab and Data: Laboratory Results - last 24 hr 05/15/18 08:07 Sodium 134 L Potassium 3.8 Chloride 100 L Carbon Dioxide 27 Anion Gap 7 BUN 16 Creatinine 1.17 Est GFR ( Amer) 88.0 Est GFR (Non-Af Amer) 72.7 BUN/Creatinine Ratio 13.7 Glucose 133 H Calcium 8.8 Magnesium 1.9 Total Bilirubin 2.50 H AST 30 ALT 32 Alkaline Phosphatase 71 Total Protein 5.7 L Albumin 3.2 Globulin 2.5 Albumin/Globulin Ratio 1.3 Microbiology and Other Data: Microbiology 05/13/18 20:05 Blood Venous Aerobic Blood Culture - Preliminary No Growth Day 1 05/13/18 20:05 Blood Venous Anaerobic Blood Culture - Preliminary No Growth Day 1 05/13/18 18:57 Blood Venous Aerobic Blood Culture - Preliminary No Growth Day 1 05/13/18 18:57 Blood Venous Anaerobic Blood Culture - Preliminary No Growth Day 1 05/13/18 19:32 Urine Urine Culture - Final No Growth (<1,000 CFU/mL) Assess/Plan/Problems-Billing Assessment: Mr Brice is a 32yo M with PMH of 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 found to have acute systolic CHF exacerbation. Medication noncompliance - Patient Problems (1) Acute on chronic systolic (congestive) heart failure Current Visit: Yes Status: Acute Code(s): I50.23 - ACUTE ON CHRONIC SYSTOLIC (CONGESTIVE) HEART FAILURE SNOMED Code(s): 187513255 Comment: - Cardiology input appreciated - exacerbation in the setting of persistent Afib/flutter, medication noncompliance, ?recent alcohol use - appreciate cardiology recs. - metoprolol increased to 50mg daily - 80IV lasix once today and tomorrow increase Torsemide to 20mg daily (he had actually been taking more frequently than daily the 10mg at home - continue spironolactone 25mg daily. - Developed some hypotension with ACEI in March. - EF <20% 01/24/18. (2) Atrial flutter Current Visit: Yes Status: Acute Code(s): I48.92 - UNSPECIFIED ATRIAL FLUTTER SNOMED Code(s): 6000109 Comment: - Continue digoxin 0.125mg daily (previously q48 at home but somewhat noncompliant) as per Cardiology recommendation. - Level 0.9, good. - Plan for further f/u at [facility]. (3) Elevated LFTs Current Visit: Yes Status: Acute Code(s): R94.5 - ABNORMAL RESULTS OF LIVER FUNCTION STUDIES SNOMED Code(s): 293405531 Comment: - Secondary to congestive hepatopathy. - Continue diuresis with improvement. - LFTs (4) Cardiomyopathy Current Visit: No Status: Acute Code(s): I42.9 - CARDIOMYOPATHY, UNSPECIFIED SNOMED Code(s): 84229805 Comment: Most recent EF <20%. ICD implanted with broken lead. Fluid overloaded on Presentation, Lasix now at home dose with no pulmonary edema. Will need life vest at discharge and close follow up with [employer] for lead replacement. Unknown cause. Continue BB, Multaq, and Lisinopril. (5) Tobacco abuse Current Visit: No Status: Acute Code(s): Z72.0 - TOBACCO USE SNOMED Code(s ): 955408200 Comment: - Continue Nicotine replacement. PT advised to quit smoking and avoid second hand smoke. (6) Abdominal pain Current Visit: Yes Status: Acute Code(s): R10.9 - UNSPECIFIED ABDOMINAL PAIN SNOMED Code(s): 89084188 Comment: Pt with cardiac ascites. Hx of remote cocaine abuse. currently on percoset q4h prn. increased diuresis. (7) Hypothyroid Current Visit: No Status: Acute Code(s): E03.9 - HYPOTHYROIDISM, UNSPECIFIED SNOMED Code(s): 93558184 Comment: TSH 9.75 on 04/02/18 and 9.97 now. Medication noncompliance has been an issue. levothyroxine increased from 25 mcg (started 04/06) to 50mcg. Repeat TSH in 4-6 weeks. Status and Disposition: medicine inpatient. Hopeful discharge 05/17
[2018-05-16] MEDS: Nicotine Patch Removal NOTE PATCH OFF SCH (21:03)
[2018-05-17] MEDS: oxyCODONE/Acetamin 5/325 MG* TAB PO PRN (05:09)
[2018-05-17] MEDS: Levothyroxine TAB* 25 MCG TAB PO SCH (05:09)
[2018-05-17 05:43] LABS: EGFR Non-African American 73.4 (>60)
[2018-05-17 07:44] VITALS: BP 101/71
[2018-05-17] MEDS ORDERED: Torsemide TAB* 20 MG PO SCH (09:00)
[2018-05-17] MEDS ORDERED: Metoprolol Succinate XL TAB* 50 MG PO SCH (09:00)
[2018-05-17] MEDS: Digoxin TAB* 0.125 MG PO SCH (09:37)
[2018-05-17] MEDS: Magnesium Oxide TAB* 400 MG PO SCH (09:37)
[2018-05-17] MEDS: Senna TAB PO SCH (09:38)
[2018-05-17] MEDS: Docusate CAP* 100 MG PO SCH (09:38)
[2018-05-17] MEDS: Aspirin EC TAB* 81 MG TAB.EC PO SCH (09:38)
[2018-05-17] MEDS: Spironolactone TAB* 25 MG PO SCH (09:38)
--- NOTE | 2018-05-17 17:17 | DS ---
CC: Dr. Curiel * DISCHARGE SUMMARY: DATE OF ADMISSION: 05/14/18 DATE OF DISCHARGE: 05/17/18 PATIENT OF ADMITTING HOSPITALIST: Dr. Palak Wallace. ATTENDING HOSPITALIST: While patient was here is Dr. Imelda Miller. * ( DICTATED BY MYNOR DAVE) PRIMARY CARE PROVIDER: Keisha Dorado NP PRIMARY MEDICAL EDUCATION MANAGER: Dr. Curiel. CONSULTATION: Dr. Santos Peoples from cardiology department. ADMISSION DIAGNOSES: 1. Paroxysmal nocturnal dyspnea. 2. Increase in abdominal girth. 3. Abdominal pain. 4. History of atrial flutter and atrial fibrillation. 5. History of nonischemic cardiomyopathy with ejection fraction of 20%. 6. History of systolic congestive heart failure. 7. History of implantable cardioverter-defibrillator placement with malfunctioning, possibly due to lead being fractured, noted last month. 8. History of congestive hepatopathy and renal insufficiency. DISCHARGE DIAGNOSES: 1. Paroxysmal nocturnal dyspnea. 2. Increase in abdominal girth. 3. Abdominal pain. 4. History of atrial flutter and atrial fibrillation. 5. History of nonischemic cardiomyopathy with ejection fraction of 20%. 6. History of systolic congestive heart failure. 7. History of implantable cardioverter-defibrillator placement with malfunctioning, possibly due to lead being fractured, noted last month. 8. History of congestive hepatopathy and renal insufficiency. HISTORY OF PRESENT ILLNESS: Mr. Brice is a 32-year-old gentleman, who is well known to us from prior admission, who carries history of nonischemic cardiomyopathy and chronic systolic heart failure for which he had an ICD placed and has been seen at the cardiopulmonary rehab facility in [place], who presented to the emergency room on 05/14/18 with complaints of worsening paroxysmal nocturnal dyspnea as well as increased abdominal girth and discomfort. Last time the patient was admitted for congestive heart failure with similar symptoms was back at the end of March. He states that he usually experiences these symptoms when he gets congestive heart failure with increased abdominal girth and associated discomfort. He denies any lower extremity edema or dyspnea at rest. He was evaluated in the emergency room and noted to have a normal white count of 5000; however, his BNP which has been chronically elevated was high at 2424. He also had a CT scan of the abdomen and pelvis that revealed chronic unchanged bilateral atelectasis at the bases of the lung as well as nonobstructing nephrolithiasis and moderate amount of ascites in the abdomen and pelvis. A portable chest x-ray revealed cardiomegaly with slight increase in size compared to prior studies. Given his ongoing symptoms and his known history of cardiomyopathy and systolic heart failure, we were asked to see the patient for further evaluation and to consider admission. HOSPITAL COURSE: The patient was admitted to telemetry unit under hospitalist services. He was given an 80 mg dose of IV Lasix with significant improvement of his CHF symptoms. Consultation by Dr. Santos Peoples was obtained given known history of cardiomyopathy as well as atrial fibrillation and flutter. Recommendation by Cardiology was given to increase his dose of torsemide to 20 mg daily as well as maintaining him on spironolactone at 25 mg as well as increase his dose of metoprolol to 50 mg. The patient was also given IV dose of digoxin at 0.5 mg once and then followed by his regular dose of digoxin at 0.125 mg daily for rate control. The patient noticed gradual improvement on a daily basis. He was followed by Cardiology every day and he informed us that any malfunction related to his ICD was corrected when he went to [place] on his last visit. There was a question if the patient needs any LifeVest upon discharge; however, I have discussed the case with Dr. Peoples prior to sending the patient home and he informed me that the patient does not need LifeVest and he will follow up with cardiopulmonary rehab facility at [facility] in [place] as planned the day after his discharge. His laboratory workup was drawn on a daily basis with improvement of his total bilirubin that was elevated upon admission at 3.9 and then reduced to 1.7 the day of discharge. His BNP, however, was elevated at 3966 upon discharge; however, the patient had no symptoms of shortness of breath or increased extremity edema. He had maintained good oxygen saturation on room air at 99% to 100%. He was ambulatory out of bed and in stable condition. 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 On exam today, his vitals were stable with temperature of 97.4, pulse of 52, respirations of 20, O2 sat of 99% on room air, and blood pressure of 101/71. His lungs were clear to auscultation bilaterally. His heart was regular rate and rhythm with subtle systolic murmur noted, unchanged. His abdomen was mildly distended, but nontender and soft without hernias, masses, or hepatosplenomegaly. All his discharge instructions were given and the patient will follow up with primary care physician next week and he has an appointment tomorrow, 05/18/18, at 8 o'clock in the morning at [facility] for routine followup. DISCHARGE MEDICATIONS: Include: 1. Magnesium oxide 400 mg p.o. daily. 2. Tylenol 650 mg p.o. q.6 hours as needed for pain or fever. 3. Aspirin 81 mg p.o. daily. 4. Digoxin 0.125 mg p.o. daily. 5. Synthroid 25 mcg p.o. daily. 6. Metoprolol 50 mg p.o. daily. 7. Percocet 5/325 one tablet q.4 hours as needed for pain. 8. Protonix 40 mg p.o. daily. 9. MiraLAX 17 g p.o. daily as needed for constipation. 10. Spironolactone 25 mg p.o. daily. 11. Torsemide 20 mg p.o. daily. 12. Trazodone 100 mg p.o. q.h.s. MYNOR DAVE [id number]/[facility] #: [id number] MTDD
== END 2018-05-17 10:02 | disposition home or self-care (01) | DRG 194 ==
LOC: ED 17:18 → MEDTELE 05-14 00:30
PROVIDERS: ADMIT Internal Medicine; ATTEND Hospitalist
DX: I50.23 Acute on chronic systolic (congestive) heart failure (principal); I48.92 Unspecified atrial flutter; R18.8 Other ascites; I42.8 Other cardiomyopathies; J98.11 Atelectasis; E83.42 Hypomagnesemia; K76.1 Chronic passive congestion of liver; R06.09 Other forms of dyspnea; R10.9 Unspecified abdominal pain; I48.0 Paroxysmal atrial fibrillation; F17.210 Nicotine dependence, cigarettes, uncomplicated; R94.5 Abnormal results of liver function studies; I34.0 Nonrheumatic mitral (valve) insufficiency; Z95.810 Presence of automatic (implantable) cardiac defibrillator; Z79.1 Long term (current) use of non-steroidal anti-inflammatories (NSAID); Z79.82 Long term (current) use of aspirin; Z79.899 Other long term (current) drug therapy; Z82.49 Family history of ischemic heart disease and other diseases of the circulatory system; Z91.14 Patient's other noncompliance with medication regimen; Z88.5 Allergy status to narcotic agent
CPT/HCPCS: 36415; 71045; 74177; 80048; 80053; 80076; 80162; 81003; 81015; 83605; 83735; 83880; 84145; 84443; 84484; 85025; 85610; 85730; 86140; 86850; 86900; 86901; 87040; 87086; 93005; 99284; A9270-GY; J0780; J1160; J1170; J1940; J2270; J2405; J3475; J3490; Q9967

== ENCOUNTER 2018-07-16 19:56 | Emergency (ER) | payer MEDICAID, OTHER ==
[2018-07-16] MEDS ORDERED: Ondansetron INJ* 2 MG/ML VIAL IV ONE (20:23)
--- NOTE | 2018-07-16 20:25 | ED ---
Abdominal Pain/Male - HPI Summary HPI Summary: This patient is a 32 year old M presenting to [facility] with a chief complaint of abdominal pain and chest pain since 3 days ago. The patient rates the pain 9/10 in severity. Symptoms aggravated by nothing. Symptoms alleviated by nothing. Patient reports vomiting, nausea, increasing SOB, and poor appetite. Patient denies fever, chills, diarrhea, or exposure to anyone who is sick. Pt has hx of CHF and cardiomyopathy and is on a Milrinone drip. Patient is currently infusing from home. - History of Current Complaint Chief Complaint: EDAbdPain Stated Complaint: ABD PAIN/VOMITING Time Seen by Provider: 07/16/18 20:12 Hx Obtained From: Patient Onset/Duration: Gradual Onset, Lasting Days - 3 days, Still Present Timing: Constant, Lasting Days Severity Initially: Moderate Severity Currently: Moderate Pain Intensity: 9 Pain Scale Used: 0-10 Numeric Location: Diffuse Radiates: Yes Radiates to: Chest Aggravating Factor(s): Nothing Alleviating Factor(s): Nothing Associated Signs And Symptoms: Positive: Decreased Appetite, Nausea, Vomiting. Negative: Fever, Diarrhea - Allergies/Home Medications Allergies/Adverse Reactions: Allergies Allergy/AdvReac Type Severity Reaction Status Date / Time No Known Allergies Allergy Verified 05/24/18 04:37 Home Medications: Home Medications Apixaban* [Eliquis*] 5 mg PO BID 07/16/18 [History Confirmed 07/16/18] Candesartan Cilexetil [Atacand] 4 mg PO DAILY 07/16/18 [History Confirmed ] Cetirizine* [ZyrTEC 10 MG TAB*] 10 mg PO DAILY 07/16/18 [History Confirmed 07/16] Ferrous Sulfate TAB* 325 mg PO DAILY 07/16/18 [History Confirmed 07/16/18] Magnesium Oxide TAB* [MagOx 400 TAB*] 800 mg PO BID 07/16/18 [History Confirmed 07/16/18] Milrinone* [Primacor*] 2,000 mcg IV DAILY 07/16/18 [History Confirmed 07/16/18] PMH/Surg Hx/FS Hx/Imm Hx Endocrine/Hematology History: Denies: Hx Anticoagulant Therapy, Hx Diabetes Cardiovascular History: Reports: Hx Auto Implanted Cardiovert Defib, Hx Congenital Heart Disease - EF less than 20%, Hx Congestive Heart Failure, Hx Hypertension, Hx Pacemaker/ICD, Other Cardiovascular Problems/Disorders - CARDIOMYOPATHY, ICD Denies: Hx Peripheral Vascular Disease Respiratory History: Denies: Hx Chronic Obstructive Pulmonary Disease (COPD) GI History: Reports: Hx Gastroesophageal Reflux Disease, Other GI Disorders - elevated LFT's 01/24/18 History: Denies: Hx Renal Disease Sensory History: Denies: Hx Contacts or Glasses, Hx Deafness, Hx Hearing Aid Opthamlomology History: Denies: Hx Contacts or Glasses Neurological History: Denies: Hx Migraine, Hx Seizures, Hx Spinal Cord Injury, Hx Transient Ischemic Attacks (TIA) - Surgical History Surgery Procedure, Year, and Place: 01/22/18- defibrillator placed Infectious Disease History: No Infectious Disease History: Denies: Hx of Known/Suspected MRSA, Traveled Outside the [place] in Last 30 Days - Family History Known Family History: Positive: Cardiac Disease - Social History Alcohol Use: None Alcohol Amount: 6 pack Hx Substance Use: Yes Substance Use Type: Reports: None Substance Use Comment - Amount & Last Used: Daily Hx Tobacco Use: Yes Smoking Status (MU): Light Every Day Tobacco Smoker Type: Cigarettes Amount Used/How Often: 4-5 cig/day Have You Smoked in the Last Year: Yes Review of Systems Positive: Chills. Negative: Fever Positive: Chest Pain Positive: Shortness Of Breath Positive: Abdominal Pain, Vomiting, Nausea. Negative: Diarrhea Negative: Rash All Other Systems Reviewed And Are Negative: Yes Physical Exam - Summary Physical Exam Summary: GENERAL: Patient is a well-developed and nourished M appears uncomfortable secondary to pain.Patient shows increased work with breathing. HEAD AND FACE: Normocephalic EYES: PERRLA, EOMI x 2. EARS: Hearing grossly intact. MOUTH: Oropharynx within normal limits. NECK: Supple, trachea is midline, no adenopathy, no JVD, no carotid bruit. CHEST: Symmetric, no tenderness at palpation LUNGS: Clear to auscultation bilaterally. No wheezing or crackles. CVS: Regular rate and rhythm, S1 and S2 present, no murmurs or gallops appreciated. ABDOMEN: Soft, diffusely tender, worse in the epigastric region. Bowel sounds are normal. No abdominal abnormal pulsations. EXTREMITIES: Full ROM in all major joints, no edema, no cyanosis or clubbing. NEURO: Alert and oriented x 3. No acute neurological deficits. Speech is normal and follows commands. SKIN: Dry and warm Triage Information Reviewed: Yes Vital Signs On Initial Exam: Initial Vitals Temp Pulse Resp BP Pulse Ox 98.3 F 129 24 123/82 100 07/16/18 20:02 07/16/18 20:02 07/16/18 20:02 07/16/18 20:02 07/16/18 20:02 Vital Signs Reviewed: Yes Diagnostics - Vital Signs Vital Signs Temp Pulse Resp BP Pulse Ox 07/16/18 20:02 98.3 F 129 24 123/82 100 - Laboratory Result Diagrams: 07/16/18 20:59 07/16/18 20:59 Lab Statement: Any lab studies that have been ordered have been reviewed, and results considered in the medical decision making process. - CT CTA Abd/Pelvis CT Interpretation Completed By: Radiologist Summary of CT Findings: Acute cholecystitis. Bilateral nonobstructing renal calculi. Dr. Torres has reviewed this report. - EKG 20:22 Cardiac Rate: Tachycardia - at 124 bpm EKG Rhythm: Sinus Tachycardia EKG Comparison: Other - no significant change from EKG on 05/24/18 except prolonged QT intervals Summary of EKG Findings: sinus tachycardia at 124 bpm with LVH and prolonged QT intervals. - Additional Comments Diagnostic Additional Comments: US Gallbladder Interpreted by radiologist Impression: findings of acalculus cholecystitis. Dr. Torres has reviewed this report. Abdominal Pain Fem Course/Dx - Course Course Of Treatment: This patient is a 32 year old M presenting to [facility] with a chief complaint of abdominal pain, CP, SOB and N/V. Pt has hx of CHF and cardiomyopathy. An EKG reveals sinus tachycardia 124 bpm with LVH. Comparison with EKG from 05/24/18 revealed no significant changes except prolonged QT intervals. CTA Abd/Pelvis reveals, per radiologist, acute cholecystitis and bilateral non-obstructing renal calculi. US gallbladder reveals, per radiologist , acalculus cholecystitis. ED physician has reviewed these radiology reports. At 01:[address] Smith, surgeon, who advised patient be admitted through hospitalist. At 01:[address] Wallace, hospitalist , who advised patient be transferred to a higher level of care facility given his complexity. The patient will be transferred to [facility] for a continuity of care. Dr. Castellano auto-accepted the patient to the ED at [facility]. The patient agrees with this plan. Patient stable upon transfer. - Diagnoses Provider Diagnoses: Acute cholecystitis - Provider Notifications Discussed Care Of Patient With: Alek Smith Time Discussed With Above Provider: 01:00 Instructed by Provider To: Other - At 01:[address] Smith, surgeon, who advised patient be admitted through hospitalist. At 01:[address] Wallace, hospitalist, who advised patient be transferred to a higher level of care facility. Discharge - Sign-Out/Discharge Documenting (check all that apply): Patient Departure - transfer - Discharge Plan Condition: Stable Disposition: TRANS HIGHER LVL OF CARE FAC Referrals: Fernando Hendrix MD [Primary Care Provider] - - Billing Disposition and Condition Condition: STABLE Disposition: Trans Higher Lvl of Care Fac - Attestation Statements Document Initiated by Scribe: Yes Documenting Scribe: Pam Hitchcock Provider For Whom Scribe is Documenting (Include Credential): Grey Torres MD Scribe Attestation: Pam Colbert scribed for Grey Torres MD on 07/17/18 at 0200. Scribe Documentation Reviewed: Yes Provider Attestation: The documentation as recorded by the yumiibPam nicolas accurately reflects the service I personally performed and the decisions made by Marjorie gaona MD
[2018-07-16] MEDS ORDERED: Metoclopramide IV* 5 MG/ML 2 ML VIAL IV ONE (20:35)
[2018-07-16] MEDS: fentaNYL* 50 MCG/ML 2 ML VIAL (100 MCG VIAL) IV SLOW PU ONE (20:38)
[2018-07-16 21:11] LABS: ABS Basophils 0 10^3/ul (0-0.2); ABS Eosinophils 0 10^3/ul (0-0.6); ABS Lymphocytes 1.3 10^3/ul (1.0-4.8); ABS Monocytes 0.3 10^3/ul (0-0.8); ABS Nucleated RBC 0 10^3/ul; Eosinophil % 0.4 % (0-6); Hematocrit 36 % (42-52); Hemoglobin 12.2 g/dl (14.0-18.0); Lymphocyte % 22.8 % (25-47); Mean Corpuscular HGB Conc 34 g/dl (31-36); Mean Corpuscular Hemoglobin 32 pg (27-31); Mean Corpuscular Volume 95 fL (80-94); Mean Platelet Volume 7.9 fL (7.4-10.4); Nucleated Red Blood Cells % 0.2; Platelet Count 162 10^3/ul (150-450); Red Blood Count 3.84 10^6/ul (4.00-5.40); Red Cell Distribution Width 20 % (10.5-15); White Blood Count 5.7 10^3/ul (3.5-10.8)
[2018-07-16 21:20] LABS: INR 2.02 (0.77-1.02)
[2018-07-16 21:28] LABS: EGFR Non-African American 84.2 (>60)
[2018-07-16 21:40] LABS: Urine Appearance Clear; Urine Blood Negative (Negative); Urine Color Yellow; Urine Ketones Negative (Negative); Urine Protein Negative (Negative); Urine Specific Gravity 1.008 (1.010-1.030); Urine Urobilinogen Negative (Negative)
[2018-07-16] MEDS ORDERED: Iodixanol* (CONTRAST) 320 MG/ML 100 ML SDV IV ONE (22:50)
[2018-07-16] MEDS ORDERED: Morphine VIAL* 4 MG/ML VIAL (1 ml vial) IV ONE (23:32)
--- NOTE | 2018-07-16 23:37 | RAD ---
EXAM: CT Chest With Intravenous Contrast EXAM DATE/TIME: 07/16/2018 10:49 PM CLINICAL HISTORY: 32 years old, male; Signs and symptoms; Other: Chest/abdominal pain TECHNIQUE: Axial computed tomography images of the chest with intravenous contrast. All CT scans at this facility use at least one of these dose optimization techniques: automated exposure control; mA and/or kV adjustment per patient size (includes targeted exams where dose is matched to clinical indication); or iterative reconstruction. Coronal and sagittal reformatted images were created and reviewed. CONTRAST: 85 ml of [id number] administered intravenously. COMPARISON: No relevant prior studies available. FINDINGS: Tubes, catheters and devices: Left chest pacemaker generator with right atrial and ventricular leads. Thyroid: No thyroid nodules. Lungs: No pulmonary nodules, masses, or consolidations. No bronchiectasis, peribronchial thickening, or luminal defects. Pleural space: Normal. No pneumothorax. No pleural effusion. Heart: Biatrial and left ventricular dilation. No pericardial effusion. Aorta: Normal caliber aorta with no evidence of dissection or rupture. Lymph nodes: Normal. No enlarged lymph nodes. Bones/joints: No fractures. No suspicious bone lesions. Soft tissues: Normal. IMPRESSION: Cardiomegaly without overt failure. EXAM: CT Abdomen and Pelvis With Intravenous Contrast EXAM DATE/TIME: 07/16/2018 10:49 PM CLINICAL HISTORY: 32 years old, male; Signs and symptoms; Other: Chest/abdominal pain TECHNIQUE: Axial computed tomography images of the abdomen and pelvis with intravenous contrast. All CT scans at this facility use at least one of these dose optimization techniques: automated exposure control; mA and/or kV adjustment per patient size (includes targeted exams where dose is matched to clinical indication); or iterative reconstruction. Coronal and sagittal reformatted images were created and reviewed. CONTRAST: 85 ml of [id number] administered intravenously. COMPARISON: No relevant prior studies available. FINDINGS: Lower thorax: No acute findings. ABDOMEN: Liver: Normal. No mass. Gallbladder and bile ducts: Pericholecystic fluid with associated wall thickening. No radiopaque calculi. No intra-or extrahepatic biliary dilation. Pancreas: Normal. No ductal dilation. Spleen: Normal. No splenomegaly. Adrenals: Normal. No mass. Kidneys and ureters: Multiple bilateral nonobstructing renal calculi largest on the right kidney midpole measures 0.9 cm largest on the left midpole measures 0.3 cm. No pelvocaliectasis. Stomach and bowel: Incompletely distended grossly normal stomach. Normal caliber small bowel. No colonic masses or segmental wall thickening. Appendix: Normal caliber appendix without wall thickening or adjacent inflammation. PELVIS: Bladder: Mildly thick walled urinary bladder without perivesicular stranding. Reproductive: Normal sized prostate. Normal seminal vesicles. ABDOMEN and PELVIS: Intraperitoneal space: Tiny volume of free fluid in the lower pelvis. No hemorrhage or pneumoperitoneum. Bones/joints: No fractures. No suspicious bone lesions. Soft tissues: Normal. No hernias. Vasculature: Normal caliber aorta with no evidence of dissection or rupture. Patent IVC. Lymph nodes: Normal. No enlarged lymph nodes. IMPRESSION: 1. Findings suggest acute cholecystitis which can be confirmed with ultrasound. 2. Bilateral nonobstructing renal calculi. To contact [facility] with a general question: Operations Center - [phone] For direct physician to physician contact: Physician Hotline - [phone] [facility] ([facility] Facility ID #[id number])
--- NOTE | 2018-07-17 00:23 | RAD ---
EXAM: US Abdomen Limited, Right Upper Quadrant EXAM DATE/TIME: 07/17/2018 12:04 AM CLINICAL HISTORY: 32 years old, male; Pain; Abdominal pain; Localized; Right upper quadrant (ruq); Additional info: Ruq eval for [place] TECHNIQUE: Real-time ultrasound of the abdomen with image documentation. Examination was focused on the right upper quadrant. COMPARISON: No relevant prior studies available. FINDINGS: Liver: Normal liver echogenicity with no focal lesions. Normal hepatopetal portal vein flow. Enlarged measuring 21 cm. Gallbladder: Thick walled gallbladder measuring 0.6 cm with mild pericholecystic fluid and positive sonographic Ledezma's sign. No calculi. Common bile duct: CBD measures 0.3 cm. Pancreas: Pancreatic head through proximal tail are well visualized showing no focal lesions or main ductal dilation. Distal tail is shadowed by overlying bowel gas. Right kidney: Right kidney measures 12 x 5.4 x 4.6 cm (156 cc). No solid cortical lesions, calculi, or pelvocaliectasis. IMPRESSION: Findings of acalculus cholecystitis. To contact [facility] with a general question: Operations Center - [phone] For direct physician to physician contact: Physician Hotline - [phone] [facility] ([facility] Facility ID #[id number])
[2018-07-17 01:53] VITALS: BP 101/82
[2018-07-17] MEDS ORDERED: fentaNYL* 50 MCG/ML 2 ML VIAL (100 MCG VIAL) ONE ×2 (02:28)
[2018-07-17] MEDS: fentaNYL* 50 MCG/ML 2 ML VIAL (100 MCG VIAL) IV SLOW PU ONE (02:30)
== END 2018-07-17 04:13 | disposition short-term general hospital (02) ==
LOC: ED 19:56
DX: K81.0 Acute cholecystitis (principal); R07.9 Chest pain, unspecified; R63.0 Anorexia; I51.7 Cardiomegaly; F17.210 Nicotine dependence, cigarettes, uncomplicated; I10 Essential (primary) hypertension
CPT/HCPCS: 36415; 71260; 74177; 76705; 80053; 81003; 83605; 83690; 83735; 83880; 84484; 85025; 85610; 85730; 86140; 87040; 87077; 87150; 87205; 93005; 96374; 96375; 96376; 99285; J2270; J2405; J2765; J3010; Q9967

== ENCOUNTER 2018-08-10 18:34 | Emergency (ER) | payer OTHER ==
--- NOTE | 2018-08-10 19:08 | ED ---
Abdominal Pain/Male - HPI Summary HPI Summary: Patient is a 32 y/o M w/ c/o abdominal pain. He has a drain placed to gallbladder due to infection. This was done at [facility], patient states that it has stopped draining. Patient had believed that drainage was complete. He also has milerone infusion. PMHx of CHF is reported as well. On triage, pain is rated 10/10. Nothing is noted to aggravate/alleviate Sx. Home medications and allergies are reviewed. - History of Current Complaint Chief Complaint: EDAbdPain Stated Complaint: ABD PAIN Time Seen by Provider: 08/10/18 18:59 Hx Obtained From: Patient Onset/Duration: Still Present Timing: Constant Severity Currently: Severe - 10/10 Pain Intensity: 10 Pain Scale Used: 0-10 Numeric - 10/10 Location: Diffuse Aggravating Factor(s): Nothing Alleviating Factor(s): Nothing Associated Signs And Symptoms: Positive: Negative - Allergies/Home Medications Allergies/Adverse Reactions: Allergies Allergy/AdvReac Type Severity Reaction Status Date / Time No Known Allergies Allergy Verified 05/24/18 04:37 PMH/Surg Hx/FS Hx/Imm Hx Endocrine/Hematology History: Denies: Hx Anticoagulant Therapy, Hx Diabetes Cardiovascular History: Reports: Hx Auto Implanted Cardiovert Defib, Hx Congenital Heart Disease - EF less than 20%, Hx Congestive Heart Failure, Hx Hypertension, Hx Pacemaker/ICD, Other Cardiovascular Problems/Disorders - CARDIOMYOPATHY, ICD Denies: Hx Peripheral Vascular Disease Respiratory History: Denies: Hx Chronic Obstructive Pulmonary Disease (COPD) GI History: Reports: Hx Gastroesophageal Reflux Disease, Other GI Disorders - elevated LFT's 01/24/18 History: Denies: Hx Renal Disease Sensory History: Denies: Hx Contacts or Glasses, Hx Deafness, Hx Hearing Aid Opthamlomology History: Denies: Hx Contacts or Glasses Neurological History: Denies: Hx Migraine, Hx Seizures, Hx Spinal Cord Injury, Hx Transient Ischemic Attacks (TIA) - Surgical History Surgery Procedure, Year, and Place: 01/22/18- defibrillator placed Infectious Disease History: No Infectious Disease History: Denies: Hx of Known/Suspected MRSA, Traveled Outside the [place] in Last 30 Days - Family History Known Family History: Positive: Cardiac Disease - Social History Alcohol Use: None Alcohol Amount: 6 pack Hx Substance Use: Yes Substance Use Type: Reports: None Substance Use Comment - Amount & Last Used: Daily Hx Tobacco Use: Yes Smoking Status (MU): Light Every Day Tobacco Smoker Type: Cigarettes Amount Used/How Often: 4-5 cig/day Have You Smoked in the Last Year: Yes Review of Systems Negative: Fever - on vitals, temp is 99.8 F Positive: Abdominal Pain All Other Systems Reviewed And Are Negative: Yes Physical Exam - Summary Physical Exam Summary: Constitutional: Well-developed, Well-nourished, Alert. (+) Distressed; appears uncomfortable, Skin: Warm, Dry HENT: Normocephalic; Atraumatic Eyes: Conjunctiva normal Neck: Musculoskeletal ROM normal neck. (-) JVD, (-) Stridor, (-) Tracheal deviation Cardio: Rhythm regular, rate normal, Heart sounds normal; Intact distal pulses; The pedal pulses are 2+ and symmetric. Radial pulses are 2+ and symmetric. (-) Murmur Pulmonary/Chest wall: Effort normal. (-) Respiratory distress, (-) Wheezes, (-) Rales Abd: Soft, (-) epigastric tenderness, (-) Distension, (-) Guarding, (-) Rebound (+) colicky pain, generalized abdominal tenderness, exam limited due to apprehension; biliary drain in place Musculoskeletal: (-) Edema Lymph: (-) Cervical adenopathy Neuro: Alert, Oriented x3 Psych: Mood and affect Normal Triage Information Reviewed: Yes Vital Signs On Initial Exam: Initial Vitals Temp Pulse Resp BP Pulse Ox 99.8 F 139 24 117/94 99 08/10/18 18:36 08/10/18 18:36 08/10/18 18:36 08/10/18 18:36 08/10/18 18:36 Vital Signs Reviewed: Yes Diagnostics - Vital Signs Vital Signs Temp Pulse Resp BP Pulse Ox 08/10/18 18:36 99.8 F 139 24 117/94 99 - Laboratory Result Diagrams: 08/10/18 18:51 08/10/18 18:51 Lab Statement: Any lab studies that have been ordered have been reviewed, and results considered in the medical decision making process. - Ultrasound No standard instances Ultrasound Interpretation Completed By: Radiologist - No sonographic findings to correlate with patient's symptomatology. Intraluminal percutaneous gastrostomy tube. ED PHYSICIAN REVIEWED THIS RADIOLOGY REPORT. - EKG 1913 Cardiac Rate: Tachycardia - 140 BPM EKG Rhythm: Sinus Tachycardia ST Segment: Non-Specific Summary of EKG Findings: NEGATIVE STEMI. NON-SPECIFIC T-WAVE CHANGES. Abdominal Pain Fem Course/Dx - Course Course Of Treatment: Patient is a 32 y/o M w/ c/o abdominal pain. He has a drain placed to gallbladder due to infection. This was done at [facility], patient states that it has stopped draining. Patient had believed that drainage was complete. He also has milerone infusion. PMHx of CHF is reported as well. On physical exam, patient appears uncomfortable, colicky pain, generalized abodminal tenderness due to apprehension. Biliary drain in place. A Abdomen US revealed No sonographic findings to correlate with patient's symptomatology. Intraluminal percutaneous gastrostomy tube. An EKG revealed sinus tachycardia at 140 BPM. Negative STEMi, non-specific T-wave changes. In the ED course, the patient recieved Morphine and Zofran. Patient will be transferred to [facility]. Patient will be transferred with a diagnosis of RUQ abdominal pain and cholecystitis. Accepting physician is Dr. Sol. Patient is agreeable with this plan. His pain is currently under control. 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 I spoke to the covering soft hat binder at Health system, Dr. Morales who accepted the patient in transfer to the ED for an initial evaluation to determine what service he should be admitted under. - Diagnoses Provider Diagnoses: RUQ pain, Cholecystitis - Provider Notifications Discussed Care Of Patient With: Dr. Morales Time Discussed With Above Provider: 21:39 Instructed by Provider To: Other - Accepts for admission/transfer. Reason For Transfer: Specialty or service not available at [facility] [place]. Discharge - Sign-Out/Discharge Documenting (check all that apply): Patient Departure - Discharge Plan Condition: Guarded Disposition: TRANS HIGHER LVL OF CARE FAC Referrals: Fernando Hendrix MD [Primary Care Provider] - - Billing Disposition and Condition Condition: GUARDED Disposition: Trans Higher Lvl of Care Fac - Attestation Statements Document Initiated by Scribe: Yes Documenting Scribe: Gary Chan Provider For Whom Scribe is Documenting (Include Credential): Hu Orellana MD Scribe Attestation: Dilip Colbert Tariq Hussain, scribed for Hu Orellana MD on 08/10/18 at 2219. Scribe Documentation Reviewed: Yes Provider Attestation: The documentation as recorded by the scribe, Gary Chan accurately reflects the service I personally performed and the decisions made by me, Hu Orellana MD Status of Scribe Document: Viewed
[2018-08-10] MEDS ORDERED: Morphine VIAL* 4 MG/ML VIAL (1 ml vial) IV ONE ×3 (19:14→23:22)
[2018-08-10] MEDS ORDERED: Ondansetron INJ* 2 MG/ML VIAL IV ONE (19:34)
[2018-08-10 20:07] LABS: ABS Basophils 0.1 10^3/ul (0-0.2); ABS Eosinophils 0 10^3/ul (0-0.6); ABS Lymphocytes 0.7 10^3/ul (1.0-4.8); ABS Monocytes 0.7 10^3/ul (0-0.8); ABS Neutrophils 5.8 10^3/ul (1.5-7.7); ABS Nucleated RBC 0 10^3/ul; Eosinophil % 0.3 %; Hematocrit 40 % (42-52); Hemoglobin 13.2 g/dl (14.0-18.0); Mean Corpuscular HGB Conc 33 g/dl (31-36); Mean Corpuscular Hemoglobin 31 pg (27-31); Mean Corpuscular Volume 93 fL (80-94); Mean Platelet Volume 7.6 fL (7.4-10.4); Nucleated Red Blood Cells % 0.1; Platelet Count 186 10^3/ul (150-450); Red Blood Count 4.25 10^6/ul (4.00-5.40); Red Cell Distribution Width 19 % (10.5-15); White Blood Count 7.3 10^3/ul (3.5-10.8)
[2018-08-10 20:22] LABS: EGFR Non-African American 111.1 (>60)
[2018-08-10 22:22] VITALS: BP 96/67
[2018-08-10] MEDS ORDERED: Piperacillin/Tazobac ADVAN(*) 3.375 GM in NS 0.9% 100 ML* 100 ML IVPB ONE (22:24)
--- NOTE | 2018-08-11 13:29 | ED ---
Progress - Progress Note Progress Note: Pt;'s blood cx's reveal gram pos cocci w/ Staph aureus. Pt was transferred to [facility] yesterday. Will fax results and call attending nurse to relay results. Francisca webber clerk aware. Course/Dx - Course Course Of Treatment: Patient is a 32 y/o M w/ c/o abdominal pain. He has a drain placed to gallbladder due to infection. This was done at [facility], patient states that it has stopped draining. Patient had believed that drainage was complete. He also has milerone infusion. PMHx of CHF is reported as well. On physical exam, patient appears uncomfortable, colicky pain, generalized abodminal tenderness due to apprehension. Biliary drain in place. A Abdomen US revealed No sonographic findings to correlate with patient's symptomatology. Intraluminal percutaneous gastrostomy tube. An EKG revealed sinus tachycardia at 140 BPM. Negative STEMi, non-specific T-wave changes. In the ED course, the patient recieved Morphine and Zofran. Patient will be transferred to [facility]. Patient will be transferred with a diagnosis of RUQ abdominal pain and cholecystitis. Accepting physician is Dr. Sol. Patient is agreeable with this plan. His pain is currently under control. 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 I spoke to the covering computer software engineer at [facility], Dr. Morales who accepted the patient in transfer to the ED for an initial evaluation to determine what service he should be admitted under. - Diagnoses Provider Diagnoses: RUQ pain, Cholecystitis - Provider Notifications Time Discussed With Above Provider: 21:39 Instructed by Provider To: Other - Accepts for admission/transfer. Reason For Transfer: Specialty or service not available at [facility] [place]. Discharge - Sign-Out/Discharge Documenting (check all that apply): Post-Discharge Follow Up - Discharge Plan Condition: Guarded Disposition: TRANS HIGHER LVL OF CARE FAC Referrals: Fernando Hendrix MD [Primary Care Provider] - - Billing Disposition and Condition Condition: GUARDED Disposition: Trans Higher Lvl of Care Fac
== END 2018-08-10 23:33 | disposition short-term general hospital (02) ==
LOC: ED 18:34
DX: K81.9 Cholecystitis, unspecified (principal); B95.62 Methicillin resistant Staphylococcus aureus infection as the cause of diseases classified elsewhere; R10.11 Right upper quadrant pain; I47.1 Supraventricular tachycardia; Z95.810 Presence of automatic (implantable) cardiac defibrillator; Z82.49 Family history of ischemic heart disease and other diseases of the circulatory system; F17.210 Nicotine dependence, cigarettes, uncomplicated
CPT/HCPCS: 36415; 76705; 80053; 83605; 83690; 85025; 87040; 87077; 87150; 87186; 87205; 93005; 96365; 96375; 96376; 99284; J2270; J2405; J2543

== ENCOUNTER 2018-08-28 02:56 | Emergency (ER) | payer OTHER ==
--- NOTE | 2018-08-28 03:36 | ED ---
Abdominal Pain/Male - HPI Summary HPI Summary: 32 year old M presenting to [facility] complains of abdominal pain since two days ago , worse since one hour ago. The patient rates the pain 8/10 in severity. Symptoms aggravated by nothing. Symptoms alleviated by nothing. He reports abdominal bloating, nausea, and vomiting. He reports insomnia. He also reports cough and difficulty breathing. Patient has catheter placed in RUQ. - History of Current Complaint Chief Complaint: EDShortnessOfBreath Stated Complaint: SOB Time Seen by Provider: 08/28/18 03:25 Hx Obtained From: Patient Onset/Duration: Lasting Days - 2, Still Present, Worse Since - one hour ago Timing: Constant Severity Currently: Moderate Pain Intensity: 8 Pain Scale Used: 0-10 Numeric Aggravating Factor(s): Nothing Alleviating Factor(s): Nothing Associated Signs And Symptoms: Positive: Other - abdominal bloating, nausea, vomiting, insomnia, cough and difficulty breathing - Allergies/Home Medications Allergies/Adverse Reactions: Allergies Allergy/AdvReac Type Severity Reaction Status Date / Time No Known Allergies Allergy Verified 08/28/18 02:58 PMH/Surg Hx/FS Hx/Imm Hx Previously Healthy: No Endocrine/Hematology History: Denies: Hx Anticoagulant Therapy, Hx Diabetes Cardiovascular History: Reports: Hx Auto Implanted Cardiovert Defib, Hx Congenital Heart Disease - EF less than 20%, Hx Congestive Heart Failure, Hx Hypertension, Hx Pacemaker/ICD, Other Cardiovascular Problems/Disorders - CARDIOMYOPATHY, ICD Denies: Hx Peripheral Vascular Disease Respiratory History: Denies: Hx Chronic Obstructive Pulmonary Disease (COPD) GI History: Reports: Hx Gastroesophageal Reflux Disease, Other GI Disorders - elevated LFT's 01/24/18 History: Denies: Hx Renal Disease Sensory History: Denies: Hx Contacts or Glasses, Hx Deafness, Hx Hearing Aid Opthamlomology History: Denies: Hx Contacts or Glasses Neurological History: Denies: Hx Migraine, Hx Seizures, Hx Spinal Cord Injury, Hx Transient Ischemic Attacks (TIA) - Surgical History Surgery Procedure, Year, and Place: 01/22/18- defibrillator placed Infectious Disease History: No Infectious Disease History: Denies: Hx of Known/Suspected MRSA, Traveled Outside the [place] in Last 30 Days - Family History Known Family History: Positive: Cardiac Disease - Mother had CHF, father had pacemaker - Social History Alcohol Use: Occasionally Alcohol Amount: 6 pack Hx Substance Use: Yes Substance Use Comment - Amount & Last Used: Daily Hx Tobacco Use: Yes Smoking Status (MU): Light Every Day Tobacco Smoker Type: Cigarettes Amount Used/How Often: 4-5 cig/day Have You Smoked in the Last Year: Yes Review of Systems Positive: Cough, Other - difficulty breathing Positive: Abdominal Pain, Vomiting, Nausea, Other - abdominal bloating Positive: Other - insomnia All Other Systems Reviewed And Are Negative: Yes Physical Exam - Summary Physical Exam Summary: Appearance: Well-appearing, Well-nourished, lying in bed comfortably Skin: Warm, dry, no obvious rash Eyes: sclera anicteric, no conjunctival pallor ENT: mucous membranes moist, pharynx appears normal Neck: Supple, nontender Respiratory: Clear to auscultation, no signs of respiratory distress Cardiovascular: Normal S1, S2. No murmurs. Normal distal pulses in tibial and radial bilaterally. Abdomen: Soft, nontender, normal active bowel sounds present Musculoskeletal: Normal, Strength/ROM Intact Neurological: A&Ox3, awake and alert, mentation is normal, speech is fluent and appropriate Psychiatric: affect is normal, does not appear anxious or depressed Tachy, taphnycnic In mild respitatory distress Catheter draining from RUQ, drainage bag has bilious fluid in it Triage Information Reviewed: Yes Vital Signs On Initial Exam: Initial Vitals Temp Pulse Resp BP Pulse Ox 97.7 F 123 18 88/68 95 08/28/18 02:57 08/28/18 02:57 08/28/18 02:57 08/28/18 02:57 08/28/18 02:57 Vital Signs Reviewed: Yes Diagnostics - Vital Signs Vital Signs Temp Pulse Resp BP Pulse Ox 08/28/18 02:57 97.7 F 123 18 88/68 95 - Laboratory Result Diagrams: 08/28/18 03:26 08/28/18 03:33 Lab Statement: Any lab studies that have been ordered have been reviewed, and results considered in the medical decision making process. - Radiology CXR Radiology Interpretation Completed By: ED Physician Summary of Radiographic Findings: No acute disease. Pending official report. - EKG 0347 Cardiac Rate: Tachycardia - 120 BPM EKG Rhythm: Sinus Tachycardia Abdominal Pain Fem Course/Dx - Course Course Of Treatment: 32 year old M presenting to [facility] complains of abdominal pain since two days ago, worse since one hour ago. In ED course, patient was given Reglan, fentanyl, and IV fluids. He has a complicated cardiac and biliary history with recent symptomatic cholelithiasis necessitating cholecystostomy. Bloodwork remarkable for lactic acid 3.1 and troponin 0.04 and unremarkable liver tests. CXR showed no acute disease. EKG showed sinus tachycardia. Further imaging was deferred to the receiving institution. Transfer initiated at 0459. Transfer Center called back at 0512. Spoke with wire transfer clerk, who agrees to accept physician to ED at [facility]. - Diagnoses Provider Diagnoses: Abdominal pain, Vomiting, Acute kidney injury Discharge - Sign-Out/Discharge Documenting (check all that apply): Patient Departure - Transfer - Discharge Plan Condition: Guarded Disposition: TRANS HIGHER LVL OF CARE FAC Referrals: Fernando Hendrix MD [Primary Care Provider] - - Billing Disposition and Condition Condition: GUARDED Disposition: Trans Higher Lvl of Care Fac - Attestation Statements Document Initiated by Tanneribe: Yes Documenting Scribe: Malu Penny Provider For Whom Osvaldo is Documenting (Include Credential): Hu Orellana MD Scribe Attestation: Malu oClbert, scribed for uH Orellana MD on 08/28/18 at 0536. Scribe Documentation Reviewed: Yes Provider Attestation: The documentation as recorded by the Malu rizo accurately reflects the service I personally performed and the decisions made by Hu gaona MD Status of Scribe Document: Viewed
[2018-08-28] MEDS ORDERED: fentaNYL* 50 MCG/ML 2 ML VIAL (100 MCG VIAL) IV SLOW PU ONE (04:09)
[2018-08-28 04:18] LABS: ABS Basophils 0.1 10^3/ul (0-0.2); ABS Eosinophils 0 10^3/ul (0-0.6); ABS Lymphocytes 1.4 10^3/ul (1.0-4.8); ABS Monocytes 0.6 10^3/ul (0-0.8); ABS Neutrophils 3.6 10^3/ul (1.5-7.7); ABS Nucleated RBC 0 10^3/ul; Eosinophil % 0.4 %; Hematocrit 33 % (42-52); Hemoglobin 10.8 g/dl (14.0-18.0); Lymphocyte % 24.3 %; Mean Corpuscular HGB Conc 33 g/dl (31-36); Mean Corpuscular Hemoglobin 30 pg (27-31); Mean Corpuscular Volume 92 fL (80-94); Nucleated Red Blood Cells % 0; Platelet Count 252 10^3/ul (150-450); Red Blood Count 3.57 10^6/ul (4.00-5.40); Red Cell Distribution Width 19 % (10.5-15); White Blood Count 5.7 10^3/ul (3.5-10.8)
[2018-08-28 04:26] LABS: EGFR Non-African American 36.8 (>60)
[2018-08-28] MEDS ORDERED: Metoclopramide IV* 5 MG/ML 2 ML VIAL IV ONE (04:35)
[2018-08-28] MEDS ORDERED: NS 0.9% 1000 ML* 1,000 ML IV ONE (04:56)
[2018-08-28] MEDS: fentaNYL* 50 MCG/ML 2 ML VIAL (100 MCG VIAL) IV SLOW PU PRN ×3 (05:12→07:37)
[2018-08-28 07:46] VITALS: BP 105/85
== END 2018-08-28 07:44 | disposition short-term general hospital (02) ==
LOC: ED 02:56
DX: N17.9 Acute kidney failure, unspecified (principal); R10.9 Unspecified abdominal pain; R11.2 Nausea with vomiting, unspecified; R05 Cough; G47.00 Insomnia, unspecified; R06.02 Shortness of breath; F17.210 Nicotine dependence, cigarettes, uncomplicated
CPT/HCPCS: 36415; 71046; 80053; 83605; 83690; 83880; 84484; 85025; 93005; 96361; 96374; 96375; 96376; 99284; J2765; J3010